=== PATIENT | male | born 1955 | race Hispanic/Latino ===

== ENCOUNTER 2018-10-25 10:47 | Inpatient (IN) | payer OTHER ==
--- NOTE | 2018-10-25 16:31 | R.PREADM ---
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 Sony Wright M.D. MR# [id number] [facility]# [id number] NAME DARLENE BLOOM ADDRESS [address] [place] [address] PHONE [facility] [id number] DATE OF 1955 AGE 63 SSN# [id number] GENDER male MARITAL STATUS Single (Never ) RACE ADMIT FROM 02 - [facility] PRE-HOSPITAL LIVING SETTING 01 - Home (private home/apt. board/care, assisted living, assisted, transitional living) HOME TYPE AND DETAILS Type of home: single family house # of steps to enter the residence: 0 # of steps within the residence: 0 # of levels in the residence: 1 PRE-HOSPITAL LIVING WITH Family/Relatives FAMILY SUPPORT Yes PRIMARY FAMILY CONTACT NAME Marshall Bloom PRIMARY FAMILY CONTACT PHONE PHONE PRIMARY FAMILY CONTACT ON ADM.? no IS PRIMARY FAMILY CONTACT AUTH. REP.? no 1ST EMERGENCY CONTACT Marshall Bloom 1ST CONTACT PHONE PHONE 1ST CONTACT ON ADM. no IS 1ST CONTACT AUTH. REP.? no PHONE 2ND CONTACT ON ADM.? no PATIENT EMPLOYMENT STATUS Retired (for age) PATIENT EMPLOYER No Employer PAYOR INFORMATION: 1ST PAYOR NAME Medicare 1ST PAYOR PHONE 1ST PAYOR INJURY/ILLNESS DUE TO ACCIDENT? No ANOTHER CONSTITUTION PARTY RESPONSIBLE? No PRIMARY REHAB/ACUTE DIAGNOSIS: CAD ONSET DATE 10/17/2018 REHAB IMPAIRMENT CATEGORY (JENNIFER): 14 Cardiac does NOT meet 60% rule PRIMARY DIAGNOSIS-RELATED SURGERIES: CABG x4 on Oct 18, 2018 COMORBID REHAB/ACUTE DIAGNOSES: - Tier 1 Dependence on renal dialysis (Z99.2) SUMMARY OF ACUTE HOSPITALIZATION: Pt. is a 63 yo Right-handed male. On 10/17/2018 he was admitted to [facility] with diagnosis CAD. His impairment category is Cardiac 09 - Cardiac Disorders (09). Pre-morbidly, Pt. was independent/mod-I in Self-Care, Sphincter Control, Transfers Control, and Locom otion; and he had good Sphincter Control. Currently, he has deficits of Transfers Control, Communication, Social Cognition, Endurance, Balance, Safety Awareness, Self-Care, and Locomotion. Pt. is now referred to [facility] for acute in-patient rehabilitation in order to maximize patient's functional independence in activities of daily living, strength, ROM, and mobi lity. Patient has realistic goal of being discharged at assistance level 6-Tim to reside at Home with Fam esther/Relatives. PAST MEDICAL HISTORY Dependence on renal dialysis (Z99.2) MEDICATION ALLERGIES: No Known Drug Allergies (NKDA) ENVIRONMENTAL ALLERGIES: - Substance Allergies None Known - Other Allergies None Known CODE STATUS: Full code WEIGHT/HEIGHT/BMI: WEIGHT 248 lbs HEIGHT 5' 6" BMI 40 DIET: - Diet Type Regular - Diet - Solid Texture Regular - Diet - Liquid Texture Regular - Tube Feed N/A SKIN DIAGRAM: Incision on Chest; extent - small; stage - NS(Not Stageable). Treatment - Per Physician's Orders. REVIEW OF SYSTEMS: - Gen Alert and awake Lying in bed No apparent distress Oriented to: person, time, and place - Vital Signs Vital signs stable, afebrile - CVS RRR VITAL SIGNS Temperature: 96.5 F SBP/DBP: 134/90 Pulse: 83 Resp: 12 Vital signs stable, afebrile CURRENT SPHINCTER CONTROL: Pre-hospital bladder status: continent # of bladder accidents in the last 7 days prior to screenin Pre-hospital bowel status: continent # of bowel accidents in the last 7 days prior to screenin Last Bowel Movement Date: 10/25/2018 DETAILED CURRENT FUNCTIONAL STATUS: - Bladder accident frequency: Ind - No accidents in the past 7 days - Bowel accident frequency: Ind - No accidents in the past 7 days - Walking score based on distance walked: 1(<=50ft) FUNCTIONAL STATUS: - Self-Care A. Eating Ind Ind B. Grooming Ind sup C. Bathing Ind maxA D. Dressing - Upper Ind maxA E. Dressing - Lower Ind maxA F. Toileting Ind maxA - Sphincter Control G: Bladder control Ind Ind H: Bowel control Ind Ind - Transfers Control I. Bed/Chair/Wheelchair Ind modA J. Toilet Ind modA K. Tub/Shower Ind modA - Locomotion L. Walk/Wheelchair (B) Ind Dep M. Stairs Ind ADNO - Communication N. Comprehension (B) sup sup O. Expression (B) sup sup - Social Cognition P. Social Interaction sup sup Q. Problem Solving sup sup R. Memory sup sup - Endurance Poor - Balance Poor - Safety Awareness Poor CURRENT FUNC. DEFICITS: Transfers Control, Communication, Social Cognition, Endurance, Balance, Safety Awareness, Self-Care, and Locomotion THERAPY NOTES FROM ACUTE CARE: Attached. SPECIAL NEEDS: - Safety Concerns Skin breakdown precautions needed due to skin breakdown risk PATIENT NEEDS ACTIVE AND ONGOING THERAPEUTIC INTERVENTION OF MULTIPLE THERAPY DISCIPLINES, INCLUDING: - Occupational Therapy Evaluate and Treat. - Physical Therapy Evaluate and Treat. PATIENT NEEDS CLOSE MEDICAL SUPERVISION BY A REHABILITATION PHYSICIAN FOR: Bowel and Bladder Management Coordination of Treatment Team Medical and Co-Morbidity Management Wound Care PATIENT REQUIRES 24X7 REHAB NURSING FOR MEDICAL AND FUNCTIONAL MGT. OF THE FOLLOWING DEFICITS: ADL's Ambulation Bowel and Bladder Management Cognition Communication Disease Management Medication Management Patient/Family Education Providing Safe Environment Skin Integrity Transfers PATIENT REQUIRES INTENSIVE, COORDINATED INTERDISCIPLINARY APPROACH TO REHAB: Arranging Home Equipment/Services Discharge Planning Family Intervention/Training Professional Programmer Analyst/Case Management PATIENT REHAB POTENTIAL: Expected level of measurable improvement will be of a practical value to patient's functional capacit y or adaptations to impairments Has a viable Discharge Plan Medically appropriate; condition is sufficiently stable to participate in intensive rehab program Patient is able and expected to receive 3 hours of individualized therapy daily on at least 5 of ever y 7 days Patient's prognosis for significant practical improvement within a reasonable period of time appears Good DISCHARGE PLAN: - Estimated Length of Stay (days) 10. - Consensus on plan Discharge plan has been discussed with primary caregiver. Patient/Family is in agreement with the eliazar n. Primary caregiver is in agreement with the plan. - Patient/Family Goals Return home with assistance. - Planned Living Setting Upon Discharge Home, to live with Family/Relatives. RECOMMENDED CARE LEVEL: IRF RECOMMENDATION DETAILS: Recommended Admission to Comprehensive Rehabilitation Program to Increase Functional [place] SCREENER'S COMPLETENESS CONFIRMATION: - Screening Confirmation The patient data collection on this preadmission screening form is finished PHYSICIANS REVIEW AND ADMISSION DETERMINATION Admit - Based on my review of the Pre-Admission Screening results, in my medical judgment and experie nce, I concur with the findings and recommend admission to [facility], as this patient requires an IRF level of care. SIGNATURE PANEL: Clinical Liaison - [electronically] signed by Maylin Odell on 10/25/2018 at 16:17 (VETERINARY SURGERY TECHNICIAN) Clinical Liaison - [electronically] signed by Alma Rosa Briseno on 10/25/2018 at 16:27 (VETERINARY SURGERY TECHNICIAN) Physician Reviewer - [electronically] signed by Dr. Sony Wright M.D. on 10/25/2018 at 16:30 (VETERINARY SURGERY TECHNICIAN )
--- OUTSIDE RECORDS SUMMARY | 2018-10-26 23:50 | XMS REPORT ---
:1955 Author Organization [employer] Care Team Providers Name Role Phone GamboaBrandyn Provider Role Unavailable Allergies, Adverse Reactions, Alerts Substance Reaction Event Type N.K.D.A. Info Not Available Non Drug Allergy Problems Problem Type Condition Code Onset Dates Condition Status Problem Hypothyroidism, unspecified type E03.9 Active Problem Dependence on renal dialysis Z99.2 Active Problem GERD without esophagitis K21.9 Active Problem Weakness R53.1 Active Assessment GERD without esophagitis K21.9 Active Problem HTN (hypertension), benign I10 Active Assessment Weakness R53.1 Active Assessment At risk for falling Z91.81 Active Problem Benign prostatic hyperplasia, N40.0 Active unspecified whether lower urinary tract symptoms present Problem End stage renal disease N18.6 Active Problem Generalized edema R60.1 Active Problem ESRD (end stage renal disease) N18.6 Active Problem Anemia of chronic disease D63.8 Active Assessment HTN (hypertension), benign I10 Active Assessment Anemia of chronic disease D63.8 Active Assessment Generalized edema R60.1 Active Assessment Dependence on renal dialysis Z99.2 Active Assessment Hypothyroidism, unspecified type E03.9 Active Assessment Controlled type 2 diabetes mellitus E11.9 Active without complication, without long-term current use of insulin Problem Controlled type 2 diabetes mellitus E11.9 Active without complication, without long-term current use of insulin Assessment Benign prostatic hyperplasia, N40.0 Active unspecified whether lower urinary tract symptoms present Assessment End stage renal disease N18.6 Active Problem At risk for falling Z91.81 Active Medications Medication Code Code Instructions Start End Status Dosage System Date Date Calcium Acetate [facility] 46525821785 667 MG Orally Active 2 capsules Three times a with meals day Vitamin B-1 [facility] 72854604660 100 MG Orally Active 1 tablet Once a day Lasix ND 28348303726 80 MG Orally Active 1 tablet Once a day Aspirin 81 ND 78104907584 81 MG Orally Active 1 tablet Once a day Levothyroxine [facility] 32212171485 88 MCG Orally Active 1 tablet on Sodium Once a day an empty stomach in the morning Docusate Sodium [facility] 27777808858 100 MG Orally Active 1 capsule Once a day as needed Levothyroxine [facility] 19288688124 88 MCG Orally Active 1 tablet on Sodium Once a day an empty stomach in the morning Tamsulosin HCl [facility] 29738277450 0.4 MG Orally Active 1 capsule Once a day Midodrine HCl [facility] 53042490558 5 MG Orally Active 1 tablet Take 30 mins before dialysis Vitamin D3 [facility] 22861000185 5000 UNIT Active 1 capsule Maximum Strength Orally Once a day Vitamin B-1 [facility] 75452765351 100 MG Active TAKE 1 TABLET BY MOUTH EVERY DAY Oysco 500 [facility] 54185901942 500 MG Orally Active 2 tablets twice a day Tamsulosin HCl [facility] 02572028650 0.4 MG Active TAKE ONE CAPSULE BY MOUTH AT BEDTIME Calcium NDC 0 500 MG Orally Active 2 tablet Carbonate Twice a day Results No Known Results Summary Purpose eClinicalWorks Submission
--- OUTSIDE RECORDS SUMMARY | 2018-10-26 23:50 | XMS REPORT ---
:1955 [facility] Address [address] [place] [address] Dr. Peterson [address] [place] [address] Care Team Providers Name Role Phone Unavailable Unavailable Unavailable Problems This patient has no known problems. Allergies, Adverse Reactions, Alerts This patient has no known allergies or adverse reactions. Medications This patient has no known medications.
--- OUTSIDE RECORDS SUMMARY | 2018-10-26 23:50 | XMS REPORT ---
:1955 Author Organization [employer] Care Team Providers Name Role Phone Cooper Brandyn Provider Role Unavailable Allergies No Known Allergies Problems Problem Type Condition Code Onset Dates Condition Status Problem Hypothyroidism, unspecified type E03.9 Active Problem Dependence on renal dialysis Z99.2 Active Problem GERD without esophagitis K21.9 Active Problem Controlled type 2 diabetes mellitus E11.9 Active without complication, without long-term current use of insulin Problem At risk for falling Z91.81 Active Problem Weakness R53.1 Active Problem HTN (hypertension), benign I10 Active Problem Benign prostatic hyperplasia, N40.0 Active unspecified whether lower urinary tract symptoms present Problem End stage renal disease N18.6 Active Problem Generalized edema R60.1 Active Problem ESRD (end stage renal disease) N18.6 Active Problem Anemia of chronic disease D63.8 Active Medications Medication Code Code Instructions Start End Status Dosage System Date Date Levothyroxine [facility] 76956604822 88 MCG Orally Active 1 tablet Sodium Once a day on an empty stomach in the morning Results No Known Results Summary Purpose eClinicalWorks Submission
[2018-10-27] MEDS ORDERED: DOCUSATE NA 100 MG CAP PO PRN (00:12)
[2018-10-27] MEDS: PANTOPRAZOLE 40MG TABLET PO SCH (05:30)
[2018-10-27] MEDS: LEVOTHYROXINE SOD 0.088 MG TAB PO SCH (05:30)
[2018-10-27] MEDS ORDERED: METOPROLOL TAR 25 MG TAB PO SCH (06:00)
[2018-10-27] MEDS ORDERED: PNEUMOCOCCAL VACCINE 0.5 ML IMVAC ONE (08:00)
[2018-10-27] MEDS: PROMOD 30 ML DOSE PO SCH ×2 (08:00→20:08)
[2018-10-27] MEDS: FERROUS SULFATE 325 MG TAB PO SCH ×2 (08:33→19:57)
[2018-10-27] MEDS: TAMSULOSIN 0.4 MG SR CAP PO SCH (08:33)
[2018-10-27] MEDS: CA ACETATE 667 MG CAP PO SCH ×3 (08:33→16:57)
[2018-10-27] MEDS: FE SULF/FA/VIT B COMP & C TAB PO SCH (08:34)
[2018-10-27] MEDS: CLOPIDOGREL 75 MG TABLET PO SCH (08:34)
[2018-10-27] MEDS: ASPIRIN 81 MG CHEWABLE TABLET PO SCH (08:34)
[2018-10-27] MEDS: MIDODRINE HCL 5 MG TABLET PO SCH (09:51)
--- NOTE | 2018-10-27 11:27 | FAST ---
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 Sony Wright M.D. ADMISSION DIAGNOSIS: - Cardiac 09 - Cardiac Disorders () CAD. EATING: Activity did not occur on this shift EATING - SCORE: 0-UNK GROOMING: Activity did not occur on this shift GROOMING - SCORE: 0-UNK BATHING: Activity did not occur on this shift BATHING - SCORE: 0-UNK DRESSING - UPPER BODY: Patient is not dressing in public clothing ARTICLES SCORE Total number of steps: 0 DRESSING - UPPER BODY - SCORE: 0-UNK DRESSING - LOWER BODY: Patient is not dressing in public clothing ARTICLES SCORE Total number of steps: 0 DRESSING - LOWER BODY - SCORE: 0-UNK TOILETING: Activity did not occur on this shift TOILETING - SCORE: 0-UNK BLADDER MANAGEMENT: Patient is on renal dialysis or peritoneal dialysis and no voiding activity BLADDER MANAGEMENT - SCORE: 7-IND BOWEL MANAGEMENT: Activity did not occur on this shift BOWEL MANAGEMENT - SCORE: 7-IND TRANSFERS: BED, CHAIR, WHEELCHAIR: TRANSFERS: BED, CHAIR, WHEELCHAIR - STEP 1: Does the patient require assistance of a person or device, or need extra time with bed, chair, or whe elchair transfers? Yes. TRANSFERS: BED, CHAIR, WHEELCHAIR - STEP 2: Does the patient require the assistance of a helper? Yes. TRANSFERS: BED, CHAIR, WHEELCHAIR - STEP 3: How much assistance does the patient require from the helper? Lifting of the legs TRANSFERS: BED, CHAIR, WHEELCHAIR - STEP 4: How many legs does the patient require the helper to lift? both legs TRANSFERS: BED, CHAIR, WHEELCHAIR - SCORE: 3-MOD TRANSFERS: TOILET: Activity did not occur on this shift TRANSFERS: TOILET - SCORE: 0-UNK TRANSFERS: SHOWER: Activity did not occur on this shift TRANSFERS: SHOWER - SCORE: 0-UNK TRANSFERS: TUB: Activity did not occur on this shift TRANSFERS: TUB - SCORE: 0-UNK LOCOMOTION: WALK: Activity did not occur on this shift LOCOMOTION: WALK - SCORE: 0-UNK LOCOMOTION: WHEELCHAIR: Activity did not occur on this shift LOCOMOTION: WHEELCHAIR - SCORE: 0-UNK COMPREHENSION: COMPREHENSION: TYPE: Both COMPREHENSION - STEP 1: Does the patient require help from a person or device, or need extra time to understand complex and a bstract ideas (such as current events, finances, discharge planning, medical issues, relationships, e tc)? No. COMPREHENSION - STEP 2: Does the patient need extra time, require an assistive device (such as glasses for visual comprehensi on or a hearing aid for auditory comprehension) or does s/he have mild difficulty understanding compl ex and abstract information? Yes. COMPREHENSION - SCORE: 6-SMILEY EXPRESSION EXPRESSION: TYPE: Both EXPRESSION - STEP 1: Does the patient require help from a person or device, or need extra time expressing complex and abst ract ideas (such as current events, finances, discharge planning, medical issues, relationships, etc) ? No. EXPRESSION - STEP 2: Does the patient need extra time, require an assistive device (such as augmentive communication syste m or a communication board), OR does s/he have mild difficulty expressing complex and abstract ideas (including mild dysarthria or mild word-find problems)? Yes. EXPRESSION - SCORE: 6-SMILEY SOCIAL INTERACTION: SOCIAL INTERACTION - STEP 1: Does the patient require a helper to interact with others in social and therapeutic situations? No. SOCIAL INTERACTION - STEP 2: Does the patient need extra time in social situations, OR does s/he interact with staff, other patien ts, and family members ONLY in structured environments, OR does s/he require medication for social in teraction? Yes, patient needs extra time SOCIAL INTERACTION - SCORE: 6-SMILEY PROBLEM SOLVING: PROBLEM SOLVING - STEP 1: Does the patient need help from a person or device, or need extra time to solve complex problems such as managing a checking account or confronting interpersonal problems? No. PROBLEM SOLVING - STEP 2: Does the patient require extra time to make decisions or solve problems, OR does s/he have slight dif ficulty reading, initiating, or self-correcting in unfamiliar situations? Yes, patient needs extra ti me. PROBLEM SOLVING - SCORE: 6-SMILEY MEMORY: MEMORY - STEP 1: Does the patient need help from a person or device, or need extra time to remember frequently encount ered people, daily routines, and executing requests? No. MEMORY - STEP 2: Does the patient have slight difficulty recognizing frequently encountered people, daily routines, or executing requests without the need for repetition or using self-initiated or environmental cues to remember? Yes. MEMORY - SCORE: 6-SMILEY
--- NOTE | 2018-10-27 11:31 | FAST ---
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 Sony Wright M.D. ADMISSION DIAGNOSIS: - Cardiac 09 - Cardiac Disorders () CAD. EATING: EATING - STEP 1: Does the patient require the assistance of a person or device, or need extra time when eating? Yes. EATING - STEP 2: Does the patient require the assistance of a helper? No, patient only requires an assistive device, O R s/he takes more than reasonable time to eat, OR there is a safety concern, OR s/he requires modifie d food consistency EATING - SCORE: 6-SMILEY GROOMING: GROOMING - STEP 1: Does the patient require the assistance of a person or device, or need extra time when grooming? Yes. GROOMING - STEP 2: Does the patient require the assistance of a helper? Yes. GROOMING - STEP 3: How much assistance does the patient require from the helper? Incidental touching assistance from the helper while grooming GROOMING - SCORE: 4-MIN BATHING: Abdomen Buttocks Chest Left arm Left lower leg and foot Left upper leg Perineal area Right arm Right lower leg and foot Right upper leg BATHING - STEP 1: Does the patient require the assistance of a person or device, or need extra time when bathing? Yes. BATHING - STEP 2: Does the patient require the assistance of a helper? Yes. BATHING - STEP 3: How much assistance does the patient require from the helper? More than just incidental help BATHING - STEP 4: What percent of the body parts did the patient bathe WITHOUT the helper? Half or more of the body par ts BATHING - SCORE: 3-MOD DRESSING - UPPER BODY: T-shirt/pullover shirt (four steps) ARTICLES SCORE Total number of steps: 4 DRESSING - UPPER BODY - STEP 1: Does the patient require help from a person or device, or need extra time when dressing above the [address]? Yes. DRESSING - UPPER BODY - STEP 2: Does the patient require the assistance of a helper? Yes. DRESSING - UPPER BODY - STEP 3: Does the helper touch the patient while dressing? Yes. DRESSING - UPPER BODY - STEP 4: How many of the total steps does the patient complete on his/her own? 2 DRESSING - UPPER BODY - SCORE: 3-MOD DRESSING - LOWER BODY: Elastic waist pants (three steps) Sock - Left foot (one step) Sock - Right foot (one step) Underwear (three steps) ARTICLES SCORE Total number of steps: 8 DRESSING - LOWER BODY - STEP 1: Does the patient require help from a person or device, or need extra time when dressing below the [address]? Yes. DRESSING - LOWER BODY - STEP 2: Does the patient require the assistance of a helper? Yes. DRESSING - LOWER BODY - STEP 3: Does the helper touch the patient while dressing? Yes. DRESSING - LOWER BODY - STEP 4: How many of the total steps does the patient complete on his/her own? 3 DRESSING - LOWER BODY - STEP 5: Does patient require total assistance for dressing below the waist such as the helper holding clothin g and performing basically all the activities? No. DRESSING - LOWER BODY - SCORE: 2-MAX TOILETING: TOILETING - STEP 1: Does the patient require the assistance of a person or device, or need extra time with toileting? Yes . TOILETING - STEP 2: Does the patient require the assistance of a helper? Yes. TOILETING - STEP 3: How much assistance does the patient require from the helper? Hands-on assistance from the helper TOILETING - STEP 4: Of the 3 tasks: 1) Adjusting clothing prior to use, 2) Cleansing of perineal area, 3) Adjusting clot nabeel after use; How many tasks does the patient perform WITHOUT assistance of the helper? One task TOILETING - SCORE: 2-MAX BLADDER MANAGEMENT: Activity did not occur on this shift BLADDER MANAGEMENT - SCORE: 7-IND BOWEL MANAGEMENT: Activity did not occur on this shift BOWEL MANAGEMENT - SCORE: 7-IND TRANSFERS: BED, CHAIR, WHEELCHAIR: TRANSFERS: BED, CHAIR, WHEELCHAIR - STEP 1: Does the patient require assistance of a person or device, or need extra time with bed, chair, or whe elchair transfers? Yes. TRANSFERS: BED, CHAIR, WHEELCHAIR - STEP 2: Does the patient require the assistance of a helper? Yes. TRANSFERS: BED, CHAIR, WHEELCHAIR - STEP 3: How much assistance does the patient require from the helper? Steadying/guiding assistance TRANSFERS: BED, CHAIR, WHEELCHAIR - SCORE: 4-MIN TRANSFERS: TOILET: TRANSFERS: TOILET - STEP 1: Does the patient require the assistance of a person or device, or need extra time with toilet transfe rs? Yes. TRANSFERS: TOILET - STEP 2: Does the patient require the assistance of a helper? Yes. TRANSFERS: TOILET - STEP 3: How much assistance does the patient require from the helper? Patient performs half or more of the tr ansferring tasks TRANSFERS: TOILET - STEP 4: Does the patient need only incidental help such as contact guard or steadying during toilet transfer? Yes. TRANSFERS: TOILET - SCORE: 4-MIN TRANSFERS: SHOWER: TRANSFERS: SHOWER - STEP 1: Does the patient require the assistance of a person or device, or need extra time with shower transfe rs? Yes. TRANSFERS: SHOWER - STEP 2: Does the patient require the assistance of a helper? Yes. TRANSFERS: SHOWER - STEP 3: How much assistance does the patient require from the helper? Only incidental help such as contact gu arding or steadying during shower transfers, or help to lift one leg into the shower TRANSFERS: SHOWER - SCORE: 4-MIN TRANSFERS: TUB: Activity did not occur on this shift TRANSFERS: TUB - SCORE: 0-UNK LOCOMOTION: WALK: Activity did not occur on this shift LOCOMOTION: WALK - SCORE: 0-UNK LOCOMOTION: WHEELCHAIR: Activity did not occur on this shift LOCOMOTION: WHEELCHAIR - SCORE: 0-UNK LOCOMOTION: STAIRS: Activity did not occur on this shift LOCOMOTION: STAIRS - SCORE: 0-UNK COMPREHENSION: COMPREHENSION: TYPE: Both COMPREHENSION - STEP 1: Does the patient require help from a person or device, or need extra time to understand complex and a bstract ideas (such as current events, finances, discharge planning, medical issues, relationships, e tc)? No. COMPREHENSION - STEP 2: Does the patient need extra time, require an assistive device (such as glasses for visual comprehensi on or a hearing aid for auditory comprehension) or does s/he have mild difficulty understanding compl ex and abstract information? Yes. COMPREHENSION - SCORE: 6-SMILEY EXPRESSION EXPRESSION: TYPE: Both EXPRESSION - STEP 1: Does the patient require help from a person or device, or need extra time expressing complex and abst ract ideas (such as current events, finances, discharge planning, medical issues, relationships, etc) ? No. EXPRESSION - STEP 2: Does the patient need extra time, require an assistive device (such as augmentive communication syste m or a communication board), OR does s/he have mild difficulty expressing complex and abstract ideas (including mild dysarthria or mild word-find problems)? No. EXPRESSION - SCORE: 7-IND SOCIAL INTERACTION: SOCIAL INTERACTION - STEP 1: Does the patient require a helper to interact with others in social and therapeutic situations? No. SOCIAL INTERACTION - STEP 2: Does the patient need extra time in social situations, OR does s/he interact with staff, other patien ts, and family members ONLY in structured environments, OR does s/he require medication for social in teraction? No. SOCIAL INTERACTION - SCORE: 7-IND PROBLEM SOLVING: PROBLEM SOLVING - STEP 1: Does the patient need help from a person or device, or need extra time to solve complex problems such as managing a checking account or confronting interpersonal problems? Yes. PROBLEM SOLVING - STEP 2: Does the patient solve basic routine problems half or more of the time? Yes. PROBLEM SOLVING - STEP 3: How often does the patient need help to solve basic routine problems? Less than 10% of the time PROBLEM SOLVING - SCORE: 5-SUP MEMORY: MEMORY - STEP 1: Does the patient need help from a person or device, or need extra time to remember frequently encount ered people, daily routines, and executing requests? Yes. MEMORY - STEP 2: How often does the patient need help to remember frequently encountered people, daily routines, and e xecuting requests? Less than 10% of the time MEMORY - SCORE: 5-SUP SIGNATURE PANEL: The following modified sections: Eating - Score, Grooming - Score, Bathing - Score, Dressing - Upper Body - Score, Dressing - Lower Body - Score, Toileting - Score, Transfers: Bed, Chair, Wheelchair - S core, Transfers: Toilet - Score, Transfers: Shower - Score, Transfers: Tub - Score, Comprehension - S core, Expression - Score, Social Interaction - Score, Problem Solving - Score, Memory - Score were [e lectronically] signed by Alyosn Orellana OT on Sat Oct 27 2018 10:49:40 T-0600 ([facility])
[2018-10-27 13:38] LABS: Absolute Lymphocytes (CBC) 0.5 K/uL (0.7-4.9); Absolute Monocytes 0.4 K/uL (0.1-1.3); Absolute Neutrophil 5.5 K/uL (1.8-8.0); Basophils % 0.9 % (0-1.3); Hematocrit 25.5 % (39.6-49.0); Lymphocytes % 7.8 % (15.3-44.8); MPV 8.3 fL (7.6-11.3); Monocytes % 6.5 % (3.3-12.3); RBC Red Blood Cell Count 2.67 M/uL (4.33-5.43)
[2018-10-27 13:54] LABS: Albumin 2.4 g/dL (3.4-5.0); Magnesium 1.6 mg/dL (1.8-2.4); Potassium 3.5 mmol/L (3.5-5.1); Prealbumin 10.2 mg/dL (20-40)
--- NOTE | 2018-10-27 15:24 | FAST ---
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 Sony Wright M.D. ADMISSION DIAGNOSIS: - Cardiac 09 - Cardiac Disorders () CAD. EATING: EATING - STEP 1: Does the patient require the assistance of a person or device, or need extra time when eating? Yes. EATING - STEP 2: Does the patient require the assistance of a helper? No, patient only requires an assistive device, O R s/he takes more than reasonable time to eat, OR there is a safety concern, OR s/he requires modifie d food consistency EATING - SCORE: 6-SMILEY GROOMING: Activity did not occur on this shift GROOMING - SCORE: 0-UNK BATHING: Activity did not occur on this shift BATHING - SCORE: 0-UNK DRESSING - UPPER BODY: Activity did not occur on this shift ARTICLES SCORE Total number of steps: 0 DRESSING - UPPER BODY - SCORE: 0-UNK DRESSING - LOWER BODY: Activity did not occur on this shift ARTICLES SCORE Total number of steps: 0 DRESSING - LOWER BODY - SCORE: 0-UNK TOILETING: TOILETING - STEP 1: Does the patient require the assistance of a person or device, or need extra time with toileting? Yes . TOILETING - STEP 2: Does the patient require the assistance of a helper? Yes. TOILETING - STEP 3: How much assistance does the patient require from the helper? Hands-on assistance from the helper TOILETING - STEP 4: Of the 3 tasks: 1) Adjusting clothing prior to use, 2) Cleansing of perineal area, 3) Adjusting clot nabeel after use; How many tasks does the patient perform WITHOUT assistance of the helper? One task TOILETING - SCORE: 2-MAX BLADDER MANAGEMENT: Patient is on renal dialysis or peritoneal dialysis and no voiding activity BLADDER MANAGEMENT - SCORE: 7-IND BLADDER MANAGEMENT - FREQUENCY OF ACCIDENTS: BLADDER MANAGEMENT(FA) - STEP 1: How many accidents has the patient had during the current shift? 0 BOWEL MANAGEMENT: Activity did not occur on this shift BOWEL MANAGEMENT - SCORE: 7-IND BOWEL MANAGEMENT - FREQUENCY OF ACCIDENTS: BOWEL MANAGEMENT(FA) - STEP 1: How many accidents has the patient had during the current shift? 0 TRANSFERS: BED, CHAIR, WHEELCHAIR: TRANSFERS: BED, CHAIR, WHEELCHAIR - STEP 1: Does the patient require assistance of a person or device, or need extra time with bed, chair, or whe elchair transfers? Yes. TRANSFERS: BED, CHAIR, WHEELCHAIR - STEP 2: Does the patient require the assistance of a helper? Yes. TRANSFERS: BED, CHAIR, WHEELCHAIR - STEP 3: How much assistance does the patient require from the helper? Lifting of the patient TRANSFERS: BED, CHAIR, WHEELCHAIR - STEP 4: Does the helper lift the patient ONLY up? ONLY down? Up AND Down? Up AND Down. TRANSFERS: BED, CHAIR, WHEELCHAIR - SCORE: 2-MAX TRANSFERS: TOILET: TRANSFERS: TOILET - STEP 1: Does the patient require the assistance of a person or device, or need extra time with toilet transfe rs? Yes. TRANSFERS: TOILET - STEP 2: Does the patient require the assistance of a helper? Yes. TRANSFERS: TOILET - STEP 3: How much assistance does the patient require from the helper? Patient performs half or more of the tr ansferring tasks TRANSFERS: TOILET - STEP 4: Does the patient need only incidental help such as contact guard or steadying during toilet transfer? Yes. TRANSFERS: TOILET - SCORE: 4-MIN TRANSFERS: SHOWER: Activity did not occur on this shift TRANSFERS: SHOWER - SCORE: 0-UNK TRANSFERS: TUB: Activity did not occur on this shift TRANSFERS: TUB - SCORE: 0-UNK LOCOMOTION: WALK: Activity did not occur on this shift LOCOMOTION: WALK - SCORE: 0-UNK LOCOMOTION: WHEELCHAIR: Activity did not occur on this shift LOCOMOTION: WHEELCHAIR - SCORE: 0-UNK COMPREHENSION: COMPREHENSION: TYPE: Both COMPREHENSION - STEP 1: Does the patient require help from a person or device, or need extra time to understand complex and a bstract ideas (such as current events, finances, discharge planning, medical issues, relationships, e tc)? No. COMPREHENSION - STEP 2: Does the patient need extra time, require an assistive device (such as glasses for visual comprehensi on or a hearing aid for auditory comprehension) or does s/he have mild difficulty understanding compl ex and abstract information? Yes. COMPREHENSION - SCORE: 6-SMILEY EXPRESSION EXPRESSION: TYPE: Both EXPRESSION - STEP 1: Does the patient require help from a person or device, or need extra time expressing complex and abst ract ideas (such as current events, finances, discharge planning, medical issues, relationships, etc) ? No. EXPRESSION - STEP 2: Does the patient need extra time, require an assistive device (such as augmentive communication syste m or a communication board), OR does s/he have mild difficulty expressing complex and abstract ideas (including mild dysarthria or mild word-find problems)? No. EXPRESSION - SCORE: 7-IND SOCIAL INTERACTION: SOCIAL INTERACTION - STEP 1: Does the patient require a helper to interact with others in social and therapeutic situations? No. SOCIAL INTERACTION - STEP 2: Does the patient need extra time in social situations, OR does s/he interact with staff, other patien ts, and family members ONLY in structured environments, OR does s/he require medication for social in teraction? No. SOCIAL INTERACTION - SCORE: 7-IND PROBLEM SOLVING: PROBLEM SOLVING - STEP 1: Does the patient need help from a person or device, or need extra time to solve complex problems such as managing a checking account or confronting interpersonal problems? Yes. PROBLEM SOLVING - STEP 2: Does the patient solve basic routine problems half or more of the time? Yes. PROBLEM SOLVING - STEP 3: How often does the patient need help to solve basic routine problems? Less than 10% of the time PROBLEM SOLVING - SCORE: 5-SUP MEMORY: MEMORY - STEP 1: Does the patient need help from a person or device, or need extra time to remember frequently encount ered people, daily routines, and executing requests? Yes. MEMORY - STEP 2: How often does the patient need help to remember frequently encountered people, daily routines, and e xecuting requests? Less than 10% of the time MEMORY - SCORE: 5-SUP SIGNATURE PANEL: The following modified sections: Eating - Score, Grooming - Score, Bathing - Score, Dressing - Upper Body - Score, Dressing - Lower Body - Score, Toileting - Score, Bladder Management - Score, Bowel Man agement - Score, Transfers: Bed, Chair, Wheelchair - Score, Transfers: Toilet - Score, Transfers: Juli wer - Score, Transfers: Tub - Score, Locomotion: Walk - Score, Locomotion: Wheelchair - Score, Compre hension - Score, Expression - Score, Social Interaction - Score, Problem Solving - Score, Memory - Sc ore were [electronically] signed by Neelam Vaughn C.N.A. on Sat Oct 27 2018 15:23:30 GMT-0600 ([facility])
[2018-10-27] MEDS: METOPROLOL TAR 25 MG TAB PO SCH (16:57)
--- NOTE | 2018-10-27 17:39 | R.HP ---
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 board/care, assisted living, snf, transitional living) PRE-HOSPITAL LIVING WITH Family/Relatives ENCOUNTER PHYSICIAN: Dr. Sony Wright M.D. REFERRING DOCTOR: Tony Miller DATE OF ADMISSION: 10/26/2018 16:10 (GREEN CHAINER) REFERRING FACILITY [facility] HOME TYPE AND DETAILS: Type of home: single family house # of steps to enter the residence: 0 # of steps within the residence: 0 # of levels in the residence: 1 ADMISSION DIAGNOSIS: CAD ONSET DATE: 10/17/2018 PRIMARY DIAGNOSIS-RELATED SURGERIES: CABG x4 on Oct 18, 2018 SECONDARY/COMORBID DIAGNOSES (TIERED): - Tier 1 Dependence on renal dialysis (Z99.2) HISTORY OF PRESENT ILLNESS (HPI): Pt. is a 63 yo Right-handed male. On 10/17/2018 he was admitted to [facility] with diagnosis CAD. His impairment category is Cardiac 09 - Cardiac Disorders (09). Pre-morbidly, Pt. was independent/mod-I in Self-Care, Sphincter Control, Transfers Control, and Locom otion; and he had good Sphincter Control. Currently, he has deficits of Transfers Control, Communication, Social Cognition, Endurance, Balance, Safety Awareness, Self-Care, and Locomotion. Pt. is now referred to [facility] for acute in-patient rehabilitation in order to maximize patient's functional independence in activities of daily living, strength, ROM, and mobi lity. Patient has realistic goal of being discharged at assistance level 6-Tim to reside at Home with Fam esther/Relatives. MEDICATION ALLERGIES: No Known Drug Allergies (NKDA) ENVIRONMENTAL ALLERGIES: - Substance Allergies None Known - Other Allergies None Known PAST MEDICAL HISTORY: Dependence on renal dialysis (Z99.2) FAMILY HISTORY: Family history is not contributory. SOCIAL HISTORY: - Home Living Family/Relatives REVIEW OF SYSTEMS: - Gen No Chills Fatigue No Fever - Eyes No Double Vision No itchiness - ENMT No Difficulty Swallowing - CVS Chest Discomfort No Chest Pain Fatigue Weight Gain - Resp No Cough No Shortness of Breath - GI Continent No Abdominal Pain No Constipation No Diarrhea - Continent No Kidney Pain No Painful Urination No Urinary Urgency - MSK No Joint Pain No Muscle Cramps Stiffness - Skin No Itching No Rash No Suspicious Lesions - Neuro Coordination Difficulty No Difficulty with Concentration No Memory Loss No Seizures Weakness - Psych No Anxiety No Depression No HIV Exposure No Persistent Infections No Seasonal Allergies - Endo No Cold/Heat Intolerance No Excessive Hunger No Excessive Thirst No Excessive Urination PHYSICAL EXAM - Gen Alert and awake Lying in bed No apparent distress Oriented to: person, time, and place - Skin Right medial leg vein harvest site has small area of drainage. Will apply wet to dry dressing changes 2-3 times daily as needed. No abnormalities - Eyes No abnormalities - ENMT No abnormalities - Neck No abnormalities - CVS RRR - Chest Mildly decreased breath sounds bilaterally. - Abd +bowel sounds - GI Obese Deferred - No abnormalities - Ext Mild postoperative edema in the right lower extremity - MSK 4+/5 weakness in left and right lower extremity - Neuro No focal deficits. - Psych No abnormalities VITAL SIGNS Temperature: 96.5 F SBP/DBP: 134/90 Pulse: 83 Resp: 12 NURSING: - Shower allowing shower ACTIVITIES OOB only with supervision FUNCTIONAL STATUS: - Self-Care A. Eating Ind Ind B. Grooming Ind sup C. Bathing Ind maxA D. Dressing - Upper Ind maxA E. Dressing - Lower Ind maxA F. Toileting Ind maxA - Sphincter Control G: Bladder control Ind Ind H: Bowel control Ind Ind - Transfers Control I. Bed/Chair/Wheelchair Ind modA J. Toilet Ind modA K. Tub/Shower Ind modA - Locomotion L. Walk/Wheelchair (B) Ind Dep M. Stairs Ind ADNO - Communication N. Comprehension (B) sup sup O. Expression (B) sup sup - Social Cognition P. Social Interaction sup sup Q. Problem Solving sup sup R. Memory sup sup - Endurance Poor - Balance Poor - Safety Awareness Poor CURRENT FUNC. DEFICITS: Transfers Control, Communication, Social Cognition, Endurance, Balance, Safety Awareness, Self-Care, and Locomotion ASSESSMENT: Pt. is a 63 yo Right-handed male.On 10/17/2018 he was admitted to [facility] with diagnos is CAD.His impairment category is Cardiac 09 - Cardiac Disorders (09).Pre-morbidly, Pt. was independ ent/mod-I in Self-Care, Sphincter Control, Transfers Control, and Locomotion; and he had good Sphinct er Control.Currently, he has deficits of Transfers Control, Communication, Social Cognition, Enduranc e, Balance, Safety Awareness, Self-Care, and Locomotion.Pt. is now referred to [facility] for acute in-patient rehabilitation in order to maximize patient's functional independenc e in activities of daily living, strength, ROM, and mobility.- Rehab Goal Patient has realistic goal of being discharged at assistance level 6-Tim to reside at Home with Fam esther/Relatives. REHAB PLAN: - Physical Therapy Gait dysfunction - to improve, our physical therapists will perform initial evaluation of pt's status upon admission and devise an individualized program for Gait Training, and Wheel Chair mobility Inability to transfer - to improve, our physical therapists will perform initial evaluation of pt's s tatus upon admission and devise an individualized program for Bed mobility Need for home safety evaluation - to improve, our physical therapists will perform initial evaluation of pt's status upon admission and devise an individualized program for Home Evaluation Need in caregiver upon discharge - to improve, our physical therapists will perform initial evaluatio n of pt's status upon admission and devise an individualized program for Caregiver Training New precaution - to improve, our physical therapists will perform initial evaluation of pt's status u vanna admission and devise an individualized program for Patient precaution education Edema - to improve, our physical therapists will perform initial evaluation of pt's status upon admi ssion and devise an individualized program for Elevation Training, and Lymphedema Therapy Poor balance - to improve, our physical therapists will perform initial evaluation of pt's status upo n admission and devise an individualized program for Balance Training Poor endurance - to improve, our physical therapists will perform initial evaluation of pt's status u vanna admission and devise an individualized program for Endurance Training Weakness - to improve, our physical therapists will perform initial evaluation of pt's status upon ad mission and devise an individualized program for Aquatic Therapy, Neuromuscular Reeducation, and Stre ngthening Achieving independence - to improve, our physical therapists will perform initial evaluation of pt's status upon admission and devise an individualized program for Community Reintegration Activities - Occupational Therapy ADL deficits - to improve, our occupation therapists will perform initial evaluation of pt's status u vanna admission and devise an individualized program for Bathing, Bed mobility, Community Reintegration , Cooking, Dressing, Eating, Fine Motor Skills, Grooming, Homemaking, Kitchen Mobility, Laundry, Aissatou ent Education, Safety Awareness, Splinting - Positioning, Transfers(Toilet, Tub, Shower), and Wheel C hair Management Cognitive deficits - to improve, our occupation therapists will perform initial evaluation of pt's st atus upon admission and devise an individualized program for Cognition - orientation Need for clinical care leader - to improve, our occupation therapists will perform initial evaluation of pt's s tatus upon admission and devise an individualized program for Caregiver Training Weakness - to improve, our occupation therapists will perform initial evaluation of pt's status upon admission and devise an individualized program for Aquatic Therapy, Balance, Endurance, UE ROM, and U E strengthening MEDICAL PLAN: - Diet Type Start Regular - Diet - Liquid Texture Start Regular - Tube Feed Start N/A - Diet - Solid Texture Regular - Shower shower DISCHARGE PLAN: - Estimated Length of Stay (days) 10. - Consensus on plan Discharge plan has been discussed with primary caregiver. Patient/Family is in agreement with the eliazar n. Primary caregiver is in agreement with the plan. - Patient/Family Goals Return home with assistance. - Planned Living Setting Upon Discharge Home, to live with Family/Relatives. SIGNATURE PANEL: (GREEN CHAINER)
--- NOTE | 2018-10-27 17:42 | PAPE ---
PATIENT: [facility] MR# [id number] REFERRING DOCTOR Tony Miller EVALUATION DATE AND TIME 10/27/2018 17:39 (TAKER OFF) NAME DARLENE BLOOM DATE OF 1955 AGE 63 PHONE SSN# [id number] GENDER male EVALUATING PHYSICIAN Dr. Sony Wright M.D. ADMISSION DIAGNOSIS: CAD ONSET DATE 10/17/2018 SECONDARY/COMORBID DIAGNOSES TIERED: - Tier 1 Dependence on renal dialysis (Z99.2) POST-ADMISSION FUNCTIONAL/MEDICAL STATUS: - Bladder Same accident frequency: Ind - No accidents in the past 7 days - Bowel Same accident frequency: Ind - No accidents in the past 7 days - Walking Same score based on distance walked: 1(<=50ft) STATUS CHANGE EVALUATION: No change in Functional or Medical Status is identified compared with Pre-Admission screening. PATIENT NEEDS CLOSE MEDICAL SUPERVISION BY A REHABILITATION PHYSICIAN FOR: Bowel and Bladder Management Coordination of Treatment Team Medical and Co-Morbidity Management Wound Care PATIENT REQUIRES 24X7 REHAB NURSING FOR MEDICAL AND FUNCTIONAL MGT. OF THE FOLLOWING DEFICITS: ADL's Ambulation Bowel and Bladder Management Cognition Communication Disease Management Medication Management Patient/Family Education Providing Safe Environment Skin Integrity Transfers PATIENT REQUIRES INTENSIVE, COORDINATED INTERDISCIPLINARY APPROACH TO REHAB: Arranging Home Equipment/Services Discharge Planning Family Intervention/Training Sales Stock Associate/Case Management LIST OF IDENTIFIED AND POTENTIAL PROBLEMS: Alteration in leisure activities Bladder, Incontinence Bowel, Incontinence Infection, Actual or Potential Mobility Impaired Pain, Alteration in Comfort Self Care Deficit Skin Integrity, Actual or Potential Urinary Tract Infection (UTI), Actual or Potential PATIENT COULD BE AT RISK FOR COMPLICATIONS FROM ADVERSE MEDICAL CONDITIONS DUE TO HIS/HER COMORBIDITI ES AND THE RIGORS OF THE INTENSIVE REHABILLITATION PROGRAM. METHODS OR INTERVENTIONS TO AVOID COMPLIC ATIONS INCLUDE: - Bleeding Assess lab values and manage abnormalities. Nursing to teach precautions for anti-coagulation therapy . Wound to be assessed every shift. - Infection Clinical staff to assess and manage the signs and symptoms of infection including fever, redness, war mth, etc. - Urinary Tract Infection - Falls Patient will be evaluated for Fall Precautions and will be placed on Fall Precautions as indicated pe r protocol. - Skin Breakdown Nursing will assess skin daily using assessment tool and will place on Skin Breakdown Precautions as indicated per protocol. - Pain Clinical staff may employ non-medication methods such as massage, distraction, decrease stimulus, etc . as needed. Clinical staff will assess patient's pain level every shift per protocol to assess and e nsure pain management effectiveness. Medications will be given and the pain level re-assessed. PRELIMINARY PLAN OF CARE: - Physical Therapy Patient needs Physical Therapy for a daily minimum of 1.5 hours at least 5 out of 7 days, to improve: Mobility, Strengthening, Transfers, Stretching, ROM, Endurance, Ability to manage stairs, Gait, and Balance. - Rehabilitation Nursing Patient requires 24x7 Rehabilitation Nursing for: Pain Issues, Identifying and preventing risk factor s, Monitoring and reporting current medical conditions, Assisting with ambulation and transfer, Jennifer ting with all ADL-s, Teaching patients about disease process and medications, Family teaching, Provid ing safe environment, Bowel and Bladder Issues, Skin Integrity, and Medication Management. Patient needs Sales Stock Associate and/or Case Management for: Discharge Planning, Arranging Home Equipmen t or Services, and Family Interventions. - Dietary and Nutrition Services Patient needs Dietary and Nutrition Services for: Adequate Nutrition, Nutritional Supplements, and Nu tritional Education. - Occupational Therapy Patient needs Occupational Therapy for a daily minimum of 1.5 hours at least 5 out of 7 days, to impr ove Activities of Daily Living, including: Eating, Grooming, Bathing, Dressing, Toileting, Toilet Tra nsfers, Community Reintegration, Higher functional activities, Adaptive Equipment, Splinting, Househo ld Tasks, and Other activities as determined. POTENTIAL FUNCTIONAL GOALS FOR PATIENT TO ACHIEVE BY DISCHARGE: - Safety Precaution Patient will remain free from falls or injury at time of discharge. - Bed Mobility Patient will perform bed mobility at 4-Carol Ann level of assistance. - Transfers Patient will complete transfers from bed to chair at 4-Carol Ann level of assistance. - Mobility Patient will ambulate 150 ft with 4-Carol Ann level of assistance with RW. PATIENT REHAB POTENTIAL Expected level of measurable improvement will be of a practical value to patient's functional capacit y or adaptations to impairments Has a viable Discharge Plan Medically appropriate; condition is sufficiently stable to participate in intensive rehab program Patient is able and expected to receive 3 hours of individualized therapy daily on at least 5 of ever y 7 days Patient's prognosis for significant practical improvement within a reasonable period of time appears Good DISCHARGE PLAN: - Estimated Length of Stay (days) 10. - Consensus on plan Discharge plan has been discussed with primary caregiver. Patient/Family is in agreement with the eliazar n. Primary caregiver is in agreement with the plan. - Patient/Family Goals Return home with assistance. - Planned Living Setting Upon Discharge Home, to live with Family/Relatives. CONCLUSION ON REHABILITATION NECESSITY: I have evaluated patient's pre-admission functional status and, comparing it to the patient's post-ad mission functional status now, I conclude that the pre-admission assessment was accurate. Patient's c ondition on admission supports the medical necessity of admission to IRF. It is safe to proceed with patient's therapy program. SIGNATURE PANEL: (TAKER OFF)
[2018-10-27] MEDS: ATORVASTATIN 80 MG TAB PO SCH (19:57)
[2018-10-28] MEDS: PANTOPRAZOLE 40MG TABLET PO SCH (05:09)
[2018-10-28] MEDS: LEVOTHYROXINE SOD 0.088 MG TAB PO SCH (05:09)
[2018-10-28] MEDS: METOPROLOL TAR 25 MG TAB PO SCH ×2 (05:12→16:50)
[2018-10-28] MEDS: CA ACETATE 667 MG CAP PO SCH ×2 (08:07→11:54)
[2018-10-28] MEDS: FERROUS SULFATE 325 MG TAB PO SCH ×2 (08:07→19:01)
[2018-10-28] MEDS: CLOPIDOGREL 75 MG TABLET PO SCH (08:07)
[2018-10-28] MEDS: MIDODRINE HCL 5 MG TABLET PO SCH (08:07)
[2018-10-28] MEDS: ASPIRIN 81 MG CHEWABLE TABLET PO SCH (08:07)
[2018-10-28] MEDS: FE SULF/FA/VIT B COMP & C TAB PO SCH (08:07)
[2018-10-28] MEDS: TAMSULOSIN 0.4 MG SR CAP PO SCH (08:07)
[2018-10-28] MEDS: PROMOD 30 ML DOSE PO SCH ×2 (08:08→19:01)
[2018-10-28 08:11] LABS: Ferritin 630.3 ng/mL (26-388); Folic Acid, (Folate) 12.7 ng/mL (3.1-17.5); Phosphorus 1.6 mg/dL (2.5-4.9)
[2018-10-28] MEDS ORDERED: EPOETIN ALFA 4000 UNIT/1 ML VIAL SQ SCH (10:00)
[2018-10-28] MEDS ORDERED: DOCUSATE NA/SENNA CONC 1 TAB PO PRN (10:06)
[2018-10-28] MEDS: DOCUSATE NA 100 MG CAP PO SCH (11:54)
--- NOTE | 2018-10-28 13:52 | FAST ---
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 Sony Wright M.D. ADMISSION DIAGNOSIS: - Cardiac 09 - Cardiac Disorders () CAD. EATING: EATING - STEP 1: Does the patient require the assistance of a person or device, or need extra time when eating? Yes. EATING - STEP 2: Does the patient require the assistance of a helper? No, patient only requires an assistive device, O R s/he takes more than reasonable time to eat, OR there is a safety concern, OR s/he requires modifie d food consistency EATING - SCORE: 6-SMILEY GROOMING: Activity did not occur on this shift GROOMING - SCORE: 0-UNK BATHING: Activity did not occur on this shift BATHING - SCORE: 0-UNK DRESSING - UPPER BODY: Activity did not occur on this shift ARTICLES SCORE Total number of steps: 0 DRESSING - UPPER BODY - SCORE: 0-UNK DRESSING - LOWER BODY: Activity did not occur on this shift ARTICLES SCORE Total number of steps: 0 DRESSING - LOWER BODY - SCORE: 0-UNK TOILETING: TOILETING - STEP 1: Does the patient require the assistance of a person or device, or need extra time with toileting? Yes . TOILETING - STEP 2: Does the patient require the assistance of a helper? Yes. TOILETING - STEP 3: How much assistance does the patient require from the helper? Hands-on assistance from the helper TOILETING - STEP 4: Of the 3 tasks: 1) Adjusting clothing prior to use, 2) Cleansing of perineal area, 3) Adjusting clot nabeel after use; How many tasks does the patient perform WITHOUT assistance of the helper? One task TOILETING - SCORE: 2-MAX BLADDER MANAGEMENT: Patient is on renal dialysis or peritoneal dialysis and no voiding activity BLADDER MANAGEMENT - SCORE: 7-IND BLADDER MANAGEMENT - FREQUENCY OF ACCIDENTS: BLADDER MANAGEMENT(FA) - STEP 1: How many accidents has the patient had during the current shift? 0 BOWEL MANAGEMENT: BOWEL MANAGEMENT - STEP 1: Does the patient control bowels completely and intentionally without equipment devices or medications AND is always continent? No. BOWEL MANAGEMENT - STEP 2: Does the patient require the assistance of a helper? No, patient requires medication for control such as stool softeners, suppositories, laxatives, enemas, or OTC medications BOWEL MANAGEMENT - SCORE: 6-SMILEY BOWEL MANAGEMENT - FREQUENCY OF ACCIDENTS: BOWEL MANAGEMENT(FA) - STEP 1: How many accidents has the patient had during the current shift? 0 TRANSFERS: BED, CHAIR, WHEELCHAIR: TRANSFERS: BED, CHAIR, WHEELCHAIR - STEP 1: Does the patient require assistance of a person or device, or need extra time with bed, chair, or whe elchair transfers? Yes. TRANSFERS: BED, CHAIR, WHEELCHAIR - STEP 2: Does the patient require the assistance of a helper? Yes. TRANSFERS: BED, CHAIR, WHEELCHAIR - STEP 3: How much assistance does the patient require from the helper? Lifting of the legs TRANSFERS: BED, CHAIR, WHEELCHAIR - STEP 4: How many legs does the patient require the helper to lift? both legs TRANSFERS: BED, CHAIR, WHEELCHAIR - SCORE: 3-MOD TRANSFERS: TOILET: TRANSFERS: TOILET - STEP 1: Does the patient require the assistance of a person or device, or need extra time with toilet transfe rs? Yes. TRANSFERS: TOILET - STEP 2: Does the patient require the assistance of a helper? Yes. TRANSFERS: TOILET - STEP 3: How much assistance does the patient require from the helper? Patient performs half or more of the tr ansferring tasks TRANSFERS: TOILET - STEP 4: Does the patient need only incidental help such as contact guard or steadying during toilet transfer? Yes. TRANSFERS: TOILET - SCORE: 4-MIN TRANSFERS: SHOWER: Activity did not occur on this shift TRANSFERS: SHOWER - SCORE: 0-UNK TRANSFERS: TUB: Activity did not occur on this shift TRANSFERS: TUB - SCORE: 0-UNK LOCOMOTION: WALK: Activity did not occur on this shift LOCOMOTION: WALK - SCORE: 0-UNK LOCOMOTION: WHEELCHAIR: LOCOMOTION: WHEELCHAIR - STEP 1: Does the patient need help to go 150 feet in a wheelchair? Yes. LOCOMOTION: WHEELCHAIR - STEP 2: How much assistance does the patient need from the helper? More than incidental help LOCOMOTION: WHEELCHAIR - SCORE: 3-MOD COMPREHENSION: COMPREHENSION: TYPE: Both COMPREHENSION - STEP 1: Does the patient require help from a person or device, or need extra time to understand complex and a bstract ideas (such as current events, finances, discharge planning, medical issues, relationships, e tc)? No. COMPREHENSION - STEP 2: Does the patient need extra time, require an assistive device (such as glasses for visual comprehensi on or a hearing aid for auditory comprehension) or does s/he have mild difficulty understanding compl ex and abstract information? Yes. COMPREHENSION - SCORE: 6-SMILEY EXPRESSION EXPRESSION: TYPE: Both EXPRESSION - STEP 1: Does the patient require help from a person or device, or need extra time expressing complex and abst ract ideas (such as current events, finances, discharge planning, medical issues, relationships, etc) ? No. EXPRESSION - STEP 2: Does the patient need extra time, require an assistive device (such as augmentive communication syste m or a communication board), OR does s/he have mild difficulty expressing complex and abstract ideas (including mild dysarthria or mild word-find problems)? No. EXPRESSION - SCORE: 7-IND SOCIAL INTERACTION: SOCIAL INTERACTION - STEP 1: Does the patient require a helper to interact with others in social and therapeutic situations? No. SOCIAL INTERACTION - STEP 2: Does the patient need extra time in social situations, OR does s/he interact with staff, other patien ts, and family members ONLY in structured environments, OR does s/he require medication for social in teraction? No. SOCIAL INTERACTION - SCORE: 7-IND PROBLEM SOLVING: PROBLEM SOLVING - STEP 1: Does the patient need help from a person or device, or need extra time to solve complex problems such as managing a checking account or confronting interpersonal problems? Yes. PROBLEM SOLVING - STEP 2: Does the patient solve basic routine problems half or more of the time? Yes. PROBLEM SOLVING - STEP 3: How often does the patient need help to solve basic routine problems? Less than 10% of the time PROBLEM SOLVING - SCORE: 5-SUP MEMORY: MEMORY - STEP 1: Does the patient need help from a person or device, or need extra time to remember frequently encount ered people, daily routines, and executing requests? Yes. MEMORY - STEP 2: How often does the patient need help to remember frequently encountered people, daily routines, and e xecuting requests? Less than 10% of the time MEMORY - SCORE: 5-SUP SIGNATURE PANEL: The following modified sections: Eating - Score, Grooming - Score, Bathing - Score, Dressing - Upper Body - Score, Dressing - Lower Body - Score, Toileting - Score, Bladder Management - Score, Bowel Man agement - Score, Transfers: Bed, Chair, Wheelchair - Score, Transfers: Toilet - Score, Transfers: Juli wer - Score, Transfers: Tub - Score, Locomotion: Walk - Score, Locomotion: Wheelchair - Score, Compre hension - Score, Expression - Score, Social Interaction - Score, Problem Solving - Score, Memory - Sc ore were [electronically] signed by Pallavi HuiNSergey on MonOct 28 2018 13:51:09 GMT-0600 ([place] Standard Time)
--- NOTE | 2018-10-28 15:06 | P.CNS ---
Date of Consult: 10/28/18 Reason for Consult: ESRD to resume HD Chief Complaint: cont Pt/OT History of Present Illness: A 63 years old male, with PMHx of DM , HTN , CAD had CABG on 09/2018 , ESRD on HD via Perm cath on TTsat Pt was recently admitted for MS , had CABG , required prolong admission pt with anasarca , excertional dysnea on o2 minimal amount of UO now transffered to cont rehab therapy no chest pain, nausea, vomiting or diarrhea i Allergies No Known Allergies Allergy (Verified 10/28/18 14:22) Home Medications: Metoprolol Tartrate [Lopressor*] 12.5 mg PO BID 6AM 6PM #60 tab 10/13/17 Tamsulosin [Flomax*] 0.4 mg PO BEDTIME #30 cap 10/13/17 Aspirin Chewable [Aspirin Chewable*] 81 mg PO DAILY 10/27/18 Atorvastatin Calcium [Lipitor] 80 mg PO BEDTIME 10/27/18 Calcium Acetate [Phoslo*] 1 mg PO TIDWM 10/27/18 Clopidogrel Bisulfate [Plavix] 75 mg PO DAILY 10/27/18 Docusate [Colace Cap*] 100 mg PO DAILY 10/27/18 Ferrous Sulfate 325 mg PO BID 10/27/18 Hydrocodone Bit/Acetaminophen [Hydrocodon-Acetaminophen 5-325] 5 - 325 mg PO Q6HP PRN 10/27/18 Levothyroxine [Synthroid*] 88 mcg PO [id number] 10/27/18 Midodrine HCl 10 mg PO DAILY 10/27/18 Pantoprazole [Protonix Tab] 40 mg PO DAILY 10/27/18 - Past Medical/Surgical History Diabetic: No -: ESRD -HD TTHS -: HTN -: OBESITY -: Cataract - Family History Brother Medical History: Kidney disease Father Medical History: Heart disease, Lung disease, Diabetes Sister Medical History: Diabetes, Liver disease - Social History Alcohol use: No CD- Drugs: No Caffeine use: Yes Place of Residence: Home Physical Examination Temp Pulse Resp BP Pulse Ox 97.4 F 80 18 106/56 L 100 10/27/18 19:58 10/28/18 05:12 10/27/18 19:58 10/28/18 05:12 10/27/18 19:58 General: Alert, In no apparent distress, Oriented x3 HEENT: Atraumatic Neck: Supple, Without JVD or thyroid abnormality Respiratory: Clear to auscultation bilaterally, Normal air movement Cardiovascular: Regular rate/rhythm, Normal S1 S2, Edema Gastrointestinal: Normal bowel sounds Laboratory Data (last 24 hrs) 10/28/18 07:09: Phosphorus 1.6 L - Problems (1) ESRD (end stage renal disease) Current Visit: Yes Status: Acute Conclusions/Impression: ESRD on HD TTsat via perm cath will do MWF might require extra treatment to achieve better volume control on midodrine Anemia on MYLA low iron stores, will start on Po iron MBD low phos will dc phoslo CAD S/p CABG
[2018-10-28] MEDS: ATORVASTATIN 80 MG TAB PO SCH (20:10)
--- NOTE | 2018-10-29 01:35 | FAST ---
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 Sony Wright M.D. ADMISSION DIAGNOSIS: - Cardiac 09 - Cardiac Disorders () CAD. EATING: Activity did not occur on this shift EATING - SCORE: 0-UNK GROOMING: Wash, rinse, and dry hands GROOMING - STEP 1: Does the patient require the assistance of a person or device, or need extra time when grooming? Yes. GROOMING - STEP 2: Does the patient require the assistance of a helper? No. The patient only requires an assistive devic e, OR takes more than reasonable time to groom, OR there is a concern for safety as the patient groom s GROOMING - SCORE: 6-SMILEY BATHING: Activity did not occur on this shift BATHING - SCORE: 0-UNK DRESSING - UPPER BODY: Patient is not dressing in public clothing ARTICLES SCORE Total number of steps: 0 DRESSING - UPPER BODY - SCORE: 0-UNK DRESSING - LOWER BODY: Patient is not dressing in public clothing ARTICLES SCORE Total number of steps: 0 DRESSING - LOWER BODY - SCORE: 0-UNK TOILETING: TOILETING - STEP 1: Does the patient require the assistance of a person or device, or need extra time with toileting? Yes . TOILETING - STEP 2: Does the patient require the assistance of a helper? Yes. TOILETING - STEP 3: How much assistance does the patient require from the helper? Hands-on assistance from the helper TOILETING - STEP 4: Of the 3 tasks: 1) Adjusting clothing prior to use, 2) Cleansing of perineal area, 3) Adjusting clot nabeel after use; How many tasks does the patient perform WITHOUT assistance of the helper? One task TOILETING - SCORE: 2-MAX BLADDER MANAGEMENT: Patient is on renal dialysis or peritoneal dialysis and no voiding activity BLADDER MANAGEMENT - SCORE: 7-IND BOWEL MANAGEMENT: BOWEL MANAGEMENT - STEP 1: Does the patient control bowels completely and intentionally without equipment devices or medications AND is always continent? No. BOWEL MANAGEMENT - STEP 2: Does the patient require the assistance of a helper? No, patient requires medication for control such as stool softeners, suppositories, laxatives, enemas, or OTC medications BOWEL MANAGEMENT - SCORE: 6-SMILEY TRANSFERS: BED, CHAIR, WHEELCHAIR: TRANSFERS: BED, CHAIR, WHEELCHAIR - STEP 1: Does the patient require assistance of a person or device, or need extra time with bed, chair, or whe elchair transfers? Yes. TRANSFERS: BED, CHAIR, WHEELCHAIR - STEP 2: Does the patient require the assistance of a helper? Yes. TRANSFERS: BED, CHAIR, WHEELCHAIR - STEP 3: How much assistance does the patient require from the helper? Lifting of the legs TRANSFERS: BED, CHAIR, WHEELCHAIR - STEP 4: How many legs does the patient require the helper to lift? both legs TRANSFERS: BED, CHAIR, WHEELCHAIR - SCORE: 3-MOD TRANSFERS: TOILET: TRANSFERS: TOILET - STEP 1: Does the patient require the assistance of a person or device, or need extra time with toilet transfe rs? Yes. TRANSFERS: TOILET - STEP 2: Does the patient require the assistance of a helper? Yes. TRANSFERS: TOILET - STEP 3: How much assistance does the patient require from the helper? Only supervision, cuing, coaxing, OR he lp to set out transfer equipment or to lock brakes and/or lift foot rests TRANSFERS: TOILET - SCORE: 5-SUP TRANSFERS: SHOWER: Activity did not occur on this shift TRANSFERS: SHOWER - SCORE: 0-UNK TRANSFERS: TUB: Activity did not occur on this shift TRANSFERS: TUB - SCORE: 0-UNK LOCOMOTION: WALK: Activity did not occur on this shift LOCOMOTION: WALK - SCORE: 0-UNK LOCOMOTION: WHEELCHAIR: Activity did not occur on this shift LOCOMOTION: WHEELCHAIR - SCORE: 0-UNK COMPREHENSION: COMPREHENSION: TYPE: Both COMPREHENSION - STEP 1: Does the patient require help from a person or device, or need extra time to understand complex and a bstract ideas (such as current events, finances, discharge planning, medical issues, relationships, e tc)? No. COMPREHENSION - STEP 2: Does the patient need extra time, require an assistive device (such as glasses for visual comprehensi on or a hearing aid for auditory comprehension) or does s/he have mild difficulty understanding compl ex and abstract information? Yes. COMPREHENSION - SCORE: 6-SMILEY EXPRESSION EXPRESSION: TYPE: Both EXPRESSION - STEP 1: Does the patient require help from a person or device, or need extra time expressing complex and abst ract ideas (such as current events, finances, discharge planning, medical issues, relationships, etc) ? No. EXPRESSION - STEP 2: Does the patient need extra time, require an assistive device (such as augmentive communication syste m or a communication board), OR does s/he have mild difficulty expressing complex and abstract ideas (including mild dysarthria or mild word-find problems)? No. EXPRESSION - SCORE: 7-IND SOCIAL INTERACTION: SOCIAL INTERACTION - STEP 1: Does the patient require a helper to interact with others in social and therapeutic situations? No. SOCIAL INTERACTION - STEP 2: Does the patient need extra time in social situations, OR does s/he interact with staff, other patien ts, and family members ONLY in structured environments, OR does s/he require medication for social in teraction? No. SOCIAL INTERACTION - SCORE: 7-IND PROBLEM SOLVING: PROBLEM SOLVING - STEP 1: Does the patient need help from a person or device, or need extra time to solve complex problems such as managing a checking account or confronting interpersonal problems? No. PROBLEM SOLVING - STEP 2: Does the patient require extra time to make decisions or solve problems, OR does s/he have slight dif ficulty reading, initiating, or self-correcting in unfamiliar situations? Yes, patient needs extra ti me. PROBLEM SOLVING - SCORE: 6-SMILEY MEMORY: MEMORY - STEP 1: Does the patient need help from a person or device, or need extra time to remember frequently encount ered people, daily routines, and executing requests? No. MEMORY - STEP 2: Does the patient have slight difficulty recognizing frequently encountered people, daily routines, or executing requests without the need for repetition or using self-initiated or environmental cues to remember? No. MEMORY - SCORE: 7-IND SIGNATURE PANEL: The following modified sections: Eating - Score, Grooming - Score, Dressing - Upper Body - Score, Pj ssing - Lower Body - Score, Toileting - Score, Bladder Management - Score, Bowel Management - Score, Transfers: Bed, Chair, Wheelchair - Score, Transfers: Toilet - Score, Transfers: Shower - Score, Bourgeois sfers: Tub - Score, Locomotion: Walk - Score, Locomotion: Wheelchair - Score, Comprehension - Score, Expression - Score, Social Interaction - Score, Problem Solving - Score, Memory - Score were [electro nically] signed by Arabella Valdes CNA on MonOct 29 2018 01:35:40 GMT-0600 (Central Standard Time)
[2018-10-29] MEDS: METOPROLOL TAR 25 MG TAB PO SCH ×2 (05:03→16:20)
[2018-10-29] MEDS: PANTOPRAZOLE 40MG TABLET PO SCH (07:10)
[2018-10-29] MEDS: LEVOTHYROXINE SOD 0.088 MG TAB PO SCH (07:10)
[2018-10-29] MEDS: PROMOD 30 ML DOSE PO SCH ×2 (08:00→23:43)
[2018-10-29] MEDS ORDERED: FERROUS SULFATE 325 MG TAB PO SCH (08:00)
[2018-10-29] MEDS: CLOPIDOGREL 75 MG TABLET PO SCH (08:27)
[2018-10-29] MEDS: FERROUS SULFATE 325 MG TAB PO SCH ×2 (08:28→23:44)
[2018-10-29] MEDS: ASPIRIN 81 MG CHEWABLE TABLET PO SCH (08:28)
[2018-10-29] MEDS: FE SULF/FA/VIT B COMP & C TAB PO SCH (08:28)
[2018-10-29] MEDS: DOCUSATE NA 100 MG CAP PO SCH (08:28)
[2018-10-29] MEDS: TAMSULOSIN 0.4 MG SR CAP PO SCH (08:28)
[2018-10-29] MEDS: MIDODRINE HCL 5 MG TABLET PO SCH (08:28)
[2018-10-29 11:03] LABS: Absolute Lymphocytes (CBC) 0.6 K/uL (0.7-4.9); Absolute Monocytes 0.5 K/uL (0.1-1.3); Absolute Neutrophil 7.2 K/uL (1.8-8.0); Eosinophils % 1.7 % (0-4.4); Hematocrit 27.3 % (39.6-49.0); Lymphocytes % 7.5 % (15.3-44.8); Monocytes % 6.2 % (3.3-12.3); RBC Red Blood Cell Count 2.83 M/uL (4.33-5.43)
--- NOTE | 2018-10-29 12:51 | FAST ---
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 Sony Wright M.D. ADMISSION DIAGNOSIS: - Cardiac 09 - Cardiac Disorders () CAD. EATING: Activity did not occur on this shift EATING - SCORE: 0-UNK GROOMING: Comb/brush hair Wash, rinse, and dry face Wash, rinse, and dry hands GROOMING - STEP 1: Does the patient require the assistance of a person or device, or need extra time when grooming? Yes. GROOMING - STEP 2: Does the patient require the assistance of a helper? No. The patient only requires an assistive devic e, OR takes more than reasonable time to groom, OR there is a concern for safety as the patient groom s GROOMING - SCORE: 6-SMILEY BATHING: Abdomen Buttocks Chest Left arm Left lower leg and foot Left upper leg Perineal area Right arm Right lower leg and foot Right upper leg BATHING - STEP 1: Does the patient require the assistance of a person or device, or need extra time when bathing? Yes. BATHING - STEP 2: Does the patient require the assistance of a helper? Yes. BATHING - STEP 3: How much assistance does the patient require from the helper? Only incidental help such as placement of a wash cloth in his/her hand a few times as s/he bathes OR help to bathe just one or two areas of the body BATHING - SCORE: 4-MIN DRESSING - UPPER BODY: Button down shirt or blouse - TUCKED IN (five steps) ARTICLES SCORE Total number of steps: 5 DRESSING - UPPER BODY - STEP 1: Does the patient require help from a person or device, or need extra time when dressing above the [address]? Yes. DRESSING - UPPER BODY - STEP 2: Does the patient require the assistance of a helper? Yes. DRESSING - UPPER BODY - STEP 3: Does the helper touch the patient while dressing? No. DRESSING - UPPER BODY - SCORE: 5-SUP DRESSING - LOWER BODY: Elastic waist pants (three steps) Sock - Left foot (one step) Sock - Right foot (one step) Underwear (three steps) ARTICLES SCORE Total number of steps: 8 DRESSING - LOWER BODY - STEP 1: Does the patient require help from a person or device, or need extra time when dressing below the [address]? Yes. DRESSING - LOWER BODY - STEP 2: Does the patient require the assistance of a helper? Yes. DRESSING - LOWER BODY - STEP 3: Does the helper touch the patient while dressing? Yes. DRESSING - LOWER BODY - STEP 4: How many of the total steps does the patient complete on his/her own? 7 DRESSING - LOWER BODY - SCORE: 4-MIN TOILETING: Activity did not occur on this shift TOILETING - SCORE: 0-UNK BLADDER MANAGEMENT: Activity did not occur on this shift BLADDER MANAGEMENT - SCORE: 7-IND BOWEL MANAGEMENT: Activity did not occur on this shift BOWEL MANAGEMENT - SCORE: 7-IND TRANSFERS: BED, CHAIR, WHEELCHAIR: Activity did not occur on this shift TRANSFERS: BED, CHAIR, WHEELCHAIR - SCORE: 0-UNK TRANSFERS: TOILET: Activity did not occur on this shift TRANSFERS: TOILET - SCORE: 0-UNK TRANSFERS: SHOWER: TRANSFERS: SHOWER - STEP 1: Does the patient require the assistance of a person or device, or need extra time with shower transfe rs? Yes. TRANSFERS: SHOWER - STEP 2: Does the patient require the assistance of a helper? Yes. TRANSFERS: SHOWER - STEP 3: How much assistance does the patient require from the helper? Only incidental help such as contact gu arding or steadying during shower transfers, or help to lift one leg into the shower TRANSFERS: SHOWER - SCORE: 4-MIN TRANSFERS: TUB: Activity did not occur on this shift TRANSFERS: TUB - SCORE: 0-UNK LOCOMOTION: WALK: Activity did not occur on this shift LOCOMOTION: WALK - SCORE: 0-UNK LOCOMOTION: WHEELCHAIR: Activity did not occur on this shift LOCOMOTION: WHEELCHAIR - SCORE: 0-UNK LOCOMOTION: STAIRS: Activity did not occur on this shift LOCOMOTION: STAIRS - SCORE: 0-UNK COMPREHENSION: COMPREHENSION: TYPE: Both COMPREHENSION - STEP 1: Does the patient require help from a person or device, or need extra time to understand complex and a bstract ideas (such as current events, finances, discharge planning, medical issues, relationships, e tc)? No. COMPREHENSION - STEP 2: Does the patient need extra time, require an assistive device (such as glasses for visual comprehensi on or a hearing aid for auditory comprehension) or does s/he have mild difficulty understanding compl ex and abstract information? Yes. COMPREHENSION - SCORE: 6-SMILEY EXPRESSION EXPRESSION: TYPE: Both EXPRESSION - STEP 1: Does the patient require help from a person or device, or need extra time expressing complex and abst ract ideas (such as current events, finances, discharge planning, medical issues, relationships, etc) ? No. EXPRESSION - STEP 2: Does the patient need extra time, require an assistive device (such as augmentive communication syste m or a communication board), OR does s/he have mild difficulty expressing complex and abstract ideas (including mild dysarthria or mild word-find problems)? No. EXPRESSION - SCORE: 7-IND SOCIAL INTERACTION: SOCIAL INTERACTION - STEP 1: Does the patient require a helper to interact with others in social and therapeutic situations? No. SOCIAL INTERACTION - STEP 2: Does the patient need extra time in social situations, OR does s/he interact with staff, other patien ts, and family members ONLY in structured environments, OR does s/he require medication for social in teraction? No. SOCIAL INTERACTION - SCORE: 7-IND PROBLEM SOLVING: PROBLEM SOLVING - STEP 1: Does the patient need help from a person or device, or need extra time to solve complex problems such as managing a checking account or confronting interpersonal problems? Yes. PROBLEM SOLVING - STEP 2: Does the patient solve basic routine problems half or more of the time? Yes. PROBLEM SOLVING - STEP 3: How often does the patient need help to solve basic routine problems? Less than 10% of the time PROBLEM SOLVING - SCORE: 5-SUP MEMORY: MEMORY - STEP 1: Does the patient need help from a person or device, or need extra time to remember frequently encount ered people, daily routines, and executing requests? Yes. MEMORY - STEP 2: How often does the patient need help to remember frequently encountered people, daily routines, and e xecuting requests? Less than 10% of the time MEMORY - SCORE: 5-SUP SIGNATURE PANEL: The following modified sections: Eating - Score, Grooming - Score, Bathing - Score, Dressing - Upper Body - Score, Dressing - Lower Body - Score, Toileting - Score, Transfers: Bed, Chair, Wheelchair - S core, Transfers: Toilet - Score, Transfers: Tub - Score, Transfers: Shower - Score, Comprehension - S core, Expression - Score, Social Interaction - Score, Problem Solving - Score, Memory - Score were [e lectronically] signed by Alyson Orlelana OT on MonOct 29 2018 12:51:13 T-0600 ([facility])
--- NOTE | 2018-10-29 15:29 | FAST ---
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 Sony Wright M.D. ADMISSION DIAGNOSIS: - Cardiac 09 - Cardiac Disorders () CAD. EATING: EATING - STEP 1: Does the patient require the assistance of a person or device, or need extra time when eating? Yes. EATING - STEP 2: Does the patient require the assistance of a helper? Yes. EATING - STEP 3: Does the patient perform half or more of the eating tasks? Yes. EATING - STEP 4: Does the patient need only supervision, cuing, coaxing OR help to apply an orthosis OR help to cut fo od, open containers, pour liquids, or butter bread? No. EATING - SCORE: 3-MOD GROOMING: Activity did not occur on this shift GROOMING - SCORE: 0-UNK BATHING: Activity did not occur on this shift BATHING - SCORE: 0-UNK DRESSING - UPPER BODY: Activity did not occur on this shift ARTICLES SCORE Total number of steps: 0 DRESSING - UPPER BODY - SCORE: 0-UNK DRESSING - LOWER BODY: Activity did not occur on this shift ARTICLES SCORE Total number of steps: 0 DRESSING - LOWER BODY - SCORE: 0-UNK TOILETING: TOILETING - STEP 1: Does the patient require the assistance of a person or device, or need extra time with toileting? Yes . TOILETING - STEP 2: Does the patient require the assistance of a helper? Yes. TOILETING - STEP 3: How much assistance does the patient require from the helper? Hands-on assistance from the helper TOILETING - STEP 4: Of the 3 tasks: 1) Adjusting clothing prior to use, 2) Cleansing of perineal area, 3) Adjusting clot nabeel after use; How many tasks does the patient perform WITHOUT assistance of the helper? Two tasks TOILETING - SCORE: 3-MOD BLADDER MANAGEMENT: Patient is on renal dialysis or peritoneal dialysis and no voiding activity BLADDER MANAGEMENT - SCORE: 7-IND BOWEL MANAGEMENT: Activity did not occur on this shift BOWEL MANAGEMENT - SCORE: 7-IND TRANSFERS: BED, CHAIR, WHEELCHAIR: TRANSFERS: BED, CHAIR, WHEELCHAIR - STEP 1: Does the patient require assistance of a person or device, or need extra time with bed, chair, or whe elchair transfers? No. TRANSFERS: BED, CHAIR, WHEELCHAIR - SCORE: 7-IND TRANSFERS: TOILET: Activity did not occur on this shift TRANSFERS: TOILET - SCORE: 0-UNK TRANSFERS: SHOWER: Activity did not occur on this shift TRANSFERS: SHOWER - SCORE: 0-UNK TRANSFERS: TUB: Activity did not occur on this shift TRANSFERS: TUB - SCORE: 0-UNK LOCOMOTION: WALK: Activity did not occur on this shift LOCOMOTION: WALK - SCORE: 0-UNK LOCOMOTION: WHEELCHAIR: Activity did not occur on this shift LOCOMOTION: WHEELCHAIR - SCORE: 0-UNK COMPREHENSION: COMPREHENSION: TYPE: Both COMPREHENSION - STEP 1: Does the patient require help from a person or device, or need extra time to understand complex and a bstract ideas (such as current events, finances, discharge planning, medical issues, relationships, e tc)? No. COMPREHENSION - STEP 2: Does the patient need extra time, require an assistive device (such as glasses for visual comprehensi on or a hearing aid for auditory comprehension) or does s/he have mild difficulty understanding compl ex and abstract information? Yes. COMPREHENSION - SCORE: 6-SMILEY EXPRESSION EXPRESSION: TYPE: Both EXPRESSION - STEP 1: Does the patient require help from a person or device, or need extra time expressing complex and abst ract ideas (such as current events, finances, discharge planning, medical issues, relationships, etc) ? No. EXPRESSION - STEP 2: Does the patient need extra time, require an assistive device (such as augmentive communication syste m or a communication board), OR does s/he have mild difficulty expressing complex and abstract ideas (including mild dysarthria or mild word-find problems)? Yes. EXPRESSION - SCORE: 6-SMIELY SOCIAL INTERACTION: SOCIAL INTERACTION - STEP 1: Does the patient require a helper to interact with others in social and therapeutic situations? No. SOCIAL INTERACTION - STEP 2: Does the patient need extra time in social situations, OR does s/he interact with staff, other patien ts, and family members ONLY in structured environments, OR does s/he require medication for social in teraction? Yes, patient needs extra time SOCIAL INTERACTION - SCORE: 6-SMILEY PROBLEM SOLVING: PROBLEM SOLVING - STEP 1: Does the patient need help from a person or device, or need extra time to solve complex problems such as managing a checking account or confronting interpersonal problems? No. PROBLEM SOLVING - STEP 2: Does the patient require extra time to make decisions or solve problems, OR does s/he have slight dif ficulty reading, initiating, or self-correcting in unfamiliar situations? Yes, patient needs extra ti me. PROBLEM SOLVING - SCORE: 6-SMILEY MEMORY: MEMORY - STEP 1: Does the patient need help from a person or device, or need extra time to remember frequently encount ered people, daily routines, and executing requests? No. MEMORY - STEP 2: Does the patient have slight difficulty recognizing frequently encountered people, daily routines, or executing requests without the need for repetition or using self-initiated or environmental cues to remember? Yes. MEMORY - SCORE: 6-SMILEY SIGNATURE PANEL: The following modified sections: Eating - Score, Grooming - Score, Bathing - Score, Dressing - Upper Body - Score, Dressing - Lower Body - Score, Toileting - Score, Bladder Management - Score, Bowel Man agement - Score, Transfers: Bed, Chair, Wheelchair - Score, Transfers: Toilet - Score, Transfers: Juli wer - Score, Transfers: Tub - Score, Locomotion: Walk - Score, Locomotion: Wheelchair - Score, Compre hension - Score, Expression - Score, Social Interaction - Score, Problem Solving - Score, Memory - Sc ore were [electronically] signed by Rhett Canut on MonOct 29 2018 15:29:04 GMT-0600 (Central Standard Time)
--- NOTE | 2018-10-29 18:02 | R.PN ---
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 Pt denied any Shortness of Breath. VITAL SIGNS Temperature: 97.4 F SBP/DBP: 95/55 Pulse: 71 Resp: 16 Ambulated 250' with minimum assistance using a rolling walker. WBC 8.6, Hgb 9.1, Procalcitonin 1.48, lactate dehydrogenase 280. Wound cultures are pending and the [facility] is following the patient. He is on Keflex 500 mg bid. MEDICATION ALLERGIES: No Known Drug Allergies (NKDA) ENVIRONMENTAL ALLERGIES: - Substance Allergies None Known - Other Allergies None Known NURSING: - Shower allowing shower ACTIVITIES OOB only with supervision THERAPIES: - Occupational Therapy Evaluate and Treat. - Physical Therapy Evaluate and Treat. PHYSICAL EXAM - Gen Alert and awake Lying in bed No apparent distress Oriented to: person, time, and place - Skin Right medial leg vein harvest site has small area of drainage. Will apply wet to dry dressing changes 2-3 times daily as needed. No abnormalities - Eyes No abnormalities - ENMT No abnormalities - Neck No abnormalities - CVS RRR - Chest Mildly decreased breath sounds bilaterally. - Abd +bowel sounds - GI Obese Deferred - No abnormalities - Ext Mild postoperative edema in the right lower extremity - MSK 4+/5 weakness in left and right lower extremity - Neuro No focal deficits. - Psych No abnormalities ASSESSMENT: Pt. is a 63 yo Right-handed male.On 10/17/2018 he was admitted to [facility] with diagnos is CAD.His impairment category is Cardiac 09 - Cardiac Disorders (09).Pre-morbidly, Pt. was independ ent/mod-I in Self-Care, Sphincter Control, Transfers Control, and Locomotion; and he had good Sphinct er Control.Currently, he has deficits of Transfers Control, Communication, Social Cognition, Enduranc e, Balance, Safety Awareness, Self-Care, and Locomotion.Pt. is now referred to [facility] for acute in-patient rehabilitation in order to maximize patient's functional independenc e in activities of daily living, strength, ROM, and mobility.- Rehab Goal Patient has realistic goal of being discharged at assistance level 6-Tim to reside at Home with Fam esther/Relatives. MDM/PLAN: - Physical Therapy Gait dysfunction - to improve, our physical therapists will perform initial evaluation of pt's statu s upon admission and devise an individualized program for Gait Training, and Wheel Chair mobility Inability to transfer - to improve, our physical therapists will perform initial evaluation of pt's status upon admission and devise an individualized program for Bed mobility Need for home safety evaluation - to improve, our physical therapists will perform initial evaluatio n of pt's status upon admission and devise an individualized program for Home Evaluation Need in caregiver upon discharge - to improve, our physical therapists will perform initial evaluati on of pt's status upon admission and devise an individualized program for Caregiver Training Edema - to improve, our physical therapists will perform initial evaluation of pt's status upon admis charles and devise an individualized program for Elevation Training, and Lymphedema Therapy New precaution - to improve, our physical therapists will perform initial evaluation of pt's status upon admission and devise an individualized program for Patient precaution education Poor balance - to improve, our physical therapists will perform initial evaluation of pt's status up on admission and devise an individualized program for Balance Training Poor endurance - to improve, our physical therapists will perform initial evaluation of pt's status upon admission and devise an individualized program for Endurance Training Weakness - to improve, our physical therapists will perform initial evaluation of pt's status upon a dmission and devise an individualized program for Aquatic Therapy, Neuromuscular Reeducation, and Str engthening Achieving independence - to improve, our physical therapists will perform initial evaluation of pt's status upon admission and devise an individualized program for Community Reintegration Activities - Occupational Therapy ADL deficits - to improve, our occupation therapists will perform initial evaluation of pt's status upon admission and devise an individualized program for Bathing, Bed mobility, Community Reintegratio n, Cooking, Dressing, Eating, Fine Motor Skills, Grooming, Homemaking, Kitchen Mobility, Laundry, Pat ient Education, Safety Awareness, Splinting - Positioning, Transfers(Toilet, Tub, Shower), and Wheel Chair Management Cognitive deficits - to improve, our occupation therapists will perform initial evaluation of pt's s tatus upon admission and devise an individualized program for Cognition - orientation Need for critical care rn - to improve, our occupation therapists will perform initial evaluation of pt's status upon admission and devise an individualized program for Caregiver Training Weakness - to improve, our occupation therapists will perform initial evaluation of pt's status upon admission and devise an individualized program for Aquatic Therapy, Balance, Endurance, UE ROM, and UE strengthening - Diet Type Continue Regular - Diet - Liquid Texture Continue Regular - Tube Feed Continue N/A - Diet - Solid Texture Continue Regular - Shower allowing shower FUNCTIONAL STATUS: UPDATED AT WEEKLY TEAM CONFERENCE - Bladder Same accident frequency: 7-Ind - No accidents in the past 7 days - Bowel Same accident frequency: 7-Ind - No accidents in the past 7 days - Walking Same score based on distance walked: 1(<=50ft) FUNCTIONAL STATUS: - Self-Care A. Eating Ind B. Grooming sup C. Bathing maxA D. Dressing - Upper maxA E. Dressing - Lower maxA F. Toileting maxA - Sphincter Control G: Bladder control Ind H: Bowel control Ind - Transfers Control I. Bed/Chair/Wheelchair modA J. Toilet modA K. Tub/Shower modA - Locomotion L. Walk/Wheelchair (B) Dep M. Stairs ADNO - Communication N. Comprehension (B) sup O. Expression (B) sup - Social Cognition P. Social Interaction sup Q. Problem Solving sup R. Memory sup - Endurance Poor - Balance Poor - Safety Awareness Poor CURRENT FUNC. DEFICITS: Transfers Control, Communication, Social Cognition, Endurance, Balance, Safety Awareness, Self-Care, and Locomotion SIGNATURE PANEL: ([facility])
[2018-10-29] MEDS: ATORVASTATIN 80 MG TAB PO SCH (23:44)
[2018-10-29] MEDS: CEPHALEXIN 500 MG CAP PO SCH (23:44)
--- NOTE | 2018-10-30 02:23 | FAST ---
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 Sony Wright M.D. ADMISSION DIAGNOSIS: - Cardiac 09 - Cardiac Disorders () CAD. EATING: Activity did not occur on this shift EATING - SCORE: 0-UNK GROOMING: Activity did not occur on this shift GROOMING - SCORE: 0-UNK BATHING: Activity did not occur on this shift BATHING - SCORE: 0-UNK DRESSING - UPPER BODY: Activity did not occur on this shift ARTICLES SCORE Total number of steps: 0 DRESSING - UPPER BODY - SCORE: 0-UNK DRESSING - LOWER BODY: Activity did not occur on this shift ARTICLES SCORE Total number of steps: 0 DRESSING - LOWER BODY - SCORE: 0-UNK TOILETING: Activity did not occur on this shift TOILETING - SCORE: 0-UNK BLADDER MANAGEMENT: Patient is on renal dialysis or peritoneal dialysis and no voiding activity BLADDER MANAGEMENT - SCORE: 7-IND BOWEL MANAGEMENT: Activity did not occur on this shift BOWEL MANAGEMENT - SCORE: 7-IND TRANSFERS: BED, CHAIR, WHEELCHAIR: Patient requires more than one helper and/or the use of a mechanical lift is utilized TRANSFERS: BED, CHAIR, WHEELCHAIR - SCORE: 1-DEP TRANSFERS: TOILET: Activity did not occur on this shift TRANSFERS: TOILET - SCORE: 0-UNK TRANSFERS: SHOWER: Activity did not occur on this shift TRANSFERS: SHOWER - SCORE: 0-UNK TRANSFERS: TUB: Activity did not occur on this shift TRANSFERS: TUB - SCORE: 0-UNK LOCOMOTION: WALK: Activity did not occur on this shift LOCOMOTION: WALK - SCORE: 0-UNK LOCOMOTION: WHEELCHAIR: Activity did not occur on this shift LOCOMOTION: WHEELCHAIR - SCORE: 0-UNK COMPREHENSION: COMPREHENSION: TYPE: Both COMPREHENSION - STEP 1: Does the patient require help from a person or device, or need extra time to understand complex and a bstract ideas (such as current events, finances, discharge planning, medical issues, relationships, e tc)? No. COMPREHENSION - STEP 2: Does the patient need extra time, require an assistive device (such as glasses for visual comprehensi on or a hearing aid for auditory comprehension) or does s/he have mild difficulty understanding compl ex and abstract information? Yes. COMPREHENSION - SCORE: 6-SMILEY EXPRESSION EXPRESSION: TYPE: Both EXPRESSION - STEP 1: Does the patient require help from a person or device, or need extra time expressing complex and abst ract ideas (such as current events, finances, discharge planning, medical issues, relationships, etc) ? No. EXPRESSION - STEP 2: Does the patient need extra time, require an assistive device (such as augmentive communication syste m or a communication board), OR does s/he have mild difficulty expressing complex and abstract ideas (including mild dysarthria or mild word-find problems)? No. EXPRESSION - SCORE: 7-IND SOCIAL INTERACTION: SOCIAL INTERACTION - STEP 1: Does the patient require a helper to interact with others in social and therapeutic situations? No. SOCIAL INTERACTION - STEP 2: Does the patient need extra time in social situations, OR does s/he interact with staff, other patien ts, and family members ONLY in structured environments, OR does s/he require medication for social in teraction? No. SOCIAL INTERACTION - SCORE: 7-IND PROBLEM SOLVING: PROBLEM SOLVING - STEP 1: Does the patient need help from a person or device, or need extra time to solve complex problems such as managing a checking account or confronting interpersonal problems? No. PROBLEM SOLVING - STEP 2: Does the patient require extra time to make decisions or solve problems, OR does s/he have slight dif ficulty reading, initiating, or self-correcting in unfamiliar situations? No. PROBLEM SOLVING - SCORE: 7-IND MEMORY: MEMORY - STEP 1: Does the patient need help from a person or device, or need extra time to remember frequently encount ered people, daily routines, and executing requests? No. MEMORY - STEP 2: Does the patient have slight difficulty recognizing frequently encountered people, daily routines, or executing requests without the need for repetition or using self-initiated or environmental cues to remember? No. MEMORY - SCORE: 7-IND SIGNATURE PANEL: The following modified sections: Eating - Score, Grooming - Score, Bathing - Score, Dressing - Upper Body - Score, Dressing - Lower Body - Score, Toileting - Score, Bladder Management - Score, Bowel Man agement - Score, Transfers: Bed, Chair, Wheelchair - Score, Transfers: Toilet - Score, Transfers: Juli wer - Score, Transfers: Tub - Score, Locomotion: Walk - Score, Locomotion: Wheelchair - Score, Compre hension - Score, Expression - Score, Social Interaction - Score, Problem Solving - Score, Memory - Sc ore were [electronically] signed by Sindy Rivas CNA on MonOct 30 2018 02:22:56 [id number] ([facility])
--- NOTE | 2018-10-30 04:25 | PN ---
Date of Progress Note: 10/29/2018 Chief Complaint: End-stage renal disease, on dialysis. History Of Present Illness: The patient is undergoing rehab after he had a workup done and was found to have severe coronary artery disease. He underwent CABG in September 2018. He has been dialyzed vi a the tunneled dialysis catheter and was found to have severe fluid overload. He underwent dialysis on Monday. He is scheduled to have dialysis today. He has anasarca. He remains on O2 nasal cannu la and has exertional dyspnea. Review of Systems: Has dyspnea on exertion. Denies PND. Denies chest pain. Has lower extremity edema. Physical Examination: Lungs: Crackles bilaterally. Heart: S1, S2. Abdomen: Soft, benign. Extremities: Edema present in upper and lower extremities. Impression And Plan: 1.End-stage renal disease. Continue daily dialysis. The patient has severe fluid overload. 2.Coronary artery disease, status post coronary artery bypass grafting. 3.Anemia and chronic kidney disease. Hemoglobin level is improving. Monitor and continue MYLA. 4.Renal osteodystrophy. Continue renal diet and binders. 5.Hypoalbuminemia. Increase protein intake. EB/MODL Voice ID: [id number] Report ID: [id number]
[2018-10-30] MEDS: METOPROLOL TAR 25 MG TAB PO SCH ×2 (05:03→18:00)
[2018-10-30] MEDS: PANTOPRAZOLE 40MG TABLET PO SCH (07:27)
[2018-10-30] MEDS: LEVOTHYROXINE SOD 0.088 MG TAB PO SCH (07:27)
[2018-10-30] MEDS: PROMOD 30 ML DOSE PO SCH ×2 (08:00→22:10)
[2018-10-30] MEDS: HYDROCODONE/APAP 5/325 MG TAB PO PRN (08:35)
[2018-10-30] MEDS: CLOPIDOGREL 75 MG TABLET PO SCH (08:35)
[2018-10-30] MEDS: DOCUSATE NA 100 MG CAP PO SCH (08:35)
[2018-10-30] MEDS: ASPIRIN 81 MG CHEWABLE TABLET PO SCH (08:36)
[2018-10-30] MEDS: FERROUS SULFATE 325 MG TAB PO SCH ×2 (08:36→22:11)
[2018-10-30] MEDS: TAMSULOSIN 0.4 MG SR CAP PO SCH (08:36)
[2018-10-30] MEDS: FE SULF/FA/VIT B COMP & C TAB PO SCH (08:36)
[2018-10-30] MEDS: CEPHALEXIN 500 MG CAP PO SCH ×2 (08:36→22:11)
--- NOTE | 2018-10-30 13:39 | RAD REPORT ---
EXAM DESCRIPTION: RAD - Wrist Right 3 View - 10/30/2018 1:24 pm CLINICAL HISTORY: bruising inflammation pain Pain COMPARISON: No comparisons FINDINGS: Soft tissue swelling is seen about the hand and wrist. Vascular calcifications are noted. Subtle periarticular osteopenia is present. No fracture. IMPRESSION: Soft tissue swelling with subtle periarticular osteopenia pattern noted. This can be see n conditions such as early rheumatoid arthritis or reflex sympathetic dystrophy.
--- NOTE | 2018-10-30 15:05 | FAST ---
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 Sony Wright M.D. ADMISSION DIAGNOSIS: - Cardiac 09 - Cardiac Disorders (09) CAD. EATING: Activity did not occur on this shift EATING - SCORE: 0-UNK GROOMING: Activity did not occur on this shift GROOMING - SCORE: 0-UNK BATHING: Activity did not occur on this shift BATHING - SCORE: 0-UNK DRESSING - UPPER BODY: Activity did not occur on this shift Patient is not dressing in public clothing ARTICLES SCORE Total number of steps: 0 DRESSING - UPPER BODY - SCORE: 0-UNK DRESSING - LOWER BODY: Activity did not occur on this shift Patient is not dressing in public clothing ARTICLES SCORE Total number of steps: 0 DRESSING - LOWER BODY - SCORE: 0-UNK TOILETING: Activity did not occur on this shift TOILETING - SCORE: 0-UNK BLADDER MANAGEMENT: Activity did not occur on this shift BLADDER MANAGEMENT - SCORE: 7-IND BOWEL MANAGEMENT: Activity did not occur on this shift BOWEL MANAGEMENT - SCORE: 7-IND TRANSFERS: BED, CHAIR, WHEELCHAIR: TRANSFERS: BED, CHAIR, WHEELCHAIR - STEP 1: Does the patient require assistance of a person or device, or need extra time with bed, chair, or whe elchair transfers? Yes. TRANSFERS: BED, CHAIR, WHEELCHAIR - STEP 2: Does the patient require the assistance of a helper? Yes. TRANSFERS: BED, CHAIR, WHEELCHAIR - STEP 3: How much assistance does the patient require from the helper? Steadying/guiding assistance TRANSFERS: BED, CHAIR, WHEELCHAIR - SCORE: 4-MIN TRANSFERS: TOILET: Activity did not occur on this shift TRANSFERS: TOILET - SCORE: 0-UNK TRANSFERS: SHOWER: Activity did not occur on this shift TRANSFERS: SHOWER - SCORE: 0-UNK TRANSFERS: TUB: Activity did not occur on this shift TRANSFERS: TUB - SCORE: 0-UNK LOCOMOTION: WALK: LOCOMOTION: WALK - STEP 1: Does the patient need help from a person or device, or need extra time to walk 150 feet? Yes. LOCOMOTION: WALK - STEP 2: How much assistance does the patient require to walk a minimum of 150 feet? Only supervision, cuing, or coaxing LOCOMOTION: WALK - SCORE: 5-SUP LOCOMOTION: WHEELCHAIR: LOCOMOTION: WHEELCHAIR - STEP 1: Does the patient need help to go 150 feet in a wheelchair? Yes. LOCOMOTION: WHEELCHAIR - STEP 2: How much assistance does the patient need from the helper? Patient goes less than 150 feet - but more than 50 feet - with the assistance of only one helper LOCOMOTION: WHEELCHAIR - SCORE: 2-MAX LOCOMOTION: STAIRS: Activity did not occur on this shift LOCOMOTION: STAIRS - SCORE: 0-UNK COMPREHENSION: COMPREHENSION - SCORE: 0-UNK EXPRESSION EXPRESSION - SCORE: 0-UNK SOCIAL INTERACTION: SOCIAL INTERACTION - SCORE: 0-UNK PROBLEM SOLVING: PROBLEM SOLVING - SCORE: 0-UNK MEMORY: MEMORY - SCORE: 0-UNK SIGNATURE PANEL: The following modified sections: Transfers: Bed, Chair, Wheelchair - Score, Transfers: Toilet - Score , Locomotion: Walk - Score, Locomotion: Wheelchair - Score, Locomotion: Stairs - Score were [nilam galan] signed by Presley Darnell PTA on MonOct 30 2018 15:04:06 GMT-0600 (Central Standard Time)
--- NOTE | 2018-10-30 15:07 | FAST ---
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 Sony Wright M.D. ADMISSION DIAGNOSIS: - Cardiac 09 - Cardiac Disorders (09) CAD. EATING: Activity did not occur on this shift EATING - SCORE: 0-UNK GROOMING: Activity did not occur on this shift GROOMING - SCORE: 0-UNK BATHING: Activity did not occur on this shift BATHING - SCORE: 0-UNK DRESSING - UPPER BODY: Activity did not occur on this shift Patient is not dressing in public clothing ARTICLES SCORE Total number of steps: 0 DRESSING - UPPER BODY - SCORE: 0-UNK DRESSING - LOWER BODY: Activity did not occur on this shift Patient is not dressing in public clothing ARTICLES SCORE Total number of steps: 0 DRESSING - LOWER BODY - SCORE: 0-UNK TOILETING: Activity did not occur on this shift TOILETING - SCORE: 0-UNK BLADDER MANAGEMENT: Activity did not occur on this shift BLADDER MANAGEMENT - SCORE: 7-IND BOWEL MANAGEMENT: Activity did not occur on this shift BOWEL MANAGEMENT - SCORE: 7-IND TRANSFERS: BED, CHAIR, WHEELCHAIR: TRANSFERS: BED, CHAIR, WHEELCHAIR - STEP 1: Does the patient require assistance of a person or device, or need extra time with bed, chair, or whe elchair transfers? Yes. TRANSFERS: BED, CHAIR, WHEELCHAIR - STEP 2: Does the patient require the assistance of a helper? Yes. TRANSFERS: BED, CHAIR, WHEELCHAIR - STEP 3: How much assistance does the patient require from the helper? Steadying/guiding assistance TRANSFERS: BED, CHAIR, WHEELCHAIR - SCORE: 4-MIN TRANSFERS: TOILET: Activity did not occur on this shift TRANSFERS: TOILET - SCORE: 0-UNK TRANSFERS: SHOWER: Activity did not occur on this shift TRANSFERS: SHOWER - SCORE: 0-UNK TRANSFERS: TUB: Activity did not occur on this shift TRANSFERS: TUB - SCORE: 0-UNK LOCOMOTION: WALK: LOCOMOTION: WALK - STEP 1: Does the patient need help from a person or device, or need extra time to walk 150 feet? Yes. LOCOMOTION: WALK - STEP 2: How much assistance does the patient require to walk a minimum of 150 feet? Only supervision, cuing, or coaxing LOCOMOTION: WALK - SCORE: 5-SUP LOCOMOTION: WHEELCHAIR: LOCOMOTION: WHEELCHAIR - STEP 1: Does the patient need help to go 150 feet in a wheelchair? Yes. LOCOMOTION: WHEELCHAIR - STEP 2: How much assistance does the patient need from the helper? Patient goes less than 150 feet - but more than 50 feet - with the assistance of only one helper LOCOMOTION: WHEELCHAIR - SCORE: 2-MAX LOCOMOTION: STAIRS: Activity did not occur on this shift LOCOMOTION: STAIRS - SCORE: 0-UNK COMPREHENSION: COMPREHENSION - SCORE: 0-UNK EXPRESSION EXPRESSION - SCORE: 0-UNK SOCIAL INTERACTION: SOCIAL INTERACTION - SCORE: 0-UNK PROBLEM SOLVING: PROBLEM SOLVING - SCORE: 0-UNK MEMORY: MEMORY - SCORE: 0-UNK SIGNATURE PANEL: The following modified sections: Transfers: Bed, Chair, Wheelchair - Score, Transfers: Toilet - Score , Locomotion: Walk - Score, Locomotion: Wheelchair - Score, Locomotion: Stairs - Score were [nilam galan] signed by Presley Darnell PTA on MonOct 30 2018 15:06:21 GMT-0600 (Central Standard Time)
[2018-10-30] MEDS: MIDODRINE HCL 5 MG TABLET PO SCH (16:14)
--- NOTE | 2018-10-30 16:14 | FAST ---
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 Sony Wright M.D. ADMISSION DIAGNOSIS: - Cardiac 09 - Cardiac Disorders () CAD. EATING: EATING - STEP 1: Does the patient require the assistance of a person or device, or need extra time when eating? Yes. EATING - STEP 2: Does the patient require the assistance of a helper? Yes. EATING - STEP 3: Does the patient perform half or more of the eating tasks? Yes. EATING - STEP 4: Does the patient need only supervision, cuing, coaxing OR help to apply an orthosis OR help to cut fo od, open containers, pour liquids, or butter bread? Yes. EATING - SCORE: 5-SUP GROOMING: Activity did not occur on this shift GROOMING - SCORE: 0-UNK BATHING: Activity did not occur on this shift BATHING - SCORE: 0-UNK DRESSING - UPPER BODY: Activity did not occur on this shift ARTICLES SCORE Total number of steps: 0 DRESSING - UPPER BODY - SCORE: 0-UNK DRESSING - LOWER BODY: Activity did not occur on this shift ARTICLES SCORE Total number of steps: 0 DRESSING - LOWER BODY - SCORE: 0-UNK TOILETING: TOILETING - STEP 1: Does the patient require the assistance of a person or device, or need extra time with toileting? Yes . TOILETING - STEP 2: Does the patient require the assistance of a helper? Yes. TOILETING - STEP 3: How much assistance does the patient require from the helper? Hands-on assistance from the helper TOILETING - STEP 4: Of the 3 tasks: 1) Adjusting clothing prior to use, 2) Cleansing of perineal area, 3) Adjusting clot nabeel after use; How many tasks does the patient perform WITHOUT assistance of the helper? Two tasks TOILETING - SCORE: 3-MOD BLADDER MANAGEMENT: Patient is on renal dialysis or peritoneal dialysis and no voiding activity BLADDER MANAGEMENT - SCORE: 7-IND BOWEL MANAGEMENT: Activity did not occur on this shift BOWEL MANAGEMENT - SCORE: 7-IND TRANSFERS: BED, CHAIR, WHEELCHAIR: TRANSFERS: BED, CHAIR, WHEELCHAIR - STEP 1: Does the patient require assistance of a person or device, or need extra time with bed, chair, or whe elchair transfers? Yes. TRANSFERS: BED, CHAIR, WHEELCHAIR - STEP 2: Does the patient require the assistance of a helper? Yes. TRANSFERS: BED, CHAIR, WHEELCHAIR - STEP 3: How much assistance does the patient require from the helper? Lifting of the legs TRANSFERS: BED, CHAIR, WHEELCHAIR - STEP 4: How many legs does the patient require the helper to lift? both legs TRANSFERS: BED, CHAIR, WHEELCHAIR - SCORE: 3-MOD TRANSFERS: TOILET: TRANSFERS: TOILET - STEP 1: Does the patient require the assistance of a person or device, or need extra time with toilet transfe rs? Yes. TRANSFERS: TOILET - STEP 2: Does the patient require the assistance of a helper? Yes. TRANSFERS: TOILET - STEP 3: How much assistance does the patient require from the helper? Patient performs half or more of the tr ansferring tasks TRANSFERS: TOILET - STEP 4: Does the patient need only incidental help such as contact guard or steadying during toilet transfer? No. Patient needs more than incidental help TRANSFERS: TOILET - SCORE: 3-MOD TRANSFERS: SHOWER: Activity did not occur on this shift TRANSFERS: SHOWER - SCORE: 0-UNK TRANSFERS: TUB: Activity did not occur on this shift TRANSFERS: TUB - SCORE: 0-UNK LOCOMOTION: WALK: Activity did not occur on this shift LOCOMOTION: WALK - SCORE: 0-UNK LOCOMOTION: WHEELCHAIR: Activity did not occur on this shift LOCOMOTION: WHEELCHAIR - SCORE: 0-UNK COMPREHENSION: COMPREHENSION: TYPE: Both COMPREHENSION - STEP 1: Does the patient require help from a person or device, or need extra time to understand complex and a bstract ideas (such as current events, finances, discharge planning, medical issues, relationships, e tc)? No. COMPREHENSION - STEP 2: Does the patient need extra time, require an assistive device (such as glasses for visual comprehensi on or a hearing aid for auditory comprehension) or does s/he have mild difficulty understanding compl ex and abstract information? Yes. COMPREHENSION - SCORE: 6-SMILEY EXPRESSION EXPRESSION: TYPE: Both EXPRESSION - STEP 1: Does the patient require help from a person or device, or need extra time expressing complex and abst ract ideas (such as current events, finances, discharge planning, medical issues, relationships, etc) ? No. EXPRESSION - STEP 2: Does the patient need extra time, require an assistive device (such as augmentive communication syste m or a communication board), OR does s/he have mild difficulty expressing complex and abstract ideas (including mild dysarthria or mild word-find problems)? Yes. EXPRESSION - SCORE: 6-SMILEY SOCIAL INTERACTION: SOCIAL INTERACTION - STEP 1: Does the patient require a helper to interact with others in social and therapeutic situations? No. SOCIAL INTERACTION - STEP 2: Does the patient need extra time in social situations, OR does s/he interact with staff, other patien ts, and family members ONLY in structured environments, OR does s/he require medication for social in teraction? Yes, patient needs extra time SOCIAL INTERACTION - SCORE: 6-SMILEY PROBLEM SOLVING: PROBLEM SOLVING - STEP 1: Does the patient need help from a person or device, or need extra time to solve complex problems such as managing a checking account or confronting interpersonal problems? No. PROBLEM SOLVING - STEP 2: Does the patient require extra time to make decisions or solve problems, OR does s/he have slight dif ficulty reading, initiating, or self-correcting in unfamiliar situations? Yes, patient needs extra ti me. PROBLEM SOLVING - SCORE: 6-SMILEY MEMORY: MEMORY - STEP 1: Does the patient need help from a person or device, or need extra time to remember frequently encount ered people, daily routines, and executing requests? No. MEMORY - STEP 2: Does the patient have slight difficulty recognizing frequently encountered people, daily routines, or executing requests without the need for repetition or using self-initiated or environmental cues to remember? Yes. MEMORY - SCORE: 6-SMILEY SIGNATURE PANEL: The following modified sections: Eating - Score, Grooming - Score, Bathing - Score, Dressing - Upper Body - Score, Dressing - Lower Body - Score, Toileting - Score, Bladder Management - Score, Bowel Man agement - Score, Transfers: Bed, Chair, Wheelchair - Score, Transfers: Toilet - Score, Transfers: Juli wer - Score, Transfers: Tub - Score, Locomotion: Walk - Score, Locomotion: Wheelchair - Score, Compre hension - Score, Expression - Score, Social Interaction - Score, Problem Solving - Score, Memory - Sc ore were [electronically] signed by Rhett Cantu on MonOct 30 2018 16:13:12 GMT-0600 (Central Standard Time)
--- NOTE | 2018-10-30 18:01 | R.PN ---
ENCOUNTER DATE AND TIME: 10/30/2018 17:55 (REFERRAL CLERK) NAME DARLENE BLOOM DATE OF : 1955 DATE OF ADMISSION: 10/26/2018 16:10 (REFERRAL CLERK) [facility] COMPLAINT: Cardiac debility SUBJECTIVE: Pt denied any depression. Pt denied any Shortness of Breath. VITAL SIGNS Temperature: 97.8 F SBP/DBP: 101/49 Pulse: 77 Resp: 16 Ambulated 250' with minimum assistance using a rolling walker. WBC 8.6, Hgb 9.1, Procalcitonin 1.48, lactate dehydrogenase 280. Wound cultures are pending and the [facility] care service is following the patient. He is on Keflex 500 mg bid. Hematomas noted on left inner thigh. MEDICATION ALLERGIES: No Known Drug Allergies (NKDA) ENVIRONMENTAL ALLERGIES: - Substance Allergies None Known - Other Allergies None Known NURSING: - Shower allowing shower ACTIVITIES OOB only with supervision THERAPIES: - Occupational Therapy Evaluate and Treat. - Physical Therapy Evaluate and Treat. PHYSICAL EXAM - Gen Alert and awake Lying in bed No apparent distress Oriented to: person, time, and place - Skin Right medial leg vein harvest site has small area of drainage. Will apply wet to dry dressing changes 2-3 times daily as needed. No abnormalities - Eyes No abnormalities - ENMT No abnormalities - Neck No abnormalities - CVS RRR - Chest Mildly decreased breath sounds bilaterally. - Abd +bowel sounds - GI Obese Deferred - No abnormalities - Ext Mild postoperative edema in the right lower extremity - MSK 4+/5 weakness in left and right lower extremity - Neuro No focal deficits. - Psych No abnormalities ASSESSMENT: Pt. is a 63 yo Right-handed male.On 10/17/2018 he was admitted to [facility] with diagnos is CAD.His impairment category is Cardiac 09 - Cardiac Disorders (09).Pre-morbidly, Pt. was independ ent/mod-I in Self-Care, Sphincter Control, Transfers Control, and Locomotion; and he had good Sphinct er Control.Currently, he has deficits of Transfers Control, Communication, Social Cognition, Enduranc e, Balance, Safety Awareness, Self-Care, and Locomotion.Pt. is now referred to [facility] for acute in-patient rehabilitation in order to maximize patient's functional independenc e in activities of daily living, strength, ROM, and mobility.- Rehab Goal Patient has realistic goal of being discharged at assistance level 6-Tim to reside at Home with Fam esther/Relatives. MDM/PLAN: - Physical Therapy Gait dysfunction - to improve, our physical therapists will perform initial evaluation of pt's statu s upon admission and devise an individualized program for Gait Training, and Wheel Chair mobility Inability to transfer - to improve, our physical therapists will perform initial evaluation of pt's status upon admission and devise an individualized program for Bed mobility Need for home safety evaluation - to improve, our physical therapists will perform initial evaluatio n of pt's status upon admission and devise an individualized program for Home Evaluation Need in caregiver upon discharge - to improve, our physical therapists will perform initial evaluati on of pt's status upon admission and devise an individualized program for Caregiver Training Edema - to improve, our physical therapists will perform initial evaluation of pt's status upon admi ssion and devise an individualized program for Elevation Training, and Lymphedema Therapy New precaution - to improve, our physical therapists will perform initial evaluation of pt's status upon admission and devise an individualized program for Patient precaution education Poor balance - to improve, our physical therapists will perform initial evaluation of pt's status up on admission and devise an individualized program for Balance Training Poor endurance - to improve, our physical therapists will perform initial evaluation of pt's status upon admission and devise an individualized program for Endurance Training Weakness - to improve, our physical therapists will perform initial evaluation of pt's status upon a dmission and devise an individualized program for Aquatic Therapy, Neuromuscular Reeducation, and Str engthening Achieving independence - to improve, our physical therapists will perform initial evaluation of pt's status upon admission and devise an individualized program for Community Reintegration Activities - Occupational Therapy ADL deficits - to improve, our occupation therapists will perform initial evaluation of pt's status upon admission and devise an individualized program for Bathing, Bed mobility, Community Reintegratio n, Cooking, Dressing, Eating, Fine Motor Skills, Grooming, Homemaking, Kitchen Mobility, Laundry, Pat ient Education, Safety Awareness, Splinting - Positioning, Transfers(Toilet, Tub, Shower), and Wheel Chair Management Cognitive deficits - to improve, our occupation therapists will perform initial evaluation of pt's s tatus upon admission and devise an individualized program for Cognition - orientation Need for rn home care - to improve, our occupation therapists will perform initial evaluation of pt's status upon admission and devise an individualized program for Caregiver Training Weakness - to improve, our occupation therapists will perform initial evaluation of pt's status upon admission and devise an individualized program for Aquatic Therapy, Balance, Endurance, UE ROM, and UE strengthening - Diet Type Continue Regular - Diet - Liquid Texture Continue Regular - Tube Feed Continue N/A - Diet - Solid Texture Continue Regular - Shower allowing shower FUNCTIONAL STATUS: UPDATED AT WEEKLY TEAM CONFERENCE - Bladder Same accident frequency: 7-Ind - No accidents in the past 7 days - Bowel Same accident frequency: 7-Ind - No accidents in the past 7 days - Walking Same score based on distance walked: 1(<=50ft) FUNCTIONAL STATUS: - Self-Care A. Eating Ind B. Grooming sup C. Bathing maxA D. Dressing - Upper maxA E. Dressing - Lower maxA F. Toileting maxA - Sphincter Control G: Bladder control Ind H: Bowel control Ind - Transfers Control I. Bed/Chair/Wheelchair modA J. Toilet modA K. Tub/Shower modA - Locomotion L. Walk/Wheelchair (B) Dep M. Stairs ADNO - Communication N. Comprehension (B) sup O. Expression (B) sup - Social Cognition P. Social Interaction sup Q. Problem Solving sup R. Memory sup - Endurance Poor - Balance Poor - Safety Awareness Poor CURRENT FUNC. DEFICITS: Transfers Control, Communication, Social Cognition, Endurance, Balance, Safety Awareness, Self-Care, and Locomotion SIGNATURE PANEL: (REFERRAL CLERK)
[2018-10-30] MEDS ORDERED: ALBUMIN HUMAN 25% 100 ML IV ONE (19:00)
[2018-10-30] MEDS: guaiFENesin 100 MG/5 ML UCUP PO PRN (22:10)
[2018-10-30] MEDS: ATORVASTATIN 80 MG TAB PO SCH (22:11)
--- NOTE | 2018-10-30 23:28 | PN ---
Date of Progress Note: 10/30/2018 Chief Complaint: End-stage renal disease, on dialysis; fluid overload; anasarca. The patient underw ent CABG. He is undergoing rehab. The patient is complaining of some difficulty with ambulation, sh ortness of breath. He did develop right wrist hematoma. He denies PND, orthopnea. Physical Examination: Lungs: Clear to auscultation bilaterally. Heart: S1, S2. Abdomen: Soft, benign. Extremities: Edema present in both arms and lower extremities. There is hematoma over the right wri st, cellulitis. Impression And Plan: 1.End-stage renal disease. Dialysis will be done today with extra treatment. Continue p.o. fluid r estriction and low-sodium diet to treat fluid overload. 2.Coronary artery disease status post bypass. The patient is asymptomatic. 3.Anemia and chronic kidney disease. Improving hemoglobin. Continue MYLA. 4.Renal osteodystrophy. Continue renal diet and binders. 5.Hypoalbuminemia. Increase protein intake. FRANCIS/ANA Voice ID: [id number] Report ID: [id number]
--- NOTE | 2018-10-31 02:39 | FAST ---
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 Sony Wright M.D. ADMISSION DIAGNOSIS: - Cardiac 09 - Cardiac Disorders () CAD. EATING: Activity did not occur on this shift EATING - SCORE: 0-UNK GROOMING: Activity did not occur on this shift GROOMING - SCORE: 0-UNK BATHING: Activity did not occur on this shift BATHING - SCORE: 0-UNK DRESSING - UPPER BODY: Activity did not occur on this shift ARTICLES SCORE Total number of steps: 0 DRESSING - UPPER BODY - SCORE: 0-UNK DRESSING - LOWER BODY: Activity did not occur on this shift ARTICLES SCORE Total number of steps: 0 DRESSING - LOWER BODY - SCORE: 0-UNK TOILETING: Activity did not occur on this shift TOILETING - SCORE: 0-UNK BLADDER MANAGEMENT: Patient is on renal dialysis or peritoneal dialysis and no voiding activity BLADDER MANAGEMENT - SCORE: 7-IND BOWEL MANAGEMENT: Activity did not occur on this shift BOWEL MANAGEMENT - SCORE: 7-IND TRANSFERS: BED, CHAIR, WHEELCHAIR: Patient requires more than one helper and/or the use of a mechanical lift is utilized TRANSFERS: BED, CHAIR, WHEELCHAIR - SCORE: 1-DEP TRANSFERS: TOILET: Activity did not occur on this shift TRANSFERS: TOILET - SCORE: 0-UNK TRANSFERS: SHOWER: Activity did not occur on this shift TRANSFERS: SHOWER - SCORE: 0-UNK TRANSFERS: TUB: Activity did not occur on this shift TRANSFERS: TUB - SCORE: 0-UNK LOCOMOTION: WALK: Activity did not occur on this shift LOCOMOTION: WALK - SCORE: 0-UNK LOCOMOTION: WHEELCHAIR: Activity did not occur on this shift LOCOMOTION: WHEELCHAIR - SCORE: 0-UNK COMPREHENSION: COMPREHENSION: TYPE: Both COMPREHENSION - STEP 1: Does the patient require help from a person or device, or need extra time to understand complex and a bstract ideas (such as current events, finances, discharge planning, medical issues, relationships, e tc)? No. COMPREHENSION - STEP 2: Does the patient need extra time, require an assistive device (such as glasses for visual comprehensi on or a hearing aid for auditory comprehension) or does s/he have mild difficulty understanding compl ex and abstract information? Yes. COMPREHENSION - SCORE: 6-SMILEY EXPRESSION EXPRESSION: TYPE: Both EXPRESSION - STEP 1: Does the patient require help from a person or device, or need extra time expressing complex and abst ract ideas (such as current events, finances, discharge planning, medical issues, relationships, etc) ? No. EXPRESSION - STEP 2: Does the patient need extra time, require an assistive device (such as augmentive communication syste m or a communication board), OR does s/he have mild difficulty expressing complex and abstract ideas (including mild dysarthria or mild word-find problems)? No. EXPRESSION - SCORE: 7-IND SOCIAL INTERACTION: SOCIAL INTERACTION - STEP 1: Does the patient require a helper to interact with others in social and therapeutic situations? No. SOCIAL INTERACTION - STEP 2: Does the patient need extra time in social situations, OR does s/he interact with staff, other patien ts, and family members ONLY in structured environments, OR does s/he require medication for social in teraction? No. SOCIAL INTERACTION - SCORE: 7-IND PROBLEM SOLVING: PROBLEM SOLVING - STEP 1: Does the patient need help from a person or device, or need extra time to solve complex problems such as managing a checking account or confronting interpersonal problems? No. PROBLEM SOLVING - STEP 2: Does the patient require extra time to make decisions or solve problems, OR does s/he have slight dif ficulty reading, initiating, or self-correcting in unfamiliar situations? No. PROBLEM SOLVING - SCORE: 7-IND MEMORY: MEMORY - STEP 1: Does the patient need help from a person or device, or need extra time to remember frequently encount ered people, daily routines, and executing requests? No. MEMORY - STEP 2: Does the patient have slight difficulty recognizing frequently encountered people, daily routines, or executing requests without the need for repetition or using self-initiated or environmental cues to remember? No. MEMORY - SCORE: 7-IND SIGNATURE PANEL: The following modified sections: Eating - Score, Grooming - Score, Bathing - Score, Dressing - Upper Body - Score, Dressing - Lower Body - Score, Toileting - Score, Bladder Management - Score, Bowel Man agement - Score, Transfers: Bed, Chair, Wheelchair - Score, Transfers: Toilet - Score, Transfers: Juli wer - Score, Transfers: Tub - Score, Locomotion: Walk - Score, Locomotion: Wheelchair - Score, Compre hension - Score, Expression - Score, Social Interaction - Score, Problem Solving - Score, Memory - Sc ore were [electronically] signed by Sindy Rivas CNA on MonOct 31 2018 02:38:07 [facility]-[id number] ([facility])
[2018-10-31] MEDS: METOPROLOL TAR 25 MG TAB PO SCH ×2 (05:07→17:14)
[2018-10-31 06:36] LABS: Protime INR 1.16
[2018-10-31 06:39] LABS: Albumin 2.7 g/dL (3.4-5.0); Bilirubin Total 0.7 mg/dL (0.2-1.0); Potassium 3.6 mmol/L (3.5-5.1); Protein, Total 5.8 g/dL (6.4-8.2)
[2018-10-31] MEDS: LEVOTHYROXINE SOD 0.088 MG TAB PO SCH (07:06)
[2018-10-31] MEDS: PANTOPRAZOLE 40MG TABLET PO SCH (07:06)
[2018-10-31] MEDS: FERROUS SULFATE 325 MG TAB PO SCH ×2 (08:06→19:38)
[2018-10-31] MEDS: FE SULF/FA/VIT B COMP & C TAB PO SCH (08:06)
[2018-10-31] MEDS: CLOPIDOGREL 75 MG TABLET PO SCH (08:06)
[2018-10-31] MEDS: CEPHALEXIN 500 MG CAP PO SCH ×2 (08:06→19:38)
[2018-10-31] MEDS: TAMSULOSIN 0.4 MG SR CAP PO SCH (08:06)
[2018-10-31] MEDS: ASPIRIN 81 MG CHEWABLE TABLET PO SCH (08:06)
[2018-10-31] MEDS: DOCUSATE NA 100 MG CAP PO SCH (08:06)
[2018-10-31] MEDS: PROMOD 30 ML DOSE PO SCH ×2 (08:07→19:37)
--- NOTE | 2018-10-31 12:16 | FAST ---
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 Sony Wright M.D. ADMISSION DIAGNOSIS: - Cardiac 09 - Cardiac Disorders () CAD. EATING: EATING - STEP 1: Does the patient require the assistance of a person or device, or need extra time when eating? No. EATING - SCORE: 7-IND GROOMING: GROOMING - STEP 1: Does the patient require the assistance of a person or device, or need extra time when grooming? Yes. GROOMING - STEP 2: Does the patient require the assistance of a helper? No. The patient only requires an assistive devic e, OR takes more than reasonable time to groom, OR there is a concern for safety as the patient groom s GROOMING - SCORE: 6-SMILEY BATHING: BATHING - STEP 1: Does the patient require the assistance of a person or device, or need extra time when bathing? Yes. BATHING - STEP 2: Does the patient require the assistance of a helper? Yes. BATHING - STEP 3: How much assistance does the patient require from the helper? Only incidental help such as placement of a wash cloth in his/her hand a few times as s/he bathes OR help to bathe just one or two areas of the body BATHING - SCORE: 4-MIN DRESSING - UPPER BODY: ARTICLES SCORE Total number of steps: 0 DRESSING - UPPER BODY - STEP 1: Does the patient require help from a person or device, or need extra time when dressing above the [address]? Yes. DRESSING - UPPER BODY - STEP 2: Does the patient require the assistance of a helper? No. Patient only requires an assistive device, s uch as a button hook, velcro, or rotary pump operator. OR s/he takes more than reasonable time as s/he dresses the upper body. OR there is a concern for safety when s/he dresses the upper body DRESSING - UPPER BODY - SCORE: 6-SMILEY DRESSING - LOWER BODY: ARTICLES SCORE Total number of steps: 0 DRESSING - LOWER BODY - STEP 1: Does the patient require help from a person or device, or need extra time when dressing below the [address]? Yes. DRESSING - LOWER BODY - STEP 2: Does the patient require the assistance of a helper? Yes. DRESSING - LOWER BODY - STEP 3: Does the helper touch the patient while dressing? No. DRESSING - LOWER BODY - SCORE: 5-SUP TOILETING: TOILETING - STEP 1: Does the patient require the assistance of a person or device, or need extra time with toileting? Yes . TOILETING - STEP 2: Does the patient require the assistance of a helper? Yes. TOILETING - STEP 3: How much assistance does the patient require from the helper? Hands-on assistance from the helper TOILETING - STEP 4: Of the 3 tasks: 1) Adjusting clothing prior to use, 2) Cleansing of perineal area, 3) Adjusting clot nabeel after use; How many tasks does the patient perform WITHOUT assistance of the helper? Two tasks TOILETING - SCORE: 3-MOD BLADDER MANAGEMENT: Activity did not occur on this shift BLADDER MANAGEMENT - SCORE: 7-IND BOWEL MANAGEMENT: Activity did not occur on this shift BOWEL MANAGEMENT - SCORE: 7-IND TRANSFERS: BED, CHAIR, WHEELCHAIR: TRANSFERS: BED, CHAIR, WHEELCHAIR - STEP 1: Does the patient require assistance of a person or device, or need extra time with bed, chair, or whe elchair transfers? Yes. TRANSFERS: BED, CHAIR, WHEELCHAIR - STEP 2: Does the patient require the assistance of a helper? No. Patient only requires an assistive device fo r bed, chair, wheelchair transfers such as a sliding board, grab bar, or brace, OR s/he takes more th an reasonable time, OR there is a safety concern when s/he performs the transfers TRANSFERS: BED, CHAIR, WHEELCHAIR - SCORE: 6-SMILEY TRANSFERS: TOILET: TRANSFERS: TOILET - STEP 1: Does the patient require the assistance of a person or device, or need extra time with toilet transfe rs? Yes. TRANSFERS: TOILET - STEP 2: Does the patient require the assistance of a helper? No. Patient only requires an assistive device noriega ch as a grab bar or special seat, OR s/he takes more than reasonable time to perform toilet transfers , OR there is a safety concern when s/he performs toilet transfers. TRANSFERS: TOILET - SCORE: 6-SMILEY TRANSFERS: SHOWER: TRANSFERS: SHOWER - STEP 1: Does the patient require the assistance of a person or device, or need extra time with shower transfe rs? Yes. TRANSFERS: SHOWER - STEP 2: Does the patient require the assistance of a helper? No. The patient only uses an assistive device, t akes more than reasonable time, OR there is a concern for safety when s/he performs transfers. TRANSFERS: SHOWER - SCORE: 6-SMILEY TRANSFERS: TUB: Activity did not occur on this shift TRANSFERS: TUB - SCORE: 0-UNK LOCOMOTION: WALK: Activity did not occur on this shift LOCOMOTION: WALK - SCORE: 0-UNK LOCOMOTION: WHEELCHAIR: Activity did not occur on this shift LOCOMOTION: WHEELCHAIR - SCORE: 0-UNK LOCOMOTION: STAIRS: Activity did not occur on this shift LOCOMOTION: STAIRS - SCORE: 0-UNK COMPREHENSION: COMPREHENSION: TYPE: Auditory COMPREHENSION - STEP 1: Does the patient require help from a person or device, or need extra time to understand complex and a bstract ideas (such as current events, finances, discharge planning, medical issues, relationships, e tc)? No. COMPREHENSION - STEP 2: Does the patient need extra time, require an assistive device (such as glasses for visual comprehensi on or a hearing aid for auditory comprehension) or does s/he have mild difficulty understanding compl ex and abstract information? No. COMPREHENSION - SCORE: 7-IND EXPRESSION EXPRESSION: TYPE: Vocal EXPRESSION - STEP 1: Does the patient require help from a person or device, or need extra time expressing complex and abst ract ideas (such as current events, finances, discharge planning, medical issues, relationships, etc) ? No. EXPRESSION - STEP 2: Does the patient need extra time, require an assistive device (such as augmentive communication syste m or a communication board), OR does s/he have mild difficulty expressing complex and abstract ideas (including mild dysarthria or mild word-find problems)? No. EXPRESSION - SCORE: 7-IND SOCIAL INTERACTION: SOCIAL INTERACTION - STEP 1: Does the patient require a helper to interact with others in social and therapeutic situations? No. SOCIAL INTERACTION - STEP 2: Does the patient need extra time in social situations, OR does s/he interact with staff, other patien ts, and family members ONLY in structured environments, OR does s/he require medication for social in teraction? No. SOCIAL INTERACTION - SCORE: 7-IND PROBLEM SOLVING: PROBLEM SOLVING - STEP 1: Does the patient need help from a person or device, or need extra time to solve complex problems such as managing a checking account or confronting interpersonal problems? No. PROBLEM SOLVING - STEP 2: Does the patient require extra time to make decisions or solve problems, OR does s/he have slight dif ficulty reading, initiating, or self-correcting in unfamiliar situations? No. PROBLEM SOLVING - SCORE: 7-IND MEMORY: MEMORY - STEP 1: Does the patient need help from a person or device, or need extra time to remember frequently encount ered people, daily routines, and executing requests? No. MEMORY - STEP 2: Does the patient have slight difficulty recognizing frequently encountered people, daily routines, or executing requests without the need for repetition or using self-initiated or environmental cues to remember? No. MEMORY - SCORE: 7-IND SIGNATURE PANEL: The following modified sections: Grooming - Score, Bathing - Score, Eating - Score, Dressing - Upper Body - Score, Dressing - Lower Body - Score, Toileting - Score, Transfers: Bed, Chair, Wheelchair - S core, Transfers: Toilet - Score, Transfers: Shower - Score, Transfers: Tub - Score, Comprehension - S core, Expression - Score, Social Interaction - Score, Problem Solving - Score, Memory - Score were [e lectronically] signed by Desiree Rowe OT on MonOct 31 2018 12:15:24 GMT-0600 (Central Standard Time)
[2018-10-31 14:17] LABS: Rheumatoid Factor NEG (NEG)
--- NOTE | 2018-10-31 14:18 | FAST ---
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 Sony Wright M.D. ADMISSION DIAGNOSIS: - Cardiac 09 - Cardiac Disorders () CAD. EATING: EATING - STEP 1: Does the patient require the assistance of a person or device, or need extra time when eating? Yes. EATING - STEP 2: Does the patient require the assistance of a helper? No, patient only requires an assistive device, O R s/he takes more than reasonable time to eat, OR there is a safety concern, OR s/he requires modifie d food consistency EATING - SCORE: 6-SMILEY GROOMING: Comb/brush hair Oral care Wash, rinse, and dry face Wash, rinse, and dry hands GROOMING - STEP 1: Does the patient require the assistance of a person or device, or need extra time when grooming? Yes. GROOMING - STEP 2: Does the patient require the assistance of a helper? Yes. GROOMING - STEP 3: How much assistance does the patient require from the helper? Only prior equipment preparation/set up from the helper GROOMING - SCORE: 5-SUP BATHING: Activity did not occur on this shift BATHING - SCORE: 0-UNK DRESSING - UPPER BODY: T-shirt/pullover shirt (four steps) ARTICLES SCORE Total number of steps: 4 DRESSING - UPPER BODY - STEP 1: Does the patient require help from a person or device, or need extra time when dressing above the [address]? Yes. DRESSING - UPPER BODY - STEP 2: Does the patient require the assistance of a helper? Yes. DRESSING - UPPER BODY - STEP 3: Does the helper touch the patient while dressing? Yes. DRESSING - UPPER BODY - STEP 4: How many of the total steps does the patient complete on his/her own? 3 DRESSING - UPPER BODY - SCORE: 4-MIN DRESSING - LOWER BODY: Elastic waist pants (three steps) Sock - Left foot (one step) Sock - Right foot (one step) Tied or buckled shoe - Left foot (two steps) Tied or buckled shoe - Right foot (two steps) Underwear (three steps) ARTICLES SCORE Total number of steps: 12 DRESSING - LOWER BODY - STEP 1: Does the patient require help from a person or device, or need extra time when dressing below the [address]? Yes. DRESSING - LOWER BODY - STEP 2: Does the patient require the assistance of a helper? Yes. DRESSING - LOWER BODY - STEP 3: Does the helper touch the patient while dressing? Yes. DRESSING - LOWER BODY - STEP 4: How many of the total steps does the patient complete on his/her own? 4 DRESSING - LOWER BODY - STEP 5: Does patient require total assistance for dressing below the waist such as the helper holding clothin g and performing basically all the activities? Yes. DRESSING - LOWER BODY - SCORE: 1-DEP TOILETING: TOILETING - STEP 1: Does the patient require the assistance of a person or device, or need extra time with toileting? Yes . TOILETING - STEP 2: Does the patient require the assistance of a helper? Yes. TOILETING - STEP 3: How much assistance does the patient require from the helper? Hands-on assistance from the helper TOILETING - STEP 4: Of the 3 tasks: 1) Adjusting clothing prior to use, 2) Cleansing of perineal area, 3) Adjusting clot nabeel after use; How many tasks does the patient perform WITHOUT assistance of the helper? No tasks; enrique cisneros performs all three tasks TOILETING - SCORE: 1-DEP BLADDER MANAGEMENT: BLADDER MANAGEMENT - STEP 1: Does the patient control the bladder completely and intentionally without equipment or devices or med ications, and is always continent? No. BLADDER MANAGEMENT - STEP 2: Does the patient require the assistance of a helper? No, patient requires and independently uses an a ssistive device, such as a urinal, bedpan, bedside commode, catheter, absorbent pad, or collecting de vice BLADDER MANAGEMENT - SCORE: 6-SMILEY BLADDER MANAGEMENT - FREQUENCY OF ACCIDENTS: BLADDER MANAGEMENT(FA) - STEP 1: How many accidents has the patient had during the current shift? 0 BOWEL MANAGEMENT: BOWEL MANAGEMENT - STEP 1: Does the patient control bowels completely and intentionally without equipment devices or medications AND is always continent? No. BOWEL MANAGEMENT - STEP 2: Does the patient require the assistance of a helper? No, patient requires medication for control such as stool softeners, suppositories, laxatives, enemas, or OTC medications BOWEL MANAGEMENT - SCORE: 6-SMILEY BOWEL MANAGEMENT - FREQUENCY OF ACCIDENTS: BOWEL MANAGEMENT(FA) - STEP 1: How many accidents has the patient had during the current shift? 0 TRANSFERS: BED, CHAIR, WHEELCHAIR: TRANSFERS: BED, CHAIR, WHEELCHAIR - STEP 1: Does the patient require assistance of a person or device, or need extra time with bed, chair, or whe elchair transfers? Yes. TRANSFERS: BED, CHAIR, WHEELCHAIR - STEP 2: Does the patient require the assistance of a helper? Yes. TRANSFERS: BED, CHAIR, WHEELCHAIR - STEP 3: How much assistance does the patient require from the helper? Steadying/guiding assistance TRANSFERS: BED, CHAIR, WHEELCHAIR - SCORE: 4-MIN TRANSFERS: TOILET: TRANSFERS: TOILET - STEP 1: Does the patient require the assistance of a person or device, or need extra time with toilet transfe rs? Yes. TRANSFERS: TOILET - STEP 2: Does the patient require the assistance of a helper? No. Patient only requires an assistive device noriega ch as a grab bar or special seat, OR s/he takes more than reasonable time to perform toilet transfers , OR there is a safety concern when s/he performs toilet transfers. TRANSFERS: TOILET - SCORE: 6-SMILEY TRANSFERS: SHOWER: Activity did not occur on this shift TRANSFERS: SHOWER - SCORE: 0-UNK TRANSFERS: TUB: Activity did not occur on this shift TRANSFERS: TUB - SCORE: 0-UNK LOCOMOTION: WALK: Activity did not occur on this shift LOCOMOTION: WALK - SCORE: 0-UNK LOCOMOTION: WHEELCHAIR: Activity did not occur on this shift LOCOMOTION: WHEELCHAIR - SCORE: 0-UNK COMPREHENSION: COMPREHENSION: TYPE: Both COMPREHENSION - STEP 1: Does the patient require help from a person or device, or need extra time to understand complex and a bstract ideas (such as current events, finances, discharge planning, medical issues, relationships, e tc)? No. COMPREHENSION - STEP 2: Does the patient need extra time, require an assistive device (such as glasses for visual comprehensi on or a hearing aid for auditory comprehension) or does s/he have mild difficulty understanding compl ex and abstract information? Yes. COMPREHENSION - SCORE: 6-SMILEY EXPRESSION EXPRESSION: TYPE: Both EXPRESSION - STEP 1: Does the patient require help from a person or device, or need extra time expressing complex and abst ract ideas (such as current events, finances, discharge planning, medical issues, relationships, etc) ? No. EXPRESSION - STEP 2: Does the patient need extra time, require an assistive device (such as augmentive communication syste m or a communication board), OR does s/he have mild difficulty expressing complex and abstract ideas (including mild dysarthria or mild word-find problems)? Yes. EXPRESSION - SCORE: 6-SMILEY SOCIAL INTERACTION: SOCIAL INTERACTION - STEP 1: Does the patient require a helper to interact with others in social and therapeutic situations? No. SOCIAL INTERACTION - STEP 2: Does the patient need extra time in social situations, OR does s/he interact with staff, other patien ts, and family members ONLY in structured environments, OR does s/he require medication for social in teraction? Yes, patient needs extra time SOCIAL INTERACTION - SCORE: 6-SMILEY PROBLEM SOLVING: PROBLEM SOLVING - STEP 1: Does the patient need help from a person or device, or need extra time to solve complex problems such as managing a checking account or confronting interpersonal problems? No. PROBLEM SOLVING - STEP 2: Does the patient require extra time to make decisions or solve problems, OR does s/he have slight dif ficulty reading, initiating, or self-correcting in unfamiliar situations? Yes, patient needs extra ti me. PROBLEM SOLVING - SCORE: 6-SMILEY MEMORY: MEMORY - STEP 1: Does the patient need help from a person or device, or need extra time to remember frequently encount ered people, daily routines, and executing requests? No. MEMORY - STEP 2: Does the patient have slight difficulty recognizing frequently encountered people, daily routines, or executing requests without the need for repetition or using self-initiated or environmental cues to remember? Yes. MEMORY - SCORE: 6-SMILEY SIGNATURE PANEL: The following modified sections: Eating - Score, Grooming - Score, Bathing - Score, Dressing - Upper Body - Score, Dressing - Lower Body - Score, Toileting - Score, Bladder Management - Score, Bowel Man agement - Score, Transfers: Bed, Chair, Wheelchair - Score, Transfers: Toilet - Score, Transfers: Juli wer - Score, Transfers: Tub - Score, Locomotion: Walk - Score, Locomotion: Wheelchair - Score, Compre hension - Score, Expression - Score, Social Interaction - Score, Problem Solving - Score, Memory - Sc ore were [electronically] signed by Neelam Vaughn C.N.A. on MonOct 31 2018 14:18:21 GMT-0600 ([facility] Standard Time)
[2018-10-31] MEDS: MIDODRINE HCL 5 MG TABLET PO SCH (14:37)
[2018-10-31] MEDS ORDERED: NA CHLORIDE 0.9% 1,000 ML IV PRN (15:33)
--- NOTE | 2018-10-31 15:42 | P.PN ---
Subjective Date of Service: 10/31/18 Chief Complaint: cont Pt/OT Subjective: Improving Rt arm bruise, mild pain will use bolus heparin with next HD pt feels much better , off o2 HD today will hold tomorrow Wt loss 6kgs since admission Physical Examination - Vital Signs Temperature: 97 F Blood Pressure: 99/55 Pulse: 76 Respirations: 18 Pulse Ox (%): 95 - Physical Exam General: In no apparent distress, Oriented x3 HEENT: Atraumatic Neck: Supple, Without JVD or thyroid abnormality Respiratory: Clear to auscultation bilaterally, Normal air movement Cardiovascular: Regular rate/rhythm, Normal S1 S2, No murmurs, Edema Gastrointestinal: Normal bowel sounds, Soft and benign Integumentary: No rashes - Studies Laboratory Data (last 24 hrs) 10/31/18 06:04: PT 13.6 H, INR 1.16 10/31/18 06:04: Sodium 139, Potassium 3.6, BUN 25 H, Creatinine 4.15 H, Glucose 92, Total Bilirubin 0.7, AST 54 H, ALT 26, Alkaline Phosphatase 150 H Assessment And Plan - Current Problems (Diagnosis) (1) ESRD (end stage renal disease) Current Visit: Yes Status: Acute - Plan ESRD on HD TTsat via perm cath HD today might require extra treatment to achieve better volume control on midodrine will cont to adjust Dry wt Anemia on MYLA low iron stores, on Po iron b12 and folate ok MBD low phos will dc phoslo CAD S/p CABG
[2018-10-31] MEDS ORDERED: ALBUMIN HUMAN 25% 50 ML IV ONE (16:00)
--- NOTE | 2018-10-31 16:53 | R.PN ---
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 Pt denied any Shortness of Breath. VITAL SIGNS Temperature: 97.8 F SBP/DBP: 99/55 Pulse: 76 Resp: 16 Ambulated 250' with minimum assistance using a rolling walker. Creatinine 4.15, alkaline phosphatase 150. RF negative, ARACELI pending. Wound cultures are pending and [facility] wound care service is following the patient. He is on Keflex 500 mg bid. Hematomas noted on left inner thigh. MEDICATION ALLERGIES: No Known Drug Allergies (NKDA) ENVIRONMENTAL ALLERGIES: - Substance Allergies None Known - Other Allergies None Known NURSING: - Shower allowing shower ACTIVITIES OOB only with supervision THERAPIES: - Occupational Therapy Evaluate and Treat. - Physical Therapy Evaluate and Treat. PHYSICAL EXAM - Gen Alert and awake Lying in bed No apparent distress Oriented to: person, time, and place - Skin Right medial leg vein harvest site has small area of drainage. Will apply wet to dry dressing changes 2-3 times daily as needed. No abnormalities - Eyes No abnormalities - ENMT No abnormalities - Neck No abnormalities - CVS RRR - Chest Mildly decreased breath sounds bilaterally. - Abd +bowel sounds - GI Obese Deferred - No abnormalities - Ext Mild postoperative edema in the right lower extremity - MSK 4+/5 weakness in left and right lower extremity - Neuro No focal deficits. - Psych No abnormalities ASSESSMENT: Pt. is a 63 yo Right-handed male.On 10/17/2018 he was admitted to [facility] with diagnos is CAD.His impairment category is Cardiac 09 - Cardiac Disorders (09).Pre-morbidly, Pt. was independ ent/mod-I in Self-Care, Sphincter Control, Transfers Control, and Locomotion; and he had good Sphinct er Control.Currently, he has deficits of Transfers Control, Communication, Social Cognition, Enduranc e, Balance, Safety Awareness, Self-Care, and Locomotion.Pt. is now referred to [facility] for acute in-patient rehabilitation in order to maximize patient's functional independenc e in activities of daily living, strength, ROM, and mobility.- Rehab Goal Patient has realistic goal of being discharged at assistance level 6-Tim to reside at Home with Fam esther/Relatives. MDM/PLAN: - Physical Therapy Gait dysfunction - to improve, our physical therapists will perform initial evaluation of pt's statu s upon admission and devise an individualized program for Gait Training, and Wheel Chair mobility Inability to transfer - to improve, our physical therapists will perform initial evaluation of pt's status upon admission and devise an individualized program for Bed mobility Need for home safety evaluation - to improve, our physical therapists will perform initial evaluatio n of pt's status upon admission and devise an individualized program for Home Evaluation Need in caregiver upon discharge - to improve, our physical therapists will perform initial evaluati on of pt's status upon admission and devise an individualized program for Caregiver Training Edema - to improve, our physical therapists will perform initial evaluation of pt's status upon admi ssion and devise an individualized program for Elevation Training, and Lymphedema Therapy New precaution - to improve, our physical therapists will perform initial evaluation of pt's status upon admission and devise an individualized program for Patient precaution education Poor balance - to improve, our physical therapists will perform initial evaluation of pt's status up on admission and devise an individualized program for Balance Training Poor endurance - to improve, our physical therapists will perform initial evaluation of pt's status upon admission and devise an individualized program for Endurance Training Weakness - to improve, our physical therapists will perform initial evaluation of pt's status upon a dmission and devise an individualized program for Aquatic Therapy, Neuromuscular Reeducation, and Str engthening Achieving independence - to improve, our physical therapists will perform initial evaluation of pt's status upon admission and devise an individualized program for Community Reintegration Activities - Occupational Therapy ADL deficits - to improve, our occupation therapists will perform initial evaluation of pt's status upon admission and devise an individualized program for Bathing, Bed mobility, Community Reintegratio n, Cooking, Dressing, Eating, Fine Motor Skills, Grooming, Homemaking, Kitchen Mobility, Laundry, Pat ient Education, Safety Awareness, Splinting - Positioning, Transfers(Toilet, Tub, Shower), and Wheel Chair Management Cognitive deficits - to improve, our occupation therapists will perform initial evaluation of pt's s tatus upon admission and devise an individualized program for Cognition - orientation Need for care administrative tech - to improve, our occupation therapists will perform initial evaluation of pt's status upon admission and devise an individualized program for Caregiver Training Weakness - to improve, our occupation therapists will perform initial evaluation of pt's status upon admission and devise an individualized program for Aquatic Therapy, Balance, Endurance, UE ROM, and UE strengthening - Diet Type Continue Regular - Diet - Liquid Texture Continue Regular - Tube Feed Continue N/A - Diet - Solid Texture Continue Regular - Shower allowing shower FUNCTIONAL STATUS: UPDATED AT WEEKLY TEAM CONFERENCE - Bladder Same accident frequency: 7-Ind - No accidents in the past 7 days - Bowel Same accident frequency: 7-Ind - No accidents in the past 7 days - Walking Same score based on distance walked: 1(<=50ft) FUNCTIONAL STATUS: - Self-Care A. Eating Ind B. Grooming sup C. Bathing maxA D. Dressing - Upper maxA E. Dressing - Lower maxA F. Toileting maxA - Sphincter Control G: Bladder control Ind H: Bowel control Ind - Transfers Control I. Bed/Chair/Wheelchair modA J. Toilet modA K. Tub/Shower modA - Locomotion L. Walk/Wheelchair (B) Dep M. Stairs ADNO - Communication N. Comprehension (B) sup O. Expression (B) sup - Social Cognition P. Social Interaction sup Q. Problem Solving sup R. Memory sup - Endurance Poor - Balance Poor - Safety Awareness Poor CURRENT FUNC. DEFICITS: Transfers Control, Communication, Social Cognition, Endurance, Balance, Safety Awareness, Self-Care, and Locomotion SIGNATURE PANEL: (PEDIATRIC ALLERGIST)
[2018-10-31] MEDS: ATORVASTATIN 80 MG TAB PO SCH (20:00)
[2018-10-31] MEDS: guaiFENesin 100 MG/5 ML UCUP PO PRN (23:48)
--- NOTE | 2018-11-01 00:43 | FAST ---
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 Sony Wright M.D. ADMISSION DIAGNOSIS: - Cardiac 09 - Cardiac Disorders () CAD. EATING: Activity did not occur on this shift EATING - SCORE: 0-UNK GROOMING: Activity did not occur on this shift GROOMING - SCORE: 0-UNK BATHING: Activity did not occur on this shift BATHING - SCORE: 0-UNK DRESSING - UPPER BODY: Patient is not dressing in public clothing ARTICLES SCORE Total number of steps: 0 DRESSING - UPPER BODY - SCORE: 0-UNK DRESSING - LOWER BODY: Patient is not dressing in public clothing ARTICLES SCORE Total number of steps: 0 DRESSING - LOWER BODY - SCORE: 0-UNK TOILETING: TOILETING - STEP 1: Does the patient require the assistance of a person or device, or need extra time with toileting? Yes . TOILETING - STEP 2: Does the patient require the assistance of a helper? Yes. TOILETING - STEP 3: How much assistance does the patient require from the helper? Only supervision TOILETING - SCORE: 5-SUP BLADDER MANAGEMENT: Patient is on renal dialysis or peritoneal dialysis and no voiding activity BLADDER MANAGEMENT - SCORE: 7-IND BOWEL MANAGEMENT: BOWEL MANAGEMENT - STEP 1: Does the patient control bowels completely and intentionally without equipment devices or medications AND is always continent? No. BOWEL MANAGEMENT - STEP 2: Does the patient require the assistance of a helper? No, patient requires medication for control such as stool softeners, suppositories, laxatives, enemas, or OTC medications BOWEL MANAGEMENT - SCORE: 6-SMILEY TRANSFERS: BED, CHAIR, WHEELCHAIR: TRANSFERS: BED, CHAIR, WHEELCHAIR - STEP 1: Does the patient require assistance of a person or device, or need extra time with bed, chair, or whe elchair transfers? Yes. TRANSFERS: BED, CHAIR, WHEELCHAIR - STEP 2: Does the patient require the assistance of a helper? Yes. TRANSFERS: BED, CHAIR, WHEELCHAIR - STEP 3: How much assistance does the patient require from the helper? Lifting of the legs TRANSFERS: BED, CHAIR, WHEELCHAIR - STEP 4: How many legs does the patient require the helper to lift? both legs TRANSFERS: BED, CHAIR, WHEELCHAIR - SCORE: 3-MOD TRANSFERS: TOILET: TRANSFERS: TOILET - STEP 1: Does the patient require the assistance of a person or device, or need extra time with toilet transfe rs? Yes. TRANSFERS: TOILET - STEP 2: Does the patient require the assistance of a helper? Yes. TRANSFERS: TOILET - STEP 3: How much assistance does the patient require from the helper? Only supervision, cuing, coaxing, OR he lp to set out transfer equipment or to lock brakes and/or lift foot rests TRANSFERS: TOILET - SCORE: 5-SUP TRANSFERS: SHOWER: Activity did not occur on this shift TRANSFERS: SHOWER - SCORE: 0-UNK TRANSFERS: TUB: Activity did not occur on this shift TRANSFERS: TUB - SCORE: 0-UNK LOCOMOTION: WALK: Activity did not occur on this shift LOCOMOTION: WALK - SCORE: 0-UNK LOCOMOTION: WHEELCHAIR: Activity did not occur on this shift LOCOMOTION: WHEELCHAIR - SCORE: 0-UNK COMPREHENSION: COMPREHENSION: TYPE: Both COMPREHENSION - STEP 1: Does the patient require help from a person or device, or need extra time to understand complex and a bstract ideas (such as current events, finances, discharge planning, medical issues, relationships, e tc)? No. COMPREHENSION - STEP 2: Does the patient need extra time, require an assistive device (such as glasses for visual comprehensi on or a hearing aid for auditory comprehension) or does s/he have mild difficulty understanding compl ex and abstract information? Yes. COMPREHENSION - SCORE: 6-SMILEY EXPRESSION EXPRESSION: TYPE: Both EXPRESSION - STEP 1: Does the patient require help from a person or device, or need extra time expressing complex and abst ract ideas (such as current events, finances, discharge planning, medical issues, relationships, etc) ? No. EXPRESSION - STEP 2: Does the patient need extra time, require an assistive device (such as augmentive communication syste m or a communication board), OR does s/he have mild difficulty expressing complex and abstract ideas (including mild dysarthria or mild word-find problems)? No. EXPRESSION - SCORE: 7-IND SOCIAL INTERACTION: SOCIAL INTERACTION - STEP 1: Does the patient require a helper to interact with others in social and therapeutic situations? No. SOCIAL INTERACTION - STEP 2: Does the patient need extra time in social situations, OR does s/he interact with staff, other patien ts, and family members ONLY in structured environments, OR does s/he require medication for social in teraction? No. SOCIAL INTERACTION - SCORE: 7-IND PROBLEM SOLVING: PROBLEM SOLVING - STEP 1: Does the patient need help from a person or device, or need extra time to solve complex problems such as managing a checking account or confronting interpersonal problems? No. PROBLEM SOLVING - STEP 2: Does the patient require extra time to make decisions or solve problems, OR does s/he have slight dif ficulty reading, initiating, or self-correcting in unfamiliar situations? Yes, patient needs extra ti me. PROBLEM SOLVING - SCORE: 6-SMILEY MEMORY: MEMORY - STEP 1: Does the patient need help from a person or device, or need extra time to remember frequently encount ered people, daily routines, and executing requests? No. MEMORY - STEP 2: Does the patient have slight difficulty recognizing frequently encountered people, daily routines, or executing requests without the need for repetition or using self-initiated or environmental cues to remember? No. MEMORY - SCORE: 7-IND SIGNATURE PANEL: The following modified sections: Eating - Score, Grooming - Score, Dressing - Upper Body - Score, Pj ssing - Lower Body - Score, Toileting - Score, Bladder Management - Score, Bowel Management - Score, Transfers: Bed, Chair, Wheelchair - Score, Transfers: Toilet - Score, Transfers: Shower - Score, Bourgeois sfers: Tub - Score, Locomotion: Walk - Score, Locomotion: Wheelchair - Score, Comprehension - Score, Expression - Score, Social Interaction - Score, Problem Solving - Score, Memory - Score were [electro nically] signed by Arabella Valdes CNA on MonNov 01 2018 00:41:47 GMT-0600 (Central Standard Time)
[2018-11-01] MEDS: METOPROLOL TAR 25 MG TAB PO SCH ×2 (05:38→17:25)
[2018-11-01 06:29] LABS: Absolute Lymphocytes (CBC) 0.7 K/uL (0.7-4.9); Absolute Monocytes 0.7 K/uL (0.1-1.3); Absolute Neutrophil 5.7 K/uL (1.8-8.0); Basophils % 1.1 % (0-1.3); Eosinophils % 1.3 % (0-4.4); Hematocrit 22.7 % (39.6-49.0); Lymphocytes % 9.9 % (15.3-44.8); MPV 8.6 fL (7.6-11.3); Monocytes % 9.4 % (3.3-12.3)
[2018-11-01 06:43] LABS: Albumin 2.5 g/dL (3.4-5.0); Magnesium 1.9 mg/dL (1.8-2.4); Potassium 3.1 mmol/L (3.5-5.1); Prealbumin 10.2 mg/dL (20-40)
[2018-11-01] MEDS: LEVOTHYROXINE SOD 0.088 MG TAB PO SCH (06:55)
[2018-11-01] MEDS: PANTOPRAZOLE 40MG TABLET PO SCH (06:55)
[2018-11-01] MEDS ORDERED: POTASSIUM CL SA 10 MEQ TAB PO ONE (08:15)
[2018-11-01] MEDS: CEPHALEXIN 500 MG CAP PO SCH (08:16)
[2018-11-01] MEDS: ASPIRIN 81 MG CHEWABLE TABLET PO SCH (08:16)
[2018-11-01] MEDS: TAMSULOSIN 0.4 MG SR CAP PO SCH (08:16)
[2018-11-01] MEDS: FERROUS SULFATE 325 MG TAB PO SCH ×2 (08:16→20:13)
[2018-11-01] MEDS: FE SULF/FA/VIT B COMP & C TAB PO SCH (08:16)
[2018-11-01] MEDS: CLOPIDOGREL 75 MG TABLET PO SCH (08:17)
[2018-11-01] MEDS: DOCUSATE NA 100 MG CAP PO SCH (08:17)
[2018-11-01] MEDS: PROMOD 30 ML DOSE PO SCH ×2 (08:19→20:12)
[2018-11-01] MEDS ORDERED: TRAMADOL HCL 50 MG TAB PO PRN (09:14)
[2018-11-01 10:02] LABS: Hematocrit 25.7 % (39.6-49.0)
--- NOTE | 2018-11-01 11:14 | P.CNS ---
Date of Consult: 11/01/18 Reason for Consult: Medical Management Requesting Physician: Sony Wright Primary Care Provider: Dr. Brandyn Gamboa Chief Complaint: Medical management History of Present Illness: 63-year-old male currently in inpatient rehab status post CABG x4 vessel on October 18 at [facility]. I was consulted for medical management. Patient with history of CAD, CABG x4 vessel, diabetes mellitus type 2, end- stage renal disease on hemodialysis, hypothyroidism, BPH, iron deficiency anemia , GERD. Patient doing well this time. Only complaint today is some exudate coming from the wound to the left medial thigh status post CABG. This appears improved. Wound culture obtained and pending at this time. Patient on oral antibiotic therapy. Otherwise patient stable. Patient doing well with physical therapy. Allergies No Known Allergies Allergy (Verified 10/28/18 14:22) Home medications list reviewed: Yes Home Medications: Metoprolol Tartrate [Lopressor*] 12.5 mg PO BID 6AM 6PM #60 tab 10/13/17 Tamsulosin [Flomax*] 0.4 mg PO BEDTIME #30 cap 10/13/17 Aspirin Chewable [Aspirin Chewable*] 81 mg PO DAILY 10/27/18 Atorvastatin Calcium [Lipitor] 80 mg PO BEDTIME 10/27/18 Calcium Acetate [Phoslo*] 1 mg PO TIDWM 10/27/18 Clopidogrel Bisulfate [Plavix] 75 mg PO DAILY 10/27/18 Docusate [Colace Cap*] 100 mg PO DAILY 10/27/18 Ferrous Sulfate 325 mg PO BID 10/27/18 Hydrocodone Bit/Acetaminophen [Hydrocodon-Acetaminophen 5-325] 5 - 325 mg PO Q6HP PRN 10/27/18 Levothyroxine [Synthroid*] 88 mcg PO CVZOL1ID 10/27/18 Midodrine HCl 10 mg PO DAILY 10/27/18 Pantoprazole [Protonix Tab] 40 mg PO DAILY 10/27/18 - Past Medical/Surgical History Diabetic: No -: ESRD-HD TTHS -: HTN -: Diabetes mellitus type 2 -: Hypothyroidism -: BPH -: GERD -: Iron deficiency anemia -: CAD/CABG x4 vessel -: Obesity, BMI 39 -: Orthostatic hypotension on midodrine -: Cataract -: Recent CABG x4 vessel Psychosocial/ Personal History: Patient is . - Family History Brother Medical History: Kidney disease Father Medical History: Heart disease, Lung disease, Diabetes Sister Medical History: Diabetes, Liver disease - Social History Smoking Status: Never smoker Alcohol use: No CD- Drugs: No Caffeine use: Yes Place of Residence: Home Review of Systems General: As per HPI Eyes: Unremarkable ENT: Unremarkable Respiratory: Unremarkable Cardiovascular: Unremarkable Gastrointestinal: Unremarkable Genitourinary: Unremarkable Musculoskeletal: Pedal edema, As per HPI Integumentary: As per HPI Neurological: Unremarkable Lymphatics: Unremarkable Physical Examination Temp Pulse Resp BP Pulse Ox 97.7 F 77 18 92/50 L 96 10/31/18 20:00 11/01/18 05:38 10/31/18 20:00 11/01/18 05:38 10/31/18 20:00 General: Alert, In no apparent distress, Oriented x3, Cooperative HEENT: Atraumatic, Normocephalic, PERRLA, Mucous membr. moist/pink Neck: Supple Respiratory: Clear to auscultation bilaterally, Normal air movement Cardiovascular: Normal pulses, Regular rate/rhythm Gastrointestinal: Normal bowel sounds, Soft and benign, Non-distended, No tenderness, No masses, No rebound, No guarding Musculoskeletal: Other (Wound to the left inner thigh status post CABG and vein graft. Exudate noted. No significant erythema noted) Neurological: Normal speech, Normal strength at 5/5 x4 extr, Normal tone, Normal affect Laboratory Data (last 24 hrs) 11/01/18 09:48: Hgb 8.6 L, Hct 25.7 L 11/01/18 06:00: Sodium 137, Potassium 3.1 L, BUN 24 H, Creatinine 3.97 H, Glucose 95, Magnesium 1.9 11/01/18 06:00: WBC 7.3 D, Hgb 7.9 L*, Hct 22.7 L D, Plt Count 147 L D Conclusions/Impression: Impression: Status post CABG-4 vessels and vein harvest on October 18 complicated with wound to the inner thigh, wound culture positive for gram negative rods End-stage renal disease on hemodialysis Diabetes mellitus type 2 Hypothyroidism Iron deficiency anemia BPH GERD History of orthostatic hypotension on midodrine Plan: Status post CABG-4 vessels and vein harvest on October 18 complicated with wound to the inner thigh, wound culture positive for gram negative rods: Wound and case reviewed. Continue with wound care recommendations. Spoke with microbiology. Cultures will finalized tomorrow. Patient currently on Keflex. Will consult infectious disease for recommendation. Patient on aspirin, Plavix and metoprolol. Will monitor closely. End-stage renal disease on hemodialysis: Patient continues with dialysis every Monday, and Saturdays. Nephrology on the case. Will follow along. Diabetes mellitus type 2: Will check A1c. Continue sliding scale. Hypothyroidism: Continue with his medication. Iron deficiency anemia: Continue with iron supplementation. Will monitor hemoglobin. BPH: Continue with medication. GERD: Continue with medication. History of orthostatic hypotension on midodrine: Patient gets midodrine on dialysis days. Blood pressure slightly low. Will start Midodrine daily. Will monitor closely. Patient on metoprolol for his CABG. Time Spent Managing Pts care (In Minutes): 55
--- NOTE | 2018-11-01 14:02 | FAST ---
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 Sony Wright M.D. ADMISSION DIAGNOSIS: - Cardiac 09 - Cardiac Disorders () CAD. EATING: EATING - STEP 1: Does the patient require the assistance of a person or device, or need extra time when eating? Yes. EATING - STEP 2: Does the patient require the assistance of a helper? No, patient only requires an assistive device, O R s/he takes more than reasonable time to eat, OR there is a safety concern, OR s/he requires modifie d food consistency EATING - SCORE: 6-SMILEY GROOMING: Comb/brush hair Oral care Wash, rinse, and dry face Wash, rinse, and dry hands GROOMING - STEP 1: Does the patient require the assistance of a person or device, or need extra time when grooming? Yes. GROOMING - STEP 2: Does the patient require the assistance of a helper? Yes. GROOMING - STEP 3: How much assistance does the patient require from the helper? Only prior equipment preparation/set up from the helper GROOMING - SCORE: 5-SUP BATHING: Activity did not occur on this shift BATHING - SCORE: 0-UNK DRESSING - UPPER BODY: Button down shirt or blouse - NOT tucked in (four steps) ARTICLES SCORE Total number of steps: 4 DRESSING - UPPER BODY - STEP 1: Does the patient require help from a person or device, or need extra time when dressing above the [address]? Yes. DRESSING - UPPER BODY - STEP 2: Does the patient require the assistance of a helper? No. Patient only requires an assistive device, s uch as a button hook, velcro, or char filter operator helper. OR s/he takes more than reasonable time as s/he dresses the upper body. OR there is a concern for safety when s/he dresses the upper body DRESSING - UPPER BODY - SCORE: 6-SMILEY DRESSING - LOWER BODY: Activity did not occur on this shift Sock - Left foot (one step) Sock - Right foot (one step) Tied or buckled shoe - Left foot (two steps) Tied or buckled shoe - Right foot (two steps) Underwear (three steps) Zippered pants (four steps) ARTICLES SCORE Total number of steps: 13 DRESSING - LOWER BODY - STEP 1: Does the patient require help from a person or device, or need extra time when dressing below the [address]? Yes. DRESSING - LOWER BODY - STEP 2: Does the patient require the assistance of a helper? Yes. DRESSING - LOWER BODY - STEP 3: Does the helper touch the patient while dressing? Yes. DRESSING - LOWER BODY - STEP 4: How many of the total steps does the patient complete on his/her own? 6 DRESSING - LOWER BODY - STEP 5: Does patient require total assistance for dressing below the waist such as the helper holding clothin g and performing basically all the activities? Yes. DRESSING - LOWER BODY - SCORE: 1-DEP TOILETING: TOILETING - STEP 1: Does the patient require the assistance of a person or device, or need extra time with toileting? Yes . TOILETING - STEP 2: Does the patient require the assistance of a helper? Yes. TOILETING - STEP 3: How much assistance does the patient require from the helper? Only supervision TOILETING - SCORE: 5-SUP BLADDER MANAGEMENT: [place] cares for worthy catheter including emptying drainage bag. Patient is on renal dialysis or peritoneal dialysis and no voiding activity BLADDER MANAGEMENT - SCORE: 1-DEP BLADDER MANAGEMENT - FREQUENCY OF ACCIDENTS: BLADDER MANAGEMENT(FA) - STEP 1: How many accidents has the patient had during the current shift? 0 BOWEL MANAGEMENT: BOWEL MANAGEMENT - STEP 1: Does the patient control bowels completely and intentionally without equipment devices or medications AND is always continent? No. BOWEL MANAGEMENT - STEP 2: Does the patient require the assistance of a helper? No, patient requires medication for control such as stool softeners, suppositories, laxatives, enemas, or OTC medications BOWEL MANAGEMENT - SCORE: 6-SMILEY BOWEL MANAGEMENT - FREQUENCY OF ACCIDENTS: BOWEL MANAGEMENT(FA) - STEP 1: How many accidents has the patient had during the current shift? 0 TRANSFERS: BED, CHAIR, WHEELCHAIR: TRANSFERS: BED, CHAIR, WHEELCHAIR - STEP 1: Does the patient require assistance of a person or device, or need extra time with bed, chair, or whe elchair transfers? Yes. TRANSFERS: BED, CHAIR, WHEELCHAIR - STEP 2: Does the patient require the assistance of a helper? Yes. TRANSFERS: BED, CHAIR, WHEELCHAIR - STEP 3: How much assistance does the patient require from the helper? Steadying/guiding assistance TRANSFERS: BED, CHAIR, WHEELCHAIR - SCORE: 4-MIN TRANSFERS: TOILET: TRANSFERS: TOILET - STEP 1: Does the patient require the assistance of a person or device, or need extra time with toilet transfe rs? Yes. TRANSFERS: TOILET - STEP 2: Does the patient require the assistance of a helper? No. Patient only requires an assistive device noriega ch as a grab bar or special seat, OR s/he takes more than reasonable time to perform toilet transfers , OR there is a safety concern when s/he performs toilet transfers. TRANSFERS: TOILET - SCORE: 6-SMILEY TRANSFERS: SHOWER: Activity did not occur on this shift TRANSFERS: SHOWER - SCORE: 0-UNK TRANSFERS: TUB: Activity did not occur on this shift TRANSFERS: TUB - SCORE: 0-UNK LOCOMOTION: WALK: Activity did not occur on this shift LOCOMOTION: WALK - SCORE: 0-UNK LOCOMOTION: WHEELCHAIR: Activity did not occur on this shift LOCOMOTION: WHEELCHAIR - SCORE: 0-UNK COMPREHENSION: COMPREHENSION: TYPE: Both COMPREHENSION - STEP 1: Does the patient require help from a person or device, or need extra time to understand complex and a bstract ideas (such as current events, finances, discharge planning, medical issues, relationships, e tc)? No. COMPREHENSION - STEP 2: Does the patient need extra time, require an assistive device (such as glasses for visual comprehensi on or a hearing aid for auditory comprehension) or does s/he have mild difficulty understanding compl ex and abstract information? Yes. COMPREHENSION - SCORE: 6-SMILEY EXPRESSION EXPRESSION: TYPE: Both EXPRESSION - STEP 1: Does the patient require help from a person or device, or need extra time expressing complex and abst ract ideas (such as current events, finances, discharge planning, medical issues, relationships, etc) ? No. EXPRESSION - STEP 2: Does the patient need extra time, require an assistive device (such as augmentive communication syste m or a communication board), OR does s/he have mild difficulty expressing complex and abstract ideas (including mild dysarthria or mild word-find problems)? Yes. EXPRESSION - SCORE: 6-SMILEY SOCIAL INTERACTION: SOCIAL INTERACTION - STEP 1: Does the patient require a helper to interact with others in social and therapeutic situations? No. SOCIAL INTERACTION - STEP 2: Does the patient need extra time in social situations, OR does s/he interact with staff, other patien ts, and family members ONLY in structured environments, OR does s/he require medication for social in teraction? Yes, patient needs extra time SOCIAL INTERACTION - SCORE: 6-SMILEY PROBLEM SOLVING: PROBLEM SOLVING - STEP 1: Does the patient need help from a person or device, or need extra time to solve complex problems such as managing a checking account or confronting interpersonal problems? No. PROBLEM SOLVING - STEP 2: Does the patient require extra time to make decisions or solve problems, OR does s/he have slight dif ficulty reading, initiating, or self-correcting in unfamiliar situations? Yes, patient needs extra ti me. PROBLEM SOLVING - SCORE: 6-MSILEY MEMORY: MEMORY - STEP 1: Does the patient need help from a person or device, or need extra time to remember frequently encount ered people, daily routines, and executing requests? No. MEMORY - STEP 2: Does the patient have slight difficulty recognizing frequently encountered people, daily routines, or executing requests without the need for repetition or using self-initiated or environmental cues to remember? Yes. MEMORY - SCORE: 6-SMILEY SIGNATURE PANEL: The following modified sections: Eating - Score, Grooming - Score, Bathing - Score, Dressing - Upper Body - Score, Dressing - Lower Body - Score, Toileting - Score, Bladder Management - Score, Bowel Man agement - Score, Transfers: Bed, Chair, Wheelchair - Score, Transfers: Toilet - Score, Transfers: Juli wer - Score, Transfers: Tub - Score, Locomotion: Walk - Score, Locomotion: Wheelchair - Score, Compre hension - Score, Expression - Score, Social Interaction - Score, Problem Solving - Score, Memory - Sc ore were [electronically] signed by Pallavi HuiNSergey on MonNov 01 2018 14:01:28 GMT-0600 ([place] Standard Time)
--- NOTE | 2018-11-01 15:43 | RAD REPORT ---
EXAM DESCRIPTION: RAD - Chest Single View - 11/01/2018 3:26 pm CLINICAL HISTORY: Persistent cough COMPARISON: September 2017 TECHNIQUE: AP portable chest image was obtained 1523 hours . FINDINGS: Right lung field is clear. There is opacification in the left base obscuring the heart bor farrukh and left hemidiaphragm. Left costophrenic angle blunting is present. Heart size is prominent but not clearly different. Vasculature is similar to comparison. No pneumothorax. No right-sided pleural effusion. Dialysis catheter and sternotomy wires noted. No acute bony abnormality seen. No acute aort ic findings suspected. IMPRESSION: Left base opacification new from comparison. This could be pneumonia, atelectasis or a c ombination. Underlying mass lesion at the left base is lesser in likelihood.
[2018-11-01] MEDS ORDERED: VANCOMYCIN/NS 1 gm 1 GM/250 ML BAG IV SCH (16:15)
[2018-11-01] MEDS ORDERED: CEFEPIME/SWI 1gm 1 ML IVP ONE (16:15)
[2018-11-01] MEDS ORDERED: CEFEPIME/SWI 1gm 1 ML IVP SCH (16:15)
[2018-11-01] MEDS ORDERED: VANCOMYCIN 2 GM in NA CHLORIDE 0.9% 500 ML IVPB ONE (17:30)
--- NOTE | 2018-11-01 18:36 | R.PN ---
ENCOUNTER DATE AND TIME: 11/01/2018 18:30 (PACKAGING TECH) NAME DARLENE BLOOM DATE OF : 1955 DATE OF ADMISSION: 10/26/2018 16:10 (PACKAGING TECH) CADCHIEF COMPLAINT: Cardiac debility SUBJECTIVE: Pt denied any depression. Pt denied any Shortness of Breath. VITAL SIGNS Temperature: 98 F SBP/DBP: 114/57 Pulse: 86 Resp: 16 Ambulated 500' with modified independence using a rolling walker. Up and down 15 steps using bilatera l hand rails with standby assistance. Self-propelled wheelchair 500' with standby assistance. Hgb 8.6, Hgb A1C 5.0, Accounting Professor 3.97. Alkaline phosphatase 150. RF negative, ARACELI pending. Wound cultures ar e pending and the wound care service is following the patient. He is on Keflex 500 mg bid. Hematomas noted on left inner thigh. MEDICATION ALLERGIES: No Known Drug Allergies (NKDA) ENVIRONMENTAL ALLERGIES: - Substance Allergies None Known - Other Allergies None Known NURSING: - Shower allowing shower ACTIVITIES OOB only with supervision THERAPIES: - Occupational Therapy Evaluate and Treat. - Physical Therapy Evaluate and Treat. PHYSICAL EXAM - Gen Alert and awake Lying in bed No apparent distress Oriented to: person, time, and place - Skin Right medial leg vein harvest site has small area of drainage. Will apply wet to dry dressing changes 2-3 times daily as needed. No abnormalities - Eyes No abnormalities - ENMT No abnormalities - Neck No abnormalities - CVS RRR - Chest Mildly decreased breath sounds bilaterally. - Abd +bowel sounds - GI Obese Deferred - No abnormalities - Ext Mild postoperative edema in the right lower extremity - MSK 4+/5 weakness in left and right lower extremity - Neuro No focal deficits. - Psych No abnormalities ASSESSMENT: Pt. is a 63 yo Right-handed male.On 10/17/2018 he was admitted to [facility] with diagnos is CAD.His impairment category is Cardiac 09 - Cardiac Disorders (09).Pre-morbidly, Pt. was independ ent/mod-I in Self-Care, Sphincter Control, Transfers Control, and Locomotion; and he had good Sphinct er Control.Currently, he has deficits of Transfers Control, Communication, Social Cognition, Enduranc e, Balance, Safety Awareness, Self-Care, and Locomotion.Pt. is now referred to [facility] for acute in-patient rehabilitation in order to maximize patient's functional independenc e in activities of daily living, strength, ROM, and mobility.- Rehab Goal Patient has realistic goal of being discharged at assistance level 6-Tim to reside at Home with Fam esther/Relatives. MDM/PLAN: - Physical Therapy Gait dysfunction - to improve, our physical therapists will perform initial evaluation of pt's statu s upon admission and devise an individualized program for Gait Training, and Wheel Chair mobility Inability to transfer - to improve, our physical therapists will perform initial evaluation of pt's status upon admission and devise an individualized program for Bed mobility Need for home safety evaluation - to improve, our physical therapists will perform initial evaluatio n of pt's status upon admission and devise an individualized program for Home Evaluation Need in caregiver upon discharge - to improve, our physical therapists will perform initial evaluati on of pt's status upon admission and devise an individualized program for Caregiver Training Edema - to improve, our physical therapists will perform initial evaluation of pt's status upon admi ssion and devise an individualized program for Elevation Training, and Lymphedema Therapy New precaution - to improve, our physical therapists will perform initial evaluation of pt's status upon admission and devise an individualized program for Patient precaution education Poor balance - to improve, our physical therapists will perform initial evaluation of pt's status up on admission and devise an individualized program for Balance Training Poor endurance - to improve, our physical therapists will perform initial evaluation of pt's status upon admission and devise an individualized program for Endurance Training Weakness - to improve, our physical therapists will perform initial evaluation of pt's status upon a dmission and devise an individualized program for Aquatic Therapy, Neuromuscular Reeducation, and Str engthening Achieving independence - to improve, our physical therapists will perform initial evaluation of pt's status upon admission and devise an individualized program for Community Reintegration Activities - Occupational Therapy ADL deficits - to improve, our occupation therapists will perform initial evaluation of pt's status upon admission and devise an individualized program for Bathing, Bed mobility, Community Reintegratio n, Cooking, Dressing, Eating, Fine Motor Skills, Grooming, Homemaking, Kitchen Mobility, Laundry, Pat ient Education, Safety Awareness, Splinting - Positioning, Transfers(Toilet, Tub, Shower), and Wheel Chair Management Cognitive deficits - to improve, our occupation therapists will perform initial evaluation of pt's s tatus upon admission and devise an individualized program for Cognition - orientation Need for acute care surgeon - to improve, our occupation therapists will perform initial evaluation of pt's status upon admission and devise an individualized program for Caregiver Training Weakness - to improve, our occupation therapists will perform initial evaluation of pt's status upon admission and devise an individualized program for Aquatic Therapy, Balance, Endurance, UE ROM, and UE strengthening - Diet Type Continue Regular - Diet - Liquid Texture Continue Regular - Tube Feed Continue N/A - Diet - Solid Texture Continue Regular - Shower allowing shower FUNCTIONAL STATUS: UPDATED AT WEEKLY TEAM CONFERENCE - Bladder Same accident frequency: 7-Ind - No accidents in the past 7 days - Bowel Same accident frequency: 7-Ind - No accidents in the past 7 days - Walking Same score based on distance walked: 1(<=50ft) FUNCTIONAL STATUS: - Self-Care A. Eating Ind B. Grooming sup C. Bathing maxA D. Dressing - Upper maxA E. Dressing - Lower maxA F. Toileting maxA - Sphincter Control G: Bladder control Ind H: Bowel control Ind - Transfers Control I. Bed/Chair/Wheelchair modA J. Toilet modA K. Tub/Shower modA - Locomotion L. Walk/Wheelchair (B) Dep M. Stairs ADNO - Communication N. Comprehension (B) sup O. Expression (B) sup - Social Cognition P. Social Interaction sup Q. Problem Solving sup R. Memory sup - Endurance Poor - Balance Poor - Safety Awareness Poor CURRENT FUNC. DEFICITS: Transfers Control, Communication, Social Cognition, Endurance, Balance, Safety Awareness, Self-Care, and Locomotion SIGNATURE PANEL: (PACKAGING TECH)
--- NOTE | 2018-11-01 18:59 | CON ---
History Of Present Illness: The patient is a 63-year-old male coming in with cardiac surgery for byp ass. The patient's bypass area is doing well, but has develop left thigh wound infected and cellulit is in the area with an opening wound with red yellowish discolored foul smelling pus coming out of th e wound site. The patient denies any headache, nausea, vomiting, chest pain, abdominal pain, constip ation, or diarrhea. Past Medical History: Coronary artery disease, status post CABG; diabetes mellitus; hypercholesterem ia; hypothyroidism; end-stage renal disease on dialysis for 1 year. Social History: Nonsmoker, nondrinker. Family History: Noncontributory. Medication: Keflex. See [facility] for other medication. Allergies: NO KNOWN DRUG ALLERGIES. Review of Systems: A 10-point review was performed. Physical Examination: General: This is a 63-year-old male, lying in bed, not in any acute cardiopulmonary distress. Vital signs: Temperature 97.7, pulse 89, respirations 18, blood pressure 112/55. Extremities: Examination of left leg shows the patient has erythematous changes with increased warmt h and tenderness and about 5 cm x 1 cm wound with purplish pink discharge coming out of the wound sit e. Otherwise, examination within normal limit. Laboratory Data: Shows WBC 7.3, hemoglobin 7.9, platelets 147. Chemistry shows sodium 137, potassiu m 3.1, chloride 101, bicarb 30, BUN 24, creatinine 3.97, glucose is 95. Hemoglobin A1c 5. Micro pravin a: Blood cultures are pending. Wound culture to the left thigh shows the patient has gram-positive cocci in cluster and gram-negative rods. Assessment And Plan: Left thigh cellulitis with open infected wound, status post surgical graft vein removal. The patient to be started on vancomycin and cefepime. Vancomycin should be started at 1 g now and then with each dialysis and cefepime 1 g right now and with each dialysis. We will follow t he patient closely. Treatment should be continued for at least 3-4 weeks. Also apply Hydrofera Blue to the wound site or silver alginate to pack the wound and apply Kerlix or foam dressing on top. Ke ep the leg elevated. We will follow the patient as needed. Thank you, Dr. Wright and Dr. Suero for consult. NF/MODL Voice ID: [id number] Report ID: [id number]
[2018-11-01] MEDS: ATORVASTATIN 80 MG TAB PO SCH (20:12)
[2018-11-02] MEDS: guaiFENesin 100 MG/5 ML UCUP PO PRN (00:14)
--- NOTE | 2018-11-02 01:34 | PN ---
Date of Progress Note: 11/01/2018 Chief Complaint: End-stage renal disease, on dialysis. History Of Present Illness: The patient has fluid overload. He underwent extra dialysis treatment y esterday. The patient developed left thigh cellulitis and open wound infection, is undergoing treatm ent with antibiotics. He is started on vancomycin and cefepime. Review of Systems: Denies fever, chills. Physical Examination: Lungs: Clear to auscultation bilaterally. Heart: S1, S2. Abdomen: Soft, benign. Extremities: Dressing in place. Lymph edema present in the left lower extremity. Assessment: 1.End-stage renal disease. Next dialysis tomorrow. 2.Anemia. Hemoglobin is 8.6. Continue MYLA. 3.Renal osteodystrophy. Continue renal diet and binders. 4.Hypoalbuminemia. Increase p.o. protein intake. FRANCIS/ANA Voice ID: [id number] Report ID: [id number]
--- NOTE | 2018-11-02 01:41 | FAST ---
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 Sony Wright M.D. ADMISSION DIAGNOSIS: - Cardiac 09 - Cardiac Disorders () CAD. EATING: Activity did not occur on this shift EATING - SCORE: 0-UNK GROOMING: Activity did not occur on this shift GROOMING - SCORE: 0-UNK BATHING: Activity did not occur on this shift BATHING - SCORE: 0-UNK DRESSING - UPPER BODY: Patient is not dressing in public clothing ARTICLES SCORE Total number of steps: 0 DRESSING - UPPER BODY - SCORE: 0-UNK DRESSING - LOWER BODY: Patient is not dressing in public clothing ARTICLES SCORE Total number of steps: 0 DRESSING - LOWER BODY - SCORE: 0-UNK TOILETING: Activity did not occur on this shift TOILETING - SCORE: 0-UNK BLADDER MANAGEMENT: Patient is on renal dialysis or peritoneal dialysis and no voiding activity BLADDER MANAGEMENT - SCORE: 7-IND BOWEL MANAGEMENT: Activity did not occur on this shift BOWEL MANAGEMENT - SCORE: 7-IND TRANSFERS: BED, CHAIR, WHEELCHAIR: Activity did not occur on this shift TRANSFERS: BED, CHAIR, WHEELCHAIR - SCORE: 0-UNK TRANSFERS: TOILET: Activity did not occur on this shift TRANSFERS: TOILET - SCORE: 0-UNK TRANSFERS: SHOWER: Activity did not occur on this shift TRANSFERS: SHOWER - SCORE: 0-UNK TRANSFERS: TUB: Activity did not occur on this shift TRANSFERS: TUB - SCORE: 0-UNK LOCOMOTION: WALK: Activity did not occur on this shift LOCOMOTION: WALK - SCORE: 0-UNK LOCOMOTION: WHEELCHAIR: Activity did not occur on this shift LOCOMOTION: WHEELCHAIR - SCORE: 0-UNK COMPREHENSION: COMPREHENSION: TYPE: Both COMPREHENSION - STEP 1: Does the patient require help from a person or device, or need extra time to understand complex and a bstract ideas (such as current events, finances, discharge planning, medical issues, relationships, e tc)? No. COMPREHENSION - STEP 2: Does the patient need extra time, require an assistive device (such as glasses for visual comprehensi on or a hearing aid for auditory comprehension) or does s/he have mild difficulty understanding compl ex and abstract information? Yes. COMPREHENSION - SCORE: 6-SMILEY EXPRESSION EXPRESSION: TYPE: Both EXPRESSION - STEP 1: Does the patient require help from a person or device, or need extra time expressing complex and abst ract ideas (such as current events, finances, discharge planning, medical issues, relationships, etc) ? No. EXPRESSION - STEP 2: Does the patient need extra time, require an assistive device (such as augmentive communication syste m or a communication board), OR does s/he have mild difficulty expressing complex and abstract ideas (including mild dysarthria or mild word-find problems)? No. EXPRESSION - SCORE: 7-IND SOCIAL INTERACTION: SOCIAL INTERACTION - STEP 1: Does the patient require a helper to interact with others in social and therapeutic situations? No. SOCIAL INTERACTION - STEP 2: Does the patient need extra time in social situations, OR does s/he interact with staff, other patien ts, and family members ONLY in structured environments, OR does s/he require medication for social in teraction? Yes, patient needs extra time SOCIAL INTERACTION - SCORE: 6-SMILEY PROBLEM SOLVING: PROBLEM SOLVING - STEP 1: Does the patient need help from a person or device, or need extra time to solve complex problems such as managing a checking account or confronting interpersonal problems? No. PROBLEM SOLVING - STEP 2: Does the patient require extra time to make decisions or solve problems, OR does s/he have slight dif ficulty reading, initiating, or self-correcting in unfamiliar situations? Yes, patient needs extra ti me. PROBLEM SOLVING - SCORE: 6-SMILEY MEMORY: MEMORY - STEP 1: Does the patient need help from a person or device, or need extra time to remember frequently encount ered people, daily routines, and executing requests? No. MEMORY - STEP 2: Does the patient have slight difficulty recognizing frequently encountered people, daily routines, or executing requests without the need for repetition or using self-initiated or environmental cues to remember? Yes. MEMORY - SCORE: 6-SMILEY SIGNATURE PANEL: The following modified sections: Eating - Score, Grooming - Score, Dressing - Upper Body - Score, Pj ssing - Lower Body - Score, Toileting - Score, Bladder Management - Score, Bowel Management - Score, Transfers: Bed, Chair, Wheelchair - Score, Transfers: Toilet - Score, Transfers: Shower - Score, Bourgeois sfers: Tub - Score, Locomotion: Walk - Score, Locomotion: Wheelchair - Score, Comprehension - Score, Expression - Score, Social Interaction - Score, Problem Solving - Score, Memory - Score were [electro nically] signed by Arabella Valdes CNA on MonNov 02 2018 01:40:05 GMT-0600 (Central Standard Time)
[2018-11-02] MEDS: METOPROLOL TAR 25 MG TAB PO SCH ×2 (05:21→18:00)
[2018-11-02 06:37] LABS: Absolute Lymphocytes (CBC) 0.7 K/uL (0.7-4.9); Absolute Monocytes 0.6 K/uL (0.1-1.3); Absolute Neutrophil 5.7 K/uL (1.8-8.0); Basophils % 1.2 % (0-1.3); Eosinophils % 2.1 % (0-4.4); Hematocrit 22.3 % (39.6-49.0); Lymphocytes % 9.8 % (15.3-44.8); MPV 8.7 fL (7.6-11.3); Monocytes % 8.8 % (3.3-12.3); RBC Red Blood Cell Count 2.34 M/uL (4.33-5.43)
[2018-11-02] MEDS: PANTOPRAZOLE 40MG TABLET PO SCH (06:57)
[2018-11-02] MEDS: LEVOTHYROXINE SOD 0.088 MG TAB PO SCH (06:58)
[2018-11-02 07:03] LABS: Phosphorus 3.3 mg/dL (2.5-4.9); Potassium 3.3 mmol/L (3.5-5.1)
[2018-11-02] MEDS: FERROUS SULFATE 325 MG TAB PO SCH ×2 (08:08→20:07)
[2018-11-02] MEDS: MIDODRINE HCL 5 MG TABLET PO SCH ×2 (08:08→15:00)
[2018-11-02] MEDS: TAMSULOSIN 0.4 MG SR CAP PO SCH (08:08)
[2018-11-02] MEDS: FE SULF/FA/VIT B COMP & C TAB PO SCH (08:08)
[2018-11-02] MEDS: FOLIC ACID 1 MG TABLET PO SCH (08:09)
[2018-11-02] MEDS: DOCUSATE NA 100 MG CAP PO SCH (08:09)
[2018-11-02] MEDS: ASPIRIN 81 MG CHEWABLE TABLET PO SCH (08:09)
[2018-11-02] MEDS: CLOPIDOGREL 75 MG TABLET PO SCH (08:09)
[2018-11-02] MEDS: PROMOD 30 ML DOSE PO SCH ×2 (08:10→20:07)
[2018-11-02] MEDS: NEPRO SHAKE 237 ML CAN PO SCH ×2 (08:28→20:07)
--- NOTE | 2018-11-02 09:48 | FAST ---
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 Sony Wright M.D. ADMISSION DIAGNOSIS: - Cardiac 09 - Cardiac Disorders () CAD. EATING: EATING - STEP 1: Does the patient require the assistance of a person or device, or need extra time when eating? No. EATING - SCORE: 7-IND GROOMING: Comb/brush hair Oral care Wash, rinse, and dry face GROOMING - STEP 1: Does the patient require the assistance of a person or device, or need extra time when grooming? Yes. GROOMING - STEP 2: Does the patient require the assistance of a helper? No. The patient only requires an assistive devic e, OR takes more than reasonable time to groom, OR there is a concern for safety as the patient groom s GROOMING - SCORE: 6-SMILEY BATHING: Activity did not occur on this shift BATHING - SCORE: 0-UNK DRESSING - UPPER BODY: T-shirt/pullover shirt (four steps) ARTICLES SCORE Total number of steps: 4 DRESSING - UPPER BODY - STEP 1: Does the patient require help from a person or device, or need extra time when dressing above the [address]? Yes. DRESSING - UPPER BODY - STEP 2: Does the patient require the assistance of a helper? Yes. DRESSING - UPPER BODY - STEP 3: Does the helper touch the patient while dressing? Yes. DRESSING - UPPER BODY - STEP 4: How many of the total steps does the patient complete on his/her own? 4 DRESSING - UPPER BODY - SCORE: 4-MIN DRESSING - LOWER BODY: Activity did not occur on this shift ARTICLES SCORE Total number of steps: 0 DRESSING - LOWER BODY - SCORE: 0-UNK TOILETING: TOILETING - STEP 1: Does the patient require the assistance of a person or device, or need extra time with toileting? Yes . TOILETING - STEP 2: Does the patient require the assistance of a helper? Yes. TOILETING - STEP 3: How much assistance does the patient require from the helper? Hands-on assistance from the helper TOILETING - STEP 4: Of the 3 tasks: 1) Adjusting clothing prior to use, 2) Cleansing of perineal area, 3) Adjusting clot nabeel after use; How many tasks does the patient perform WITHOUT assistance of the helper? Two tasks TOILETING - SCORE: 3-MOD BLADDER MANAGEMENT: Patient is on renal dialysis or peritoneal dialysis and no voiding activity BLADDER MANAGEMENT - SCORE: 7-IND BLADDER MANAGEMENT - FREQUENCY OF ACCIDENTS: BLADDER MANAGEMENT(FA) - STEP 1: How many accidents has the patient had during the current shift? 0 BOWEL MANAGEMENT: BOWEL MANAGEMENT - STEP 1: Does the patient control bowels completely and intentionally without equipment devices or medications AND is always continent? Yes. BOWEL MANAGEMENT - SCORE: 7-IND BOWEL MANAGEMENT - FREQUENCY OF ACCIDENTS: BOWEL MANAGEMENT(FA) - STEP 1: How many accidents has the patient had during the current shift? 0 TRANSFERS: BED, CHAIR, WHEELCHAIR: TRANSFERS: BED, CHAIR, WHEELCHAIR - STEP 1: Does the patient require assistance of a person or device, or need extra time with bed, chair, or whe elchair transfers? Yes. TRANSFERS: BED, CHAIR, WHEELCHAIR - STEP 2: Does the patient require the assistance of a helper? Yes. TRANSFERS: BED, CHAIR, WHEELCHAIR - STEP 3: How much assistance does the patient require from the helper? Steadying/guiding assistance TRANSFERS: BED, CHAIR, WHEELCHAIR - SCORE: 4-MIN TRANSFERS: TOILET: TRANSFERS: TOILET - STEP 1: Does the patient require the assistance of a person or device, or need extra time with toilet transfe rs? Yes. TRANSFERS: TOILET - STEP 2: Does the patient require the assistance of a helper? Yes. TRANSFERS: TOILET - STEP 3: How much assistance does the patient require from the helper? Patient performs half or more of the tr ansferring tasks TRANSFERS: TOILET - STEP 4: Does the patient need only incidental help such as contact guard or steadying during toilet transfer? Yes. TRANSFERS: TOILET - SCORE: 4-MIN TRANSFERS: SHOWER: Activity did not occur on this shift TRANSFERS: SHOWER - SCORE: 0-UNK TRANSFERS: TUB: Activity did not occur on this shift TRANSFERS: TUB - SCORE: 0-UNK LOCOMOTION: WALK: Activity did not occur on this shift LOCOMOTION: WALK - SCORE: 0-UNK LOCOMOTION: WHEELCHAIR: Activity did not occur on this shift LOCOMOTION: WHEELCHAIR - SCORE: 0-UNK COMPREHENSION: COMPREHENSION - SCORE: 0-UNK EXPRESSION EXPRESSION - SCORE: 0-UNK SOCIAL INTERACTION: SOCIAL INTERACTION - SCORE: 0-UNK PROBLEM SOLVING: PROBLEM SOLVING - SCORE: 0-UNK MEMORY: MEMORY - SCORE: 0-UNK SIGNATURE PANEL: The following modified sections: Eating - Score, Grooming - Score, Bathing - Score, Dressing - Upper Body - Score, Dressing - Lower Body - Score, Toileting - Score, Bladder Management - Score, Bowel Man agement - Score, Transfers: Bed, Chair, Wheelchair - Score, Transfers: Toilet - Score, Transfers: Juli wer - Score, Transfers: Tub - Score, Locomotion: Walk - Score, Locomotion: Wheelchair - Score, Compre hension - Score, Expression - Score, Social Interaction - Score, Problem Solving - Score, Memory - Sc ore were [electronically] signed by Alexandra Saldana CNA on MonNov 02 2018 09:47:19 GMT-0600 (Centra l Standard Time)
--- NOTE | 2018-11-02 09:51 | P.RH.PN ---
Estimated Length of Stay: 11 Expected Discharge Date: 11/06/18 Discharge Disposition Plan: Home Family Support: Yes Senior Care Goal: Mobility, Transfers, Self Care Vital Signs: Last Vital Signs Temp 96.8 F 11/02/18 07:40 Pulse 70 11/02/18 07:40 Resp 16 11/02/18 07:40 BP 90/51 L 11/02/18 07:40 Pulse Ox 96 11/02/18 07:40 Laboratory: Laboratory Last Values WBC 7.3 K/uL (4.3-10.9) 11/02/18 06:15 RBC 2.34 M/uL (4.33-5.43) L 11/02/18 06:15 Hgb 7.9 g/dL (13.6-17.9) L* 11/02/18 06:15 Hct 22.3 % (39.6-49.0) L 11/02/18 06:15 MCV 95.1 fL (80-100) 11/02/18 06:15 MCH 33.7 pg (27.0-35.0) 11/02/18 06:15 MCHC 35.4 g/dL (32.0-36.0) 11/02/18 06:15 RDW 17.4 % (12.1-15.2) H 11/02/18 06:15 Plt Count 154 K/uL (152-406) 11/02/18 06:15 MPV 8.7 fL (7.6-11.3) 11/02/18 06:15 Neutrophils % 78.1 % (41.7-73.7) H 11/02/18 06:15 Lymphocytes % 9.8 % (15.3-44.8) L 11/02/18 06:15 Monocytes % 8.8 % (3.3-12.3) 11/02/18 06:15 Eosinophils % 2.1 % (0-4.4) 11/02/18 06:15 Basophils % 1.2 % (0-1.3) 11/02/18 06:15 Absolute Neutrophils 5.7 K/uL (1.8-8.0) 11/02/18 06:15 Absolute Lymphocytes 0.7 K/uL (0.7-4.9) 11/02/18 06:15 Absolute Monocytes 0.6 K/uL (0.1-1.3) 11/02/18 06:15 Absolute Eosinophils 0.2 K/uL (0-0.5) 11/02/18 06:15 Absolute Basophils 0.1 K/uL (0-0.5) 11/02/18 06:15 PT 13.6 SECONDS (9.5-12.5) H 10/31/18 06:04 INR 1.16 10/31/18 06:04 Sodium 136 mmol/L (136-145) 11/02/18 06:15 Potassium 3.3 mmol/L (3.5-5.1) L 11/02/18 06:15 Chloride 101 mmol/L (98-107) 11/02/18 06:15 Carbon Dioxide 28 mmol/L (21-32) 11/02/18 06:15 BUN 40 mg/dL (7-18) H 11/02/18 06:15 Creatinine 5.78 mg/dL (0.55-1.3) H* D 11/02/18 06:15 Estimated GFR 10 mL/min (=/>90) L 11/02/18 06:15 Glucose 89 mg/dL (74-106) 11/02/18 06:15 Hemoglobin A1c 5.0 % (4.2-6.3) 11/01/18 09:48 Calcium 7.6 mg/dL (8.5-10.1) L 11/02/18 06:15 Phosphorus 3.3 mg/dL (2.5-4.9) 11/02/18 06:15 Magnesium 1.9 mg/dL (1.8-2.4) 11/01/18 06:00 Iron 24.0 ug/dL (65-175) L 10/28/18 07:09 TIBC 151 ug/dL (250-460) L 10/28/18 07:09 Transferrin 108 mg/dL (200-360) L 10/28/18 07:09 Transferrin % Sat 15.9 % (20.0-50.0) L 10/28/18 07:09 Ferritin 630.3 ng/mL (26-388) H 10/28/18 07:09 Total Bilirubin 0.7 mg/dL (0.2-1.0) 10/31/18 06:04 AST 54 U/L (15-37) H 10/31/18 06:04 ALT 26 U/L (12-78) 10/31/18 06:04 Alkaline Phosphatase 150 U/L (45-117) H 10/31/18 06:04 Lactate Dehydrogenase 280 U/L (87-241) H 10/29/18 10:38 Serum Total Protein 5.8 g/dL (6.4-8.2) L 10/31/18 06:04 Albumin 2.5 g/dL (3.4-5.0) L 11/01/18 06:00 Globulin 3.1 g/dL (2.3-3.5) 10/31/18 06:04 Albumin/Globulin Ratio 0.9 (1.1-1.8) L 10/31/18 06:04 Prealbumin 10.2 mg/dL (20-40) L 11/01/18 06:00 Vitamin B12 841 pg/mL (193-986) 10/28/18 07:09 Serum Folate 12.7 ng/mL (3.1-17.5) 10/28/18 07:09 Procalcitonin 1.07 ng/mL (<0.50) H 11/01/18 09:48 PTH Intact 51.2 pg/mL (18.4-80.1) 10/28/18 07:09 Rheumatoid Factor Neg (NEG) 10/31/18 06:04 ABO/Rh AB POSITIVE 11/01/18 09:48 Antibody Screen Negative 11/01/18 09:48 Crossmatch See Detail 11/02/18 Unknown Weight: 242 lb 9 oz Wound Present: Yes Closed Surgical Incision Present: Yes Negative Pressure Wound Therapy Present: No Physician Update: Labs have been reviewed and Hgb is low at 7.9. Procalcitonin in 1.07. He will have transfusion today with dialysis. He is on vancomycin and cefepime by ID. He is making fair overall progress with physical and occupational therapy. Pain Issues: Tramadol 50mg TID PRN Functional Improvement: Patient has met all short-term goals at this time, and is progressing well to meeting all long-term goals. Patient's SaO2 has been being maintained around 94% RA. Summary: Patient's care plan and prison goals have been reviewed and revised as necessary. Please see the Rehabilitation Signature page for all necessary signatures.
--- NOTE | 2018-11-02 12:18 | CON ---
History Of Present Illness: Mr. Hong is a gentleman, who developed unstable angina, had a cardia c cath, and underwent bypass surgery. All of that was done at [facility] in [place]. Following that, he had a thigh wound and he has been in our hospital trying to treat that thigh wound. He is a chronic hemodialysis patient, and recently has been getting dialysis every day to try and reduce the amount of edema on the left leg. The left thigh has an incision where he had a vein harvest and that is the infected area. His bypass surgery either late September or very early October . He has been a hemodialysis patient for several years. Medications: Presently are metoprolol, tamsulosin, midodrine, hydrocodone, iron sulfate, Plavix, srini rvastatin, aspirin, Protonix, levothyroxine, docusate, and calcium acetate. Allergies: HE HAS NO ALLERGIES. Social History: Uses no tobacco. Physical Examination: General: He is alert, oriented, 5 feet 6 inches, 242 pounds sternal wound, this seems to be cleared . Left leg has redness, increased warmth, the wound of th e thigh has been examined by the surgeon that has infection, seems to be improving on antibiotics. T here is dressing dressing changes. He has likely angina, atrial fibrillation, problems confined to this . Impression: heart, mildly hypotensive supporting his blood pressure with . SH/MODL Voice ID: [id number] Report ID: [id number]
--- NOTE | 2018-11-02 13:13 | PN ---
Subjective: The patient is sitting in wheelchair. Denies any headache, nausea, vomiting, chest pain , abdominal pain, constipation, or diarrhea. Objective: Vital Signs: Temperature 96.8, pulse 70, respirations 14, and blood pressure 90/51. Lungs: Basal crackles. Heart: S1 and S2, regular. Abdomen: Soft, nontender. Bowel sounds present. Extremities: 2+ edema to the left leg with erythematous changes and left thigh wound noted. New bli stering wound on the left calf area. Laboratory Data: WBC 7.3, hemoglobin 7.9, and platelets are 154. Chemistry shows sodium 136, potass ium 3.3, chloride 101, bicarb 28, BUN 40, creatinine 5.78, and glucose 89. Micro data negative, up t o date. Assessment And Plan: Left thigh cellulitis with infected wound at the venous graft site. Continue a ntibiotics and wound care with Aquacel Ag. We will follow the patient as needed. BOB/ANA Voice ID: [id number] Report ID: [id number]
--- NOTE | 2018-11-02 13:29 | P.PN ---
Subjective Date of Service: 11/02/18 Primary Care Provider: Dr. Brandyn Gamboa Chief Complaint: Medical management Lt leg erythema now with discharge F/u cultures results on Vanco and cefepime clinicaly improving , lt leg trace edmema now HD today 1 PRBC today Physical Examination - Vital Signs Temperature: 96.8 F Blood Pressure: 90/51 Pulse: 70 Respirations: 16 Pulse Ox (%): 96 - Physical Exam General: In no apparent distress, Oriented x3 HEENT: Atraumatic Neck: Supple, Without JVD or thyroid abnormality Respiratory: Clear to auscultation bilaterally, Normal air movement Cardiovascular: No edema, Normal pulses, Regular rate/rhythm, Normal S1 S2, Edema (Trace rt leg edema, lt with edema and erythema ) Gastrointestinal: Normal bowel sounds - Studies Laboratory Data (last 24 hrs) 11/02/18 : Phosphorus Cancelled 11/02/18 06:15: Sodium 136, Potassium 3.3 L, BUN 40 H, Creatinine 5.78 H* D, Glucose 89, Phosphorus 3.3 11/02/18 06:15: WBC 7.3, Hgb 7.9 L*, Hct 22.3 L, Plt Count 154 Microbiology Data (last 24 hrs): 10/29/18 14:50 Wound - Left Thigh Gram Stain - Final 10/29/18 14:50 Wound - Left Thigh Anaerobic Culture - Final NO ANAEROBES GROWN. Assessment And Plan - Current Problems (Diagnosis) (1) ESRD (end stage renal disease) Current Visit: Yes Status: Acute - Plan ESRD on HD TTsat via perm cath HD tMWF for now on midodrine will cont to adjust Dry wt Anemia on MYLA low iron stores, on Po iron b12 and folate ok 1 PRBC during HD today MBD low phos off binders CAD S/p CABG Lt leg celluilitis Abx as per ID monitor VAnco level
[2018-11-02] MEDS: EPOETIN ALFA 10,000 UNIT/ML VIAL SQ SCH (15:02)
[2018-11-02] MEDS ORDERED: CEFEPIME/SWI 1gm 10 ML IVP SCH (16:00)
[2018-11-02] MEDS ORDERED: CEFEPIME 1 GM/VIAL IV SCH (16:00)
[2018-11-02] MEDS ORDERED: CEFEPIME 1 GM/VIAL IV ONE (16:30)
[2018-11-02 19:07] LABS: Hematocrit 26.5 % (39.6-49.0)
[2018-11-02] MEDS: DIPHENHYDRAMINE 25 MG TAB/CAP PO SCH (20:07)
[2018-11-02] MEDS: ATORVASTATIN 80 MG TAB PO SCH (20:07)
--- NOTE | 2018-11-03 02:32 | FAST ---
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 Sony Wright M.D. ADMISSION DIAGNOSIS: - Cardiac 09 - Cardiac Disorders () CAD. EATING: Activity did not occur on this shift EATING - SCORE: 0-UNK GROOMING: Activity did not occur on this shift GROOMING - SCORE: 0-UNK BATHING: Activity did not occur on this shift BATHING - SCORE: 0-UNK DRESSING - UPPER BODY: Patient is not dressing in public clothing ARTICLES SCORE Total number of steps: 0 DRESSING - UPPER BODY - SCORE: 0-UNK DRESSING - LOWER BODY: Patient is not dressing in public clothing ARTICLES SCORE Total number of steps: 0 DRESSING - LOWER BODY - SCORE: 0-UNK TOILETING: Activity did not occur on this shift TOILETING - SCORE: 0-UNK BLADDER MANAGEMENT: Patient is on renal dialysis or peritoneal dialysis and no voiding activity BLADDER MANAGEMENT - SCORE: 7-IND BOWEL MANAGEMENT: Activity did not occur on this shift BOWEL MANAGEMENT - SCORE: 7-IND TRANSFERS: BED, CHAIR, WHEELCHAIR: Activity did not occur on this shift TRANSFERS: BED, CHAIR, WHEELCHAIR - SCORE: 0-UNK TRANSFERS: TOILET: Activity did not occur on this shift TRANSFERS: TOILET - SCORE: 0-UNK TRANSFERS: SHOWER: Activity did not occur on this shift TRANSFERS: SHOWER - SCORE: 0-UNK TRANSFERS: TUB: Activity did not occur on this shift TRANSFERS: TUB - SCORE: 0-UNK LOCOMOTION: WALK: Activity did not occur on this shift LOCOMOTION: WALK - SCORE: 0-UNK LOCOMOTION: WHEELCHAIR: Activity did not occur on this shift LOCOMOTION: WHEELCHAIR - SCORE: 0-UNK COMPREHENSION: COMPREHENSION: TYPE: Both COMPREHENSION - STEP 1: Does the patient require help from a person or device, or need extra time to understand complex and a bstract ideas (such as current events, finances, discharge planning, medical issues, relationships, e tc)? No. COMPREHENSION - STEP 2: Does the patient need extra time, require an assistive device (such as glasses for visual comprehensi on or a hearing aid for auditory comprehension) or does s/he have mild difficulty understanding compl ex and abstract information? Yes. COMPREHENSION - SCORE: 6-SMILEY EXPRESSION EXPRESSION: TYPE: Both EXPRESSION - STEP 1: Does the patient require help from a person or device, or need extra time expressing complex and abst ract ideas (such as current events, finances, discharge planning, medical issues, relationships, etc) ? No. EXPRESSION - STEP 2: Does the patient need extra time, require an assistive device (such as augmentive communication syste m or a communication board), OR does s/he have mild difficulty expressing complex and abstract ideas (including mild dysarthria or mild word-find problems)? Yes. EXPRESSION - SCORE: 6-SMILEY SOCIAL INTERACTION: SOCIAL INTERACTION - STEP 1: Does the patient require a helper to interact with others in social and therapeutic situations? No. SOCIAL INTERACTION - STEP 2: Does the patient need extra time in social situations, OR does s/he interact with staff, other patien ts, and family members ONLY in structured environments, OR does s/he require medication for social in teraction? Yes, patient needs extra time SOCIAL INTERACTION - SCORE: 6-SMILEY PROBLEM SOLVING: PROBLEM SOLVING - STEP 1: Does the patient need help from a person or device, or need extra time to solve complex problems such as managing a checking account or confronting interpersonal problems? No. PROBLEM SOLVING - STEP 2: Does the patient require extra time to make decisions or solve problems, OR does s/he have slight dif ficulty reading, initiating, or self-correcting in unfamiliar situations? Yes, patient needs extra ti me. PROBLEM SOLVING - SCORE: 6-SMILEY MEMORY: MEMORY - STEP 1: Does the patient need help from a person or device, or need extra time to remember frequently encount ered people, daily routines, and executing requests? No. MEMORY - STEP 2: Does the patient have slight difficulty recognizing frequently encountered people, daily routines, or executing requests without the need for repetition or using self-initiated or environmental cues to remember? Yes. MEMORY - SCORE: 6-SMILEY
[2018-11-03] MEDS: METOPROLOL TAR 25 MG TAB PO SCH ×2 (05:10→17:17)
[2018-11-03] MEDS: guaiFENesin 100 MG/5 ML UCUP PO PRN (05:24)
[2018-11-03 05:46] VITALS: BMI 39.8
[2018-11-03] MEDS: LEVOTHYROXINE SOD 0.088 MG TAB PO SCH (07:14)
[2018-11-03] MEDS: PANTOPRAZOLE 40MG TABLET PO SCH (07:15)
[2018-11-03] MEDS: MIDODRINE HCL 5 MG TABLET PO SCH ×4 (08:17→20:14)
[2018-11-03] MEDS: FERROUS SULFATE 325 MG TAB PO SCH ×2 (08:17→20:10)
[2018-11-03] MEDS: FOLIC ACID 1 MG TABLET PO SCH (08:17)
[2018-11-03] MEDS: FE SULF/FA/VIT B COMP & C TAB PO SCH (08:17)
[2018-11-03] MEDS: ASPIRIN 81 MG CHEWABLE TABLET PO SCH (08:17)
[2018-11-03] MEDS: DOCUSATE NA 100 MG CAP PO SCH (08:17)
[2018-11-03] MEDS: NEPRO SHAKE 237 ML CAN PO SCH ×2 (08:18→20:10)
[2018-11-03] MEDS: CLOPIDOGREL 75 MG TABLET PO SCH (08:18)
[2018-11-03] MEDS: TAMSULOSIN 0.4 MG SR CAP PO SCH (08:18)
[2018-11-03] MEDS: PROMOD 30 ML DOSE PO SCH ×2 (08:19→20:11)
--- NOTE | 2018-11-03 09:45 | FAST ---
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 Sony Wright M.D. ADMISSION DIAGNOSIS: - Cardiac 09 - Cardiac Disorders () CAD. EATING: EATING - STEP 1: Does the patient require the assistance of a person or device, or need extra time when eating? Yes. EATING - STEP 2: Does the patient require the assistance of a helper? Yes. EATING - STEP 3: Does the patient perform half or more of the eating tasks? Yes. EATING - STEP 4: Does the patient need only supervision, cuing, coaxing OR help to apply an orthosis OR help to cut fo od, open containers, pour liquids, or butter bread? Yes. EATING - SCORE: 5-SUP GROOMING: Comb/brush hair Oral care GROOMING - STEP 1: Does the patient require the assistance of a person or device, or need extra time when grooming? Yes. GROOMING - STEP 2: Does the patient require the assistance of a helper? No. The patient only requires an assistive devic e, OR takes more than reasonable time to groom, OR there is a concern for safety as the patient groom s GROOMING - SCORE: 6-SMILEY BATHING: Activity did not occur on this shift BATHING - SCORE: 0-UNK DRESSING - UPPER BODY: Activity did not occur on this shift ARTICLES SCORE Total number of steps: 0 DRESSING - UPPER BODY - SCORE: 0-UNK DRESSING - LOWER BODY: Activity did not occur on this shift ARTICLES SCORE Total number of steps: 0 DRESSING - LOWER BODY - SCORE: 0-UNK TOILETING: TOILETING - STEP 1: Does the patient require the assistance of a person or device, or need extra time with toileting? Yes . TOILETING - STEP 2: Does the patient require the assistance of a helper? Yes. TOILETING - STEP 3: How much assistance does the patient require from the helper? Hands-on assistance from the helper TOILETING - STEP 4: Of the 3 tasks: 1) Adjusting clothing prior to use, 2) Cleansing of perineal area, 3) Adjusting clot nabeel after use; How many tasks does the patient perform WITHOUT assistance of the helper? Two tasks TOILETING - SCORE: 3-MOD BLADDER MANAGEMENT: Patient is on renal dialysis or peritoneal dialysis and no voiding activity BLADDER MANAGEMENT - SCORE: 7-IND BOWEL MANAGEMENT: Activity did not occur on this shift BOWEL MANAGEMENT - SCORE: 7-IND TRANSFERS: BED, CHAIR, WHEELCHAIR: TRANSFERS: BED, CHAIR, WHEELCHAIR - STEP 1: Does the patient require assistance of a person or device, or need extra time with bed, chair, or whe elchair transfers? Yes. TRANSFERS: BED, CHAIR, WHEELCHAIR - STEP 2: Does the patient require the assistance of a helper? Yes. TRANSFERS: BED, CHAIR, WHEELCHAIR - STEP 3: How much assistance does the patient require from the helper? Lifting of the patient TRANSFERS: BED, CHAIR, WHEELCHAIR - STEP 4: Does the helper lift the patient ONLY up? ONLY down? Up AND Down? ONLY up. TRANSFERS: BED, CHAIR, WHEELCHAIR - SCORE: 3-MOD TRANSFERS: TOILET: TRANSFERS: TOILET - STEP 1: Does the patient require the assistance of a person or device, or need extra time with toilet transfe rs? Yes. TRANSFERS: TOILET - STEP 2: Does the patient require the assistance of a helper? Yes. TRANSFERS: TOILET - STEP 3: How much assistance does the patient require from the helper? Patient performs half or more of the tr ansferring tasks TRANSFERS: TOILET - STEP 4: Does the patient need only incidental help such as contact guard or steadying during toilet transfer? Yes. TRANSFERS: TOILET - SCORE: 4-MIN TRANSFERS: SHOWER: Activity did not occur on this shift TRANSFERS: SHOWER - SCORE: 0-UNK TRANSFERS: TUB: Activity did not occur on this shift TRANSFERS: TUB - SCORE: 0-UNK LOCOMOTION: WALK: Activity did not occur on this shift LOCOMOTION: WALK - SCORE: 0-UNK LOCOMOTION: WHEELCHAIR: Activity did not occur on this shift LOCOMOTION: WHEELCHAIR - SCORE: 0-UNK COMPREHENSION: COMPREHENSION: TYPE: Both COMPREHENSION - STEP 1: Does the patient require help from a person or device, or need extra time to understand complex and a bstract ideas (such as current events, finances, discharge planning, medical issues, relationships, e tc)? No. COMPREHENSION - STEP 2: Does the patient need extra time, require an assistive device (such as glasses for visual comprehensi on or a hearing aid for auditory comprehension) or does s/he have mild difficulty understanding compl ex and abstract information? Yes. COMPREHENSION - SCORE: 6-SMILEY EXPRESSION EXPRESSION: TYPE: Both EXPRESSION - STEP 1: Does the patient require help from a person or device, or need extra time expressing complex and abst ract ideas (such as current events, finances, discharge planning, medical issues, relationships, etc) ? No. EXPRESSION - STEP 2: Does the patient need extra time, require an assistive device (such as augmentive communication syste m or a communication board), OR does s/he have mild difficulty expressing complex and abstract ideas (including mild dysarthria or mild word-find problems)? Yes. EXPRESSION - SCORE: 6-SMILEY SOCIAL INTERACTION: SOCIAL INTERACTION - STEP 1: Does the patient require a helper to interact with others in social and therapeutic situations? No. SOCIAL INTERACTION - STEP 2: Does the patient need extra time in social situations, OR does s/he interact with staff, other patien ts, and family members ONLY in structured environments, OR does s/he require medication for social in teraction? Yes, patient needs extra time SOCIAL INTERACTION - SCORE: 6-SMILEY PROBLEM SOLVING: PROBLEM SOLVING - STEP 1: Does the patient need help from a person or device, or need extra time to solve complex problems such as managing a checking account or confronting interpersonal problems? No. PROBLEM SOLVING - STEP 2: Does the patient require extra time to make decisions or solve problems, OR does s/he have slight dif ficulty reading, initiating, or self-correcting in unfamiliar situations? Yes, patient needs extra ti me. PROBLEM SOLVING - SCORE: 6-SMILEY MEMORY: MEMORY - STEP 1: Does the patient need help from a person or device, or need extra time to remember frequently encount ered people, daily routines, and executing requests? No. MEMORY - STEP 2: Does the patient have slight difficulty recognizing frequently encountered people, daily routines, or executing requests without the need for repetition or using self-initiated or environmental cues to remember? Yes. MEMORY - SCORE: 6-SMILEY SIGNATURE PANEL: The following modified sections: Eating - Score, Grooming - Score, Bathing - Score, Dressing - Upper Body - Score, Dressing - Lower Body - Score, Toileting - Score, Bladder Management - Score, Bowel Man agement - Score, Transfers: Bed, Chair, Wheelchair - Score, Transfers: Toilet - Score, Transfers: Juli wer - Score, Transfers: Tub - Score, Locomotion: Walk - Score, Locomotion: Wheelchair - Score, Compre hension - Score, Expression - Score, Social Interaction - Score, Problem Solving - Score, Memory - Sc ore were [electronically] signed by Rhett Cantu on Sat Nov 03 2018 09:44:24 GMT-0600 (Central Standard Time)
--- NOTE | 2018-11-03 11:00 | P.PN ---
Subjective Date of Service: 11/03/18 Primary Care Provider: Dr. Brandyn Gamboa Chief Complaint: Medical management Subjective: Improving Physical Examination - Vital Signs Temperature: 97.4 F Blood Pressure: 89/50 Pulse: 69 Respirations: 14 Pulse Ox (%): 96 - Physical Exam General: Alert, In no apparent distress, Oriented x3, Cooperative HEENT: Atraumatic Neck: Supple Respiratory: Clear to auscultation bilaterally, Normal air movement Cardiovascular: Normal pulses, Regular rate/rhythm Gastrointestinal: Normal bowel sounds, Soft and benign, Non-distended, No tenderness, No masses, No rebound, No guarding Integumentary: Other (Wound to the left lower extremity stable.) - Studies Laboratory Data (last 24 hrs) 11/02/18 18:44: Hgb 9.0 L, Hct 26.5 L D Microbiology Data (last 24 hrs): 10/29/18 14:50 Wound - Left Thigh Gram Stain - Final 10/29/18 14:50 Wound - Left Thigh Anaerobic Culture - Final NO ANAEROBES GROWN. Medications List Reviewed: Yes Assessment & Plan Discharge Plan: Home Plan to discharge in: Greater than 2 days Physician Review Additional Text: Impression: Status post CABG-4 vessels and vein harvest on October 18 complicated with wound to the inner thigh, wound culture positive for gram negative rods End-stage renal disease on hemodialysis Diabetes mellitus type 2 Hypothyroidism Iron deficiency anemia BPH GERD History of orthostatic hypotension on midodrine Plan: Status post CABG-4 vessels and vein harvest on October 18 complicated with wound to the inner thigh, wound culture positive for gram negative rods: Patient now on IV antibiotic therapy as recommended by infectious disease. Await microbiology findings of culture. Once resulted antibiotics likely could be adjusted. Continue with physical therapy and plan of care. Will increase midodrine. May need to hold blood pressure medication if orthostatic. History of orthostatic hypotension on midodrine: Blood pressure slightly low. Will add midodrine 3 times a day. Patient gets midodrine higher dose prior to hemodialysis. May need to hold blood pressure medication. End-stage renal disease on hemodialysis: Patient continues with dialysis every Monday, and Saturdays. Nephrology on the case. Will follow along. Diabetes mellitus type 2, A1c 5.0: Blood sugar well controlled. Continue sliding scale. Hypothyroidism: Continue with his medication. Iron deficiency anemia: Continue with iron supplementation. Will monitor hemoglobin. BPH: Continue with medication. GERD: Continue with medication. Time Spent Managing Pts Care (In Minutes): 55
[2018-11-03] MEDS: ATORVASTATIN 80 MG TAB PO SCH (20:10)
[2018-11-03] MEDS: DIPHENHYDRAMINE 25 MG TAB/CAP PO SCH (20:10)
[2018-11-03] MEDS: MELATONIN 3 MG TABLET PO PRN (20:10)
--- NOTE | 2018-11-04 01:25 | PN ---
Date of Progress Note: 11/03/2018 Chief Complaint: End-stage renal disease. History Of Present Illness: The patient is undergoing rehab. Recently he had CABG done. He develop ed lower extremity cellulitis. He is on vancomycin and cefepime. Review of Systems: Denies fever, chills. Physical Examination: Lungs: Clear to auscultation bilaterally. Heart: S1, S2. Abdomen: Soft, benign. Extremities: Edema present in both legs. Impression And Plan: 1.End-stage renal disease, fluid overload. Continue p.o. fluid restriction, low-sodium diet. Dialy sis was done with ultrafiltration. Fluid overload is resolving gradually. 2.Intradialytic hypotension. Continue midodrine. 3.Anemia in chronic kidney disease. The patient received transfusion. Continue MYLA. 4.Renal osteodystrophy. Continue renal diet and binders as needed. EB/MODL Voice ID: [id number] Report ID: [id number]
--- NOTE | 2018-11-04 03:31 | FAST ---
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 Sony Wright M.D. ADMISSION DIAGNOSIS: - Cardiac 09 - Cardiac Disorders (09) CAD. EATING: Activity did not occur on this shift EATING - SCORE: 0-UNK GROOMING: Activity did not occur on this shift GROOMING - SCORE: 0-UNK BATHING: Activity did not occur on this shift BATHING - SCORE: 0-UNK DRESSING - UPPER BODY: Activity did not occur on this shift ARTICLES SCORE Total number of steps: 0 DRESSING - UPPER BODY - SCORE: 0-UNK DRESSING - LOWER BODY: Activity did not occur on this shift ARTICLES SCORE Total number of steps: 0 DRESSING - LOWER BODY - SCORE: 0-UNK TOILETING: Activity did not occur on this shift TOILETING - SCORE: 0-UNK BLADDER MANAGEMENT: Activity did not occur on this shift BLADDER MANAGEMENT - SCORE: 7-IND BOWEL MANAGEMENT: Activity did not occur on this shift BOWEL MANAGEMENT - SCORE: 7-IND TRANSFERS: BED, CHAIR, WHEELCHAIR: TRANSFERS: BED, CHAIR, WHEELCHAIR - STEP 1: Does the patient require assistance of a person or device, or need extra time with bed, chair, or whe elchair transfers? Yes. TRANSFERS: BED, CHAIR, WHEELCHAIR - STEP 2: Does the patient require the assistance of a helper? Yes. TRANSFERS: BED, CHAIR, WHEELCHAIR - STEP 3: How much assistance does the patient require from the helper? Lifting of the legs TRANSFERS: BED, CHAIR, WHEELCHAIR - STEP 4: How many legs does the patient require the helper to lift? both legs TRANSFERS: BED, CHAIR, WHEELCHAIR - SCORE: 3-MOD TRANSFERS: TOILET: Activity did not occur on this shift TRANSFERS: TOILET - SCORE: 0-UNK TRANSFERS: SHOWER: Activity did not occur on this shift TRANSFERS: SHOWER - SCORE: 0-UNK TRANSFERS: TUB: Activity did not occur on this shift TRANSFERS: TUB - SCORE: 0-UNK LOCOMOTION: WALK: Activity did not occur on this shift LOCOMOTION: WALK - SCORE: 0-UNK LOCOMOTION: WHEELCHAIR: Activity did not occur on this shift LOCOMOTION: WHEELCHAIR - SCORE: 0-UNK COMPREHENSION: COMPREHENSION: TYPE: Both COMPREHENSION - STEP 1: Does the patient require help from a person or device, or need extra time to understand complex and a bstract ideas (such as current events, finances, discharge planning, medical issues, relationships, e tc)? No. COMPREHENSION - STEP 2: Does the patient need extra time, require an assistive device (such as glasses for visual comprehensi on or a hearing aid for auditory comprehension) or does s/he have mild difficulty understanding compl ex and abstract information? Yes. COMPREHENSION - SCORE: 6-SMILEY EXPRESSION EXPRESSION: TYPE: Both EXPRESSION - STEP 1: Does the patient require help from a person or device, or need extra time expressing complex and abst ract ideas (such as current events, finances, discharge planning, medical issues, relationships, etc) ? No. EXPRESSION - STEP 2: Does the patient need extra time, require an assistive device (such as augmentive communication syste m or a communication board), OR does s/he have mild difficulty expressing complex and abstract ideas (including mild dysarthria or mild word-find problems)? No. EXPRESSION - SCORE: 7-IND SOCIAL INTERACTION: SOCIAL INTERACTION - STEP 1: Does the patient require a helper to interact with others in social and therapeutic situations? No. SOCIAL INTERACTION - STEP 2: Does the patient need extra time in social situations, OR does s/he interact with staff, other patien ts, and family members ONLY in structured environments, OR does s/he require medication for social in teraction? No. SOCIAL INTERACTION - SCORE: 7-IND PROBLEM SOLVING: PROBLEM SOLVING - STEP 1: Does the patient need help from a person or device, or need extra time to solve complex problems such as managing a checking account or confronting interpersonal problems? No. PROBLEM SOLVING - STEP 2: Does the patient require extra time to make decisions or solve problems, OR does s/he have slight dif ficulty reading, initiating, or self-correcting in unfamiliar situations? No. PROBLEM SOLVING - SCORE: 7-IND MEMORY: MEMORY - STEP 1: Does the patient need help from a person or device, or need extra time to remember frequently encount ered people, daily routines, and executing requests? No. MEMORY - STEP 2: Does the patient have slight difficulty recognizing frequently encountered people, daily routines, or executing requests without the need for repetition or using self-initiated or environmental cues to remember? No. MEMORY - SCORE: 7-IND SIGNATURE PANEL: The following modified sections: Eating - Score, Grooming - Score, Bathing - Score, Dressing - Upper Body - Score, Dressing - Lower Body - Score, Toileting - Score, Bladder Management - Score, Bowel Man agement - Score, Transfers: Bed, Chair, Wheelchair - Score, Transfers: Toilet - Score, Transfers: Juli wer - Score, Transfers: Tub - Score, Locomotion: Walk - Score, Locomotion: Wheelchair - Score, Compre hension - Score, Expression - Score, Social Interaction - Score, Problem Solving - Score, Memory - Sc ore were [electronically] signed by Sindy Rivas CNA on MonNov 04 2018 03:30:53 T-0600 ([facility])
[2018-11-04] MEDS: METOPROLOL TAR 25 MG TAB PO SCH ×2 (05:05→17:05)
[2018-11-04] MEDS: PANTOPRAZOLE 40MG TABLET PO SCH (06:41)
[2018-11-04] MEDS: LEVOTHYROXINE SOD 0.088 MG TAB PO SCH (06:41)
[2018-11-04] MEDS: NEPRO SHAKE 237 ML CAN PO SCH ×2 (08:19→20:02)
[2018-11-04] MEDS: PROMOD 30 ML DOSE PO SCH ×2 (08:19→20:02)
[2018-11-04] MEDS: MIDODRINE HCL 5 MG TABLET PO SCH ×3 (08:20→20:04)
[2018-11-04] MEDS: DOCUSATE NA 100 MG CAP PO SCH (08:21)
[2018-11-04] MEDS: FERROUS SULFATE 325 MG TAB PO SCH ×2 (08:21→20:04)
[2018-11-04] MEDS: FOLIC ACID 1 MG TABLET PO SCH (08:21)
[2018-11-04] MEDS: TAMSULOSIN 0.4 MG SR CAP PO SCH (08:21)
[2018-11-04] MEDS: ASPIRIN 81 MG CHEWABLE TABLET PO SCH (08:21)
[2018-11-04] MEDS: CLOPIDOGREL 75 MG TABLET PO SCH (08:21)
[2018-11-04] MEDS: FE SULF/FA/VIT B COMP & C TAB PO SCH (08:21)
--- NOTE | 2018-11-04 14:17 | FAST ---
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 Sony Wright M.D. ADMISSION DIAGNOSIS: - Cardiac 09 - Cardiac Disorders () CAD. EATING: EATING - STEP 1: Does the patient require the assistance of a person or device, or need extra time when eating? Yes. EATING - STEP 2: Does the patient require the assistance of a helper? Yes. EATING - STEP 3: Does the patient perform half or more of the eating tasks? Yes. EATING - STEP 4: Does the patient need only supervision, cuing, coaxing OR help to apply an orthosis OR help to cut fo od, open containers, pour liquids, or butter bread? Yes. EATING - SCORE: 5-SUP GROOMING: Comb/brush hair Oral care Wash, rinse, and dry face GROOMING - STEP 1: Does the patient require the assistance of a person or device, or need extra time when grooming? Yes. GROOMING - STEP 2: Does the patient require the assistance of a helper? No. The patient only requires an assistive devic e, OR takes more than reasonable time to groom, OR there is a concern for safety as the patient groom s GROOMING - SCORE: 6-SMILEY BATHING: Activity did not occur on this shift BATHING - SCORE: 0-UNK DRESSING - UPPER BODY: T-shirt/pullover shirt (four steps) ARTICLES SCORE Total number of steps: 4 DRESSING - UPPER BODY - STEP 1: Does the patient require help from a person or device, or need extra time when dressing above the [address]? Yes. DRESSING - UPPER BODY - STEP 2: Does the patient require the assistance of a helper? Yes. DRESSING - UPPER BODY - STEP 3: Does the helper touch the patient while dressing? Yes. DRESSING - UPPER BODY - STEP 4: How many of the total steps does the patient complete on his/her own? 3 DRESSING - UPPER BODY - SCORE: 4-MIN DRESSING - LOWER BODY: Activity did not occur on this shift ARTICLES SCORE Total number of steps: 0 DRESSING - LOWER BODY - SCORE: 0-UNK TOILETING: TOILETING - STEP 1: Does the patient require the assistance of a person or device, or need extra time with toileting? Yes . TOILETING - STEP 2: Does the patient require the assistance of a helper? Yes. TOILETING - STEP 3: How much assistance does the patient require from the helper? Only supervision TOILETING - SCORE: 5-SUP BLADDER MANAGEMENT: BLADDER MANAGEMENT - STEP 1: Does the patient control the bladder completely and intentionally without equipment or devices or med ications, and is always continent? No. BLADDER MANAGEMENT - STEP 2: Does the patient require the assistance of a helper? No, patient requires and independently uses an a ssistive device, such as a urinal, bedpan, bedside commode, catheter, absorbent pad, or collecting de vice BLADDER MANAGEMENT - SCORE: 6-SMILEY BOWEL MANAGEMENT: Activity did not occur on this shift BOWEL MANAGEMENT - SCORE: 7-IND TRANSFERS: BED, CHAIR, WHEELCHAIR: TRANSFERS: BED, CHAIR, WHEELCHAIR - STEP 1: Does the patient require assistance of a person or device, or need extra time with bed, chair, or whe elchair transfers? Yes. TRANSFERS: BED, CHAIR, WHEELCHAIR - STEP 2: Does the patient require the assistance of a helper? Yes. TRANSFERS: BED, CHAIR, WHEELCHAIR - STEP 3: How much assistance does the patient require from the helper? Steadying/guiding assistance TRANSFERS: BED, CHAIR, WHEELCHAIR - SCORE: 4-MIN TRANSFERS: TOILET: TRANSFERS: TOILET - STEP 1: Does the patient require the assistance of a person or device, or need extra time with toilet transfe rs? Yes. TRANSFERS: TOILET - STEP 2: Does the patient require the assistance of a helper? Yes. TRANSFERS: TOILET - STEP 3: How much assistance does the patient require from the helper? Patient performs half or more of the tr ansferring tasks TRANSFERS: TOILET - STEP 4: Does the patient need only incidental help such as contact guard or steadying during toilet transfer? Yes. TRANSFERS: TOILET - SCORE: 4-MIN TRANSFERS: SHOWER: Activity did not occur on this shift TRANSFERS: SHOWER - SCORE: 0-UNK TRANSFERS: TUB: Activity did not occur on this shift TRANSFERS: TUB - SCORE: 0-UNK LOCOMOTION: WALK: Activity did not occur on this shift LOCOMOTION: WALK - SCORE: 0-UNK LOCOMOTION: WHEELCHAIR: Activity did not occur on this shift LOCOMOTION: WHEELCHAIR - SCORE: 0-UNK COMPREHENSION: COMPREHENSION: TYPE: Both COMPREHENSION - STEP 1: Does the patient require help from a person or device, or need extra time to understand complex and a bstract ideas (such as current events, finances, discharge planning, medical issues, relationships, e tc)? No. COMPREHENSION - STEP 2: Does the patient need extra time, require an assistive device (such as glasses for visual comprehensi on or a hearing aid for auditory comprehension) or does s/he have mild difficulty understanding compl ex and abstract information? Yes. COMPREHENSION - SCORE: 6-SMILEY EXPRESSION EXPRESSION: TYPE: Both EXPRESSION - STEP 1: Does the patient require help from a person or device, or need extra time expressing complex and abst ract ideas (such as current events, finances, discharge planning, medical issues, relationships, etc) ? No. EXPRESSION - STEP 2: Does the patient need extra time, require an assistive device (such as augmentive communication syste m or a communication board), OR does s/he have mild difficulty expressing complex and abstract ideas (including mild dysarthria or mild word-find problems)? Yes. EXPRESSION - SCORE: 6-SMILEY SOCIAL INTERACTION: SOCIAL INTERACTION - STEP 1: Does the patient require a helper to interact with others in social and therapeutic situations? No. SOCIAL INTERACTION - STEP 2: Does the patient need extra time in social situations, OR does s/he interact with staff, other patien ts, and family members ONLY in structured environments, OR does s/he require medication for social in teraction? Yes, patient needs extra time SOCIAL INTERACTION - SCORE: 6-SMILEY PROBLEM SOLVING: PROBLEM SOLVING - STEP 1: Does the patient need help from a person or device, or need extra time to solve complex problems such as managing a checking account or confronting interpersonal problems? No. PROBLEM SOLVING - STEP 2: Does the patient require extra time to make decisions or solve problems, OR does s/he have slight dif ficulty reading, initiating, or self-correcting in unfamiliar situations? Yes, patient needs extra ti me. PROBLEM SOLVING - SCORE: 6-SMILEY MEMORY: MEMORY - STEP 1: Does the patient need help from a person or device, or need extra time to remember frequently encount ered people, daily routines, and executing requests? No. MEMORY - STEP 2: Does the patient have slight difficulty recognizing frequently encountered people, daily routines, or executing requests without the need for repetition or using self-initiated or environmental cues to remember? Yes. MEMORY - SCORE: 6-SMILEY SIGNATURE PANEL: The following modified sections: Eating - Score, Grooming - Score, Bathing - Score, Dressing - Upper Body - Score, Dressing - Lower Body - Score, Toileting - Score, Bladder Management - Score, Bowel Man agement - Score, Transfers: Bed, Chair, Wheelchair - Score, Transfers: Toilet - Score, Transfers: Juli wer - Score, Transfers: Tub - Score, Locomotion: Walk - Score, Locomotion: Wheelchair - Score, Compre hension - Score, Expression - Score, Social Interaction - Score, Problem Solving - Score, Memory - Sc ore were [electronically] signed by Rhett Cantu on Sun Nov 04 2018 14:16:37 GMT-0600 (Central Standard Time)
[2018-11-04] MEDS: guaiFENesin 100 MG/5 ML UCUP PO PRN (20:03)
[2018-11-04] MEDS: DIPHENHYDRAMINE 25 MG TAB/CAP PO SCH (20:04)
[2018-11-04] MEDS: MELATONIN 3 MG TABLET PO PRN (20:04)
[2018-11-04] MEDS: HYDROCODONE/APAP 5/325 MG TAB PO PRN (20:05)
[2018-11-04] MEDS: ATORVASTATIN 80 MG TAB PO SCH (20:05)
--- NOTE | 2018-11-05 01:23 | FAST ---
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 Sony Wright M.D. ADMISSION DIAGNOSIS: - Cardiac 09 - Cardiac Disorders (09) CAD. EATING: Activity did not occur on this shift EATING - SCORE: 0-UNK GROOMING: Activity did not occur on this shift GROOMING - SCORE: 0-UNK BATHING: Activity did not occur on this shift BATHING - SCORE: 0-UNK DRESSING - UPPER BODY: Activity did not occur on this shift ARTICLES SCORE Total number of steps: 0 DRESSING - UPPER BODY - SCORE: 0-UNK DRESSING - LOWER BODY: Activity did not occur on this shift ARTICLES SCORE Total number of steps: 0 DRESSING - LOWER BODY - SCORE: 0-UNK TOILETING: Activity did not occur on this shift TOILETING - SCORE: 0-UNK BLADDER MANAGEMENT: Patient is on renal dialysis or peritoneal dialysis and no voiding activity BLADDER MANAGEMENT - SCORE: 7-IND BOWEL MANAGEMENT: Activity did not occur on this shift BOWEL MANAGEMENT - SCORE: 7-IND TRANSFERS: BED, CHAIR, WHEELCHAIR: Patient requires more than one helper and/or the use of a mechanical lift is utilized TRANSFERS: BED, CHAIR, WHEELCHAIR - SCORE: 1-DEP TRANSFERS: TOILET: Patient requires more than one helper and/or the use of a mechanical lift is utilized TRANSFERS: TOILET - SCORE: 1-DEP TRANSFERS: SHOWER: Activity did not occur on this shift TRANSFERS: SHOWER - SCORE: 0-UNK TRANSFERS: TUB: Activity did not occur on this shift TRANSFERS: TUB - SCORE: 0-UNK LOCOMOTION: WALK: Activity did not occur on this shift LOCOMOTION: WALK - SCORE: 0-UNK LOCOMOTION: WHEELCHAIR: Activity did not occur on this shift LOCOMOTION: WHEELCHAIR - SCORE: 0-UNK COMPREHENSION: COMPREHENSION: TYPE: Both COMPREHENSION - STEP 1: Does the patient require help from a person or device, or need extra time to understand complex and a bstract ideas (such as current events, finances, discharge planning, medical issues, relationships, e tc)? No. COMPREHENSION - STEP 2: Does the patient need extra time, require an assistive device (such as glasses for visual comprehensi on or a hearing aid for auditory comprehension) or does s/he have mild difficulty understanding compl ex and abstract information? Yes. COMPREHENSION - SCORE: 6-SMILEY EXPRESSION EXPRESSION: TYPE: Both EXPRESSION - STEP 1: Does the patient require help from a person or device, or need extra time expressing complex and abst ract ideas (such as current events, finances, discharge planning, medical issues, relationships, etc) ? No. EXPRESSION - STEP 2: Does the patient need extra time, require an assistive device (such as augmentive communication syste m or a communication board), OR does s/he have mild difficulty expressing complex and abstract ideas (including mild dysarthria or mild word-find problems)? No. EXPRESSION - SCORE: 7-IND SOCIAL INTERACTION: SOCIAL INTERACTION - STEP 1: Does the patient require a helper to interact with others in social and therapeutic situations? No. SOCIAL INTERACTION - STEP 2: Does the patient need extra time in social situations, OR does s/he interact with staff, other patien ts, and family members ONLY in structured environments, OR does s/he require medication for social in teraction? Yes, patient needs extra time SOCIAL INTERACTION - SCORE: 6-SMIELY PROBLEM SOLVING: PROBLEM SOLVING - STEP 1: Does the patient need help from a person or device, or need extra time to solve complex problems such as managing a checking account or confronting interpersonal problems? No. PROBLEM SOLVING - STEP 2: Does the patient require extra time to make decisions or solve problems, OR does s/he have slight dif ficulty reading, initiating, or self-correcting in unfamiliar situations? No. PROBLEM SOLVING - SCORE: 7-IND MEMORY: MEMORY - STEP 1: Does the patient need help from a person or device, or need extra time to remember frequently encount ered people, daily routines, and executing requests? No. MEMORY - STEP 2: Does the patient have slight difficulty recognizing frequently encountered people, daily routines, or executing requests without the need for repetition or using self-initiated or environmental cues to remember? No. MEMORY - SCORE: 7-IND SIGNATURE PANEL: The following modified sections: Eating - Score, Grooming - Score, Bathing - Score, Dressing - Upper Body - Score, Dressing - Lower Body - Score, Toileting - Score, Bladder Management - Score, Bowel Man agement - Score, Transfers: Bed, Chair, Wheelchair - Score, Transfers: Toilet - Score, Transfers: Juli wer - Score, Transfers: Tub - Score, Locomotion: Walk - Score, Locomotion: Wheelchair - Score, Compre hension - Score, Expression - Score, Social Interaction - Score, Problem Solving - Score, Memory - Sc ore were [electronically] signed by Sindy Rivas CNA on MonNov 05 2018 01:22:41 T-0600 ([facility])
--- NOTE | 2018-11-05 01:44 | PN ---
Date of Progress Note: 11/04/2018 Chief Complaint: End-stage renal disease. History Of Present Illness: The patient is undergoing rehab. He recently had CABG done. He develop ed lower extremity cellulitis. He is on broad-spectrum antibiotic including vancomycin and cefepime. Review of Systems: Denies fever, chills. Legs edema somewhat improved. Physical Examination: Lungs: Clear to auscultation bilaterally. Heart: S1, S2. Abdomen: Soft, benign. Extremities: Edema present in both legs. Impression And Plan: 1.End-stage renal disease, fluid overload. Continue p.o. fluid restriction. Low-sodium diet. Dial ysis will be done with ultrafiltration. Fluid overload is gradually resolving. 2.Intradialytic hypotension. Continue midodrine. Monitor blood pressure closely. 3.Anemia of chronic kidney disease. Continue MYLA and iron replacement. 4.Renal osteodystrophy. Continue renal diet. Monitor phosphorus level. Adjust binders as needed. FRANCIS/ANA Voice ID: [id number] Report ID: [id number]
[2018-11-05 03:48] LABS: HBsAG Nonreactive (Nonreactive)
[2018-11-05] MEDS: METOPROLOL TAR 25 MG TAB PO SCH ×2 (05:03→16:49)
[2018-11-05 06:21] LABS: Hematocrit 24.2 % (39.6-49.0); MPV 8.7 fL (7.6-11.3); RBC Red Blood Cell Count 2.56 M/uL (4.33-5.43)
[2018-11-05 06:33] LABS: Potassium 3.7 mmol/L (3.5-5.1)
[2018-11-05] MEDS: PANTOPRAZOLE 40MG TABLET PO SCH (06:35)
[2018-11-05] MEDS: LEVOTHYROXINE SOD 0.088 MG TAB PO SCH (06:35)
[2018-11-05] MEDS: TAMSULOSIN 0.4 MG SR CAP PO SCH (07:59)
[2018-11-05] MEDS: DOCUSATE NA 100 MG CAP PO SCH (07:59)
[2018-11-05] MEDS: CLOPIDOGREL 75 MG TABLET PO SCH (07:59)
[2018-11-05] MEDS: FE SULF/FA/VIT B COMP & C TAB PO SCH (07:59)
[2018-11-05] MEDS: FOLIC ACID 1 MG TABLET PO SCH (07:59)
[2018-11-05] MEDS: FERROUS SULFATE 325 MG TAB PO SCH ×2 (07:59→19:15)
[2018-11-05] MEDS: ASPIRIN 81 MG CHEWABLE TABLET PO SCH (07:59)
[2018-11-05] MEDS: MIDODRINE HCL 5 MG TABLET PO SCH ×4 (07:59→23:22)
[2018-11-05] MEDS: NEPRO SHAKE 237 ML CAN PO SCH ×2 (08:00→19:15)
[2018-11-05] MEDS: PROMOD 30 ML DOSE PO SCH ×2 (08:00→19:15)
--- NOTE | 2018-11-05 15:02 | FAST ---
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 Sony Wright M.D. ADMISSION DIAGNOSIS: - Cardiac 09 - Cardiac Disorders () CAD. EATING: EATING - STEP 1: Does the patient require the assistance of a person or device, or need extra time when eating? Yes. EATING - STEP 2: Does the patient require the assistance of a helper? Yes. EATING - STEP 3: Does the patient perform half or more of the eating tasks? Yes. EATING - STEP 4: Does the patient need only supervision, cuing, coaxing OR help to apply an orthosis OR help to cut fo od, open containers, pour liquids, or butter bread? Yes. EATING - SCORE: 5-SUP GROOMING: Comb/brush hair Oral care Wash, rinse, and dry face Wash, rinse, and dry hands GROOMING - STEP 1: Does the patient require the assistance of a person or device, or need extra time when grooming? Yes. GROOMING - STEP 2: Does the patient require the assistance of a helper? No. The patient only requires an assistive devic e, OR takes more than reasonable time to groom, OR there is a concern for safety as the patient groom s GROOMING - SCORE: 6-SMILEY BATHING: Activity did not occur on this shift BATHING - SCORE: 0-UNK DRESSING - UPPER BODY: Activity did not occur on this shift ARTICLES SCORE Total number of steps: 0 DRESSING - UPPER BODY - SCORE: 0-UNK DRESSING - UPPER BODY - COMMENTS: Pt waiting for shower time with therapy to change clothes DRESSING - LOWER BODY: Activity did not occur on this shift ARTICLES SCORE Total number of steps: 0 DRESSING - LOWER BODY - SCORE: 0-UNK DRESSING - LOWER BODY - COMMENTS: Pt waiting for shower time to change clothes TOILETING: TOILETING - STEP 1: Does the patient require the assistance of a person or device, or need extra time with toileting? Yes . TOILETING - STEP 2: Does the patient require the assistance of a helper? Yes. TOILETING - STEP 3: How much assistance does the patient require from the helper? Only supervision TOILETING - SCORE: 5-SUP BLADDER MANAGEMENT: Patient is on renal dialysis or peritoneal dialysis and no voiding activity BLADDER MANAGEMENT - SCORE: 7-IND BLADDER MANAGEMENT - FREQUENCY OF ACCIDENTS: BLADDER MANAGEMENT(FA) - STEP 1: How many accidents has the patient had during the current shift? 0 BOWEL MANAGEMENT: Activity did not occur on this shift BOWEL MANAGEMENT - SCORE: 7-IND BOWEL MANAGEMENT - FREQUENCY OF ACCIDENTS: BOWEL MANAGEMENT(FA) - STEP 1: How many accidents has the patient had during the current shift? 0 TRANSFERS: BED, CHAIR, WHEELCHAIR: TRANSFERS: BED, CHAIR, WHEELCHAIR - STEP 1: Does the patient require assistance of a person or device, or need extra time with bed, chair, or whe elchair transfers? Yes. TRANSFERS: BED, CHAIR, WHEELCHAIR - STEP 2: Does the patient require the assistance of a helper? Yes. TRANSFERS: BED, CHAIR, WHEELCHAIR - STEP 3: How much assistance does the patient require from the helper? Steadying/guiding assistance TRANSFERS: BED, CHAIR, WHEELCHAIR - SCORE: 4-MIN TRANSFERS: TOILET: TRANSFERS: TOILET - STEP 1: Does the patient require the assistance of a person or device, or need extra time with toilet transfe rs? Yes. TRANSFERS: TOILET - STEP 2: Does the patient require the assistance of a helper? Yes. TRANSFERS: TOILET - STEP 3: How much assistance does the patient require from the helper? Patient performs half or more of the tr ansferring tasks TRANSFERS: TOILET - STEP 4: Does the patient need only incidental help such as contact guard or steadying during toilet transfer? Yes. TRANSFERS: TOILET - SCORE: 4-MIN TRANSFERS: SHOWER: Activity did not occur on this shift TRANSFERS: SHOWER - SCORE: 0-UNK TRANSFERS: TUB: Activity did not occur on this shift TRANSFERS: TUB - SCORE: 0-UNK LOCOMOTION: WALK: Activity did not occur on this shift LOCOMOTION: WALK - SCORE: 0-UNK LOCOMOTION: WHEELCHAIR: Activity did not occur on this shift LOCOMOTION: WHEELCHAIR - SCORE: 0-UNK COMPREHENSION: COMPREHENSION: TYPE: Both COMPREHENSION - STEP 1: Does the patient require help from a person or device, or need extra time to understand complex and a bstract ideas (such as current events, finances, discharge planning, medical issues, relationships, e tc)? No. COMPREHENSION - STEP 2: Does the patient need extra time, require an assistive device (such as glasses for visual comprehensi on or a hearing aid for auditory comprehension) or does s/he have mild difficulty understanding compl ex and abstract information? Yes. COMPREHENSION - SCORE: 6-SMILEY EXPRESSION EXPRESSION: TYPE: Both EXPRESSION - STEP 1: Does the patient require help from a person or device, or need extra time expressing complex and abst ract ideas (such as current events, finances, discharge planning, medical issues, relationships, etc) ? No. EXPRESSION - STEP 2: Does the patient need extra time, require an assistive device (such as augmentive communication syste m or a communication board), OR does s/he have mild difficulty expressing complex and abstract ideas (including mild dysarthria or mild word-find problems)? Yes. EXPRESSION - SCORE: 6-SMILEY SOCIAL INTERACTION: SOCIAL INTERACTION - STEP 1: Does the patient require a helper to interact with others in social and therapeutic situations? No. SOCIAL INTERACTION - STEP 2: Does the patient need extra time in social situations, OR does s/he interact with staff, other patien ts, and family members ONLY in structured environments, OR does s/he require medication for social in teraction? Yes, patient needs extra time SOCIAL INTERACTION - SCORE: 6-SMILEY PROBLEM SOLVING: PROBLEM SOLVING - STEP 1: Does the patient need help from a person or device, or need extra time to solve complex problems such as managing a checking account or confronting interpersonal problems? No. PROBLEM SOLVING - STEP 2: Does the patient require extra time to make decisions or solve problems, OR does s/he have slight dif ficulty reading, initiating, or self-correcting in unfamiliar situations? Yes, patient needs extra ti me. PROBLEM SOLVING - SCORE: 6-SMILEY MEMORY: MEMORY - STEP 1: Does the patient need help from a person or device, or need extra time to remember frequently encount ered people, daily routines, and executing requests? No. MEMORY - STEP 2: Does the patient have slight difficulty recognizing frequently encountered people, daily routines, or executing requests without the need for repetition or using self-initiated or environmental cues to remember? Yes. MEMORY - SCORE: 6-SMILEY SIGNATURE PANEL: The following modified sections: Eating - Score, Grooming - Score, Bathing - Score, Dressing - Upper Body - Score, Dressing - Upper Body - Comments:, Dressing - Lower Body - Score, Dressing - Lower Body - Comments:, Toileting - Score, Bladder Management - Score, Bowel Management - Score, Transfers: Bed , Chair, Wheelchair - Score, Transfers: Toilet - Score, Transfers: Shower - Score, Transfers: Tub - S core, Locomotion: Walk - Score, Locomotion: Wheelchair - Score, Comprehension - Score, Expression - S core, Social Interaction - Score, Problem Solving - Score, Memory - Score were [electronically] ace d by Neelam Vaughn, C.N.ADipika on MonNov 05 2018 15:01:41 GMT-0600 (Central Standard Time)
--- NOTE | 2018-11-05 15:26 | FAST ---
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 Sony Wright M.D. ADMISSION DIAGNOSIS: - Cardiac 09 - Cardiac Disorders (09) CAD. EATING: Activity did not occur on this shift EATING - SCORE: 0-UNK GROOMING: Activity did not occur on this shift GROOMING - SCORE: 0-UNK BATHING: Activity did not occur on this shift BATHING - SCORE: 0-UNK DRESSING - UPPER BODY: Activity did not occur on this shift Patient is not dressing in public clothing ARTICLES SCORE Total number of steps: 0 DRESSING - UPPER BODY - SCORE: 0-UNK DRESSING - LOWER BODY: Activity did not occur on this shift Patient is not dressing in public clothing ARTICLES SCORE Total number of steps: 0 DRESSING - LOWER BODY - SCORE: 0-UNK TOILETING: Activity did not occur on this shift TOILETING - SCORE: 0-UNK BLADDER MANAGEMENT: Activity did not occur on this shift BLADDER MANAGEMENT - SCORE: 7-IND BOWEL MANAGEMENT: Activity did not occur on this shift BOWEL MANAGEMENT - SCORE: 7-IND TRANSFERS: BED, CHAIR, WHEELCHAIR: TRANSFERS: BED, CHAIR, WHEELCHAIR - STEP 1: Does the patient require assistance of a person or device, or need extra time with bed, chair, or whe elchair transfers? Yes. TRANSFERS: BED, CHAIR, WHEELCHAIR - STEP 2: Does the patient require the assistance of a helper? Yes. TRANSFERS: BED, CHAIR, WHEELCHAIR - STEP 3: How much assistance does the patient require from the helper? Only supervision TRANSFERS: BED, CHAIR, WHEELCHAIR - SCORE: 5-SUP TRANSFERS: TOILET: Activity did not occur on this shift TRANSFERS: TOILET - SCORE: 0-UNK TRANSFERS: SHOWER: Activity did not occur on this shift TRANSFERS: SHOWER - SCORE: 0-UNK TRANSFERS: TUB: Activity did not occur on this shift TRANSFERS: TUB - SCORE: 0-UNK LOCOMOTION: WALK: LOCOMOTION: WALK - STEP 1: Does the patient need help from a person or device, or need extra time to walk 150 feet? No. LOCOMOTION: WALK - STEP 2: Does the patient need an assistive device (such as an orthosis, prosthesis, crutches, or walker) to g o 150 feet, OR does s/he take more than reasonable time, OR is there a concern for safety? Yes, the p atient needs an assistive device LOCOMOTION: WALK - SCORE: 6-SMILEY LOCOMOTION: WHEELCHAIR: LOCOMOTION: WHEELCHAIR - STEP 1: Does the patient need help to go 150 feet in a wheelchair? Yes. LOCOMOTION: WHEELCHAIR - STEP 2: How much assistance does the patient need from the helper? Only supervision, cuing, or coaxing LOCOMOTION: WHEELCHAIR - SCORE: 5-SUP LOCOMOTION: STAIRS: LOCOMOTION: STAIRS - STEP 1: Does the patient need help to go up and down 12 to 14 stairs? Yes. LOCOMOTION: STAIRS - STEP 2: How much assistance does the patient need from the helper to go a minimum of 12 to 14 stairs? Only noriega pervision, cuing, or coaxing LOCOMOTION: STAIRS - SCORE: 5-SUP COMPREHENSION: COMPREHENSION - SCORE: 0-UNK EXPRESSION EXPRESSION - SCORE: 0-UNK SOCIAL INTERACTION: SOCIAL INTERACTION - SCORE: 0-UNK PROBLEM SOLVING: PROBLEM SOLVING - SCORE: 0-UNK MEMORY: MEMORY - SCORE: 0-UNK SIGNATURE PANEL: The following modified sections: Transfers: Bed, Chair, Wheelchair - Score, Transfers: Toilet - Score , Locomotion: Walk - Score, Locomotion: Wheelchair - Score, Locomotion: Stairs - Score were [electron adama] signed by Presley Darnell PTA on MonNov 05 2018 15:25:13 GMT-0600 (Central Standard Time)
--- NOTE | 2018-11-05 15:29 | FAST ---
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 Sony Wright M.D. ADMISSION DIAGNOSIS: - Cardiac 09 - Cardiac Disorders (09) CAD. EATING: Activity did not occur on this shift EATING - SCORE: 0-UNK GROOMING: Activity did not occur on this shift GROOMING - SCORE: 0-UNK BATHING: Activity did not occur on this shift BATHING - SCORE: 0-UNK DRESSING - UPPER BODY: Activity did not occur on this shift Patient is not dressing in public clothing ARTICLES SCORE Total number of steps: 0 DRESSING - UPPER BODY - SCORE: 0-UNK DRESSING - LOWER BODY: Activity did not occur on this shift Patient is not dressing in public clothing ARTICLES SCORE Total number of steps: 0 DRESSING - LOWER BODY - SCORE: 0-UNK TOILETING: Activity did not occur on this shift TOILETING - SCORE: 0-UNK BLADDER MANAGEMENT: Activity did not occur on this shift BLADDER MANAGEMENT - SCORE: 7-IND BOWEL MANAGEMENT: Activity did not occur on this shift BOWEL MANAGEMENT - SCORE: 7-IND TRANSFERS: BED, CHAIR, WHEELCHAIR: TRANSFERS: BED, CHAIR, WHEELCHAIR - STEP 1: Does the patient require assistance of a person or device, or need extra time with bed, chair, or whe elchair transfers? Yes. TRANSFERS: BED, CHAIR, WHEELCHAIR - STEP 2: Does the patient require the assistance of a helper? Yes. TRANSFERS: BED, CHAIR, WHEELCHAIR - STEP 3: How much assistance does the patient require from the helper? Only supervision TRANSFERS: BED, CHAIR, WHEELCHAIR - SCORE: 5-SUP TRANSFERS: TOILET: Activity did not occur on this shift TRANSFERS: TOILET - SCORE: 0-UNK TRANSFERS: SHOWER: Activity did not occur on this shift TRANSFERS: SHOWER - SCORE: 0-UNK TRANSFERS: TUB: Activity did not occur on this shift TRANSFERS: TUB - SCORE: 0-UNK LOCOMOTION: WALK: LOCOMOTION: WALK - STEP 1: Does the patient need help from a person or device, or need extra time to walk 150 feet? No. LOCOMOTION: WALK - STEP 2: Does the patient need an assistive device (such as an orthosis, prosthesis, crutches, or walker) to g o 150 feet, OR does s/he take more than reasonable time, OR is there a concern for safety? Yes, the p atient needs an assistive device LOCOMOTION: WALK - SCORE: 6-SMILEY LOCOMOTION: WHEELCHAIR: LOCOMOTION: WHEELCHAIR - STEP 1: Does the patient need help to go 150 feet in a wheelchair? Yes. LOCOMOTION: WHEELCHAIR - STEP 2: How much assistance does the patient need from the helper? Only supervision, cuing, or coaxing LOCOMOTION: WHEELCHAIR - SCORE: 5-SUP LOCOMOTION: STAIRS: LOCOMOTION: STAIRS - STEP 1: Does the patient need help to go up and down 12 to 14 stairs? Yes. LOCOMOTION: STAIRS - STEP 2: How much assistance does the patient need from the helper to go a minimum of 12 to 14 stairs? Only noriega pervision, cuing, or coaxing LOCOMOTION: STAIRS - SCORE: 5-SUP COMPREHENSION: COMPREHENSION - SCORE: 0-UNK EXPRESSION EXPRESSION - SCORE: 0-UNK SOCIAL INTERACTION: SOCIAL INTERACTION - SCORE: 0-UNK PROBLEM SOLVING: PROBLEM SOLVING - SCORE: 0-UNK MEMORY: MEMORY - SCORE: 0-UNK SIGNATURE PANEL: The following modified sections: Transfers: Bed, Chair, Wheelchair - Score, Transfers: Toilet - Score , Locomotion: Walk - Score, Locomotion: Wheelchair - Score, Locomotion: Stairs - Score were [electron adama] signed by Presley Darnell PTA on MonNov 05 2018 15:28:20 GMT-0600 (Central Standard Time)
--- NOTE | 2018-11-05 15:32 | FAST ---
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 Sony Wright M.D. ADMISSION DIAGNOSIS: - Cardiac 09 - Cardiac Disorders (09) CAD. EATING: Activity did not occur on this shift EATING - SCORE: 0-UNK GROOMING: Activity did not occur on this shift GROOMING - SCORE: 0-UNK BATHING: Activity did not occur on this shift BATHING - SCORE: 0-UNK DRESSING - UPPER BODY: Activity did not occur on this shift Patient is not dressing in public clothing ARTICLES SCORE Total number of steps: 0 DRESSING - UPPER BODY - SCORE: 0-UNK DRESSING - LOWER BODY: Activity did not occur on this shift Patient is not dressing in public clothing ARTICLES SCORE Total number of steps: 0 DRESSING - LOWER BODY - SCORE: 0-UNK TOILETING: Activity did not occur on this shift TOILETING - SCORE: 0-UNK BLADDER MANAGEMENT: Activity did not occur on this shift BLADDER MANAGEMENT - SCORE: 7-IND BOWEL MANAGEMENT: Activity did not occur on this shift BOWEL MANAGEMENT - SCORE: 7-IND TRANSFERS: BED, CHAIR, WHEELCHAIR: TRANSFERS: BED, CHAIR, WHEELCHAIR - STEP 1: Does the patient require assistance of a person or device, or need extra time with bed, chair, or whe elchair transfers? Yes. TRANSFERS: BED, CHAIR, WHEELCHAIR - STEP 2: Does the patient require the assistance of a helper? No. Patient only requires an assistive device fo r bed, chair, wheelchair transfers such as a sliding board, grab bar, or brace, OR s/he takes more th an reasonable time, OR there is a safety concern when s/he performs the transfers TRANSFERS: BED, CHAIR, WHEELCHAIR - SCORE: 6-SMILEY TRANSFERS: TOILET: Activity did not occur on this shift TRANSFERS: TOILET - SCORE: 0-UNK TRANSFERS: SHOWER: Activity did not occur on this shift TRANSFERS: SHOWER - SCORE: 0-UNK TRANSFERS: TUB: Activity did not occur on this shift TRANSFERS: TUB - SCORE: 0-UNK LOCOMOTION: WALK: LOCOMOTION: WALK - STEP 1: Does the patient need help from a person or device, or need extra time to walk 150 feet? No. LOCOMOTION: WALK - STEP 2: Does the patient need an assistive device (such as an orthosis, prosthesis, crutches, or walker) to g o 150 feet, OR does s/he take more than reasonable time, OR is there a concern for safety? Yes, the p atient needs an assistive device LOCOMOTION: WALK - SCORE: 6-SMILEY LOCOMOTION: WHEELCHAIR: LOCOMOTION: WHEELCHAIR - STEP 1: Does the patient need help to go 150 feet in a wheelchair? Yes. LOCOMOTION: WHEELCHAIR - STEP 2: How much assistance does the patient need from the helper? Only supervision, cuing, or coaxing LOCOMOTION: WHEELCHAIR - SCORE: 5-SUP LOCOMOTION: STAIRS: LOCOMOTION: STAIRS - STEP 1: Does the patient need help to go up and down 12 to 14 stairs? No. LOCOMOTION: STAIRS - STEP 2: Does the patient require an assistive device - such as handrails or cane - to go up and down one flig ht of stairs, OR does s/he take more than reasonable time, OR is there a concern for safety? Yes, the patient requires an assistive device LOCOMOTION: STAIRS - SCORE: 6-SMILEY COMPREHENSION: COMPREHENSION - SCORE: 0-UNK EXPRESSION EXPRESSION - SCORE: 0-UNK SOCIAL INTERACTION: SOCIAL INTERACTION - SCORE: 0-UNK PROBLEM SOLVING: PROBLEM SOLVING - SCORE: 0-UNK MEMORY: MEMORY - SCORE: 0-UNK SIGNATURE PANEL: The following modified sections: Transfers: Bed, Chair, Wheelchair - Score, Transfers: Toilet - Score , Locomotion: Walk - Score, Locomotion: Wheelchair - Score, Locomotion: Stairs - Score were [electron adama] signed by Presley Darnell PTA on MonNov 05 2018 15:31:13 GMT-0600 (Central Standard Time)
--- NOTE | 2018-11-05 15:33 | FAST ---
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 Sony Wright M.D. ADMISSION DIAGNOSIS: - Cardiac 09 - Cardiac Disorders (09) CAD. EATING: Activity did not occur on this shift EATING - SCORE: 0-UNK GROOMING: Activity did not occur on this shift GROOMING - SCORE: 0-UNK BATHING: Activity did not occur on this shift BATHING - SCORE: 0-UNK DRESSING - UPPER BODY: Activity did not occur on this shift Patient is not dressing in public clothing ARTICLES SCORE Total number of steps: 0 DRESSING - UPPER BODY - SCORE: 0-UNK DRESSING - LOWER BODY: Activity did not occur on this shift Patient is not dressing in public clothing ARTICLES SCORE Total number of steps: 0 DRESSING - LOWER BODY - SCORE: 0-UNK TOILETING: Activity did not occur on this shift TOILETING - SCORE: 0-UNK BLADDER MANAGEMENT: Activity did not occur on this shift BLADDER MANAGEMENT - SCORE: 7-IND BOWEL MANAGEMENT: Activity did not occur on this shift BOWEL MANAGEMENT - SCORE: 7-IND TRANSFERS: BED, CHAIR, WHEELCHAIR: TRANSFERS: BED, CHAIR, WHEELCHAIR - STEP 1: Does the patient require assistance of a person or device, or need extra time with bed, chair, or whe elchair transfers? Yes. TRANSFERS: BED, CHAIR, WHEELCHAIR - STEP 2: Does the patient require the assistance of a helper? No. Patient only requires an assistive device fo r bed, chair, wheelchair transfers such as a sliding board, grab bar, or brace, OR s/he takes more th an reasonable time, OR there is a safety concern when s/he performs the transfers TRANSFERS: BED, CHAIR, WHEELCHAIR - SCORE: 6-SMILEY TRANSFERS: TOILET: Activity did not occur on this shift TRANSFERS: TOILET - SCORE: 0-UNK TRANSFERS: SHOWER: Activity did not occur on this shift TRANSFERS: SHOWER - SCORE: 0-UNK TRANSFERS: TUB: Activity did not occur on this shift TRANSFERS: TUB - SCORE: 0-UNK LOCOMOTION: WALK: LOCOMOTION: WALK - STEP 1: Does the patient need help from a person or device, or need extra time to walk 150 feet? No. LOCOMOTION: WALK - STEP 2: Does the patient need an assistive device (such as an orthosis, prosthesis, crutches, or walker) to g o 150 feet, OR does s/he take more than reasonable time, OR is there a concern for safety? Yes, the p atient needs an assistive device LOCOMOTION: WALK - SCORE: 6-SMILEY LOCOMOTION: WHEELCHAIR: LOCOMOTION: WHEELCHAIR - STEP 1: Does the patient need help to go 150 feet in a wheelchair? No. LOCOMOTION: WHEELCHAIR - SCORE: 6-SMILEY LOCOMOTION: STAIRS: Activity did not occur on this shift LOCOMOTION: STAIRS - SCORE: 0-UNK COMPREHENSION: COMPREHENSION - SCORE: 0-UNK EXPRESSION EXPRESSION - SCORE: 0-UNK SOCIAL INTERACTION: SOCIAL INTERACTION - SCORE: 0-UNK PROBLEM SOLVING: PROBLEM SOLVING - SCORE: 0-UNK MEMORY: MEMORY - SCORE: 0-UNK SIGNATURE PANEL: The following modified sections: Transfers: Bed, Chair, Wheelchair - Score, Transfers: Toilet - Score , Locomotion: Walk - Score, Locomotion: Wheelchair - Score, Locomotion: Stairs - Score were [electron ically] signed by Presley Darnell PTA on MonNov 05 2018 15:32:27 GMT-0600 (Central Standard Time)
--- NOTE | 2018-11-05 19:06 | R.PN ---
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 Pt denied any Shortness of Breath. Ambulated 500' with modified independence using a rollator. VITAL SIGNS Temperature: 98 F SBP/DBP: 114/57 Pulse: 86 Resp: 16 Ambulated 500' with modified independence using a rolling walker. Up and down 15 steps using bilatera l hand rails with standby assistance. Self-propelled wheelchair 500' with standby assistance. Hgb 8.6, Hgb A1C 5.0, Drug Safety Data Management Specialist 3.97. Alkaline phosphatase 150. RF negative, ARACELI pending. Wound cultures ar e pending and the wound care service is following the patient. ID is helping with the left leg infection. Vanc trough 13.7. All cultures are negative. Hgb is 8.0, Drug Safety Data Management Specialist 7.88. He is set for hemodialysis by the renal service. MEDICATION ALLERGIES: No Known Drug Allergies (NKDA) ENVIRONMENTAL ALLERGIES: - Substance Allergies None Known - Other Allergies None Known NURSING: - Shower allowing shower ACTIVITIES OOB only with supervision THERAPIES: - Occupational Therapy Evaluate and Treat. - Physical Therapy Evaluate and Treat. PHYSICAL EXAM - Gen Alert and awake Lying in bed No apparent distress Oriented to: person, time, and place - Skin Right medial leg vein harvest site has small area of drainage. Will apply wet to dry dressing changes 2-3 times daily as needed. No abnormalities - Eyes No abnormalities - ENMT No abnormalities - Neck No abnormalities - CVS RRR - Chest Mildly decreased breath sounds bilaterally. - Abd +bowel sounds - GI Obese Deferred - No abnormalities - Ext Mild postoperative edema in the right lower extremity - MSK 4+/5 weakness in left and right lower extremity - Neuro No focal deficits. - Psych No abnormalities ASSESSMENT: Pt. is a 63 yo Right-handed male.On 10/17/2018 he was admitted to [facility] with diagnos is CAD.His impairment category is Cardiac 09 - Cardiac Disorders (09).Pre-morbidly, Pt. was independ ent/mod-I in Self-Care, Sphincter Control, Transfers Control, and Locomotion; and he had good Sphinct er Control.Currently, he has deficits of Transfers Control, Communication, Social Cognition, Enduranc e, Balance, Safety Awareness, Self-Care, and Locomotion.Pt. is now referred to [facility] for acute in-patient rehabilitation in order to maximize patient's functional independenc e in activities of daily living, strength, ROM, and mobility.- Rehab Goal Patient has realistic goal of being discharged at assistance level 6-Tim to reside at Home with Fam esther/Relatives. MDM/PLAN: - Physical Therapy Gait dysfunction - to improve, our physical therapists will perform initial evaluation of pt's statu s upon admission and devise an individualized program for Gait Training, and Wheel Chair mobility Inability to transfer - to improve, our physical therapists will perform initial evaluation of pt's status upon admission and devise an individualized program for Bed mobility Need for home safety evaluation - to improve, our physical therapists will perform initial evaluatio n of pt's status upon admission and devise an individualized program for Home Evaluation Need in caregiver upon discharge - to improve, our physical therapists will perform initial evaluati on of pt's status upon admission and devise an individualized program for Caregiver Training Edema - to improve, our physical therapists will perform initial evaluation of pt's status upon admi ssion and devise an individualized program for Elevation Training, and Lymphedema Therapy New precaution - to improve, our physical therapists will perform initial evaluation of pt's status upon admission and devise an individualized program for Patient precaution education Poor balance - to improve, our physical therapists will perform initial evaluation of pt's status up on admission and devise an individualized program for Balance Training Poor endurance - to improve, our physical therapists will perform initial evaluation of pt's status upon admission and devise an individualized program for Endurance Training Weakness - to improve, our physical therapists will perform initial evaluation of pt's status upon a dmission and devise an individualized program for Aquatic Therapy, Neuromuscular Reeducation, and Str engthening Achieving independence - to improve, our physical therapists will perform initial evaluation of pt's status upon admission and devise an individualized program for Community Reintegration Activities - Occupational Therapy ADL deficits - to improve, our occupation therapists will perform initial evaluation of pt's status upon admission and devise an individualized program for Bathing, Bed mobility, Community Reintegratio n, Cooking, Dressing, Eating, Fine Motor Skills, Grooming, Homemaking, Kitchen Mobility, Laundry, Pat ient Education, Safety Awareness, Splinting - Positioning, Transfers(Toilet, Tub, Shower), and Wheel Chair Management Cognitive deficits - to improve, our occupation therapists will perform initial evaluation of pt's s tatus upon admission and devise an individualized program for Cognition - orientation Need for personal carer - to improve, our occupation therapists will perform initial evaluation of pt's status upon admission and devise an individualized program for Caregiver Training Weakness - to improve, our occupation therapists will perform initial evaluation of pt's status upon admission and devise an individualized program for Aquatic Therapy, Balance, Endurance, UE ROM, and UE strengthening - Diet Type Continue Regular - Diet - Liquid Texture Continue Regular - Tube Feed Continue N/A - Diet - Solid Texture Continue Regular - Shower allowing shower FUNCTIONAL STATUS: UPDATED AT WEEKLY TEAM CONFERENCE - Bladder Same accident frequency: 7-Ind - No accidents in the past 7 days - Bowel Same accident frequency: 7-Ind - No accidents in the past 7 days - Walking Same score based on distance walked: 1(<=50ft) FUNCTIONAL STATUS: - Self-Care A. Eating Ind B. Grooming sup C. Bathing maxA D. Dressing - Upper maxA E. Dressing - Lower maxA F. Toileting maxA - Sphincter Control G: Bladder control Ind H: Bowel control Ind - Transfers Control I. Bed/Chair/Wheelchair modA J. Toilet modA K. Tub/Shower modA - Locomotion L. Walk/Wheelchair (B) Dep M. Stairs ADNO - Communication N. Comprehension (B) sup O. Expression (B) sup - Social Cognition P. Social Interaction sup Q. Problem Solving sup R. Memory sup - Endurance Poor - Balance Poor - Safety Awareness Poor CURRENT FUNC. DEFICITS: Transfers Control, Communication, Social Cognition, Endurance, Balance, Safety Awareness, Self-Care, and Locomotion SIGNATURE PANEL: ([facility])
--- NOTE | 2018-11-05 20:29 | PN ---
Subjective: The patient is lying in bed. Denies any headache, nausea, vomiting, chest pain, abdomin al pain, constipation, or diarrhea. As per staff, the patient blood pressure is running on the low s michelle and been treated by Nephrology team. Objective: Vital Signs: Temperature 96.8, pulse 67, respirations 16, blood pressure 90/51. Lungs: Clear to auscultation. Heart: S1, S2. Regular. Abdomen: Soft. Bowel sounds present. Extremities: Left leg wound noted. Assessment And Plan: Continue IV antibiotic and wound care with Aquacel Ag. We will follow the mariusz ent closely. NF/MODL Voice ID: [id number] Report ID: [id number]
[2018-11-05] MEDS ORDERED: VANCOMYCIN 1 GM/VIAL ONE (20:35)
[2018-11-05] MEDS ORDERED: CEFEPIME 1 GM/100 ML BAG IV ONE (20:36)
[2018-11-05] MEDS ORDERED: NA CHLORIDE 0.9% 250 ML ONE (20:39)
[2018-11-05] MEDS: EPOETIN ALFA 10,000 UNIT/ML VIAL SQ SCH (20:43)
[2018-11-05] MEDS: ATORVASTATIN 80 MG TAB PO SCH (23:20)
[2018-11-05] MEDS: DIPHENHYDRAMINE 25 MG TAB/CAP PO SCH (23:20)
--- NOTE | 2018-11-06 02:12 | FAST ---
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 Sony Wright M.D. ADMISSION DIAGNOSIS: - Cardiac 09 - Cardiac Disorders () CAD. EATING: Activity did not occur on this shift EATING - SCORE: 0-UNK GROOMING: Activity did not occur on this shift GROOMING - SCORE: 0-UNK BATHING: Activity did not occur on this shift BATHING - SCORE: 0-UNK DRESSING - UPPER BODY: Patient is not dressing in public clothing ARTICLES SCORE Total number of steps: 0 DRESSING - UPPER BODY - SCORE: 0-UNK DRESSING - LOWER BODY: Patient is not dressing in public clothing ARTICLES SCORE Total number of steps: 0 DRESSING - LOWER BODY - SCORE: 0-UNK TOILETING: Activity did not occur on this shift TOILETING - SCORE: 0-UNK BLADDER MANAGEMENT: Patient is on renal dialysis or peritoneal dialysis and no voiding activity BLADDER MANAGEMENT - SCORE: 7-IND BOWEL MANAGEMENT: Activity did not occur on this shift BOWEL MANAGEMENT - SCORE: 7-IND TRANSFERS: BED, CHAIR, WHEELCHAIR: TRANSFERS: BED, CHAIR, WHEELCHAIR - STEP 1: Does the patient require assistance of a person or device, or need extra time with bed, chair, or whe elchair transfers? Yes. TRANSFERS: BED, CHAIR, WHEELCHAIR - STEP 2: Does the patient require the assistance of a helper? Yes. TRANSFERS: BED, CHAIR, WHEELCHAIR - STEP 3: How much assistance does the patient require from the helper? Lifting of the legs TRANSFERS: BED, CHAIR, WHEELCHAIR - STEP 4: How many legs does the patient require the helper to lift? both legs TRANSFERS: BED, CHAIR, WHEELCHAIR - SCORE: 3-MOD TRANSFERS: TOILET: Activity did not occur on this shift TRANSFERS: TOILET - SCORE: 0-UNK TRANSFERS: SHOWER: Activity did not occur on this shift TRANSFERS: SHOWER - SCORE: 0-UNK TRANSFERS: TUB: Activity did not occur on this shift TRANSFERS: TUB - SCORE: 0-UNK LOCOMOTION: WALK: Activity did not occur on this shift LOCOMOTION: WALK - SCORE: 0-UNK LOCOMOTION: WHEELCHAIR: Activity did not occur on this shift LOCOMOTION: WHEELCHAIR - SCORE: 0-UNK COMPREHENSION: COMPREHENSION: TYPE: Both COMPREHENSION - STEP 1: Does the patient require help from a person or device, or need extra time to understand complex and a bstract ideas (such as current events, finances, discharge planning, medical issues, relationships, e tc)? No. COMPREHENSION - STEP 2: Does the patient need extra time, require an assistive device (such as glasses for visual comprehensi on or a hearing aid for auditory comprehension) or does s/he have mild difficulty understanding compl ex and abstract information? Yes. COMPREHENSION - SCORE: 6-SMILEY EXPRESSION EXPRESSION: TYPE: Both EXPRESSION - STEP 1: Does the patient require help from a person or device, or need extra time expressing complex and abst ract ideas (such as current events, finances, discharge planning, medical issues, relationships, etc) ? No. EXPRESSION - STEP 2: Does the patient need extra time, require an assistive device (such as augmentive communication syste m or a communication board), OR does s/he have mild difficulty expressing complex and abstract ideas (including mild dysarthria or mild word-find problems)? No. EXPRESSION - SCORE: 7-IND SOCIAL INTERACTION: SOCIAL INTERACTION - STEP 1: Does the patient require a helper to interact with others in social and therapeutic situations? No. SOCIAL INTERACTION - STEP 2: Does the patient need extra time in social situations, OR does s/he interact with staff, other patien ts, and family members ONLY in structured environments, OR does s/he require medication for social in teraction? Yes, patient needs extra time SOCIAL INTERACTION - SCORE: 6-SMILEY PROBLEM SOLVING: PROBLEM SOLVING - STEP 1: Does the patient need help from a person or device, or need extra time to solve complex problems such as managing a checking account or confronting interpersonal problems? No. PROBLEM SOLVING - STEP 2: Does the patient require extra time to make decisions or solve problems, OR does s/he have slight dif ficulty reading, initiating, or self-correcting in unfamiliar situations? Yes, patient needs extra ti me. PROBLEM SOLVING - SCORE: 6-SMILEY MEMORY: MEMORY - STEP 1: Does the patient need help from a person or device, or need extra time to remember frequently encount ered people, daily routines, and executing requests? No. MEMORY - STEP 2: Does the patient have slight difficulty recognizing frequently encountered people, daily routines, or executing requests without the need for repetition or using self-initiated or environmental cues to remember? Yes. MEMORY - SCORE: 6-SMILEY SIGNATURE PANEL: The following modified sections: Eating - Score, Grooming - Score, Dressing - Upper Body - Score, Pj ssing - Lower Body - Score, Toileting - Score, Bladder Management - Score, Bowel Management - Score, Transfers: Bed, Chair, Wheelchair - Score, Transfers: Toilet - Score, Transfers: Shower - Score, Bourgeois sfers: Tub - Score, Locomotion: Walk - Score, Locomotion: Wheelchair - Score, Comprehension - Score, Expression - Score, Social Interaction - Score, Problem Solving - Score, Memory - Score were [electro nically] signed by Arabella Valdes CNA on MonNov 06 2018 02:11:13 GMT-0600 (Central Standard Time)
--- NOTE | 2018-11-06 02:57 | PN ---
Date of Progress Note: 11/05/2018 Chief Complaint: End-stage renal disease, status post coronary artery bypass grafting. History Of Present Illness: The patient is undergoing rehab. The patient was found to have severe f luid overload, anasarca, and dialysis with ultrafiltration scheduled with additional treatment. Legs edema has improved. The patient was found to have cellulitis of the left lower extremity, is underg oing antibiotic therapy. The patient was found to have severe anemia, received blood transfusion, ES A was started, and the patient is on iron replacement. Review of Systems: Denies PND, orthopnea. Physical Examination: Lungs: Clear to auscultation bilaterally. Heart: S1, S2. Abdomen: Soft, benign. Extremities: Edema present in both legs, greater in the left lower extremity. Impression And Plan: 1.End-stage renal disease. The patient will have dialysis today with ultrafiltration. Continue p.o . fluid restriction and low-sodium diet. 2.Intradialytic hypotension. Continue midodrine, dose was increased. 3.Anemia in chronic kidney disease. Continue erythropoietin stimulating agent and iron replacement. 4.Cellulitis of the legs. Wound culture obtained. Continue broad- spectrum antibiotics. 5.Diabetes mellitus. Continue insulin. FRANCIS/MODL Voice ID: [id number] Report ID: [id number]
[2018-11-06] MEDS: LEVOTHYROXINE SOD 0.088 MG TAB PO SCH (05:30)
[2018-11-06] MEDS: METOPROLOL TAR 25 MG TAB PO SCH ×2 (05:30→16:52)
[2018-11-06] MEDS: FERROUS SULFATE 325 MG TAB PO SCH ×2 (08:16→19:40)
[2018-11-06] MEDS: TAMSULOSIN 0.4 MG SR CAP PO SCH (08:16)
[2018-11-06] MEDS: FOLIC ACID 1 MG TABLET PO SCH (08:16)
[2018-11-06] MEDS: FE SULF/FA/VIT B COMP & C TAB PO SCH (08:16)
[2018-11-06] MEDS: ASPIRIN 81 MG CHEWABLE TABLET PO SCH (08:16)
[2018-11-06] MEDS: NEPRO SHAKE 237 ML CAN PO SCH ×2 (08:17→19:41)
[2018-11-06] MEDS: PANTOPRAZOLE 40MG TABLET PO SCH (08:17)
[2018-11-06] MEDS: CLOPIDOGREL 75 MG TABLET PO SCH (08:17)
[2018-11-06] MEDS: DOCUSATE NA 100 MG CAP PO SCH (08:17)
[2018-11-06] MEDS: MIDODRINE HCL 5 MG TABLET PO SCH ×3 (08:18→20:52)
[2018-11-06] MEDS: PROMOD 30 ML DOSE PO SCH ×2 (08:18→19:41)
--- NOTE | 2018-11-06 15:45 | FAST ---
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 Sony Wright M.D. ADMISSION DIAGNOSIS: - Cardiac 09 - Cardiac Disorders () CAD. EATING: EATING - STEP 1: Does the patient require the assistance of a person or device, or need extra time when eating? Yes. EATING - STEP 2: Does the patient require the assistance of a helper? Yes. EATING - STEP 3: Does the patient perform half or more of the eating tasks? Yes. EATING - STEP 4: Does the patient need only supervision, cuing, coaxing OR help to apply an orthosis OR help to cut fo od, open containers, pour liquids, or butter bread? Yes. EATING - SCORE: 5-SUP GROOMING: Comb/brush hair Oral care Wash, rinse, and dry face Wash, rinse, and dry hands GROOMING - STEP 1: Does the patient require the assistance of a person or device, or need extra time when grooming? Yes. GROOMING - STEP 2: Does the patient require the assistance of a helper? No. The patient only requires an assistive devic e, OR takes more than reasonable time to groom, OR there is a concern for safety as the patient groom s GROOMING - SCORE: 6-SMILEY BATHING: Activity did not occur on this shift BATHING - SCORE: 0-UNK DRESSING - UPPER BODY: Activity did not occur on this shift ARTICLES SCORE Total number of steps: 0 DRESSING - UPPER BODY - SCORE: 0-UNK DRESSING - LOWER BODY: Activity did not occur on this shift ARTICLES SCORE Total number of steps: 0 DRESSING - LOWER BODY - SCORE: 0-UNK TOILETING: TOILETING - STEP 1: Does the patient require the assistance of a person or device, or need extra time with toileting? Yes . TOILETING - STEP 2: Does the patient require the assistance of a helper? Yes. TOILETING - STEP 3: How much assistance does the patient require from the helper? Only supervision TOILETING - SCORE: 5-SUP BLADDER MANAGEMENT: Patient is on renal dialysis or peritoneal dialysis and no voiding activity BLADDER MANAGEMENT - SCORE: 7-IND BLADDER MANAGEMENT - FREQUENCY OF ACCIDENTS: BLADDER MANAGEMENT(FA) - STEP 1: How many accidents has the patient had during the current shift? 0 BOWEL MANAGEMENT: Activity did not occur on this shift BOWEL MANAGEMENT - SCORE: 7-IND BOWEL MANAGEMENT - FREQUENCY OF ACCIDENTS: BOWEL MANAGEMENT(FA) - STEP 1: How many accidents has the patient had during the current shift? 0 TRANSFERS: BED, CHAIR, WHEELCHAIR: TRANSFERS: BED, CHAIR, WHEELCHAIR - STEP 1: Does the patient require assistance of a person or device, or need extra time with bed, chair, or whe elchair transfers? Yes. TRANSFERS: BED, CHAIR, WHEELCHAIR - STEP 2: Does the patient require the assistance of a helper? Yes. TRANSFERS: BED, CHAIR, WHEELCHAIR - STEP 3: How much assistance does the patient require from the helper? Only supervision TRANSFERS: BED, CHAIR, WHEELCHAIR - SCORE: 5-SUP TRANSFERS: TOILET: TRANSFERS: TOILET - STEP 1: Does the patient require the assistance of a person or device, or need extra time with toilet transfe rs? Yes. TRANSFERS: TOILET - STEP 2: Does the patient require the assistance of a helper? Yes. TRANSFERS: TOILET - STEP 3: How much assistance does the patient require from the helper? Patient performs half or more of the tr ansferring tasks TRANSFERS: TOILET - STEP 4: Does the patient need only incidental help such as contact guard or steadying during toilet transfer? Yes. TRANSFERS: TOILET - SCORE: 4-MIN TRANSFERS: SHOWER: Activity did not occur on this shift TRANSFERS: SHOWER - SCORE: 0-UNK TRANSFERS: TUB: Activity did not occur on this shift TRANSFERS: TUB - SCORE: 0-UNK LOCOMOTION: WALK: Activity did not occur on this shift LOCOMOTION: WALK - SCORE: 0-UNK LOCOMOTION: WHEELCHAIR: LOCOMOTION: WHEELCHAIR - STEP 1: Does the patient need help to go 150 feet in a wheelchair? Yes. LOCOMOTION: WHEELCHAIR - STEP 2: How much assistance does the patient need from the helper? Only incidental help such as around corner s or over thresholds LOCOMOTION: WHEELCHAIR - SCORE: 4-MIN COMPREHENSION: COMPREHENSION: TYPE: Both COMPREHENSION - STEP 1: Does the patient require help from a person or device, or need extra time to understand complex and a bstract ideas (such as current events, finances, discharge planning, medical issues, relationships, e tc)? No. COMPREHENSION - STEP 2: Does the patient need extra time, require an assistive device (such as glasses for visual comprehensi on or a hearing aid for auditory comprehension) or does s/he have mild difficulty understanding compl ex and abstract information? Yes. COMPREHENSION - SCORE: 6-SMILEY EXPRESSION EXPRESSION: TYPE: Both EXPRESSION - STEP 1: Does the patient require help from a person or device, or need extra time expressing complex and abst ract ideas (such as current events, finances, discharge planning, medical issues, relationships, etc) ? Yes. EXPRESSION - STEP 2: Does the patient require help to express basic necessities or ideas (such as hunger, thirst, sleep, s afety, daily schedule, room location, or discomfort) half or more of the time? No. EXPRESSION - STEP 3: How often does the patient need help to express directions and conversation about basic needs? Less t harman 10% of the time EXPRESSION - SCORE: 5-SUP SOCIAL INTERACTION: SOCIAL INTERACTION - STEP 1: Does the patient require a helper to interact with others in social and therapeutic situations? No. SOCIAL INTERACTION - STEP 2: Does the patient need extra time in social situations, OR does s/he interact with staff, other patien ts, and family members ONLY in structured environments, OR does s/he require medication for social in teraction? Yes, patient needs extra time SOCIAL INTERACTION - SCORE: 6-SMILEY PROBLEM SOLVING: PROBLEM SOLVING - STEP 1: Does the patient need help from a person or device, or need extra time to solve complex problems such as managing a checking account or confronting interpersonal problems? No. PROBLEM SOLVING - STEP 2: Does the patient require extra time to make decisions or solve problems, OR does s/he have slight dif ficulty reading, initiating, or self-correcting in unfamiliar situations? Yes, patient needs extra ti me. PROBLEM SOLVING - SCORE: 6-SMILEY MEMORY: MEMORY - STEP 1: Does the patient need help from a person or device, or need extra time to remember frequently encount ered people, daily routines, and executing requests? No. MEMORY - STEP 2: Does the patient have slight difficulty recognizing frequently encountered people, daily routines, or executing requests without the need for repetition or using self-initiated or environmental cues to remember? Yes. MEMORY - SCORE: 6-SMILEY SIGNATURE PANEL: The following modified sections: Eating - Score, Grooming - Score, Bathing - Score, Dressing - Upper Body - Score, Dressing - Lower Body - Score, Toileting - Score, Bladder Management - Score, Bowel Man agement - Score, Transfers: Bed, Chair, Wheelchair - Score, Transfers: Toilet - Score, Transfers: Juli wer - Score, Transfers: Tub - Score, Locomotion: Walk - Score, Locomotion: Wheelchair - Score, Compre hension - Score, Expression - Score, Social Interaction - Score, Problem Solving - Score, Memory - Sc ore were [electronically] signed by Pallavi HuiNSergey on MonNov 06 2018 15:44:23 GMT-0600 (Cent[place] Standard Time)
--- NOTE | 2018-11-06 18:32 | R.PN ---
ENCOUNTER DATE AND TIME: 11/06/2018 18:28 (MANAGER QUALITY) NAME DARLENE BLOOM DATE OF : 1955 DATE OF ADMISSION: 10/26/2018 16:10 (MANAGER QUALITY) CADCHIEF COMPLAINT: Cardiac debility SUBJECTIVE: Pt denied any depression. Pt denied any Shortness of Breath. Ambulated 500' with modified independence using a rollator. VITAL SIGNS Temperature: 97.7 F SBP/DBP: 129/60 Pulse: 75 Resp: 16 Ambulated 750' with modified independence using a rolling walker. Up and down 15 steps using bilatera l hand rails with standby assistance. Self-propelled wheelchair 500' with standby assistance. ID is helping with the left leg infection. Vanc trough 13.7. All cultures are negative. Hgb 8.0, Hgb A1C 5.0, Drum Builder 7.88. Alkaline phosphatase 150. RF negative, ARACELI pending. Wound cultures ar e pending and the wound care service is following the patient. Hgb is 8.0, Drum Builder 7.88. He is set for hemodialysis by the renal service. MEDICATION ALLERGIES: No Known Drug Allergies (NKDA) ENVIRONMENTAL ALLERGIES: - Substance Allergies None Known - Other Allergies None Known NURSING: - Shower allowing shower ACTIVITIES OOB only with supervision THERAPIES: - Occupational Therapy Evaluate and Treat. - Physical Therapy Evaluate and Treat. PHYSICAL EXAM - Gen Alert and awake Lying in bed No apparent distress Oriented to: person, time, and place - Skin Right medial leg vein harvest site has small area of drainage. Will apply wet to dry dressing changes 2-3 times daily as needed. No abnormalities - Eyes No abnormalities - ENMT No abnormalities - Neck No abnormalities - CVS RRR - Chest Mildly decreased breath sounds bilaterally. - Abd +bowel sounds - GI Obese Deferred - No abnormalities - Ext Mild postoperative edema in the right lower extremity - MSK 4+/5 weakness in left and right lower extremity - Neuro No focal deficits. - Psych No abnormalities ASSESSMENT: Pt. is a 63 yo Right-handed male.On 10/17/2018 he was admitted to [facility] with diagnos is CAD.His impairment category is Cardiac 09 - Cardiac Disorders (09).Pre-morbidly, Pt. was independ ent/mod-I in Self-Care, Sphincter Control, Transfers Control, and Locomotion; and he had good Sphinct er Control.Currently, he has deficits of Transfers Control, Communication, Social Cognition, Enduranc e, Balance, Safety Awareness, Self-Care, and Locomotion.Pt. is now referred to [facility] for acute in-patient rehabilitation in order to maximize patient's functional independenc e in activities of daily living, strength, ROM, and mobility.- Rehab Goal Patient has realistic goal of being discharged at assistance level 6-Tim to reside at Home with Fam esther/Relatives. MDM/PLAN: - Physical Therapy Gait dysfunction - to improve, our physical therapists will perform initial evaluation of pt's statu s upon admission and devise an individualized program for Gait Training, and Wheel Chair mobility Inability to transfer - to improve, our physical therapists will perform initial evaluation of pt's status upon admission and devise an individualized program for Bed mobility Need for home safety evaluation - to improve, our physical therapists will perform initial evaluatio n of pt's status upon admission and devise an individualized program for Home Evaluation Need in caregiver upon discharge - to improve, our physical therapists will perform initial evaluati on of pt's status upon admission and devise an individualized program for Caregiver Training Edema - to improve, our physical therapists will perform initial evaluation of pt's status upon admi ssion and devise an individualized program for Elevation Training, and Lymphedema Therapy New precaution - to improve, our physical therapists will perform initial evaluation of pt's status upon admission and devise an individualized program for Patient precaution education Poor balance - to improve, our physical therapists will perform initial evaluation of pt's status up on admission and devise an individualized program for Balance Training Poor endurance - to improve, our physical therapists will perform initial evaluation of pt's status upon admission and devise an individualized program for Endurance Training Weakness - to improve, our physical therapists will perform initial evaluation of pt's status upon a dmission and devise an individualized program for Aquatic Therapy, Neuromuscular Reeducation, and Str engthening Achieving independence - to improve, our physical therapists will perform initial evaluation of pt's status upon admission and devise an individualized program for Community Reintegration Activities - Occupational Therapy ADL deficits - to improve, our occupation therapists will perform initial evaluation of pt's status upon admission and devise an individualized program for Bathing, Bed mobility, Community Reintegratio n, Cooking, Dressing, Eating, Fine Motor Skills, Grooming, Homemaking, Kitchen Mobility, Laundry, Pat ient Education, Safety Awareness, Splinting - Positioning, Transfers(Toilet, Tub, Shower), and Wheel Chair Management Cognitive deficits - to improve, our occupation therapists will perform initial evaluation of pt's s tatus upon admission and devise an individualized program for Cognition - orientation Need for child care lead teacher - to improve, our occupation therapists will perform initial evaluation of pt's status upon admission and devise an individualized program for Caregiver Training Weakness - to improve, our occupation therapists will perform initial evaluation of pt's status upon admission and devise an individualized program for Aquatic Therapy, Balance, Endurance, UE ROM, and UE strengthening - Diet Type Continue Regular - Diet - Liquid Texture Continue Regular - Tube Feed Continue N/A - Diet - Solid Texture Continue Regular - Shower allowing shower FUNCTIONAL STATUS: UPDATED AT WEEKLY TEAM CONFERENCE - Bladder Same accident frequency: 7-Ind - No accidents in the past 7 days - Bowel Same accident frequency: 7-Ind - No accidents in the past 7 days - Walking Same score based on distance walked: 1(<=50ft) FUNCTIONAL STATUS: - Self-Care A. Eating Ind B. Grooming sup C. Bathing maxA D. Dressing - Upper maxA E. Dressing - Lower maxA F. Toileting maxA - Sphincter Control G: Bladder control Ind H: Bowel control Ind - Transfers Control I. Bed/Chair/Wheelchair modA J. Toilet modA K. Tub/Shower modA - Locomotion L. Walk/Wheelchair (B) Dep M. Stairs ADNO - Communication N. Comprehension (B) sup O. Expression (B) sup - Social Cognition P. Social Interaction sup Q. Problem Solving sup R. Memory sup - Endurance Poor - Balance Poor - Safety Awareness Poor CURRENT FUNC. DEFICITS: Transfers Control, Communication, Social Cognition, Endurance, Balance, Safety Awareness, Self-Care, and Locomotion SIGNATURE PANEL: (MANAGER QUALITY)
[2018-11-06] MEDS: ATORVASTATIN 80 MG TAB PO SCH (20:52)
[2018-11-06] MEDS: DIPHENHYDRAMINE 25 MG TAB/CAP PO SCH (20:52)
--- NOTE | 2018-11-07 01:15 | FAST ---
SHIFT START DATE/TIME: 11/06/2018 19:00 (ELECTRICAL SOLDERER) SHIFT END DATE/TIME: 11/07/2018 07:00 (ELECTRICAL SOLDERER) NAME DARLENE BLOOM DATE OF : 1955 DATE OF ADMISSION: 10/26/2018 16:10 (ELECTRICAL SOLDERER) PHONE: AGE: 63 SSN# [id number] GENDER: Male ENCOUNTER PHYSICIAN: Dr. Sony Wright M.D. ADMISSION DIAGNOSIS: - Cardiac 09 - Cardiac Disorders () CAD. EATING: Activity did not occur on this shift EATING - SCORE: 0-UNK GROOMING: Activity did not occur on this shift GROOMING - SCORE: 0-UNK BATHING: Activity did not occur on this shift BATHING - SCORE: 0-UNK DRESSING - UPPER BODY: Patient is not dressing in public clothing ARTICLES SCORE Total number of steps: 0 DRESSING - UPPER BODY - SCORE: 0-UNK DRESSING - LOWER BODY: Patient is not dressing in public clothing ARTICLES SCORE Total number of steps: 0 DRESSING - LOWER BODY - SCORE: 0-UNK TOILETING: Activity did not occur on this shift TOILETING - SCORE: 0-UNK BLADDER MANAGEMENT: Patient is on renal dialysis or peritoneal dialysis and no voiding activity BLADDER MANAGEMENT - SCORE: 7-IND BOWEL MANAGEMENT: Activity did not occur on this shift BOWEL MANAGEMENT - SCORE: 7-IND TRANSFERS: BED, CHAIR, WHEELCHAIR: Activity did not occur on this shift TRANSFERS: BED, CHAIR, WHEELCHAIR - SCORE: 0-UNK TRANSFERS: TOILET: Activity did not occur on this shift TRANSFERS: TOILET - SCORE: 0-UNK TRANSFERS: SHOWER: Activity did not occur on this shift TRANSFERS: SHOWER - SCORE: 0-UNK TRANSFERS: TUB: Activity did not occur on this shift TRANSFERS: TUB - SCORE: 0-UNK LOCOMOTION: WALK: Activity did not occur on this shift LOCOMOTION: WALK - SCORE: 0-UNK LOCOMOTION: WHEELCHAIR: Activity did not occur on this shift LOCOMOTION: WHEELCHAIR - SCORE: 0-UNK COMPREHENSION: COMPREHENSION: TYPE: Both COMPREHENSION - STEP 1: Does the patient require help from a person or device, or need extra time to understand complex and a bstract ideas (such as current events, finances, discharge planning, medical issues, relationships, e tc)? No. COMPREHENSION - STEP 2: Does the patient need extra time, require an assistive device (such as glasses for visual comprehensi on or a hearing aid for auditory comprehension) or does s/he have mild difficulty understanding compl ex and abstract information? Yes. COMPREHENSION - SCORE: 6-SMILEY EXPRESSION EXPRESSION: TYPE: Both EXPRESSION - STEP 1: Does the patient require help from a person or device, or need extra time expressing complex and abst ract ideas (such as current events, finances, discharge planning, medical issues, relationships, etc) ? No. EXPRESSION - STEP 2: Does the patient need extra time, require an assistive device (such as augmentive communication syste m or a communication board), OR does s/he have mild difficulty expressing complex and abstract ideas (including mild dysarthria or mild word-find problems)? No. EXPRESSION - SCORE: 7-IND SOCIAL INTERACTION: SOCIAL INTERACTION - STEP 1: Does the patient require a helper to interact with others in social and therapeutic situations? No. SOCIAL INTERACTION - STEP 2: Does the patient need extra time in social situations, OR does s/he interact with staff, other patien ts, and family members ONLY in structured environments, OR does s/he require medication for social in teraction? Yes, patient needs extra time SOCIAL INTERACTION - SCORE: 6-SMILEY PROBLEM SOLVING: PROBLEM SOLVING - STEP 1: Does the patient need help from a person or device, or need extra time to solve complex problems such as managing a checking account or confronting interpersonal problems? No. PROBLEM SOLVING - STEP 2: Does the patient require extra time to make decisions or solve problems, OR does s/he have slight dif ficulty reading, initiating, or self-correcting in unfamiliar situations? Yes, patient needs extra ti me. PROBLEM SOLVING - SCORE: 6-SMILEY MEMORY: MEMORY - STEP 1: Does the patient need help from a person or device, or need extra time to remember frequently encount ered people, daily routines, and executing requests? No. MEMORY - STEP 2: Does the patient have slight difficulty recognizing frequently encountered people, daily routines, or executing requests without the need for repetition or using self-initiated or environmental cues to remember? Yes. MEMORY - SCORE: 6-SMILEY SIGNATURE PANEL: The following modified sections: Eating - Score, Grooming - Score, Dressing - Upper Body - Score, Pj ssing - Lower Body - Score, Toileting - Score, Bladder Management - Score, Bowel Management - Score, Transfers: Bed, Chair, Wheelchair - Score, Transfers: Toilet - Score, Transfers: Shower - Score, Bourgeois sfers: Tub - Score, Locomotion: Walk - Score, Locomotion: Wheelchair - Score, Comprehension - Score, Expression - Score, Social Interaction - Score, Problem Solving - Score, Memory - Score were [electro nically] signed by Arabella Valdes CNA on MonNov 07 2018 01:13:34 GMT-0600 (Central Standard Time)
--- NOTE | 2018-11-07 01:49 | PN ---
Date of Progress Note: 11/06/2018 Chief Complaint: End-stage renal disease, fluid overload, and anasarca. Subjective: The patient completed daily dialysis and he is on dialysis 3 times per week on Monday, , and Monday. He received dialysis yesterday. Fluid over load is gradually resolving. The patient is on p.o. fluid restriction, received dialysis with ultrafiltration and procedure was well t olerated. The patient has intradialytic hypotension and he is on midodrine and midodrine dose was re cently increased to prevent hypotension. Review of Systems: Denies fever, chills. Physical Examination: Lungs: Few crackles at bases. Heart: S1, S2. Abdomen: Soft, benign. Extremities: Edema in the left leg and right leg. Impression And Plan: 1.End-stage renal disease. Next dialysis tomorrow. Continue midodrine to prevent intradialytic hyp otension. 2.Renal osteodystrophy. Phosphorus level is adequately controlled. Monitor phosphorus level and st art binders accordingly. 3.Cellulitis of the legs. Wound culture obtained and the patient is on broad-spectrum antibiotics a djusted by renal dose. 4.Diabetes mellitus. Continue insulin. 5.Status post CABG. The patient is asymptomatic. EB/MODL Voice ID: [id number] Report ID: [id number]
[2018-11-07] MEDS: METOPROLOL TAR 25 MG TAB PO SCH ×2 (05:22→17:14)
[2018-11-07] MEDS: LEVOTHYROXINE SOD 0.088 MG TAB PO SCH (05:23)
[2018-11-07] MEDS: PANTOPRAZOLE 40MG TABLET PO SCH (06:58)
[2018-11-07 07:04] LABS: Absolute Lymphocytes (CBC) 0.9 K/uL (0.7-4.9); Absolute Monocytes 0.7 K/uL (0.1-1.3); Absolute Neutrophil 4.7 K/uL (1.8-8.0); Basophils % 1.5 % (0-1.3); Eosinophils % 4.3 % (0-4.4); Hematocrit 25.3 % (39.6-49.0); Lymphocytes % 13.9 % (15.3-44.8); MPV 8.7 fL (7.6-11.3); Monocytes % 10.3 % (3.3-12.3); RBC Red Blood Cell Count 2.69 M/uL (4.33-5.43)
[2018-11-07] MEDS: MIDODRINE HCL 5 MG TABLET PO SCH ×3 (08:40→20:51)
[2018-11-07] MEDS: FE SULF/FA/VIT B COMP & C TAB PO SCH (08:40)
[2018-11-07] MEDS: FOLIC ACID 1 MG TABLET PO SCH (08:40)
[2018-11-07] MEDS: ASPIRIN 81 MG CHEWABLE TABLET PO SCH (08:40)
[2018-11-07] MEDS: DOCUSATE NA 100 MG CAP PO SCH (08:40)
[2018-11-07] MEDS: FERROUS SULFATE 325 MG TAB PO SCH ×2 (08:40→20:51)
[2018-11-07] MEDS: TAMSULOSIN 0.4 MG SR CAP PO SCH (08:40)
[2018-11-07] MEDS: CLOPIDOGREL 75 MG TABLET PO SCH (08:41)
[2018-11-07] MEDS: NEPRO SHAKE 237 ML CAN PO SCH ×2 (08:41→20:50)
[2018-11-07] MEDS: PROMOD 30 ML DOSE PO SCH ×2 (08:41→20:51)
--- NOTE | 2018-11-07 11:15 | FAST ---
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 Sony Wright M.D. ADMISSION DIAGNOSIS: - Cardiac 09 - Cardiac Disorders () CAD. EATING: EATING - STEP 1: Does the patient require the assistance of a person or device, or need extra time when eating? Yes. EATING - STEP 2: Does the patient require the assistance of a helper? Yes. EATING - STEP 3: Does the patient perform half or more of the eating tasks? Yes. EATING - STEP 4: Does the patient need only supervision, cuing, coaxing OR help to apply an orthosis OR help to cut fo od, open containers, pour liquids, or butter bread? Yes. EATING - SCORE: 5-SUP GROOMING: Comb/brush hair Oral care Wash, rinse, and dry face Wash, rinse, and dry hands GROOMING - STEP 1: Does the patient require the assistance of a person or device, or need extra time when grooming? Yes. GROOMING - STEP 2: Does the patient require the assistance of a helper? Yes. GROOMING - STEP 3: How much assistance does the patient require from the helper? Only prior equipment preparation/set up from the helper GROOMING - SCORE: 5-SUP BATHING: Activity did not occur on this shift BATHING - SCORE: 0-UNK DRESSING - UPPER BODY: Activity did not occur on this shift ARTICLES SCORE Total number of steps: 0 DRESSING - UPPER BODY - SCORE: 0-UNK DRESSING - LOWER BODY: Activity did not occur on this shift ARTICLES SCORE Total number of steps: 0 DRESSING - LOWER BODY - SCORE: 0-UNK TOILETING: TOILETING - STEP 1: Does the patient require the assistance of a person or device, or need extra time with toileting? Yes . TOILETING - STEP 2: Does the patient require the assistance of a helper? Yes. TOILETING - STEP 3: How much assistance does the patient require from the helper? Hands-on assistance from the helper TOILETING - STEP 4: Of the 3 tasks: 1) Adjusting clothing prior to use, 2) Cleansing of perineal area, 3) Adjusting clot nabeel after use; How many tasks does the patient perform WITHOUT assistance of the helper? Two tasks TOILETING - SCORE: 3-MOD BLADDER MANAGEMENT: Patient is on renal dialysis or peritoneal dialysis and no voiding activity BLADDER MANAGEMENT - SCORE: 7-IND BOWEL MANAGEMENT: BOWEL MANAGEMENT - STEP 1: Does the patient control bowels completely and intentionally without equipment devices or medications AND is always continent? No. BOWEL MANAGEMENT - STEP 2: Does the patient require the assistance of a helper? No, patient requires and manages independently a n assistive device such as a bedpan, bedside commode, absorbent pad, incontinent device, or collectin g device BOWEL MANAGEMENT - SCORE: 6-SMILEY TRANSFERS: BED, CHAIR, WHEELCHAIR: TRANSFERS: BED, CHAIR, WHEELCHAIR - STEP 1: Does the patient require assistance of a person or device, or need extra time with bed, chair, or whe elchair transfers? Yes. TRANSFERS: BED, CHAIR, WHEELCHAIR - STEP 2: Does the patient require the assistance of a helper? Yes. TRANSFERS: BED, CHAIR, WHEELCHAIR - STEP 3: How much assistance does the patient require from the helper? Steadying/guiding assistance TRANSFERS: BED, CHAIR, WHEELCHAIR - SCORE: 4-MIN TRANSFERS: TOILET: TRANSFERS: TOILET - STEP 1: Does the patient require the assistance of a person or device, or need extra time with toilet transfe rs? Yes. TRANSFERS: TOILET - STEP 2: Does the patient require the assistance of a helper? Yes. TRANSFERS: TOILET - STEP 3: How much assistance does the patient require from the helper? Patient performs half or more of the tr ansferring tasks TRANSFERS: TOILET - STEP 4: Does the patient need only incidental help such as contact guard or steadying during toilet transfer? Yes. TRANSFERS: TOILET - SCORE: 4-MIN TRANSFERS: SHOWER: Activity did not occur on this shift TRANSFERS: SHOWER - SCORE: 0-UNK TRANSFERS: TUB: Activity did not occur on this shift TRANSFERS: TUB - SCORE: 0-UNK LOCOMOTION: WALK: Activity did not occur on this shift LOCOMOTION: WALK - SCORE: 0-UNK LOCOMOTION: WHEELCHAIR: Activity did not occur on this shift LOCOMOTION: WHEELCHAIR - SCORE: 0-UNK COMPREHENSION: COMPREHENSION: TYPE: Both COMPREHENSION - STEP 1: Does the patient require help from a person or device, or need extra time to understand complex and a bstract ideas (such as current events, finances, discharge planning, medical issues, relationships, e tc)? No. COMPREHENSION - STEP 2: Does the patient need extra time, require an assistive device (such as glasses for visual comprehensi on or a hearing aid for auditory comprehension) or does s/he have mild difficulty understanding compl ex and abstract information? Yes. COMPREHENSION - SCORE: 6-SMILEY EXPRESSION EXPRESSION: TYPE: Both EXPRESSION - STEP 1: Does the patient require help from a person or device, or need extra time expressing complex and abst ract ideas (such as current events, finances, discharge planning, medical issues, relationships, etc) ? No. EXPRESSION - STEP 2: Does the patient need extra time, require an assistive device (such as augmentive communication syste m or a communication board), OR does s/he have mild difficulty expressing complex and abstract ideas (including mild dysarthria or mild word-find problems)? Yes. EXPRESSION - SCORE: 6-SMILEY SOCIAL INTERACTION: SOCIAL INTERACTION - STEP 1: Does the patient require a helper to interact with others in social and therapeutic situations? No. SOCIAL INTERACTION - STEP 2: Does the patient need extra time in social situations, OR does s/he interact with staff, other patien ts, and family members ONLY in structured environments, OR does s/he require medication for social in teraction? Yes, patient needs extra time SOCIAL INTERACTION - SCORE: 6-SMILEY PROBLEM SOLVING: PROBLEM SOLVING - STEP 1: Does the patient need help from a person or device, or need extra time to solve complex problems such as managing a checking account or confronting interpersonal problems? No. PROBLEM SOLVING - STEP 2: Does the patient require extra time to make decisions or solve problems, OR does s/he have slight dif ficulty reading, initiating, or self-correcting in unfamiliar situations? Yes, patient needs extra ti me. PROBLEM SOLVING - SCORE: 6-SMILEY MEMORY: MEMORY - STEP 1: Does the patient need help from a person or device, or need extra time to remember frequently encount ered people, daily routines, and executing requests? No. MEMORY - STEP 2: Does the patient have slight difficulty recognizing frequently encountered people, daily routines, or executing requests without the need for repetition or using self-initiated or environmental cues to remember? Yes. MEMORY - SCORE: 6-SMILEY SIGNATURE PANEL: The following modified sections: Eating - Score, Grooming - Score, Bathing - Score, Dressing - Upper Body - Score, Dressing - Lower Body - Score, Toileting - Score, Bladder Management - Score, Bowel Man agement - Score, Transfers: Bed, Chair, Wheelchair - Score, Transfers: Toilet - Score, Transfers: Juli wer - Score, Transfers: Tub - Score, Locomotion: Walk - Score, Locomotion: Wheelchair - Score, Compre hension - Score, Expression - Score, Social Interaction - Score, Problem Solving - Score, Memory - Sc ore were [electronically] signed by Rhett Cantu on MonNov 07 2018 11:14:38 GMT-0600 (Central Standard Time)
--- NOTE | 2018-11-07 14:59 | FAST ---
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 Sony Wright M.D. ADMISSION DIAGNOSIS: - Cardiac 09 - Cardiac Disorders (09) CAD. EATING: Activity did not occur on this shift EATING - SCORE: 0-UNK GROOMING: Activity did not occur on this shift GROOMING - SCORE: 0-UNK BATHING: Activity did not occur on this shift BATHING - SCORE: 0-UNK DRESSING - UPPER BODY: Activity did not occur on this shift Patient is not dressing in public clothing ARTICLES SCORE Total number of steps: 0 DRESSING - UPPER BODY - SCORE: 0-UNK DRESSING - LOWER BODY: Activity did not occur on this shift Patient is not dressing in public clothing ARTICLES SCORE Total number of steps: 0 DRESSING - LOWER BODY - SCORE: 0-UNK TOILETING: Activity did not occur on this shift TOILETING - SCORE: 0-UNK BLADDER MANAGEMENT: Activity did not occur on this shift BLADDER MANAGEMENT - SCORE: 7-IND BOWEL MANAGEMENT: Activity did not occur on this shift BOWEL MANAGEMENT - SCORE: 7-IND TRANSFERS: BED, CHAIR, WHEELCHAIR: TRANSFERS: BED, CHAIR, WHEELCHAIR - STEP 1: Does the patient require assistance of a person or device, or need extra time with bed, chair, or whe elchair transfers? Yes. TRANSFERS: BED, CHAIR, WHEELCHAIR - STEP 2: Does the patient require the assistance of a helper? No. Patient only requires an assistive device fo r bed, chair, wheelchair transfers such as a sliding board, grab bar, or brace, OR s/he takes more th an reasonable time, OR there is a safety concern when s/he performs the transfers TRANSFERS: BED, CHAIR, WHEELCHAIR - SCORE: 6-SMILEY TRANSFERS: TOILET: Activity did not occur on this shift TRANSFERS: TOILET - SCORE: 0-UNK TRANSFERS: SHOWER: Activity did not occur on this shift TRANSFERS: SHOWER - SCORE: 0-UNK TRANSFERS: TUB: Activity did not occur on this shift TRANSFERS: TUB - SCORE: 0-UNK LOCOMOTION: WALK: LOCOMOTION: WALK - STEP 1: Does the patient need help from a person or device, or need extra time to walk 150 feet? No. LOCOMOTION: WALK - STEP 2: Does the patient need an assistive device (such as an orthosis, prosthesis, crutches, or walker) to g o 150 feet, OR does s/he take more than reasonable time, OR is there a concern for safety? Yes, the p atient needs an assistive device LOCOMOTION: WALK - SCORE: 6-SMILEY LOCOMOTION: WHEELCHAIR: Activity did not occur on this shift LOCOMOTION: WHEELCHAIR - SCORE: 0-UNK LOCOMOTION: STAIRS: LOCOMOTION: STAIRS - STEP 1: Does the patient need help to go up and down 12 to 14 stairs? No. LOCOMOTION: STAIRS - STEP 2: Does the patient require an assistive device - such as handrails or cane - to go up and down one flig ht of stairs, OR does s/he take more than reasonable time, OR is there a concern for safety? Yes, the patient requires an assistive device LOCOMOTION: STAIRS - SCORE: 6-SMILEY COMPREHENSION: COMPREHENSION - SCORE: 0-UNK EXPRESSION EXPRESSION - SCORE: 0-UNK SOCIAL INTERACTION: SOCIAL INTERACTION - SCORE: 0-UNK PROBLEM SOLVING: PROBLEM SOLVING - SCORE: 0-UNK MEMORY: MEMORY - SCORE: 0-UNK SIGNATURE PANEL: The following modified sections: Transfers: Bed, Chair, Wheelchair - Score, Transfers: Toilet - Score , Locomotion: Walk - Score, Locomotion: Wheelchair - Score, Locomotion: Stairs - Score were [electron ically] signed by Presley Darnell PTA on MonNov 07 2018 14:58:44 GMT-0600 (Central Standard Time)
--- NOTE | 2018-11-07 15:03 | FAST ---
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 Sony Wright M.D. ADMISSION DIAGNOSIS: - Cardiac 09 - Cardiac Disorders (09) CAD. EATING: Activity did not occur on this shift EATING - SCORE: 0-UNK GROOMING: Activity did not occur on this shift GROOMING - SCORE: 0-UNK BATHING: Activity did not occur on this shift BATHING - SCORE: 0-UNK DRESSING - UPPER BODY: Activity did not occur on this shift Patient is not dressing in public clothing ARTICLES SCORE Total number of steps: 0 DRESSING - UPPER BODY - SCORE: 0-UNK DRESSING - LOWER BODY: Activity did not occur on this shift Patient is not dressing in public clothing ARTICLES SCORE Total number of steps: 0 DRESSING - LOWER BODY - SCORE: 0-UNK TOILETING: Activity did not occur on this shift TOILETING - SCORE: 0-UNK BLADDER MANAGEMENT: Activity did not occur on this shift BLADDER MANAGEMENT - SCORE: 7-IND BOWEL MANAGEMENT: Activity did not occur on this shift BOWEL MANAGEMENT - SCORE: 7-IND TRANSFERS: BED, CHAIR, WHEELCHAIR: TRANSFERS: BED, CHAIR, WHEELCHAIR - STEP 1: Does the patient require assistance of a person or device, or need extra time with bed, chair, or whe elchair transfers? Yes. TRANSFERS: BED, CHAIR, WHEELCHAIR - STEP 2: Does the patient require the assistance of a helper? No. Patient only requires an assistive device fo r bed, chair, wheelchair transfers such as a sliding board, grab bar, or brace, OR s/he takes more th an reasonable time, OR there is a safety concern when s/he performs the transfers TRANSFERS: BED, CHAIR, WHEELCHAIR - SCORE: 6-SMILEY TRANSFERS: TOILET: Activity did not occur on this shift TRANSFERS: TOILET - SCORE: 0-UNK TRANSFERS: SHOWER: Activity did not occur on this shift TRANSFERS: SHOWER - SCORE: 0-UNK TRANSFERS: TUB: Activity did not occur on this shift TRANSFERS: TUB - SCORE: 0-UNK LOCOMOTION: WALK: LOCOMOTION: WALK - STEP 1: Does the patient need help from a person or device, or need extra time to walk 150 feet? No. LOCOMOTION: WALK - STEP 2: Does the patient need an assistive device (such as an orthosis, prosthesis, crutches, or walker) to g o 150 feet, OR does s/he take more than reasonable time, OR is there a concern for safety? Yes, the p atient needs an assistive device LOCOMOTION: WALK - SCORE: 6-SMILEY LOCOMOTION: WHEELCHAIR: LOCOMOTION: WHEELCHAIR - STEP 1: Does the patient need help to go 150 feet in a wheelchair? No. LOCOMOTION: WHEELCHAIR - SCORE: 6-SMILEY LOCOMOTION: STAIRS: LOCOMOTION: STAIRS - STEP 1: Does the patient need help to go up and down 12 to 14 stairs? No. LOCOMOTION: STAIRS - STEP 2: Does the patient require an assistive device - such as handrails or cane - to go up and down one flig ht of stairs, OR does s/he take more than reasonable time, OR is there a concern for safety? Yes, the patient requires an assistive device LOCOMOTION: STAIRS - SCORE: 6-SMILEY COMPREHENSION: COMPREHENSION - SCORE: 0-UNK EXPRESSION EXPRESSION - SCORE: 0-UNK SOCIAL INTERACTION: SOCIAL INTERACTION - SCORE: 0-UNK PROBLEM SOLVING: PROBLEM SOLVING - SCORE: 0-UNK MEMORY: MEMORY - SCORE: 0-UNK SIGNATURE PANEL: The following modified sections: Transfers: Bed, Chair, Wheelchair - Score, Transfers: Toilet - Score , Locomotion: Walk - Score, Locomotion: Wheelchair - Score, Locomotion: Stairs - Score were [electron adama] signed by Presley Darnell PTA on MonNov 07 2018 15:02:24 GMT-0600 (Central Standard Time)
[2018-11-07] MEDS: ALBUMIN HUMAN 25% 50 ML IV SCH ×2 (16:47→16:55)
[2018-11-07] MEDS: EPOETIN ALFA 10,000 UNIT/ML VIAL SQ SCH (16:55)
[2018-11-07] MEDS ORDERED: CEFEPIME 1 GM/100 ML BAG IV SCH (17:00)
--- NOTE | 2018-11-07 17:06 | PN ---
Subjective: The patient sitting in a wheelchair, not in any acute distress. Objective: Vital Signs: Temperature 97.4, pulse 70, respirations 16, blood pressure 95/54. Lungs: Clear to auscultation. Heart: S1 and S2, regular. Abdomen: Soft, nontender. Bowel sounds present. Extremities: Left leg 3+ edema with thigh wound also noted. Laboratory Data: WBC 6.7, hemoglobin 8.5, platelets 178. Sodium 136, potassium 4, chloride 99, bica rb 28, BUN 78, creatinine 7.4, glucose is 88. Blood cultures are negative. Medications: Currently on cefepime and vancomycin. Assessment And Plan: Left thigh wound, stasis dermatitis to the lower extremity. Continue antibioti c and wound care. We will follow the patient as needed. NF/MODL Voice ID: [id number] Report ID: [id number]
--- NOTE | 2018-11-07 18:24 | R.PN ---
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 Pt denied any Shortness of Breath. Ambulated 880' with modified independence using a rollator. Up and down 15 steps with modified indepe ndence. VITAL SIGNS Temperature: 97.4 F SBP/DBP: 103/59 Pulse: 70 Resp: 16 Ambulated 750' with modified independence using a rolling walker. Up and down 15 steps using bilatera l hand rails with standby assistance. Self-propelled wheelchair 500' with standby assistance. ID is helping with the left leg infection. Vanc trough 13.7. All cultures are negative. Hgb 8.0, Hgb A1C 5.0, Bobbin Winder 7.88. Alkaline phosphatase 150. RF negative, ARACELI pending. Wound cultures ar e pending and the wound care service is following the patient. Hgb is 8.0, Bobbin Winder 7.88. He is set for hemodialysis by the renal service. MEDICATION ALLERGIES: No Known Drug Allergies (NKDA) ENVIRONMENTAL ALLERGIES: - Substance Allergies None Known - Other Allergies None Known NURSING: - Shower allowing shower ACTIVITIES OOB only with supervision THERAPIES: - Occupational Therapy Evaluate and Treat. - Physical Therapy Evaluate and Treat. PHYSICAL EXAM - Gen Alert and awake Lying in bed No apparent distress Oriented to: person, time, and place - Skin Right medial leg vein harvest site has small area of drainage. Will apply wet to dry dressing changes 2-3 times daily as needed. No abnormalities - Eyes No abnormalities - ENMT No abnormalities - Neck No abnormalities - CVS RRR - Chest Mildly decreased breath sounds bilaterally. - Abd +bowel sounds - GI Obese Deferred - No abnormalities - Ext Mild postoperative edema in the right lower extremity - MSK 4+/5 weakness in left and right lower extremity - Neuro No focal deficits. - Psych No abnormalities ASSESSMENT: Pt. is a 63 yo Right-handed male.On 10/17/2018 he was admitted to [facility] with diagnos is CAD.His impairment category is Cardiac 09 - Cardiac Disorders (09).Pre-morbidly, Pt. was independ ent/mod-I in Self-Care, Sphincter Control, Transfers Control, and Locomotion; and he had good Sphinct er Control.Currently, he has deficits of Transfers Control, Communication, Social Cognition, Enduranc e, Balance, Safety Awareness, Self-Care, and Locomotion.Pt. is now referred to [facility] for acute in-patient rehabilitation in order to maximize patient's functional independenc e in activities of daily living, strength, ROM, and mobility.- Rehab Goal Patient has realistic goal of being discharged at assistance level 6-Tim to reside at Home with Fam esther/Relatives. MDM/PLAN: - Physical Therapy Gait dysfunction - to improve, our physical therapists will perform initial evaluation of pt's statu s upon admission and devise an individualized program for Gait Training, and Wheel Chair mobility Inability to transfer - to improve, our physical therapists will perform initial evaluation of pt's status upon admission and devise an individualized program for Bed mobility Need for home safety evaluation - to improve, our physical therapists will perform initial evaluatio n of pt's status upon admission and devise an individualized program for Home Evaluation Need in caregiver upon discharge - to improve, our physical therapists will perform initial evaluati on of pt's status upon admission and devise an individualized program for Caregiver Training Edema - to improve, our physical therapists will perform initial evaluation of pt's status upon admi ssion and devise an individualized program for Elevation Training, and Lymphedema Therapy New precaution - to improve, our physical therapists will perform initial evaluation of pt's status upon admission and devise an individualized program for Patient precaution education Poor balance - to improve, our physical therapists will perform initial evaluation of pt's status up on admission and devise an individualized program for Balance Training Poor endurance - to improve, our physical therapists will perform initial evaluation of pt's status upon admission and devise an individualized program for Endurance Training Weakness - to improve, our physical therapists will perform initial evaluation of pt's status upon a dmission and devise an individualized program for Aquatic Therapy, Neuromuscular Reeducation, and Str engthening Achieving independence - to improve, our physical therapists will perform initial evaluation of pt's status upon admission and devise an individualized program for Community Reintegration Activities - Occupational Therapy ADL deficits - to improve, our occupation therapists will perform initial evaluation of pt's status upon admission and devise an individualized program for Bathing, Bed mobility, Community Reintegratio n, Cooking, Dressing, Eating, Fine Motor Skills, Grooming, Homemaking, Kitchen Mobility, Laundry, Pat ient Education, Safety Awareness, Splinting - Positioning, Transfers(Toilet, Tub, Shower), and Wheel Chair Management Cognitive deficits - to improve, our occupation therapists will perform initial evaluation of pt's s tatus upon admission and devise an individualized program for Cognition - orientation Need for child care team lead - to improve, our occupation therapists will perform initial evaluation of pt's status upon admission and devise an individualized program for Caregiver Training Weakness - to improve, our occupation therapists will perform initial evaluation of pt's status upon admission and devise an individualized program for Aquatic Therapy, Balance, Endurance, UE ROM, and UE strengthening - Diet Type Continue Regular - Diet - Liquid Texture Continue Regular - Tube Feed Continue N/A - Diet - Solid Texture Continue Regular - Shower allowing shower FUNCTIONAL STATUS: UPDATED AT WEEKLY TEAM CONFERENCE - Bladder Same accident frequency: 7-Ind - No accidents in the past 7 days - Bowel Same accident frequency: 7-Ind - No accidents in the past 7 days - Walking Same score based on distance walked: 1(<=50ft) FUNCTIONAL STATUS: - Self-Care A. Eating Ind B. Grooming sup C. Bathing maxA D. Dressing - Upper maxA E. Dressing - Lower maxA F. Toileting maxA - Sphincter Control G: Bladder control Ind H: Bowel control Ind - Transfers Control I. Bed/Chair/Wheelchair modA J. Toilet modA K. Tub/Shower modA - Locomotion L. Walk/Wheelchair (B) Dep M. Stairs ADNO - Communication N. Comprehension (B) sup O. Expression (B) sup - Social Cognition P. Social Interaction sup Q. Problem Solving sup R. Memory sup - Endurance Poor - Balance Poor - Safety Awareness Poor CURRENT FUNC. DEFICITS: Transfers Control, Communication, Social Cognition, Endurance, Balance, Safety Awareness, Self-Care, and Locomotion SIGNATURE PANEL: ([facility])
--- NOTE | 2018-11-07 20:37 | PN ---
Date of Progress Note: 11/07/2018 Subjective: The patient admitted for deconditioning, CVA on the recovery. The patient scheduled for dialysis today. Physical Examination: General: When I saw the patient, the patient was sitting in the chair. Vital Signs: Blood pressure 103/59, pulse of 70. Chest: Clear to auscultation. Heart: S1 and S2. Systolic murmur. Abdomen: Soft and nontender. Extremities: Plus edema. Laboratory Data: WBC 6.7, H and H 8.5/25.3, platelets 178. Sodium 136, potassium 4, bicarb 28, BUN 58, and creatinine 7.4, calcium 8.1. Current Medications: Include diphenhydramine, cefepime, vancomycin, midodrine, Flomax, iron, Plavix, Epogen, metoprolol 12.5, atorvastatin, folic acid, levothyroxine. Assessment And Plan: 1.End-stage renal disease. We will continue the patient on dialysis Monday, Monday, Monday. Rupa eduled for dialysis today. We will utilize midodrine to establish better blood pressure. 2.Hypertension. As above. Using midodrine. 3.Secondary hyperparathyroidism. Continue current treatment with binder. 4.Coronary artery disease, status post coronary artery bypass graft. 5.Deconditioning. Continue PT/OT. TIGIST/ANA Voice ID: [id number] Report ID: [id number]
[2018-11-07] MEDS: DIPHENHYDRAMINE 25 MG TAB/CAP PO SCH (20:51)
[2018-11-07] MEDS: ATORVASTATIN 80 MG TAB PO SCH (20:51)
--- NOTE | 2018-11-08 03:55 | FAST ---
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 Sony Wright M.D. ADMISSION DIAGNOSIS: - Cardiac 09 - Cardiac Disorders () CAD. EATING: Activity did not occur on this shift EATING - SCORE: 0-UNK GROOMING: Activity did not occur on this shift GROOMING - SCORE: 0-UNK BATHING: Activity did not occur on this shift BATHING - SCORE: 0-UNK DRESSING - UPPER BODY: Activity did not occur on this shift ARTICLES SCORE Total number of steps: 0 DRESSING - UPPER BODY - SCORE: 0-UNK DRESSING - LOWER BODY: Activity did not occur on this shift ARTICLES SCORE Total number of steps: 0 DRESSING - LOWER BODY - SCORE: 0-UNK TOILETING: Activity did not occur on this shift TOILETING - SCORE: 0-UNK BLADDER MANAGEMENT: Patient is on renal dialysis or peritoneal dialysis and no voiding activity BLADDER MANAGEMENT - SCORE: 7-IND BOWEL MANAGEMENT: Activity did not occur on this shift BOWEL MANAGEMENT - SCORE: 7-IND TRANSFERS: BED, CHAIR, WHEELCHAIR: TRANSFERS: BED, CHAIR, WHEELCHAIR - STEP 1: Does the patient require assistance of a person or device, or need extra time with bed, chair, or whe elchair transfers? Yes. TRANSFERS: BED, CHAIR, WHEELCHAIR - STEP 2: Does the patient require the assistance of a helper? Yes. TRANSFERS: BED, CHAIR, WHEELCHAIR - STEP 3: How much assistance does the patient require from the helper? Lifting of the legs TRANSFERS: BED, CHAIR, WHEELCHAIR - STEP 4: How many legs does the patient require the helper to lift? both legs TRANSFERS: BED, CHAIR, WHEELCHAIR - SCORE: 3-MOD TRANSFERS: TOILET: Activity did not occur on this shift TRANSFERS: TOILET - SCORE: 0-UNK TRANSFERS: SHOWER: Activity did not occur on this shift TRANSFERS: SHOWER - SCORE: 0-UNK TRANSFERS: TUB: Activity did not occur on this shift TRANSFERS: TUB - SCORE: 0-UNK LOCOMOTION: WALK: Activity did not occur on this shift LOCOMOTION: WALK - SCORE: 0-UNK LOCOMOTION: WHEELCHAIR: Activity did not occur on this shift LOCOMOTION: WHEELCHAIR - SCORE: 0-UNK COMPREHENSION: COMPREHENSION: TYPE: Both COMPREHENSION - STEP 1: Does the patient require help from a person or device, or need extra time to understand complex and a bstract ideas (such as current events, finances, discharge planning, medical issues, relationships, e tc)? No. COMPREHENSION - STEP 2: Does the patient need extra time, require an assistive device (such as glasses for visual comprehensi on or a hearing aid for auditory comprehension) or does s/he have mild difficulty understanding compl ex and abstract information? Yes. COMPREHENSION - SCORE: 6-SMILEY EXPRESSION EXPRESSION: TYPE: Both EXPRESSION - STEP 1: Does the patient require help from a person or device, or need extra time expressing complex and abst ract ideas (such as current events, finances, discharge planning, medical issues, relationships, etc) ? No. EXPRESSION - STEP 2: Does the patient need extra time, require an assistive device (such as augmentive communication syste m or a communication board), OR does s/he have mild difficulty expressing complex and abstract ideas (including mild dysarthria or mild word-find problems)? No. EXPRESSION - SCORE: 7-IND SOCIAL INTERACTION: SOCIAL INTERACTION - STEP 1: Does the patient require a helper to interact with others in social and therapeutic situations? No. SOCIAL INTERACTION - STEP 2: Does the patient need extra time in social situations, OR does s/he interact with staff, other patien ts, and family members ONLY in structured environments, OR does s/he require medication for social in teraction? No. SOCIAL INTERACTION - SCORE: 7-IND PROBLEM SOLVING: PROBLEM SOLVING - STEP 1: Does the patient need help from a person or device, or need extra time to solve complex problems such as managing a checking account or confronting interpersonal problems? No. PROBLEM SOLVING - STEP 2: Does the patient require extra time to make decisions or solve problems, OR does s/he have slight dif ficulty reading, initiating, or self-correcting in unfamiliar situations? No. PROBLEM SOLVING - SCORE: 7-IND MEMORY: MEMORY - STEP 1: Does the patient need help from a person or device, or need extra time to remember frequently encount ered people, daily routines, and executing requests? No. MEMORY - STEP 2: Does the patient have slight difficulty recognizing frequently encountered people, daily routines, or executing requests without the need for repetition or using self-initiated or environmental cues to remember? No. MEMORY - SCORE: 7-IND SIGNATURE PANEL: The following modified sections: Eating - Score, Grooming - Score, Bathing - Score, Dressing - Upper Body - Score, Dressing - Lower Body - Score, Toileting - Score, Bladder Management - Score, Bowel Man agement - Score, Transfers: Bed, Chair, Wheelchair - Score, Transfers: Toilet - Score, Transfers: Juli wer - Score, Transfers: Tub - Score, Locomotion: Walk - Score, Locomotion: Wheelchair - Score, Compre hension - Score, Expression - Score, Social Interaction - Score, Problem Solving - Score, Memory - Sc ore were [electronically] signed by Sindy Rivas CNA on MonNov 08 2018 03:54:52 T-0600 ([facility])
[2018-11-08] MEDS: METOPROLOL TAR 25 MG TAB PO SCH ×2 (05:07→17:53)
[2018-11-08] MEDS: LEVOTHYROXINE SOD 0.088 MG TAB PO SCH (05:08)
[2018-11-08 06:28] LABS: Absolute Lymphocytes (CBC) 0.7 K/uL (0.7-4.9); Absolute Monocytes 0.7 K/uL (0.1-1.3); Absolute Neutrophil 4.3 K/uL (1.8-8.0); Basophils % 1.5 % (0-1.3); Hematocrit 26.1 % (39.6-49.0); Lymphocytes % 12.1 % (15.3-44.8); MPV 8.3 fL (7.6-11.3); Monocytes % 11.1 % (3.3-12.3)
[2018-11-08] MEDS: PANTOPRAZOLE 40MG TABLET PO SCH (07:06)
[2018-11-08 07:16] LABS: Albumin 2.6 g/dL (3.4-5.0); Potassium 4.2 mmol/L (3.5-5.1); Prealbumin 14.3 mg/dL (20-40)
[2018-11-08] MEDS: DOCUSATE NA 100 MG CAP PO SCH (08:34)
[2018-11-08] MEDS: FERROUS SULFATE 325 MG TAB PO SCH ×2 (08:34→20:08)
[2018-11-08] MEDS: FOLIC ACID 1 MG TABLET PO SCH (08:34)
[2018-11-08] MEDS: FE SULF/FA/VIT B COMP & C TAB PO SCH (08:34)
[2018-11-08] MEDS: CLOPIDOGREL 75 MG TABLET PO SCH (08:34)
[2018-11-08] MEDS: ASPIRIN 81 MG CHEWABLE TABLET PO SCH (08:35)
[2018-11-08] MEDS: NEPRO SHAKE 237 ML CAN PO SCH ×2 (08:35→20:07)
[2018-11-08] MEDS: PROMOD 30 ML DOSE PO SCH ×2 (08:35→20:07)
[2018-11-08] MEDS: TAMSULOSIN 0.4 MG SR CAP PO SCH (08:35)
[2018-11-08] MEDS: MIDODRINE HCL 5 MG TABLET PO SCH ×3 (08:37→20:08)
--- NOTE | 2018-11-08 13:57 | FAST ---
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 Sony Wright M.D. ADMISSION DIAGNOSIS: - Cardiac 09 - Cardiac Disorders () CAD. EATING: EATING - STEP 1: Does the patient require the assistance of a person or device, or need extra time when eating? Yes. EATING - STEP 2: Does the patient require the assistance of a helper? Yes. EATING - STEP 3: Does the patient perform half or more of the eating tasks? Yes. EATING - STEP 4: Does the patient need only supervision, cuing, coaxing OR help to apply an orthosis OR help to cut fo od, open containers, pour liquids, or butter bread? Yes. EATING - SCORE: 5-SUP GROOMING: Comb/brush hair Oral care GROOMING - STEP 1: Does the patient require the assistance of a person or device, or need extra time when grooming? Yes. GROOMING - STEP 2: Does the patient require the assistance of a helper? No. The patient only requires an assistive devic e, OR takes more than reasonable time to groom, OR there is a concern for safety as the patient groom s GROOMING - SCORE: 6-SMILEY BATHING: Activity did not occur on this shift BATHING - SCORE: 0-UNK DRESSING - UPPER BODY: Activity did not occur on this shift ARTICLES SCORE Total number of steps: 0 DRESSING - UPPER BODY - SCORE: 0-UNK DRESSING - LOWER BODY: Activity did not occur on this shift ARTICLES SCORE Total number of steps: 0 DRESSING - LOWER BODY - SCORE: 0-UNK TOILETING: TOILETING - STEP 1: Does the patient require the assistance of a person or device, or need extra time with toileting? Yes . TOILETING - STEP 2: Does the patient require the assistance of a helper? Yes. TOILETING - STEP 3: How much assistance does the patient require from the helper? Only supervision TOILETING - SCORE: 5-SUP BLADDER MANAGEMENT: Patient is on renal dialysis or peritoneal dialysis and no voiding activity BLADDER MANAGEMENT - SCORE: 7-IND BOWEL MANAGEMENT: BOWEL MANAGEMENT - STEP 1: Does the patient control bowels completely and intentionally without equipment devices or medications AND is always continent? No. BOWEL MANAGEMENT - STEP 2: Does the patient require the assistance of a helper? No, patient requires and manages independently a n assistive device such as a bedpan, bedside commode, absorbent pad, incontinent device, or collectin g device BOWEL MANAGEMENT - SCORE: 6-SMILEY TRANSFERS: BED, CHAIR, WHEELCHAIR: TRANSFERS: BED, CHAIR, WHEELCHAIR - STEP 1: Does the patient require assistance of a person or device, or need extra time with bed, chair, or whe elchair transfers? Yes. TRANSFERS: BED, CHAIR, WHEELCHAIR - STEP 2: Does the patient require the assistance of a helper? Yes. TRANSFERS: BED, CHAIR, WHEELCHAIR - STEP 3: How much assistance does the patient require from the helper? Steadying/guiding assistance TRANSFERS: BED, CHAIR, WHEELCHAIR - SCORE: 4-MIN TRANSFERS: TOILET: TRANSFERS: TOILET - STEP 1: Does the patient require the assistance of a person or device, or need extra time with toilet transfe rs? Yes. TRANSFERS: TOILET - STEP 2: Does the patient require the assistance of a helper? Yes. TRANSFERS: TOILET - STEP 3: How much assistance does the patient require from the helper? Only supervision, cuing, coaxing, OR he lp to set out transfer equipment or to lock brakes and/or lift foot rests TRANSFERS: TOILET - SCORE: 5-SUP TRANSFERS: SHOWER: Activity did not occur on this shift TRANSFERS: SHOWER - SCORE: 0-UNK TRANSFERS: TUB: Activity did not occur on this shift TRANSFERS: TUB - SCORE: 0-UNK LOCOMOTION: WALK: Activity did not occur on this shift LOCOMOTION: WALK - SCORE: 0-UNK LOCOMOTION: WHEELCHAIR: Activity did not occur on this shift LOCOMOTION: WHEELCHAIR - SCORE: 0-UNK COMPREHENSION: COMPREHENSION: TYPE: Both COMPREHENSION - STEP 1: Does the patient require help from a person or device, or need extra time to understand complex and a bstract ideas (such as current events, finances, discharge planning, medical issues, relationships, e tc)? No. COMPREHENSION - STEP 2: Does the patient need extra time, require an assistive device (such as glasses for visual comprehensi on or a hearing aid for auditory comprehension) or does s/he have mild difficulty understanding compl ex and abstract information? No. COMPREHENSION - SCORE: 7-IND EXPRESSION EXPRESSION: TYPE: Both EXPRESSION - STEP 1: Does the patient require help from a person or device, or need extra time expressing complex and abst ract ideas (such as current events, finances, discharge planning, medical issues, relationships, etc) ? No. EXPRESSION - STEP 2: Does the patient need extra time, require an assistive device (such as augmentive communication syste m or a communication board), OR does s/he have mild difficulty expressing complex and abstract ideas (including mild dysarthria or mild word-find problems)? No. EXPRESSION - SCORE: 7-IND SOCIAL INTERACTION: SOCIAL INTERACTION - STEP 1: Does the patient require a helper to interact with others in social and therapeutic situations? No. SOCIAL INTERACTION - STEP 2: Does the patient need extra time in social situations, OR does s/he interact with staff, other patien ts, and family members ONLY in structured environments, OR does s/he require medication for social in teraction? No. SOCIAL INTERACTION - SCORE: 7-IND PROBLEM SOLVING: PROBLEM SOLVING - STEP 1: Does the patient need help from a person or device, or need extra time to solve complex problems such as managing a checking account or confronting interpersonal problems? No. PROBLEM SOLVING - STEP 2: Does the patient require extra time to make decisions or solve problems, OR does s/he have slight dif ficulty reading, initiating, or self-correcting in unfamiliar situations? No. PROBLEM SOLVING - SCORE: 7-IND MEMORY: MEMORY - STEP 1: Does the patient need help from a person or device, or need extra time to remember frequently encount ered people, daily routines, and executing requests? No. MEMORY - STEP 2: Does the patient have slight difficulty recognizing frequently encountered people, daily routines, or executing requests without the need for repetition or using self-initiated or environmental cues to remember? No. MEMORY - SCORE: 7-IND SIGNATURE PANEL: The following modified sections: Eating - Score, Grooming - Score, Bathing - Score, Dressing - Upper Body - Score, Dressing - Lower Body - Score, Toileting - Score, Bladder Management - Score, Bowel Man agement - Score, Transfers: Bed, Chair, Wheelchair - Score, Transfers: Toilet - Score, Transfers: Juli wer - Score, Transfers: Tub - Score, Locomotion: Walk - Score, Locomotion: Wheelchair - Score, Compre hension - Score, Expression - Score, Social Interaction - Score, Problem Solving - Score, Memory - Sc ore were [electronically] signed by Rhett Cantu on MonNov 08 2018 13:56:02 GMT-0600 (Central Standard Time)
--- NOTE | 2018-11-08 14:53 | FAST ---
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 Sony Wright M.D. ADMISSION DIAGNOSIS: - Cardiac 09 - Cardiac Disorders () CAD. EATING: EATING - STEP 1: Does the patient require the assistance of a person or device, or need extra time when eating? No. EATING - SCORE: 7-IND GROOMING: Comb/brush hair Oral care Wash, rinse, and dry face Wash, rinse, and dry hands GROOMING - STEP 1: Does the patient require the assistance of a person or device, or need extra time when grooming? No. GROOMING - SCORE: 7-IND BATHING: Abdomen Buttocks Chest Left arm Left lower leg and foot Left upper leg Perineal area Right arm Right lower leg and foot Right upper leg BATHING - STEP 1: Does the patient require the assistance of a person or device, or need extra time when bathing? Yes. BATHING - STEP 2: Does the patient require the assistance of a helper? Yes. BATHING - STEP 3: How much assistance does the patient require from the helper? Only supervision, cuing, coaxing, instr uctions, encouragement BATHING - SCORE: 5-SUP DRESSING - UPPER BODY: T-shirt/pullover shirt (four steps) ARTICLES SCORE Total number of steps: 4 DRESSING - UPPER BODY - STEP 1: Does the patient require help from a person or device, or need extra time when dressing above the [address]? No. DRESSING - UPPER BODY - SCORE: 7-IND DRESSING - LOWER BODY: ARTICLES SCORE Total number of steps: 0 DRESSING - LOWER BODY - STEP 1: Does the patient require help from a person or device, or need extra time when dressing below the [address]? Yes. DRESSING - LOWER BODY - STEP 2: Does the patient require the assistance of a helper? Yes. DRESSING - LOWER BODY - STEP 3: Does the helper touch the patient while dressing? No. DRESSING - LOWER BODY - SCORE: 5-SUP TOILETING: TOILETING - STEP 1: Does the patient require the assistance of a person or device, or need extra time with toileting? Yes . TOILETING - STEP 2: Does the patient require the assistance of a helper? Yes. TOILETING - STEP 3: How much assistance does the patient require from the helper? Only supervision TOILETING - SCORE: 5-SUP BLADDER MANAGEMENT: Activity did not occur on this shift BLADDER MANAGEMENT - SCORE: 7-IND BOWEL MANAGEMENT: Activity did not occur on this shift BOWEL MANAGEMENT - SCORE: 7-IND TRANSFERS: BED, CHAIR, WHEELCHAIR: Activity did not occur on this shift TRANSFERS: BED, CHAIR, WHEELCHAIR - SCORE: 0-UNK TRANSFERS: TOILET: TRANSFERS: TOILET - STEP 1: Does the patient require the assistance of a person or device, or need extra time with toilet transfe rs? Yes. TRANSFERS: TOILET - STEP 2: Does the patient require the assistance of a helper? No. Patient only requires an assistive device noriega ch as a grab bar or special seat, OR s/he takes more than reasonable time to perform toilet transfers , OR there is a safety concern when s/he performs toilet transfers. TRANSFERS: TOILET - SCORE: 6-SMILEY TRANSFERS: SHOWER: TRANSFERS: SHOWER - STEP 1: Does the patient require the assistance of a person or device, or need extra time with shower transfe rs? Yes. TRANSFERS: SHOWER - STEP 2: Does the patient require the assistance of a helper? No. The patient only uses an assistive device, t akes more than reasonable time, OR there is a concern for safety when s/he performs transfers. TRANSFERS: SHOWER - SCORE: 6-SMILEY TRANSFERS: TUB: Activity did not occur on this shift TRANSFERS: TUB - SCORE: 0-UNK LOCOMOTION: WALK: Activity did not occur on this shift LOCOMOTION: WALK - SCORE: 0-UNK LOCOMOTION: WHEELCHAIR: Activity did not occur on this shift LOCOMOTION: WHEELCHAIR - SCORE: 0-UNK LOCOMOTION: STAIRS: Activity did not occur on this shift LOCOMOTION: STAIRS - SCORE: 0-UNK COMPREHENSION: COMPREHENSION: TYPE: Both COMPREHENSION - STEP 1: Does the patient require help from a person or device, or need extra time to understand complex and a bstract ideas (such as current events, finances, discharge planning, medical issues, relationships, e tc)? No. COMPREHENSION - STEP 2: Does the patient need extra time, require an assistive device (such as glasses for visual comprehensi on or a hearing aid for auditory comprehension) or does s/he have mild difficulty understanding compl ex and abstract information? No. COMPREHENSION - SCORE: 7-IND EXPRESSION EXPRESSION: TYPE: Both EXPRESSION - STEP 1: Does the patient require help from a person or device, or need extra time expressing complex and abst ract ideas (such as current events, finances, discharge planning, medical issues, relationships, etc) ? No. EXPRESSION - STEP 2: Does the patient need extra time, require an assistive device (such as augmentive communication syste m or a communication board), OR does s/he have mild difficulty expressing complex and abstract ideas (including mild dysarthria or mild word-find problems)? No. EXPRESSION - SCORE: 7-IND SOCIAL INTERACTION: SOCIAL INTERACTION - STEP 1: Does the patient require a helper to interact with others in social and therapeutic situations? No. SOCIAL INTERACTION - STEP 2: Does the patient need extra time in social situations, OR does s/he interact with staff, other patien ts, and family members ONLY in structured environments, OR does s/he require medication for social in teraction? Yes, patient needs extra time SOCIAL INTERACTION - SCORE: 6-SMILEY PROBLEM SOLVING: PROBLEM SOLVING - STEP 1: Does the patient need help from a person or device, or need extra time to solve complex problems such as managing a checking account or confronting interpersonal problems? No. PROBLEM SOLVING - STEP 2: Does the patient require extra time to make decisions or solve problems, OR does s/he have slight dif ficulty reading, initiating, or self-correcting in unfamiliar situations? No. PROBLEM SOLVING - SCORE: 7-IND MEMORY: MEMORY - STEP 1: Does the patient need help from a person or device, or need extra time to remember frequently encount ered people, daily routines, and executing requests? No. MEMORY - STEP 2: Does the patient have slight difficulty recognizing frequently encountered people, daily routines, or executing requests without the need for repetition or using self-initiated or environmental cues to remember? No. MEMORY - SCORE: 7-IND SIGNATURE PANEL: The following modified sections: Memory - Score, Problem Solving - Score, Social Interaction - Score, Expression - Score, Comprehension - Score, Transfers: Bed, Chair, Wheelchair - Score, Transfers: Bimal let - Score, Transfers: Shower - Score, Transfers: Tub - Score, Eating - Score, Grooming - Score, Bat nabeel - Score, Dressing - Upper Body - Score, Dressing - Lower Body - Score, Toileting - Score were [e lectronically] signed by Jovita Saucedo OT on MonNov 08 2018 14:52:29 GMT-0600 (Central Standard T david)
[2018-11-08] MEDS: DIPHENHYDRAMINE 25 MG TAB/CAP PO SCH (20:08)
[2018-11-08] MEDS: ATORVASTATIN 80 MG TAB PO SCH (20:08)
[2018-11-08 23:01] VITALS: O2SAT 96
--- NOTE | 2018-11-09 01:35 | FAST ---
SHIFT START DATE/TIME: 11/08/2018 19:00 (THREAD LASTER) SHIFT END DATE/TIME: 11/09/2018 07:00 (THREAD LASTER) NAME DARLENE BLOOM DATE OF : 1955 DATE OF ADMISSION: 10/26/2018 16:10 (THREAD LASTER) PHONE: AGE: 63 SSN# [id number] GENDER: Male ENCOUNTER PHYSICIAN: Dr. Sony Wright M.D. ADMISSION DIAGNOSIS: - Cardiac 09 - Cardiac Disorders () CAD. EATING: Activity did not occur on this shift EATING - SCORE: 0-UNK GROOMING: Activity did not occur on this shift GROOMING - SCORE: 0-UNK BATHING: Activity did not occur on this shift BATHING - SCORE: 0-UNK DRESSING - UPPER BODY: Activity did not occur on this shift ARTICLES SCORE Total number of steps: 0 DRESSING - UPPER BODY - SCORE: 0-UNK DRESSING - LOWER BODY: Activity did not occur on this shift ARTICLES SCORE Total number of steps: 0 DRESSING - LOWER BODY - SCORE: 0-UNK TOILETING: Activity did not occur on this shift TOILETING - SCORE: 0-UNK BLADDER MANAGEMENT: Patient is on renal dialysis or peritoneal dialysis and no voiding activity BLADDER MANAGEMENT - SCORE: 7-IND BOWEL MANAGEMENT: Activity did not occur on this shift BOWEL MANAGEMENT - SCORE: 7-IND TRANSFERS: BED, CHAIR, WHEELCHAIR: TRANSFERS: BED, CHAIR, WHEELCHAIR - STEP 1: Does the patient require assistance of a person or device, or need extra time with bed, chair, or whe elchair transfers? Yes. TRANSFERS: BED, CHAIR, WHEELCHAIR - STEP 2: Does the patient require the assistance of a helper? Yes. TRANSFERS: BED, CHAIR, WHEELCHAIR - STEP 3: How much assistance does the patient require from the helper? Steadying/guiding assistance TRANSFERS: BED, CHAIR, WHEELCHAIR - SCORE: 4-MIN TRANSFERS: TOILET: Activity did not occur on this shift TRANSFERS: TOILET - SCORE: 0-UNK TRANSFERS: SHOWER: Activity did not occur on this shift TRANSFERS: SHOWER - SCORE: 0-UNK TRANSFERS: TUB: Activity did not occur on this shift TRANSFERS: TUB - SCORE: 0-UNK LOCOMOTION: WALK: Activity did not occur on this shift LOCOMOTION: WALK - SCORE: 0-UNK LOCOMOTION: WHEELCHAIR: Activity did not occur on this shift LOCOMOTION: WHEELCHAIR - SCORE: 0-UNK COMPREHENSION: COMPREHENSION: TYPE: Both COMPREHENSION - STEP 1: Does the patient require help from a person or device, or need extra time to understand complex and a bstract ideas (such as current events, finances, discharge planning, medical issues, relationships, e tc)? No. COMPREHENSION - STEP 2: Does the patient need extra time, require an assistive device (such as glasses for visual comprehensi on or a hearing aid for auditory comprehension) or does s/he have mild difficulty understanding compl ex and abstract information? Yes. COMPREHENSION - SCORE: 6-SMILEY EXPRESSION EXPRESSION: TYPE: Both EXPRESSION - STEP 1: Does the patient require help from a person or device, or need extra time expressing complex and abst ract ideas (such as current events, finances, discharge planning, medical issues, relationships, etc) ? No. EXPRESSION - STEP 2: Does the patient need extra time, require an assistive device (such as augmentive communication syste m or a communication board), OR does s/he have mild difficulty expressing complex and abstract ideas (including mild dysarthria or mild word-find problems)? No. EXPRESSION - SCORE: 7-IND SOCIAL INTERACTION: SOCIAL INTERACTION - STEP 1: Does the patient require a helper to interact with others in social and therapeutic situations? No. SOCIAL INTERACTION - STEP 2: Does the patient need extra time in social situations, OR does s/he interact with staff, other patien ts, and family members ONLY in structured environments, OR does s/he require medication for social in teraction? No. SOCIAL INTERACTION - SCORE: 7-IND PROBLEM SOLVING: PROBLEM SOLVING - STEP 1: Does the patient need help from a person or device, or need extra time to solve complex problems such as managing a checking account or confronting interpersonal problems? No. PROBLEM SOLVING - STEP 2: Does the patient require extra time to make decisions or solve problems, OR does s/he have slight dif ficulty reading, initiating, or self-correcting in unfamiliar situations? No. PROBLEM SOLVING - SCORE: 7-IND MEMORY: MEMORY - STEP 1: Does the patient need help from a person or device, or need extra time to remember frequently encount ered people, daily routines, and executing requests? No. MEMORY - STEP 2: Does the patient have slight difficulty recognizing frequently encountered people, daily routines, or executing requests without the need for repetition or using self-initiated or environmental cues to remember? No. MEMORY - SCORE: 7-IND SIGNATURE PANEL: The following modified sections: Eating - Score, Grooming - Score, Bathing - Score, Dressing - Upper Body - Score, Dressing - Lower Body - Score, Toileting - Score, Bladder Management - Score, Bowel Man agement - Score, Transfers: Bed, Chair, Wheelchair - Score, Transfers: Toilet - Score, Transfers: Juli wer - Score, Transfers: Tub - Score, Locomotion: Walk - Score, Locomotion: Wheelchair - Score, Compre hension - Score, Expression - Score, Social Interaction - Score, Problem Solving - Score, Memory - Sc ore were [electronically] signed by Sindy Rivas CNA on MonNov 09 2018 01:35:30 T-0600 ([facility])
[2018-11-09] MEDS: METOPROLOL TAR 25 MG TAB PO SCH (05:10)
[2018-11-09] MEDS: LEVOTHYROXINE SOD 0.088 MG TAB PO SCH (05:12)
[2018-11-09] MEDS: PANTOPRAZOLE 40MG TABLET PO SCH (06:57)
[2018-11-09] MEDS: ASPIRIN 81 MG CHEWABLE TABLET PO SCH (08:01)
[2018-11-09] MEDS: DOCUSATE NA 100 MG CAP PO SCH (08:01)
[2018-11-09] MEDS: FE SULF/FA/VIT B COMP & C TAB PO SCH (08:01)
[2018-11-09] MEDS: CLOPIDOGREL 75 MG TABLET PO SCH (08:01)
[2018-11-09] MEDS: FERROUS SULFATE 325 MG TAB PO SCH (08:01)
[2018-11-09] MEDS: TAMSULOSIN 0.4 MG SR CAP PO SCH (08:01)
[2018-11-09] MEDS: MIDODRINE HCL 5 MG TABLET PO SCH ×3 (08:02→13:38)
[2018-11-09] MEDS: FOLIC ACID 1 MG TABLET PO SCH (08:02)
[2018-11-09] MEDS: PROMOD 30 ML DOSE PO SCH (08:03)
[2018-11-09] MEDS: NEPRO SHAKE 237 ML CAN PO SCH (08:03)
[2018-11-09 09:19] VITALS: BP 96/56; TEMP 97.4
--- NOTE | 2018-11-09 10:00 | P.RH.PN ---
Estimated Length of Stay: 15 Expected Discharge Date: 11/09/18 Discharge Disposition Plan: Home Family Support: Yes [facility] Goal: Mobility, Transfers, Self Care Vital Signs: Last Vital Signs Temp 97.4 F 11/09/18 09:17 Pulse 78 11/09/18 09:17 Resp 18 11/09/18 09:17 BP 96/56 L 11/09/18 09:17 Pulse Ox 95 11/09/18 09:17 Laboratory: Laboratory Last Values WBC 6.1 K/uL (4.3-10.9) 11/08/18 05:42 RBC 2.80 M/uL (4.33-5.43) L 11/08/18 05:42 Hgb 9.0 g/dL (13.6-17.9) L 11/08/18 05:42 Hct 26.1 % (39.6-49.0) L 11/08/18 05:42 MCV 93.3 fL (80-100) 11/08/18 05:42 MCH 32.1 pg (27.0-35.0) 11/08/18 05:42 MCHC 34.4 g/dL (32.0-36.0) 11/08/18 05:42 RDW 18.2 % (12.1-15.2) H 11/08/18 05:42 Plt Count 162 K/uL (152-406) 11/08/18 05:42 MPV 8.3 fL (7.6-11.3) 11/08/18 05:42 Neutrophils % 71.3 % (41.7-73.7) 11/08/18 05:42 Lymphocytes % 12.1 % (15.3-44.8) L 11/08/18 05:42 Monocytes % 11.1 % (3.3-12.3) 11/08/18 05:42 Eosinophils % 4.0 % (0-4.4) 11/08/18 05:42 Basophils % 1.5 % (0-1.3) H 11/08/18 05:42 Absolute Neutrophils 4.3 K/uL (1.8-8.0) 11/08/18 05:42 Absolute Lymphocytes 0.7 K/uL (0.7-4.9) 11/08/18 05:42 Absolute Monocytes 0.7 K/uL (0.1-1.3) 11/08/18 05:42 Absolute Eosinophils 0.2 K/uL (0-0.5) 11/08/18 05:42 Absolute Basophils 0.1 K/uL (0-0.5) 11/08/18 05:42 PT 13.6 SECONDS (9.5-12.5) H 10/31/18 06:04 INR 1.16 10/31/18 06:04 Sodium 138 mmol/L (136-145) 11/08/18 05:42 Potassium 4.2 mmol/L (3.5-5.1) 11/08/18 05:42 Chloride 104 mmol/L (98-107) 11/08/18 05:42 Carbon Dioxide 26 mmol/L (21-32) 11/08/18 05:42 BUN 34 mg/dL (7-18) H D 11/08/18 05:42 Creatinine 5.19 mg/dL (0.55-1.3) H* D 11/08/18 05:42 Estimated GFR 11 mL/min (=/>90) L 11/08/18 05:42 Glucose 99 mg/dL (74-106) 11/08/18 05:42 Hemoglobin A1c 5.0 % (4.2-6.3) 11/01/18 09:48 Calcium 8.2 mg/dL (8.5-10.1) L 11/08/18 05:42 Phosphorus 3.3 mg/dL (2.5-4.9) 11/02/18 06:15 Magnesium 1.9 mg/dL (1.8-2.4) 11/01/18 06:00 Iron 24.0 ug/dL (65-175) L 10/28/18 07:09 TIBC 151 ug/dL (250-460) L 10/28/18 07:09 Transferrin 108 mg/dL (200-360) L 10/28/18 07:09 Transferrin % Sat 15.9 % (20.0-50.0) L 10/28/18 07:09 Ferritin 630.3 ng/mL (26-388) H 10/28/18 07:09 Total Bilirubin 0.7 mg/dL (0.2-1.0) 10/31/18 06:04 AST 54 U/L (15-37) H 10/31/18 06:04 ALT 26 U/L (12-78) 10/31/18 06:04 Alkaline Phosphatase 150 U/L (45-117) H 10/31/18 06:04 Lactate Dehydrogenase 280 U/L (87-241) H 10/29/18 10:38 Serum Total Protein 5.8 g/dL (6.4-8.2) L 10/31/18 06:04 Albumin 2.6 g/dL (3.4-5.0) L 11/08/18 05:42 Globulin 3.1 g/dL (2.3-3.5) 10/31/18 06:04 Albumin/Globulin Ratio 0.9 (1.1-1.8) L 10/31/18 06:04 Prealbumin 14.3 mg/dL (20-40) L 11/08/18 05:42 Vitamin B12 841 pg/mL (193-986) 10/28/18 07:09 Serum Folate 12.7 ng/mL (3.1-17.5) 10/28/18 07:09 Procalcitonin 1.07 ng/mL (<0.50) H 11/01/18 09:48 PTH Intact 51.2 pg/mL (18.4-80.1) 10/28/18 07:09 Vancomycin Trough 11.9 ug/mL (5.0-20.0) 11/07/18 17:00 Rheumatoid Factor Neg (NEG) 10/31/18 06:04 ARACELI Screen Negative (Negative) 10/31/18 06:04 ARACELI Pattern 2 Not indicated 10/31/18 06:04 Hep Bs Antigen Nonreactive (Nonreactive) 10/31/18 15:00 Hep Bs Antibody Borderline (Nonreactive) H 10/31/18 15:00 Hep Bs Antibody, Quant 9 mIU/mL (>=10) L 10/31/18 15:00 ABO/Rh AB POSITIVE 11/01/18 09:48 Antibody Screen Negative 11/01/18 09:48 Crossmatch See Detail 11/02/18 Unknown Weight: 243 lb 5 oz Wound Present: Yes Closed Surgical Incision Present: Yes Negative Pressure Wound Therapy Present: No Physician Update: Labs have been reviewed and a Hgb is stable at 9.0. He will have dialysis today before discharge. He is modified independent with ambulation and stairs. Medical Issues: Vancomycin 1gm every HD. Cefepime 1 gm every HD Pain Issues: Letts 5mg Q6H PRN. Tramadol 50mg TID PRN Functional Improvement: Patient has met all short-term and long-term goals at this time, w/ the exception of D/C from inpatient rehab. 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 Please see the Rehabilitation Signature page for all necessary signatures.
--- NOTE | 2018-11-09 11:33 | P.PN ---
Subjective Date of Service: 11/09/18 Primary Care Provider: Dr. Brandyn Gamboa Chief Complaint: Medical management Subjective: Improving HD today cleared for discharged from nephrology point of view Cont Abx Physical Examination - Vital Signs Temperature: 97.4 F Blood Pressure: 96/56 Pulse: 78 Respirations: 18 Pulse Ox (%): 95 - Physical Exam General: Oriented x3 HEENT: Atraumatic Neck: Supple, Without JVD or thyroid abnormality Respiratory: Clear to auscultation bilaterally, Normal air movement Cardiovascular: Regular rate/rhythm, Normal S1 S2, No rubs, No murmurs, Edema Gastrointestinal: Normal bowel sounds, Soft and benign - Studies Medications List Reviewed: Yes Assessment And Plan - Current Problems (Diagnosis) (1) ESRD (end stage renal disease) Current Visit: Yes Status: Acute - Plan ESRD on HD TTsat via perm cath HD tMWF for now on midodrine Anemia on MYLA low iron stores, on Po iron b12 and folate ok Hb stable now MBD low phos off binders CAD S/p CABG Lt leg celluilitis cont abx
--- NOTE | 2018-11-09 11:40 | FAST ---
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 Soyn Wright M.D. ADMISSION DIAGNOSIS: - Cardiac 09 - Cardiac Disorders () CAD. EATING: EATING - STEP 1: Does the patient require the assistance of a person or device, or need extra time when eating? No. EATING - SCORE: 7-IND GROOMING: Comb/brush hair Oral care Wash, rinse, and dry face Wash, rinse, and dry hands GROOMING - STEP 1: Does the patient require the assistance of a person or device, or need extra time when grooming? Yes. GROOMING - STEP 2: Does the patient require the assistance of a helper? Yes. GROOMING - STEP 3: How much assistance does the patient require from the helper? Only prior equipment preparation/set up from the helper GROOMING - SCORE: 5-SUP BATHING: Activity did not occur on this shift BATHING - SCORE: 0-UNK DRESSING - UPPER BODY: Activity did not occur on this shift ARTICLES SCORE Total number of steps: 0 DRESSING - UPPER BODY - SCORE: 0-UNK DRESSING - LOWER BODY: Elastic waist pants (three steps) Tied or buckled shoe - Left foot (two steps) Tied or buckled shoe - Right foot (two steps) ARTICLES SCORE Total number of steps: 7 DRESSING - LOWER BODY - STEP 1: Does the patient require help from a person or device, or need extra time when dressing below the [address]? Yes. DRESSING - LOWER BODY - STEP 2: Does the patient require the assistance of a helper? Yes. DRESSING - LOWER BODY - STEP 3: Does the helper touch the patient while dressing? Yes. DRESSING - LOWER BODY - STEP 4: How many of the total steps does the patient complete on his/her own? 6 DRESSING - LOWER BODY - SCORE: 4-MIN TOILETING: TOILETING - STEP 1: Does the patient require the assistance of a person or device, or need extra time with toileting? Yes . TOILETING - STEP 2: Does the patient require the assistance of a helper? Yes. TOILETING - STEP 3: How much assistance does the patient require from the helper? Hands-on assistance from the helper TOILETING - STEP 4: Of the 3 tasks: 1) Adjusting clothing prior to use, 2) Cleansing of perineal area, 3) Adjusting clot nabeel after use; How many tasks does the patient perform WITHOUT assistance of the helper? Two tasks TOILETING - SCORE: 3-MOD BLADDER MANAGEMENT: Patient is on renal dialysis or peritoneal dialysis and no voiding activity BLADDER MANAGEMENT - SCORE: 7-IND BLADDER MANAGEMENT - FREQUENCY OF ACCIDENTS: BLADDER MANAGEMENT(FA) - STEP 1: How many accidents has the patient had during the current shift? 0 BOWEL MANAGEMENT: BOWEL MANAGEMENT - STEP 1: Does the patient control bowels completely and intentionally without equipment devices or medications AND is always continent? Yes. BOWEL MANAGEMENT - SCORE: 7-IND BOWEL MANAGEMENT - FREQUENCY OF ACCIDENTS: BOWEL MANAGEMENT(FA) - STEP 1: How many accidents has the patient had during the current shift? 0 TRANSFERS: BED, CHAIR, WHEELCHAIR: TRANSFERS: BED, CHAIR, WHEELCHAIR - STEP 1: Does the patient require assistance of a person or device, or need extra time with bed, chair, or whe elchair transfers? Yes. TRANSFERS: BED, CHAIR, WHEELCHAIR - STEP 2: Does the patient require the assistance of a helper? Yes. TRANSFERS: BED, CHAIR, WHEELCHAIR - STEP 3: How much assistance does the patient require from the helper? Steadying/guiding assistance TRANSFERS: BED, CHAIR, WHEELCHAIR - SCORE: 4-MIN TRANSFERS: TOILET: TRANSFERS: TOILET - STEP 1: Does the patient require the assistance of a person or device, or need extra time with toilet transfe rs? Yes. TRANSFERS: TOILET - STEP 2: Does the patient require the assistance of a helper? Yes. TRANSFERS: TOILET - STEP 3: How much assistance does the patient require from the helper? Patient performs half or more of the tr ansferring tasks TRANSFERS: TOILET - STEP 4: Does the patient need only incidental help such as contact guard or steadying during toilet transfer? Yes. TRANSFERS: TOILET - SCORE: 4-MIN TRANSFERS: SHOWER: Activity did not occur on this shift TRANSFERS: SHOWER - SCORE: 0-UNK TRANSFERS: TUB: Activity did not occur on this shift TRANSFERS: TUB - SCORE: 0-UNK LOCOMOTION: WALK: Activity did not occur on this shift LOCOMOTION: WALK - SCORE: 0-UNK LOCOMOTION: WHEELCHAIR: Activity did not occur on this shift LOCOMOTION: WHEELCHAIR - SCORE: 0-UNK COMPREHENSION: COMPREHENSION - SCORE: 0-UNK EXPRESSION EXPRESSION - SCORE: 0-UNK SOCIAL INTERACTION: SOCIAL INTERACTION - SCORE: 0-UNK PROBLEM SOLVING: PROBLEM SOLVING - SCORE: 0-UNK MEMORY: MEMORY - SCORE: 0-UNK SIGNATURE PANEL: The following modified sections: Eating - Score, Grooming - Score, Bathing - Score, Dressing - Upper Body - Score, Dressing - Lower Body - Score, Toileting - Score, Bladder Management - Score, Bowel Man agement - Score, Transfers: Bed, Chair, Wheelchair - Score, Transfers: Toilet - Score, Transfers: Juli wer - Score, Transfers: Tub - Score, Locomotion: Walk - Score, Locomotion: Wheelchair - Score, Compre hension - Score, Expression - Score, Social Interaction - Score, Problem Solving - Score, Memory - Sc ore were [electronically] signed by Alexandra Saldana CNA on MonNov 09 2018 11:40:04 GMT-0600 ([facility])
[2018-11-09] MEDS ORDERED: CEFEPIME/SWI 1gm 10 ML IV SCH (13:15)
[2018-11-09] MEDS: EPOETIN ALFA 10,000 UNIT/ML VIAL SQ SCH (13:40)
[2018-11-09] MEDS: ALBUMIN HUMAN 25% 50 ML IV SCH (13:40)
--- NOTE | 2018-11-09 14:51 | FAST ---
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 Sony Wright M.D. ADMISSION DIAGNOSIS: - Cardiac 09 - Cardiac Disorders (09) CAD. EATING: Activity did not occur on this shift EATING - SCORE: 0-UNK GROOMING: Activity did not occur on this shift GROOMING - SCORE: 0-UNK BATHING: Activity did not occur on this shift BATHING - SCORE: 0-UNK DRESSING - UPPER BODY: Activity did not occur on this shift Patient is not dressing in public clothing ARTICLES SCORE Total number of steps: 0 DRESSING - UPPER BODY - SCORE: 0-UNK DRESSING - LOWER BODY: Activity did not occur on this shift Patient is not dressing in public clothing ARTICLES SCORE Total number of steps: 0 DRESSING - LOWER BODY - SCORE: 0-UNK TOILETING: Activity did not occur on this shift TOILETING - SCORE: 0-UNK BLADDER MANAGEMENT: Activity did not occur on this shift BLADDER MANAGEMENT - SCORE: 7-IND BOWEL MANAGEMENT: Activity did not occur on this shift BOWEL MANAGEMENT - SCORE: 7-IND TRANSFERS: BED, CHAIR, WHEELCHAIR: TRANSFERS: BED, CHAIR, WHEELCHAIR - STEP 1: Does the patient require assistance of a person or device, or need extra time with bed, chair, or whe elchair transfers? Yes. TRANSFERS: BED, CHAIR, WHEELCHAIR - STEP 2: Does the patient require the assistance of a helper? No. Patient only requires an assistive device fo r bed, chair, wheelchair transfers such as a sliding board, grab bar, or brace, OR s/he takes more th an reasonable time, OR there is a safety concern when s/he performs the transfers TRANSFERS: BED, CHAIR, WHEELCHAIR - SCORE: 6-SMILEY TRANSFERS: TOILET: Activity did not occur on this shift TRANSFERS: TOILET - SCORE: 0-UNK TRANSFERS: SHOWER: Activity did not occur on this shift TRANSFERS: SHOWER - SCORE: 0-UNK TRANSFERS: TUB: Activity did not occur on this shift TRANSFERS: TUB - SCORE: 0-UNK LOCOMOTION: WALK: LOCOMOTION: WALK - STEP 1: Does the patient need help from a person or device, or need extra time to walk 150 feet? No. LOCOMOTION: WALK - STEP 2: Does the patient need an assistive device (such as an orthosis, prosthesis, crutches, or walker) to g o 150 feet, OR does s/he take more than reasonable time, OR is there a concern for safety? Yes, the p atient needs an assistive device LOCOMOTION: WALK - SCORE: 6-SMILEY LOCOMOTION: WHEELCHAIR: LOCOMOTION: WHEELCHAIR - STEP 1: Does the patient need help to go 150 feet in a wheelchair? No. LOCOMOTION: WHEELCHAIR - SCORE: 6-SMILEY LOCOMOTION: STAIRS: LOCOMOTION: STAIRS - STEP 1: Does the patient need help to go up and down 12 to 14 stairs? No. LOCOMOTION: STAIRS - STEP 2: Does the patient require an assistive device - such as handrails or cane - to go up and down one flig ht of stairs, OR does s/he take more than reasonable time, OR is there a concern for safety? Yes, the patient requires an assistive device LOCOMOTION: STAIRS - SCORE: 6-SMILEY COMPREHENSION: COMPREHENSION - SCORE: 0-UNK EXPRESSION EXPRESSION - SCORE: 0-UNK SOCIAL INTERACTION: SOCIAL INTERACTION - SCORE: 0-UNK PROBLEM SOLVING: PROBLEM SOLVING - SCORE: 0-UNK MEMORY: MEMORY - SCORE: 0-UNK SIGNATURE PANEL: The following modified sections: Transfers: Bed, Chair, Wheelchair - Score, Transfers: Toilet - Score , Locomotion: Walk - Score, Locomotion: Wheelchair - Score, Locomotion: Stairs - Score were [electron adama] signed by Presley Darnell PTA on MonNov 09 2018 14:49:43 GMT-0600 (Central Standard Time)
== END 2018-11-09 17:20 | disposition home health service (06) | DRG 302 ==
LOC: 5TH 10-26 23:47
PROVIDERS: ADMIT Psychiatry & Neurology Neurology with Special Qualifications in Child Neurology; ATTEND Psychiatry & Neurology Neurology with Special Qualifications in Child Neurology
PROC: 5A1D70Z Performance of Urinary Filtration, Intermittent, Less than 6 Hours Per Day (ICD-10-PCS; 2018-10-29)
PROC: 5A1D70Z Performance of Urinary Filtration, Intermittent, Less than 6 Hours Per Day (ICD-10-PCS; 2018-10-30)
PROC: 5A1D70Z Performance of Urinary Filtration, Intermittent, Less than 6 Hours Per Day (ICD-10-PCS; 2018-10-31)
PROC: 5A1D70Z Performance of Urinary Filtration, Intermittent, Less than 6 Hours Per Day (ICD-10-PCS; 2018-11-02)
PROC: 5A1D70Z Performance of Urinary Filtration, Intermittent, Less than 6 Hours Per Day (ICD-10-PCS; 2018-11-05)
PROC: 5A1D70Z Performance of Urinary Filtration, Intermittent, Less than 6 Hours Per Day (ICD-10-PCS; principal; 2018-11-07)
PROC: 5A1D70Z Performance of Urinary Filtration, Intermittent, Less than 6 Hours Per Day (ICD-10-PCS; 2018-11-09)
DX: I25.10 Atherosclerotic heart disease of native coronary artery without angina pectoris (principal); N18.6 End stage renal disease; I12.0 Hypertensive chronic kidney disease with stage 5 chronic kidney disease or end stage renal disease; T81.41XA Infection following a procedure, superficial incisional surgical site, initial encounter; L03.116 Cellulitis of left lower limb; N25.81 Secondary hyperparathyroidism of renal origin; E11.22 Type 2 diabetes mellitus with diabetic chronic kidney disease; E66.9 Obesity, unspecified; N25.0 Renal osteodystrophy; R53.81 Other malaise; E88.09 Other disorders of plasma-protein metabolism, not elsewhere classified; E03.9 Hypothyroidism, unspecified; N40.0 Benign prostatic hyperplasia without lower urinary tract symptoms; I95.3 Hypotension of hemodialysis; I87.2 Venous insufficiency (chronic) (peripheral); Z95.1 Presence of aortocoronary bypass graft; Z99.2 Dependence on renal dialysis; Z28.21 Immunization not carried out because of patient refusal; Z68.39 Body mass index [BMI] 39.0-39.9, adult
CPT/HCPCS: 36415; 36430; 71045; 80048; 80053; 80202; 82040; 82607; 82728; 82746; 83036; 83540; 83615; 83735; 83970; 84100; 84134; 84145; 84466; 85014; 85018; 85025; 85027; 85610; 86038; 86317; 86430; 86706; 86850; 86900; 86901; 87040; 87075; 87205; 87340; 90935; 97110; 97112; 97116; 97150; 97163; 97167; 97530; 97542; J0692; J1644; J3370; P9016; P9047; Q4081

== ENCOUNTER 2019-01-14 08:56 | Emergency (ER) | payer OTHER ==
--- OUTSIDE RECORDS SUMMARY | 2019-01-14 09:09 | XMS REPORT ---
[...] End Status Dosage System Date Date Levothyroxine [facility] 41503030847 88 MCG Orally Active 1 tablet Sodium Once a day on an empty stomach in the morning Results No Known Results Summary Purpose eClinicalWorks Submission
--- OUTSIDE RECORDS SUMMARY | 2019-01-14 09:09 | XMS REPORT ---
:1955 Author Organization eClinicalWorks Care Team Providers Name Role Phone Brandyn Gamboa Provider Role Unavailable Allergies No Known Allergies [...] Anemia of chronic disease D63.8 Active Medications No Known Medications Results No Known Results Summary Purpose eClinicalWorks Submission
--- OUTSIDE RECORDS SUMMARY | 2019-01-14 09:09 | XMS REPORT ---
[...] Status Dosage System Date Date Calcium Acetate [facility] 19515815934 667 MG Orally Active 2 capsules Three times a with meals day Vitamin B-[address] [facility] 60817340337 100 MG Orally Active 1 tablet Once a day Lasix ND 81379173460 80 MG Orally Active 1 tablet Once a day Aspirin 81 ND 14730249338 81 MG Orally Active 1 tablet Once a day Levothyroxine [facility] 30490713480 88 MCG Orally Active 1 tablet on Sodium Once a day an empty stomach in the morning Docusate Sodium [facility] 55498496930 100 MG Orally Active 1 capsule Once a day as needed Levothyroxine [facility] 80645007320 88 MCG Orally Active 1 tablet on Sodium Once a day an empty stomach in the morning Tamsulosin HCl [facility] 31514378762 0.4 MG Orally Active 1 capsule Once a day Midodrine HCl [facility] 06205828169 5 MG Orally Active 1 tablet Take 30 mins before dialysis Vitamin D3 [facility] 29781988644 5000 UNIT Active 1 capsule Maximum Strength Orally Once a day Vitamin B-[address] [facility] 42336126435 100 MG Active TAKE 1 TABLET BY MOUTH EVERY DAY Oysco [address] [facility] 87398411368 500 MG Orally Active 2 tablets twice a day Tamsulosin HCl [facility] 46789873899 0.4 MG Active TAKE ONE CAPSULE BY MOUTH AT BEDTIME Calcium NDC 0 500 MG Orally Active 2 tablet Carbonate Twice a day Results No Known Results Summary Purpose eClinicalWorks Submission
--- OUTSIDE RECORDS SUMMARY | 2019-01-14 09:09 | XMS REPORT ---
:1955 [facility] Address [address] [place] [address] [address] [place] [address] Care Team Providers Name Role Phone Unavailable Unavailable Unavailable Problems This patient has no known problems. Allergies, Adverse Reactions, Alerts This patient has no known allergies or adverse reactions. Medications This patient has no known medications.
--- OUTSIDE RECORDS SUMMARY | 2019-01-14 09:10 | XMS REPORT ---
:1955 Author Organization eClinicalWorks Care Team Providers Name Role Phone GamboaBrandyn Provider Role Unavailable Allergies, Adverse Reactions, Alerts Substance Reaction Event Type N.K.D.A. Info Not Available Non Drug Allergy Problems Problem Type Condition Code Onset Dates Condition Status Assessment Benign prostatic hyperplasia, N40.0 Active unspecified whether lower urinary tract symptoms present Assessment At risk for falling Z91.81 Active Assessment Weakness R53.1 Active Problem Controlled type 2 diabetes E11.9 Active mellitus without complication, without long-term current use of insulin Assessment GERD without esophagitis K21.9 Active Problem At risk for falling Z91.81 Active Assessment Generalized edema R60.1 Active Problem Hypothyroidism, unspecified type E03.9 Active Problem Dependence on renal dialysis Z99.2 Active Problem GERD without esophagitis K21.9 Active Problem Weakness R53.1 Active Problem HTN (hypertension), benign I10 Active Assessment Anemia of chronic disease D63.8 Active Assessment HTN (hypertension), benign I10 Active Problem Benign prostatic hyperplasia, N40.0 Active unspecified whether lower urinary tract symptoms present Assessment Dependence on renal dialysis Z99.2 Active Problem End stage renal disease N18.6 Active Problem Generalized edema R60.1 Active Problem ESRD (end stage renal disease) N18.6 Active Problem Anemia of chronic disease D63.8 Active Assessment Hypothyroidism, unspecified type E03.9 Active Assessment Need for home health care Z74.2 Active Assessment Controlled type 2 diabetes E11.9 Active mellitus without complication, without long-term current use of insulin Assessment Health detention, active care Z78.9 Active coordination Assessment Wound infection following T81.49XA Active procedure Assessment End stage renal disease N18.6 Active Assessment 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 Active Medications Medication Code Code Instructions Start End Status Dosage System Date Date Tamsulosin HCl [facility] 25087233277 0.4 MG Orally Active 1 capsule Once a day Oysco 500 ND 02623166056 500 MG Orally Active 2 tablets twice a day Vitamin B-[address] [facility] 78792175403 100 MG Active TAKE 1 TABLET BY MOUTH EVERY DAY Vitamin D3 [facility] 03369387541 5000 UNIT Active 1 capsule Maximum Strength Orally Once a day Vitamin B-[address] [facility] 31336809218 100 MG Orally Active 1 tablet Once a day Tramadol HCl [facility] 46100166074 50 MG Orally Active as directed Plavix [facility] 74975992960 75 MG Orally Active 1 tablet Once a day Levothyroxine [facility] 25586344716 88 MCG Orally Active 1 tablet Sodium Once a day on an empty stomach in the morning Epoetin Juvencio [facility] [address]-44 27288 UNIT/ML Active as Injection directed Tamsulosin HCl [facility] 73483285628 0.4 MG Active TAKE ONE CAPSULE BY MOUTH AT BEDTIME Ferrous Sulfate [facility] 51626688885 325 (65 Fe) MG Active 1 tablet Orally bid Protonix [facility] 70519999600 40 MG Orally Active 1 tablet Once a day Midodrine HCl [facility] 00481858496 10 MG Orally Active 1 tablet once daily Atorvastatin [facility] 95478035873 80 MG Orally Active 1 tablet Calcium Once a day Calcium NDC 0 500 MG Orally Active 2 tablet Carbonate Twice a day Levothyroxine [facility] 92871396046 88 MCG Orally Active 1 tablet Sodium Once a day on an empty stomach in the morning Lasix [facility] 71998444323 80 MG Orally Active 1 tablet Once a day Metoprolol [facility] 27453334965 25 MG Orally Active Take 1/2 Tartrate Twice a day tab BID Calcium Acetate [facility] 09343212265 667 MG Orally Active 2 capsules Three times a with meals day Docusate Sodium [facility] 89858884668 100 MG Orally Active 1 capsule Once a day as needed Aspirin [address] [facility] 06677602965 81 MG Orally Active 1 tablet Once a day Results No Known Results Summary Purpose eClinicalWorks Submission
[2019-01-14 09:51] LABS: Protime INR 1.05
[2019-01-14 10:03] LABS: Absolute Lymphocytes (CBC) 0.8 K/uL (0.7-4.9); Absolute Monocytes 0.6 K/uL (0.1-1.3); Absolute Neutrophil 1.9 K/uL (1.8-8.0); Basophils % 2.6 % (0-1.3); Eosinophils % 6.1 % (0-4.4); Hematocrit 43.4 % (39.6-49.0); Lymphocytes % 21.9 % (15.3-44.8); MPV 9.3 fL (7.6-11.3); Monocytes % 17.1 % (3.3-12.3); RBC Red Blood Cell Count 4.36 M/uL (4.33-5.43)
--- NOTE | 2019-01-14 10:11 | EDPHYS ---
Physician Documentation [facility] Name: Sunil Hong Age: 63 yrs Sex: Male : 1955 Arrival Date: 01/14/2019 Time: 09:00 Bed 14 Private MD: JUAN Physician Amadeo Reyes HPI: 01/14 09:26 This 63 yrs old Male presents to ER via Wheelchair with complaints of Cough, kb Shortness Of Breath. 09:26 The patient has shortness of breath at rest. Onset: The symptoms/episode began/occurred kb 3 week(s) ago, and became worse. Duration: The symptoms are continuous, and are steadily getting worse. The patient's shortness of breath is aggravated by exertion. Associated signs and symptoms: Pertinent positives: productive cough. Severity of symptoms: At their worst the symptoms were moderate in the emergency department the symptoms are unchanged. The patient has not experienced similar symptoms in the past. The patient has been recently seen by a physician:. Pt reports he has had shortness of breath for a while. Had chest x-ray done 3 weeks ago and told he had fluid around his lungs and heart. Dr Carrero scheduled to drain effusion on Monday. States he was on blood thinners so he had to stop them for a certain amount of time prior to the procedure. States the hospital couldn't get him in until Monday (11/16/18) so Dr Carrero told him to just come to the ER on Monday (today). Family states "he is getting worse though.". Historical: - Allergies: 09:13 No Known Allergies; hb - Home Meds: 09:19 midodrine 2.5 mg oral tab before and after dialysis [Active]; levothyroxine 88 mcg tab iw 1 tab once daily [Active]; ferrous sulfate 325 mg (65 mg iron) Oral TbEC twice a day [Active]; metoprolol tartrate 25 mg Oral tab 1 tab 2 times per day [Active]; pantoprazole 40 mg oral TbEC 1 tab once daily [Active]; Oysco-500 500 mg calcium (1,250 mg) oral tab three times a day [Active]; tamsulosin 0.4 mg oral cp24 1 cap once daily [Active]; atorvastatin 80 mg oral tab 1 tab once daily [Active]; - PMHx: 09:13 Diabetes - NIDDM; hb 09:20 Myocardial infarction; iw - PSHx: 09:13 cataract surgery; hb 09:20 Heart Surgery; iw - Immunization history:: Adult Immunizations up to date. - Social history:: Smoking status: Patient/guardian denies using tobacco. - Ebola Screening: : No symptoms or risks identified at this time. ROS: 09:25 Constitutional: Negative for fever, chills, and weight loss, ENT: Negative for injury, kb pain, and discharge, Neck: Negative for injury, pain, and swelling, Cardiovascular: Negative for chest pain, palpitations, and edema, Abdomen/GI: Negative for abdominal pain, nausea, vomiting, diarrhea, and constipation, MS/Extremity: Negative for injury and deformity, Skin: Negative for injury, rash, and discoloration, Neuro: Negative for headache, weakness, numbness, tingling, and seizure. 09:25 Respiratory: Positive for cough, "sounds productive", dyspnea on exertion, shortness of breath, at rest. Negative for hemoptysis, orthopnea, pleurisy. Exam: 09:23 Constitutional: This is a well developed, well nourished patient who is awake, alert, kb and in no acute distress. Head/Face: Normocephalic, atraumatic. ENT: Nares patent. No nasal discharge, no septal abnormalities noted. Tympanic membranes are normal and external auditory canals are clear. Oropharynx with no redness, swelling, or masses, exudates, or evidence of obstruction, uvula midline. Mucous membranes moist. Neck: Trachea midline, no thyromegaly or masses palpated, and no cervical lymphadenopathy. Supple, full range of motion without nuchal rigidity, or vertebral point tenderness. No Meningismus. Chest/axilla: Normal chest wall appearance and motion. Nontender with no deformity. No lesions are appreciated. Cardiovascular: Regular rate and rhythm with a normal S1 and S2. No gallops, murmurs, or rubs. Normal PMI, no JVD. No pulse deficits. Abdomen/GI: Soft, non-tender, with normal bowel sounds. No distension or tympany. No guarding or rebound. No evidence of tenderness throughout. Back: No spinal tenderness. No costovertebral tenderness. Full range of motion. Skin: Warm, dry with normal turgor. Normal color with no rashes, no lesions, and no evidence of cellulitis. MS/ Extremity: Pulses equal, no cyanosis. Neurovascular intact. Full, normal range of motion. Neuro: Awake and alert, GCS 15, oriented to person, place, time, and situation. Cranial nerves II-XII grossly intact. Motor strength 5/5 in all extremities. Sensory grossly intact. Cerebellar exam normal. Normal gait. 09:23 ECG was reviewed by the Attending Physician. 09:23 Respiratory: the patient does not display signs of respiratory distress, Respirations: normal, Breath sounds: decreased breath sounds, that are severe, are heard in the left upper lobe, left lower lobe, left posterior upper lobe and left posterior lower lobe. Vital Signs: 09:19 BP 157 / 92; Pulse 85; Resp 22 S; Temp 98.1(O); Pulse Ox 98% on R/A; Weight 100.24 kg; iw Height 5 ft. 8 in. (172.72 cm); Pain 0/10; 10:00 BP 142 / 78; Pulse 66; Resp 24; Pulse Ox 99% on R/A; hb 11:00 BP 133 / 77; Pulse 61; Resp 22; Pulse Ox 100% on R/A; hb 12:00 BP 128 / 72; Pulse 64; Resp 19; Pulse Ox 99% on R/A; Pain 0/10; hb 09:19 Body Mass Index 33.60 (100.24 kg, 172.72 cm) iw MDM: 09:13 Patient medically screened. kb 09:25 Data reviewed: vital signs, nurses notes. Data interpreted: Pulse oximetry: on room air kb is 98 %. Interpretation: normal. 10:08 Counseling: I had a detailed discussion with the patient and/or guardian regarding: the kb historical points, exam findings, and any diagnostic results supporting the discharge/admit diagnosis, lab results, radiology results, the need for further work-up and treatment in the hospital. Physician consultation: Ge Carrero MD was called at 10:09, voice message left. Physician consultation: Cong Suero DO was contacted at 10:09, regarding admission, to the telemetry unit. patient's condition, and will see patient in ED, shortly. 10:47 ED course: Dr Suero saw pt in ED. Pt does not appear to be in any distress, o2 sat kb 96-98% on room air. Dr Suero is going to call Dr Carrero and see if pt can have outpatient thoracentesis today instead of later in the week as scheduled. Awaiting Dr Carrero's call back. 11:09 ED course: Thoracentesis moved from Monday to Monday. Pt has to be off of plavix for kb a full week prior to procedure so Monday is the earliest day. . 11:11 ED course: Dr Suero discussed new procedure time with pt and family. Family upset kb because they were told to come in today and Magan would do the procedure but understands why it cannot be done today. Verbal understanding received. Pt will come in Monday for procedure. 01/14 09:18 Order name: Basic Metabolic Panel; Complete Time: 10:37 kb 01/14 09:18 Order name: CBC with Diff; Complete Time: 10:37 kb 01/14 09:18 Order name: Magnesium; Complete Time: 10:38 kb 01/14 09:18 Order name: NT PRO-BNP; Complete Time: 10:37 kb 01/14 09:18 Order name: PT-INR; Complete Time: 09:57 kb 01/14 09:18 Order name: Troponin (emerg Dept Use Only); Complete Time: 10:37 kb 01/14 09:18 Order name: XRAY Chest (1 view); Complete Time: 10:18 kb 01/14 09:18 Order name: EKG; Complete Time: 09:19 kb 01/14 09:18 Order name: Cardiac monitoring; Complete Time: 11:03 kb 01/14 09:18 Order name: EKG - Nurse/Tech; Complete Time: 11:03 kb 01/14 09:18 Order name: IV Saline Lock; Complete Time: 11:03 kb 01/14 09:18 Order name: Labs collected and sent; Complete Time: 11:03 kb 01/14 09:18 Order name: O2 Per Protocol; Complete Time: 11:04 kb 01/14 10:34 Order name: Manual Differential; Complete Time: 10:37 EDMS 01/14 09:18 Order name: O2 Sat Monitoring; Complete Time: 11:03 kb EC:23 Rate is 65 beats/min. Rhythm is regular, Normal Sinus Rhythm. QRS Union is Normal. MD kb interval is normal at 206 msec. QRS interval is normal at 154 msec. QT interval is normal at 450 msec. Administered Medications: No medications were administered Disposition: 01/15 06:58 Co-signature as Attending Physician, Amadeo Reyes MD I agree with the assessment and pauline plan of care. Disposition: 01/14/19 11:13 Discharged to Home. Impression: Dyspnea, Pleural effusion, not elsewhere classified. - Condition is Stable. - Discharge Instructions: Pleural Effusion, Thoracentesis, Shortness of Breath, [id number]. - Medication Reconciliation Form, Thank You Letter, Antibiotic Education, Prescription Opioid Use form. - Follow up: Emergency Department; When: As needed; Reason: Worsening of condition. Follow up: Private Physician; When: 2 - 3 days; Reason: Recheck today's complaints, Continuance of care, Re-evaluation by your physician. - Notes: Thoracentesis scheduled for Monday Signatures: Dispatcher [employer] EDMS Radha Perez, JEOVANNY CORDOVA-Amadeo Barrientos MD MD cha Williams, Irene, RN RN Hortencia Bradley RN RN hb Corrections: (The following items were deleted from the chart) 01/14 09:32 09:26 Pt reports he has had shortness of breath for a while. Had chest x-ray done 3 kb weeks ago and told he had fluid around his lungs and heart. Dr Carrero scheduled to drain effusion on Monday. States he was on blood thinners so he had to stop them for a certain amount of time prior to the procedure. States the hospital couldn't get him in until Monday (11/16/18) so Dr Carrero told him to just come to the ER on Monday (today). . kb 11:11 10:10 Hospitalization Ordered by Cong Suero DO for Observation. Preliminary kb diagnosis is Dyspnea; Pleural effusion, not elsewhere classified. Bed requested for Telemetry/MedSurg (observation). Status is Observation. Condition is Stable. Problem is an ongoing problem. Symptoms have worsened. UTI on Admission? No. kb 12:04 11:13 01/14/2019 11:13 Discharged to Home. Impression: Dyspnea; Pleural effusion, not hb elsewhere classified. Condition is Stable. Forms are Medication Reconciliation Form, Thank You Letter, Antibiotic Education, Prescription Opioid Use. Follow up: Emergency Department; When: As needed; Reason: Worsening of condition. Follow up: Private Physician; When: 2 - 3 days; Reason: Recheck today's complaints, Continuance of care, Re-evaluation by your physician. kb
--- NOTE | 2019-01-14 10:11 | ER ---
Nurse's Notes [facility] Name: Sunil Hong Age: 63 yrs Sex: Male : 1955 Arrival Date: 01/14/2019 Time: 09:00 Bed 14 Private MD: Diagnosis: Dyspnea;Pleural effusion, not elsewhere classified Presentation: 01/14 09:13 Presenting complaint: Patient states: had CXR done 2 weeks ago, was told he had fluid iw around his heart and lungs, was due to have left lung drained on Monday by Dr. Carrero, was told to come to ER if symptoms worsened, pt states he's had increasing SOB and cough, now coughing up thick sputum, denies fever. Transition of care: patient was not received from another setting of care. Onset of symptoms was January 14, 2019. Risk Assessment: Do you want to hurt yourself or someone else? Patient reports no desire to harm self or others. Initial Sepsis Screen: Does the patient meet any 2 criteria? RR > 20 per min. Does the patient have a suspected source of infection?. Care prior to arrival: None. 09:13 Method Of Arrival: Wheelchair iw 09:13 Acuity: JAQUELIN 2 iw Historical: - Allergies: 09:13 No Known Allergies; hb - Home Meds: 09:19 midodrine 2.5 mg oral tab before and after dialysis [Active]; levothyroxine 88 mcg tab iw 1 tab once daily [Active]; ferrous sulfate 325 mg (65 mg iron) Oral TbEC twice a day [Active]; metoprolol tartrate 25 mg Oral tab 1 tab 2 times per day [Active]; pantoprazole 40 mg oral TbEC 1 tab once daily [Active]; Oysco-500 500 mg calcium (1,250 mg) oral tab three times a day [Active]; tamsulosin 0.4 mg oral cp24 1 cap once daily [Active]; atorvastatin 80 mg oral tab 1 tab once daily [Active]; - PMHx: 09:13 Diabetes - NIDDM; hb 09:20 Myocardial infarction; iw - PSHx: 09:13 cataract surgery; hb 09:20 Heart Surgery; iw - Immunization history:: Adult Immunizations up to date. - Social history:: Smoking status: Patient/guardian denies using tobacco. - Ebola Screening: : No symptoms or risks identified at this time. Screenin:13 Abuse screen: Denies threats or abuse. Denies injuries from another. Nutritional hb screening: No deficits noted. Tuberculosis screening: No symptoms or risk factors identified. Fall Risk None identified. Assessment: 09:22 General: Appears in no apparent distress. ill, Behavior is calm, cooperative. Pain: hb Denies pain. Neuro: Level of Consciousness is awake, alert, obeys commands, Oriented to person, place, time, situation. Cardiovascular: Heart tones S1 S2 present Capillary refill < 3 seconds Patient's skin is warm and dry. Rhythm is regular. Respiratory: Reports shortness of breath at rest Airway is patent Respiratory effort is even, mildly labored Respiratory pattern is symmetrical, tachypnea Breath sounds are coarse bilaterally. GI: No signs and/or symptoms were reported involving the gastrointestinal system. : No signs and/or symptoms were reported regarding the genitourinary system. EENT: No signs and/or symptoms were reported regarding the EENT system. Derm: Skin is intact, is healthy with good turgor. Musculoskeletal: No signs and/or symptoms reported regarding the musculoskeletal system. 10:00 Reassessment: Patient appears in no apparent distress at this time. No changes from hb previously documented assessment. Patient and/or family updated on plan of care and expected duration. Pain level reassessed. 11:00 Reassessment: Patient appears in no apparent distress at this time. No changes from hb previously documented assessment. Patient and/or family updated on plan of care and expected duration. Pain level reassessed. 12:00 Reassessment: Patient appears in no apparent distress at this time. No changes from hb previously documented assessment. Patient and/or family updated on plan of care and expected duration. Pain level reassessed. Vital Signs: 09:19 BP 157 / 92; Pulse 85; Resp 22 S; Temp 98.1(O); Pulse Ox 98% on R/A; Weight 100.24 kg; iw Height 5 ft. 8 in. (172.72 cm); Pain 0/10; 10:00 BP 142 / 78; Pulse 66; Resp 24; Pulse Ox 99% on R/A; hb 11:00 BP 133 / 77; Pulse 61; Resp 22; Pulse Ox 100% on R/A; hb 12:00 BP 128 / 72; Pulse 64; Resp 19; Pulse Ox 99% on R/A; Pain 0/10; hb 09:19 Body Mass Index 33.60 (100.24 kg, 172.72 cm) ED Course: 09:00 Patient arrived in ED. mr 09:11 Hortencia Bradley, RN is Primary Nurse. hb 09:13 Radha Perez FNP-C [facility]. kb 09:13 Amadeo Reyes MD is Attending Physician. kb 09:13 Arm band placed on. hb 09:13 Patient has correct armband on for positive identification. Placed in gown. Bed in low hb position. Call light in reach. Side rails up X 1. monitoring specialist on. Pulse ox on. NIBP on. 09:16 Triage completed. iw 09:20 EKG done, by pathology technician. reviewed by Radha UP. at1 09:53 XRAY Chest (1 view) In Process Unspecified. EDMS 10:10 Cong Suero DO is Hospitalizing Provider. kb 12:02 No provider procedures requiring assistance completed. IV discontinued, intact, hb bleeding controlled, No redness/swelling at site. Pressure dressing applied. Administered Medications: No medications were administered Outcome: 10:10 Decision to Hospitalize by Provider. kb 11:13 Discharge ordered by MD. kb 12:02 Discharged to home via wheelchair, with family. hb 12:02 Condition: stable 12:02 Discharge instructions given to patient, family, Instructed on discharge instructions, follow up and referral plans. Demonstrated understanding of instructions, follow-up care. 12:04 Patient left the ED. hb Signatures: Dispatcher [employer] EDMO Radha Perez FNP-C FNP-Ckb Rivera, Mary Leidy Dhaliwla, RN RN iw Mayra Hong, sand cutting machine operator EKG Tat1 Hortencia Bradley, RN RN hb
--- NOTE | 2019-01-14 10:15 | RAD REPORT ---
EXAM DESCRIPTION: RAD - Chest Single View - 01/14/2019 9:53 am CLINICAL HISTORY: DYSPNEA Chest pain. COMPARISON: Chest Pa And Lat (2 Views) dated 01/08/2019; Chest Single View dated 11/01/2018; Chest Sin gle View dated 10/09/2017; Chest Single View dated 10/05/2017 FINDINGS: Portable technique limits examination quality. Complete opacification left hemithorax is again noted, unchanged. The right lung is grossly clear. Ca rdiac size is not well defined. Right-sided venous catheter has tip in the SVC.Sternotomy wires. IMPRESSION: Stable chest since 01/08/2019
[2019-01-14 10:34] LABS: Blood Morphology Comment NOT SEEN (NOT SEEN); Platelet Estimate ADEQ
[2019-01-14 10:35] LABS: Magnesium 2.4 mg/dL (1.8-2.4); Potassium 3.7 mmol/L (3.5-5.1); Troponin (Emerg Dept Use Only) 0.07 ng/mL (0.0-0.045)
[2019-01-14 12:41] VITALS: TEMP 98.1
[2019-01-14 12:45] VITALS: BP 128/72; O2SAT 99
--- NOTE | 2019-01-14 15:11 | P.CNS ---
Date of Consult: 01/14/19 Reason for Consult: ER consult Primary Care Provider: Dr. Brandyn Gamboa; Pulmonary-Dr. Carrero Chief Complaint: Cough History of Present Illness: 63-year-old male presented to the emergency room with cough. Patient with chronic left pleural effusion. Patient seen by pulmonology. Patient is being scheduled as an outpatient to had a thoracentesis done later this week. Patient will need to be off Plavix for at least 1 week. Patient came to the ER for cough. In the ER patient without any significant distress. Room-air saturations within normal range. Patient with history of end-stage renal disease on hemodialysis, hypothyroidism, iron deficiency anemia, hypertension, GERD, BPH, and chronic pleural effusion. Chest x-ray showed pleural effusion unchanged from prior chest x-ray. CBC BMP stable this time. I was consulted for further evaluation. Allergies No Known Allergies Allergy (Verified 10/28/18 14:22) Home medications list reviewed: Yes Home Medications: Tamsulosin [Flomax*] 0.4 mg PO BEDTIME #30 cap 10/13/17 Aspirin Chewable [Aspirin Chewable*] 81 mg PO DAILY 10/27/18 Calcium Acetate [Phoslo*] 1 mg PO TIDWM 10/27/18 Docusate [Colace Cap*] 100 mg PO DAILY 10/27/18 Atorvastatin Calcium [Lipitor] 80 mg PO BEDTIME #30 tab 11/09/18 CEFAZOLIN/NS 1gm [Ancef 1 gm/50 ml Ns Ivpb] 1 gm IV T,TH,S 14 Days bag Clopidogrel Bisulfate [Plavix*] 75 mg PO DAILY #30 tablet 11/09/18 Epoetin [Procrit*] 10,000 unit SQ EVERY HD vial 11/09/18 Ferrous Sulfate 325 mg PO BID #60 tablet 11/09/18 Levothyroxine [Synthroid*] 88 mcg PO [id number] #30 tablet 11/09/18 Metoprolol Tartrate [Lopressor*] 12.5 mg PO BID 6AM 6PM #30 tab 11/09/18 Midodrine HCl 10 mg PO DAILY #30 tablet 11/09/18 Pantoprazole [Protonix Tab*] 40 mg PO DAILY #30 tab 11/09/18 Vancomycin [Vancomycin 1 Gram/250 ml Ns Ivpb] 1 gm IV T,TH,S 14 Days bag traMADol HCL [Ultram*] 50 mg PO Q6H PRN #60 tab 11/09/18 - Past Medical/Surgical History Diabetic: No -: ESRD-HD TTHS -: HTN -: Diabetes mellitus type 2 -: Hypothyroidism -: BPH -: GERD -: Iron deficiency anemia -: CAD/CABG x4 vessel -: Obesity, BMI 39 -: Orthostatic hypotension on midodrine -: Chronic left pleural effusion -: Cataract -: Recent CABG x4 vessel Psychosocial/ Personal History: Patient is . - Family History Brother Medical History: Kidney disease Father Medical History: Heart disease, Lung disease, Diabetes Sister Medical History: Diabetes, Liver disease - Social History Smoking Status: Never smoker Alcohol use: No CD- Drugs: No Caffeine use: Yes Place of Residence: Home Review of Systems General: Unremarkable Eyes: Unremarkable ENT: Unremarkable Respiratory: Cough, As per HPI Cardiovascular: Unremarkable Gastrointestinal: Unremarkable Genitourinary: Unremarkable Musculoskeletal: Unremarkable Integumentary: Unremarkable Neurological: Unremarkable Lymphatics: Unremarkable Physical Examination Temp Pulse Resp BP Pulse Ox 98.1 F 64 19 128/72 01/14/19 09:19 01/14/19 12:00 01/14/19 12:00 01/14/19 12:00 General: Alert, In no apparent distress, Oriented x3, Cooperative HEENT: Atraumatic Neck: Supple Respiratory: Diminished (To the left side) Cardiovascular: Normal pulses, Regular rate/rhythm Gastrointestinal: Normal bowel sounds, Soft and benign, Non-distended, No masses , No rebound, No guarding Musculoskeletal: No tenderness, No warmth Integumentary: Tenderness/swelling (Some pitting edema to the lower extremities bilateral) Neurological: Normal speech, Normal strength at 5/5 x4 extr, Normal tone Other Physical/Emotional Findings: Room-air saturations within normal range. Patient without significant distress. Patient appears at baseline. Laboratory Data (last 24 hrs) 01/14/19 09:30: PT 12.4, INR 1.05 01/14/19 09:30: WBC 3.6 L, Hgb 14.2, Hct 43.4, Plt Count 103 L 01/14/19 09:30: Sodium 138, Potassium 3.7, BUN 42 H, Creatinine 8.38 H*, Glucose 107 H, Magnesium 2.4 Conclusions/Impression: Impression: Cough with noted left chronic pleural effusion End-stage renal disease on hemodialysis Hypothyroidism Hypertension Iron deficiency anemia GERD BPH CAD Plan: Patient does not appear in any respiratory distress. Room-air saturations within normal range. No need for hospitalization at this time. Case discussed at length with pulmonology who is trying to arrange for outpatient thoracentesis. This is scheduled for Monday. Patient and family desired it to be done sooner rather than later. Patient needs to be off Plavix for at least 1 week. This will occur tomorrow. After review with pulmonology, Dr. Carrero agrees no need for admission at this time. Case discussed with radiology to see if thoracentesis can be done sooner. Arrangements have been made to have thoracentesis done sooner with the help of radiology. Arrangements for thoracentesis to occur on Monday at 9: 00 a.m. has been arranged. Pulmonology has been informed. Further instructions and set up by pulmonology will be arranged. Patient may continue with current medications except Plavix which is to be held until thoracentesis can be done. Patient will be off Plavix for at least 1 week by tomorrow. Plan of care discussed with patient and daughter who was present at bedside. All are in agreement. ER to discharge patient with plan of care. Time Spent Managing Pts care (In Minutes): 55
--- NOTE | 2019-01-14 15:23 | EKG ---
Test Date: 2019-01-14 Test Time: 09:20:48 [employer]: TAY MEASUREMENT RESULTS: Intervals: Rate: 75 KS: 206 QRSD: 154 QT: 450 QTc: 502 [place]: P: 40 KS: 206 QRS: 79 T: 87 INTERPRETIVE STATEMENTS: Normal sinus rhythm Right bundle branch block Abnormal ECG Compared to ECG 10/05/2017 17:07:19 Left-axis deviation no longer present Electronically Signed On 01-14-19 15:23:07 CDT by Bari Burden
== END 2019-01-14 12:04 | disposition home or self-care (01) ==
LOC: ER 08:56
DX: R06.00 Dyspnea, unspecified (principal); J90 Pleural effusion, not elsewhere classified; I12.0 Hypertensive chronic kidney disease with stage 5 chronic kidney disease or end stage renal disease; N18.6 End stage renal disease; E11.22 Type 2 diabetes mellitus with diabetic chronic kidney disease; Z99.2 Dependence on renal dialysis; E03.9 Hypothyroidism, unspecified; D50.9 Iron deficiency anemia, unspecified; N40.0 Benign prostatic hyperplasia without lower urinary tract symptoms; Z79.82 Long term (current) use of aspirin; E66.9 Obesity, unspecified; Z68.39 Body mass index [BMI] 39.0-39.9, adult; K21.9 Gastro-esophageal reflux disease without esophagitis; I25.2 Old myocardial infarction
CPT/HCPCS: 36415; 71045; 80048; 83735; 83880; 84484; 85025; 85610; 93005; 99284

== ENCOUNTER 2019-01-16 08:02 | Day surgery (SDC) | payer OTHER ==
--- OUTSIDE RECORDS SUMMARY | 2019-01-16 08:06 | XMS REPORT ---
[...] End Status Dosage System Date Date Levothyroxine [facility] 17332843293 88 MCG Orally Active 1 tablet Sodium Once a day on an empty stomach in the morning Results No Known Results Summary Purpose eClinicalWorks Submission
--- OUTSIDE RECORDS SUMMARY | 2019-01-16 08:06 | XMS REPORT ---
[...] Status Dosage System Date Date Calcium Acetate [facility] 95817539413 667 MG Orally Active 2 capsules Three times a with meals day Vitamin B-1 [facility] 62009308957 100 MG Orally Active 1 tablet Once a day Lasix ND 87093022898 80 MG Orally Active 1 tablet Once a day Aspirin 81 ND 01051754130 81 MG Orally Active 1 tablet Once a day Levothyroxine [facility] 81657907601 88 MCG Orally Active 1 tablet on Sodium Once a day an empty stomach in the morning Docusate Sodium [facility] 21767240491 100 MG Orally Active 1 capsule Once a day as needed Levothyroxine [facility] 86442131481 88 MCG Orally Active 1 tablet on Sodium Once a day an empty stomach in the morning Tamsulosin HCl [facility] 03362679452 0.4 MG Orally Active 1 capsule Once a day Midodrine HCl [facility] 26237444306 5 MG Orally Active 1 tablet Take 30 mins before dialysis Vitamin D3 [facility] 69743242438 5000 UNIT Active 1 capsule Maximum Strength Orally Once a day Vitamin B-1 [facility] 87775522398 100 MG Active TAKE 1 TABLET BY MOUTH EVERY DAY Oysco 500 [facility] 25450284310 500 MG Orally Active 2 tablets twice a day Tamsulosin HCl [facility] 92940683662 0.4 MG Active TAKE ONE CAPSULE BY MOUTH AT BEDTIME Calcium NDC 0 500 MG Orally Active 2 tablet Carbonate Twice a day Results No Known Results Summary Purpose eClinicalWorks Submission
--- OUTSIDE RECORDS SUMMARY | 2019-01-16 08:06 | XMS REPORT ---
:1955 [facility] Organization [facility] Address [address] [place] [address] Dr. [address] [place] [address] Care Team Providers Name Role Phone Unavailable Unavailable Unavailable Problems This patient has no known problems. Allergies, Adverse Reactions, Alerts This patient has no known allergies or adverse reactions. Medications This patient has no known medications.
--- OUTSIDE RECORDS SUMMARY | 2019-01-16 08:06 | XMS REPORT ---
[...] long-term current use of insulin Assessment Health assisted, active care Z78.9 Active coordination Assessment Wound infection following T81.49XA Active procedure Assessment End stage renal disease N18.6 Active Assessment 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 Active Medications Medication Code Code Instructions Start End Status Dosage System Date Date Tamsulosin HCl [facility] 72945095480 0.4 MG Orally Active 1 capsule Once a day Oysco 500 ND 77030004184 500 MG Orally Active 2 tablets twice a day Vitamin B-1 [facility] 19376325265 100 MG Active TAKE 1 TABLET BY MOUTH EVERY DAY Vitamin D3 [facility] 87674582977 5000 UNIT Active 1 capsule Maximum Strength Orally Once a day Vitamin B-1 [facility] 65524307660 100 MG Orally Active 1 tablet Once a day Tramadol HCl [facility] 96041914718 50 MG Orally Active as directed Plavix [facility] 94171430353 75 MG Orally Active 1 tablet Once a day Levothyroxine [facility] 24862895387 88 MCG Orally Active 1 tablet Sodium Once a day on an empty stomach in the morning Epoetin Juvencio [facility] [address]-46 33348 UNIT/ML Active as Injection directed Tamsulosin HCl [facility] 60488945975 0.4 MG Active TAKE ONE CAPSULE BY MOUTH AT BEDTIME Ferrous Sulfate [facility] 40533509055 325 (65 Fe) MG Active 1 tablet Orally bid Protonix [facility] 57652384675 40 MG Orally Active 1 tablet Once a day Midodrine HCl [facility] 36845423779 10 MG Orally Active 1 tablet once daily Atorvastatin [facility] 07912234904 80 MG Orally Active 1 tablet Calcium Once a day Calcium NDC 0 500 MG Orally Active 2 tablet Carbonate Twice a day Levothyroxine [facility] 44350390699 88 MCG Orally Active 1 tablet Sodium Once a day on an empty stomach in the morning Lasix [facility] 57819477810 80 MG Orally Active 1 tablet Once a day Metoprolol [facility] 80090622880 25 MG Orally Active Take 1/2 Tartrate Twice a day tab BID Calcium Acetate [facility] 84408546962 667 MG Orally Active 2 capsules Three times a with meals day Docusate Sodium [facility] 50017014783 100 MG Orally Active 1 capsule Once a day as needed Aspirin 81 [facility] 60557861637 81 MG Orally Active 1 tablet Once a day Results No Known Results Summary Purpose eClinicalWorks Submission
[2019-01-16 09:00] VITALS: BP 141/75; TEMP 98.8; O2SAT 98
[2019-01-16 09:02] VITALS: BMI 27.6
--- NOTE | 2019-01-16 10:18 | RAD REPORT ---
EXAM DESCRIPTION: [facility] Single View01/16/2019 9:58 am CLINICAL HISTORY: Left pleural effusion FINDINGS: A pneumothorax is not seen status post left thoracentesis
--- NOTE | 2019-01-16 12:01 | RAD REPORT ---
EXAM DESCRIPTION: US - Thoracentesis w/ US Guide - 01/16/2019 9:53 am CLINICAL HISTORY: Left pleural effusion COMPARISON: January 14, 2019 chest x-ray FINDINGS: Risks, benefits and alternatives to the procedure were explained to the patient and inform ed consent obtained. Left pleural effusion was localized under sonographic guidance. Skin, subcutaneous tissues and pleura were anesthetize with Lidocaine. Under sonographic guidance an 8 Welsh catheter was advanced into the posterior left pleural space. 1 .2 liters of reddish fluid was removed and sent to the lab. The patient experienced no immediate complication. The patient then had a chest x-ray taken then subsequently was sent back to same-day surgery for joe toring. Blood pressure was within normal limits for several hours. Patient was asymptomatic over several hour s and was then discharged from same-day surgery IMPRESSION: Left thoracentesis.
== END 2019-01-16 11:53 | disposition home or self-care (01) ==
LOC: DS 08:02
PROVIDERS: ATTEND Internal Medicine Sleep Medicine
DX: J90 Pleural effusion, not elsewhere classified (principal)
CPT/HCPCS: 32555; 36415; 71045; 85014; 85018; 87015; 87070; 87116; 87206; 88108; 88305

== ENCOUNTER 2019-08-10 08:38 | Emergency (ER) | payer OTHER ==
--- OUTSIDE RECORDS SUMMARY | 2019-08-10 08:41 | XMS REPORT ---
:1955 [facility] Address [address] [place] [address] Dr. Peterson [address] [place] [id number] Care Team Providers Name Role Phone Unavailable Unavailable Unavailable Problems This patient has no known problems. Allergies, Adverse Reactions, Alerts This patient has no known allergies or adverse reactions. Medications This patient has no known medications.
--- OUTSIDE RECORDS SUMMARY | 2019-08-10 08:41 | XMS REPORT ---
:1955 Author Organization eClinicalWorks Care Team Providers Name Role Phone Cooper Brandyn Provider Role Unavailable Allergies, Adverse Reactions, Alerts Substance Reaction Event Type N.K.D.A. Info Not Available Non Drug Allergy Problems Problem Type Condition Code Onset Dates Condition Status Problem Hypothyroidism, unspecified type E03.9 Active Problem Dependence on renal dialysis Z99.2 Active Problem GERD without esophagitis K21.9 Active Problem Weakness R53.1 Active Assessment Dependence on renal dialysis Z99.2 Active Problem HTN (hypertension), benign I10 Active Assessment Generalized edema R60.1 Active Assessment GERD without esophagitis K21.9 Active Problem Benign prostatic hyperplasia, N40.0 Active unspecified whether lower urinary tract symptoms present Problem End stage renal disease N18.6 Active Problem Generalized edema R60.1 Active Problem ESRD (end stage renal disease) N18.6 Active Problem Anemia of chronic disease D63.8 Active Assessment Hypothyroidism, unspecified type E03.9 Active Assessment End stage renal disease N18.6 Active Assessment Anemia of chronic disease D63.8 Active Assessment Controlled type 2 diabetes mellitus E11.9 Active without complication, without long-term current use of insulin Assessment Coronary artery disease involving I25.810 Active coronary bypass graft of [place] heart, angina presence unspecified Assessment Benign prostatic hyperplasia, N40.0 Active unspecified whether lower urinary tract symptoms present Assessment At risk for falling Z91.81 Active Assessment 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 Active Problem Controlled type 2 diabetes mellitus E11.9 Active without complication, without long-term current use of insulin Assessment Weakness R53.1 Active Assessment HTN (hypertension), benign I10 Active Problem At risk for falling Z91.81 Active Medications Medication Code Code Instructions Start End Status Dosage System Date Date Levothyroxine [facility] 44098006739 100 MCG Orally Active 1 tablet Sodium Once a day on an empty stomach in the morning Plavix [facility] 47337792162 75 MG Orally Active 1 tablet Once a day Tamsulosin HCl [facility] 99253206857 0.4 MG Orally Active 1 capsule Once a day Docusate Sodium [facility] 51342148911 100 MG Orally Active 1 capsule Once a day as needed Midodrine HCl [facility] 92778392345 10 MG Orally Active 1 tablet once daily Vitamin D3 [facility] 49901943824 5000 UNIT Active 1 capsule Maximum Strength Orally Once a day Protonix [facility] 93223993097 40 MG Orally Active 1 tablet Once a day Epoetin Juvencio [facility] [address]-13 38981 UNIT/ML Active as Injection directed Calcium [facility] 88986289499 500 MG Orally Active 2 tablet Carbonate Twice a day Aspirin 81 [facility] 55625685310 81 MG Orally Active 1 tablet Once a day Ferrous Sulfate [facility] 97888688262 325 (65 Fe) MG Active 1 tablet Orally bid Oysco 500 [facility] 65206006159 500 MG Orally Active 2 tablets twice a day Levothyroxine [facility] 35213668933 88 MCG Orally Active 1 tablet Sodium Once a day on an empty stomach in the morning Metoprolol [facility] 49780761099 25 MG Orally Active 1 tablet Tartrate Twice a day with food Atorvastatin [facility] 18664283749 80 MG Orally Active 1 tablet Calcium Once a day Calcium Acetate [facility] 98817303974 667 MG Orally Active 2 capsules Three times a with meals day Tamsulosin HCl [facility] 14622297240 0.4 MG Active TAKE ONE CAPSULE BY MOUTH AT BEDTIME Jayleen-Elizabeth [facility] 47807535127 - Orally Once a Active 1 tablet day Tramadol HCl [facility] 49855652965 50 MG Orally Active as directed Vitamin B-1 [facility] 52376231019 100 MG Orally Active 1 tablet Once a day Results No Known Results Summary Purpose eClinicalWorks Submission
[2019-08-10] MEDS ORDERED: MORPHINE 4 MG/ML SYR ONE (08:45)
[2019-08-10] MEDS ORDERED: ONDANSETRON 4 MG/2 ML VIAL ONE (08:46)
--- NOTE | 2019-08-10 09:07 | RAD REPORT ---
EXAM DESCRIPTION: CT - Abdomen Pelvis Wo Contrast - 08/10/2019 8:53 am CLINICAL HISTORY: Abdominal pain COMPARISON: 2018 TECHNIQUE: Computed axial tomography of the abdomen and pelvis was obtained. IV and oral contrast we re not requested. All CT scans are performed using dose optimization technique as appropriate and may include automated exposure control or mA/KV adjustment according to patient size. FINDINGS: The evaluation of solid organs, vessels and bowel is limited secondary to the lack of con trast administration. Small left pleural effusion The liver, spleen, pancreas, left adrenal and left kidney appear grossly normal. Right adrenal low-de nsity mass measures 14 millimeters. It is unchanged probably an adenoma. Small right renal cyst The appendix is normal. There is no evidence of diverticulitis. A small umbilical hernia. IMPRESSION: Small left pleural effusion No acute abnormality involving the abdomen seen
[2019-08-10 09:24] LABS: Absolute Lymphocytes (CBC) 0.5 K/uL (0.7-4.9); Basophils % 0.4 % (0-1.3); Hematocrit 32.3 % (39.6-49.0); Lymphocytes % 6.6 % (15.3-44.8); MPV 8.3 fL (7.6-11.3); RBC Red Blood Cell Count 3.19 M/uL (4.33-5.43)
[2019-08-10 09:56] LABS: ALT/SGPT 21 U/L (12-78); AST/SGOT 20 U/L (15-37); Albumin 3.7 g/dL (3.4-5.0); Alkaline Phosphatase 77 U/L (45-117); BUN Blood Urea Nitrogen 80 mg/dL (7-18); Bicarbonate 22 mmol/L (21-32); Bilirubin Direct 0.2 mg/dL (0-0.2); Bilirubin Total 0.5 mg/dL (0.2-1.0); Glucose Level 158 mg/dL (74-106); Lipase 202 U/L (73-393); Potassium 5.1 mmol/L (3.5-5.1); Protein, Total 7.6 g/dL (6.4-8.2); Sodium Level 138 mmol/L (136-145)
[2019-08-10 10:32] LABS: Blood Morphology Comment NOT SEEN (NOT SEEN); Platelet Estimate ADEQ
[2019-08-10] MEDS ORDERED: MORPHINE 2 MG/ML SYR ONE (11:03)
[2019-08-10 11:21] LABS: Troponin (Emerg Dept Use Only) < 0.02 ng/mL (0.0-0.045)
--- NOTE | 2019-08-10 13:17 | EDPHYS ---
Physician Documentation [facility] Name: Sunil Hong Age: 63 yrs Sex: Male : 1955 Arrival Date: 08/10/2019 Time: 08:39 Bed 6 Private MD: ED Physician Charbel Tate HPI: 08/10 08:54 This 63 yrs old Male presents to ER via EMS with complaints of Abd Pain > 50 rn y/o, Nausea. 08:54 The patient presents to the emergency department with nausea, abdominal pain, of the rn abdomen diffusely. Onset: The symptoms/episode began/occurred yesterday. Possible causes: unknown. The symptoms are aggravated by pressure, The symptoms are alleviated by nothing. Severity of symptoms: At their worst the symptoms were moderate in the emergency department the symptoms are unchanged. The patient has not experienced similar symptoms in the past. The patient has not recently seen a physician. Reports mid abdominal pain, began last night, got better and was able to sleep, got worse again this AM, no fever, + nausea, denies chest pain/sob. Has not missed dialysis. Does not make urine.. Historical: - Allergies: 08:43 No Known Allergies; bp - Home Meds: 08:43 atorvastatin 80 mg Oral tab 1 tab once daily [Active]; ferrous sulfate 325 mg (65 mg bp iron) Oral TbEC twice a day [Active]; levothyroxine 88 mcg tab 1 tab once daily [Active]; metoprolol tartrate 25 mg Oral tab 1 tab 2 times per day [Active]; midodrine 2.5 mg Oral tab before and after dialysis [Active]; Oysco-500 500 mg calcium (1,250 mg) Oral tab three times a day [Active]; pantoprazole 40 mg Oral TbEC 1 tab once daily [Active]; tamsulosin 0.4 mg Oral cp24 1 cap once daily [Active]; - PMHx: 08:43 Diabetes - NIDDM; Myocardial infarction; ESRD; bp - PSHx: 08:43 CABG; bp - Immunization history:: Adult Immunizations up to date. - Social history:: Smoking status: Patient/guardian denies using tobacco. - Ebola Screening: : No symptoms or risks identified at this time. - Family history:: not pertinent. - Hospitalizations: : No recent hospitalization is reported. ROS: 08:54 Constitutional: Negative for fever, chills, and weight loss, Eyes: Negative for injury, rn pain, redness, and discharge, Neck: Negative for injury, pain, and swelling, Cardiovascular: Negative for chest pain, palpitations, and edema, Respiratory: Negative for shortness of breath, cough, wheezing, and pleuritic chest pain, Abdomen/GI: Negative for vomiting, diarrhea, and constipation, Back: Negative for injury and pain, MS/Extremity: Negative for injury and deformity, Skin: Negative for injury, rash, and discoloration, Neuro: Negative for headache, weakness, numbness, tingling, and seizure. Exam: 08:54 Constitutional: Overweight male, groaning and holding abdomen Head/Face: rn Normocephalic, atraumatic. ENT: MMM Cardiovascular: Regular rate and rhythm. No pulse deficits. Respiratory: Mild tachypnea with dminished breath sounds at bases Abdomen/GI: soft, + lower/mid abd tenderness, no masses, no rebound MS/ Extremity: Pulses equal, no cyanosis. Neurovascular intact. Full, normal range of motion. Equal circumference. Neuro: Awake and alert, GCS 15, oriented to person, place, time, and situation. Cranial nerves II-XII grossly intact. Motor strength 5/5 in all extremities. Sensory grossly intact. Vital Signs: 08:43 BP 142 / 85; Pulse 98; Resp 24; Temp 97.8; Pulse Ox 96% ; Weight 108.86 kg; bp 09:08 BP 149 / 74; Pulse 97; Resp 16; Pulse Ox 94% ; bp 10:03 BP 146 / 82; Pulse 91; Resp 14; Pulse Ox 94% ; bp 11:00 BP 162 / 85; Pulse 94; Resp 17; Pulse Ox 98% ; bp 12:30 BP 163 / 44; Pulse 88; Resp 16; Pulse Ox 95% ; bp 13:47 BP 167 / 94; Pulse 89; Resp 17; Temp 98; Pulse Ox 95% ; bp MDM: 08:40 Patient medically screened. rn 11:38 ED course: Pt's family reports last time told had a heart attack with similar symptoms. rn Initial troponin normal, will observe in ER, and repeat troponin. CT without acute findings. . 13:15 Differential diagnosis: Nonspecific abd pain, pancreatitis, appendicitis, rn diverticulitis, viral gastroenteritis, gastroenteritis. Data reviewed: vital signs, nurses notes, lab test result(s), EKG, radiologic studies, CT scan, and as a result, I will discharge patient. Counseling: I had a detailed discussion with the patient and/or guardian regarding: the historical points, exam findings, and any diagnostic results supporting the discharge/admit diagnosis, lab results, radiology results, the need for outpatient follow up, to return to the emergency department if symptoms worsen or persist or if there are any questions or concerns that arise at home. Response to treatment: the patient's symptoms have markedly improved after treatment, and as a result, I will discharge patient. Special discussion: Based on the patient's Hx, exam, and Dx evaluation, there is no indication for emergent surgery or inpatient Tx. It is understood by the patient/guardian that if the Sx's persist or worsen they need to return immediately for re-evaluation. I discussed with the patient/guardian in detail that at this point there is no indication for admission to the hospital. It is understood, however, that if the symptoms persist or worsen the patient needs to return immediately for re-evaluation. ED course: Patient sleeping, no acute findings on CT abdomen, trop neg x 2, no sign of acute KS on ECG, no indications for emergent dialysis/admission. Return precautions given, explained may just be early in illness. . 13:40 ED course: Went through all results with family.. rn 08/10 08:41 Order name: Basic Metabolic Panel; Complete Time: 11:38 rn 08/10 08:41 Order name: CBC with Diff; Complete Time: 10:49 rn 08/10 08:41 Order name: Hepatic Function; Complete Time: 11: rn 08/10 08:41 Order name: Lipase; Complete Time: 11: rn 08/10 09:27 Order name: Manual Differential; Complete Time: 10:49 EDMS 08/10 10:58 Order name: LAB Add On eb 08/10 08:41 Order name: CT Abd/Pelvis - Without Contrast; Complete Time: 09:08 rn 08/10 08:41 Order name: EKG; Complete Time: 08:41 rn 08/10 10:58 Order name: Troponin (Emerg Dept Use Only); Complete Time: 11:38 EDWY 08/10 12:08 Order name: EKG; Complete Time: 12:09 rn 08/10 12:08 Order name: Troponin (emerg Dept Use Only); Complete Time: 13:15 rn 08/10 08:41 Order name: IV Saline Lock; Complete Time: 08:46 rn 08/10 08:41 Order name: Labs collected and sent; Complete Time: 08:47 rn 08/10 08:41 Order name: EKG - Nurse/Tech; Complete Time: 08:46 rn 08/10 12:08 Order name: EKG - Nurse/Tech; Complete Time: 12:26 rn Administered Medications: 08:48 Drug: Zofran 4 mg Route: IVP; Site: right hand; sg 09:14 Follow up: Response: Nausea is decreased bp 08:49 Drug: morphine 4 mg Route: IVP; Site: right hand; sg 09:14 Follow up: Response: Pain is decreased bp 11:00 Drug: morphine 2 mg Route: IVP; Site: right hand; sg 12:26 Follow up: Response: Pain is decreased bp Disposition: 08/10/19 13:17 Discharged to Home. Impression: Lower abdominal pain, unspecified. - Condition is Stable. - Discharge Instructions: Abdominal Pain, Adult, Pain Without a Known Cause. - Medication Reconciliation Form, Thank You Letter, Antibiotic Education, Prescription Opioid Use form. - Follow up: Private Physician; When: As needed; Reason: Recheck today's complaints, Re-evaluation by your physician. - Problem is new. - Symptoms have improved. Signatures: Dispatcher [employer] EDMS Pj Peña RN RN sg Nieto, Roman, MD MD rn Peltier, Brian, RN RN bp Corrections: (The following items were deleted from the chart) 13:47 13:17 08/10/2019 13:17 Discharged to Home. Impression: Lower abdominal pain, bp unspecified. Condition is Stable. Forms are Medication Reconciliation Form, Thank You Letter, Antibiotic Education, Prescription Opioid Use. Follow up: Private Physician; When: As needed; Reason: Recheck today's complaints, Re-evaluation by your physician. Problem is new. Symptoms have improved. rn
--- NOTE | 2019-08-10 13:17 | ER ---
Nurse's Notes [facility] Name: Sunil Hong Age: 63 yrs Sex: Male : 1955 Arrival Date: 08/10/2019 Time: 08:39 Bed 6 Private MD: Diagnosis: Lower abdominal pain, unspecified Presentation: 08/10 08:40 Presenting complaint: EMS states: BLQ ABDOMINAL PAIN SINCE 2100 WITH NAUSEA, NO bp VOMITING. Transition of care: patient was not received from another setting of care. Onset of symptoms was August 09, 2019 at 21:00. Risk Assessment: Do you want to hurt yourself or someone else? Patient reports no desire to harm self or others. Initial Sepsis Screen: Does the patient meet any 2 criteria? HR > 90 bpm. No. Patient's initial sepsis screen is negative. Does the patient have a suspected source of infection? No. Patient's initial sepsis screen is negative. Care prior to arrival: Medication(s) given: zofran 4 mg, IV initiated. 22 GA, in the right hand. 08:40 Method Of Arrival: EMS: [facility] bp 08:40 Acuity: JAQUELIN 3 bp Triage Assessment: 08:43 General: Appears distressed, comfortable, obese, Behavior is cooperative, appropriate bp for age, anxious. Pain: Complains of pain in right lower quadrant and left lower quadrant. EENT: No deficits noted. Neuro: No deficits noted. Cardiovascular: Rhythm is sinus rhythm. Respiratory: No deficits noted. GI: Abdomen is obese, Abdomen is tender to palpation in right lower quadrant and left lower quadrant. : No signs and/or symptoms were reported regarding the genitourinary system. Derm: No deficits noted. Musculoskeletal: No deficits noted. Historical: - Allergies: 08:43 No Known Allergies; bp - Home Meds: 08:43 atorvastatin 80 mg Oral tab 1 tab once daily [Active]; ferrous sulfate 325 mg (65 mg bp iron) Oral TbEC twice a day [Active]; levothyroxine 88 mcg tab 1 tab once daily [Active]; metoprolol tartrate 25 mg Oral tab 1 tab 2 times per day [Active]; midodrine 2.5 mg Oral tab before and after dialysis [Active]; Oysco-500 500 mg calcium (1,250 mg) Oral tab three times a day [Active]; pantoprazole 40 mg Oral TbEC 1 tab once daily [Active]; tamsulosin 0.4 mg Oral cp24 1 cap once daily [Active]; - PMHx: 08:43 Diabetes - NIDDM; Myocardial infarction; ESRD; bp - PSHx: 08:43 CABG; bp - Immunization history:: Adult Immunizations up to date. - Social history:: Smoking status: Patient/guardian denies using tobacco. - Ebola Screening: : No symptoms or risks identified at this time. - Family history:: not pertinent. - Hospitalizations: : No recent hospitalization is reported. Screenin:45 Abuse screen: Denies threats or abuse. Denies injuries from another. Nutritional bp screening: No deficits noted. Tuberculosis screening: No symptoms or risk factors identified. Fall Risk None identified. Assessment: 08:45 General: SEE TRIAGE NOTE. GI: Bowel sounds present X 4 quads. bp 09:07 Reassessment: PT RETURNED FROM CT. ALL CURRENT ORDERS COMPLETED. bp 09:48 Reassessment: S/S RESOLVED. PT SLEEPING. bp 12:00 Reassessment: REPEAT CARDIAC INDICES IN PROCESS. bp 13:45 Reassessment: PT D/C HOME AMBULATORY WITH FAMILY, DX WITH NONSPECIFIC ABDOMINAL PAIN. bp Vital Signs: 08:43 BP 142 / 85; Pulse 98; Resp 24; Temp 97.8; Pulse Ox 96% ; Weight 108.86 kg; bp 09:08 BP 149 / 74; Pulse 97; Resp 16; Pulse Ox 94% ; bp 10:03 BP 146 / 82; Pulse 91; Resp 14; Pulse Ox 94% ; bp 11:00 BP 162 / 85; Pulse 94; Resp 17; Pulse Ox 98% ; bp 12:30 BP 163 / 44; Pulse 88; Resp 16; Pulse Ox 95% ; bp 13:47 BP 167 / 94; Pulse 89; Resp 17; Temp 98; Pulse Ox 95% ; bp ED Course: 08:39 Patient arrived in ED. bp 08:40 Charbel Tate MD is Attending Physician. rn 08:41 Triage completed. bp 08:43 Arm band placed on. bp 08:45 Patient has correct armband on for positive identification. Bed in low position. Call bp light in reach. Side rails up X2. 08:45 Maintain EMS IV. Dressing intact. Good blood return noted. Site clean \T\ dry. Gauge \T\ bp site: 22 GAUGE R HAND. 08:48 Aubrey Walters, RN is Primary Nurse. bp 08:51 CT completed. Patient tolerated procedure well. Patient moved back from CT. mw3 08:54 CT Abd/Pelvis - Without Contrast In Process Unspecified. EDMS 09:00 Initial lab(s) drawn, by me, sent to lab. sg 09:59 EKG done, by ED staff, reviewed by Charbel Tate MD. ms 12:09 Repeat lab(s) drawn. by ED staff, sent to lab. sg 13:45 No provider procedures requiring assistance completed. IV discontinued, intact, bp bleeding controlled, No redness/swelling at site. Pressure dressing applied. Administered Medications: 08:48 Drug: Zofran 4 mg Route: IVP; Site: right hand; sg 09:14 Follow up: Response: Nausea is decreased bp 08:49 Drug: morphine 4 mg Route: IVP; Site: right hand; sg 09:14 Follow up: Response: Pain is decreased bp 11:00 Drug: morphine 2 mg Route: IVP; Site: right hand; sg 12:26 Follow up: Response: Pain is decreased bp Outcome: 13:17 Discharge ordered by . rn 13:47 Discharged to home ambulatory, with family. bp 13:47 Condition: stable 13:47 Discharge instructions given to patient, Instructed on discharge instructions, follow up and referral plans. Demonstrated understanding of instructions, follow-up care. 13:47 Patient left the ED. bp Signatures: Dispatcher [employer] EDMS Pj Peña RN RN sg Katarzyna Watts ms Charbel Tate MD MD rn Peltier, Brian, RN RN bp Willis, Michelle mw3
[2019-08-10 16:07] VITALS: O2SAT 95
[2019-08-10 16:08] VITALS: BP 167/94; TEMP 98
--- NOTE | 2019-08-10 16:12 | EKG ---
Test Date: 2019-08-10 Test Time: 12:14:20 Title Processor: SWG MEASUREMENT RESULTS: Intervals: Rate: 88 [place]: 238 QRSD: 146 QT: 406 QTc: 491 [place]: P: 51 [place]: 238 QRS: 87 T: 40 INTERPRETIVE STATEMENTS: Sinus rhythm with 1st degree AV block Right bundle branch block Septal infarct, age undetermined Abnormal ECG Compared to ECG 01/14/2019 09:20:48 First degree AV block now present Myocardial infarct finding now present Electronically Signed On 08-10-19 16:11:08 MONEY COUNTER by Bari Burden
--- NOTE | 2019-08-11 09:12 | EKG ---
Test Date: 2019-08-10 Test Time: 08:45:11 Refrigerating Engineer: HAYLEY MEASUREMENT RESULTS: Intervals: Rate: 99 NM: 224 QRSD: 140 QT: 378 QTc: 485 [place]: P: 60 NM: 224 QRS: 103 T: 55 INTERPRETIVE STATEMENTS: Sinus rhythm with 1st degree AV block Right bundle branch block Abnormal ECG Compared to ECG 01/14/2019 09:20:48 First degree AV block now present Electronically Signed On 08-11-19 09:12:09 MARINE ANIMAL TRAINER by Bari Burden
== END 2019-08-10 13:47 | disposition home or self-care (01) ==
LOC: ER 08:38
DX: R10.30 Lower abdominal pain, unspecified (principal); E11.22 Type 2 diabetes mellitus with diabetic chronic kidney disease; N18.6 End stage renal disease; I25.2 Old myocardial infarction; Z99.2 Dependence on renal dialysis; Z95.1 Presence of aortocoronary bypass graft
CPT/HCPCS: 93005 ×2; 85025; 80048; 36415; 80076; 84484 ×2; 83690; 74176; 96375; 96374; 99285; J2270; J2405

== ENCOUNTER 2020-04-15 06:10 | Day surgery (SDC) | payer OTHER ==
--- NOTE | 2020-04-14 16:35 | RAD REPORT ---
EXAM DESCRIPTION: Danica Sun And Felix (2 Views)04/14/2020 4:18 pm CLINICAL HISTORY: Preop for angiogram COMPARISON: 2014 FINDINGS: The lungs appear clear of acute infiltrate. The heart is mildly enlarged. Postsurgical changes involve the chest. Small left pleural effusion or thickening is present
[2020-04-14 17:26] LABS: Potassium 4.7 mmol/L (3.5-5.1)
[2020-04-14 17:40] LABS: Protime INR 0.91
[2020-04-14 17:49] LABS: Absolute Lymphocytes (CBC) 0.7 K/uL (0.7-4.9); Basophils % 1.1 % (0-1.3); Lymphocytes % 16.6 % (15.3-44.8); MPV 9.1 fL (7.6-11.3); RBC Red Blood Cell Count 3.33 M/uL (4.33-5.43)
--- OUTSIDE RECORDS SUMMARY | 2020-04-15 06:12 | XMS REPORT | Clinical Summary ---
:1955 Author Organization [facility] Address [address] [place] [address] Care Team Providers Name Role Phone Brandyn Gamboa Primary Care Provider Allergies No Known Allergies Medications Medication Sig Dispensed Refills Start Date End Date Status levothyroxine TAKE 1 TABLET BY 1 04/12/2019 Active (SYNTHROID, LEVOXYL) MOUTH EVERY DAY 88 mcg tablet IN THE MORNING ON EMPTY STOMACH metoprolol tartrate TAKE 1 TABLET BY 2 04/02/2019 Active (LOPRESSOR) 25 mg MOUTH TWICE A tablet DAY AT 6 AM AND 6 PM OYSCO-500 500 mg Take 2 tablets 0 03/26/2019 Active calcium (1,250 mg) by mouth 2 (two) tablet times a day. clopidogrel (PLAVIX) Take 75 mg by 3 02/01/2019 Active 75 mg tablet mouth daily. tamsulosin (FLOMAX) Take 0.4 mg by 0 04/02/2019 Active 0.4 mg capsule mouth nightly. midodrine Take 10 mg by 0 Active (PROAMATINE) 10 MG mouth 3 (three) tablet times a week. ferrous sulfate 325 Take 325 mg by 0 Active (65 FE) MG tablet mouth 2 (two) times a day. pantoprazole Take 40 mg by 0 Act adrian (PROTONIX) 40 MG EC mouth daily. tablet aspirin (ECOTRIN) 81 Take 81 mg by 0 Active MG enteric coated mouth daily. tablet atorvastatin Take 80 mg by 0 Act adrian (LIPITOR) 80 MG mouth daily. tablet HYDROcodone-acetamino Take 1 tablet by 30 tablet 0 04/29/2019 05/06/2019 phen (NORCO) 5-325 mg mouth every 6 per tablet (six) hours as needed for moderate pain for up to 30 doses. Max Daily Amount: 4 tablets Active Problems Not on file Encounters Date Type Specialty Care Team Description 04/29/2019 Surgery General Surgery Triny Kebede RIGHT UP PER MD Josselyn EXTREMITY VENOG SHAISTA, 04/29/2019 Anesthesia Event General Surgery Spencer Gomez MD Cheema, Ivelisse, FNP 04/29/2019 Hospital Encounter General Surgery Triny Kebede MD 04/19/2019 Hospital Encounter Radiology Adi, Preop t carine Palmer MD 04/19/2019 Pre-Admit Testing Pre-Admission Triny Kebede Preop testing Appointment Testing MD Josselyn (Primary Dx) after 04/15/2019 Family History Medical History Relation Name Comments COPD Father No Known Problems Mother Relation Name Status Comments Father Mother Social History Tobacco Use Types Packs/Day Years Used Date Never Smoker Smokeless Tobacco: Never Used Alcohol Use Drinks/Week oz/Week Comments Not Currently Alcohol Habits Answer Date Recorded How often do you have a drink containing alcohol? Never 04/19/2019 How many drinks containing alcohol do you have on a typical Not asked day when you are drinking? How often do you have six or more drinks on one occasion? No t asked Sex Assigned at Date Recorded Not on file Job Start Date Occupation Industry Not on file Not on file Not on file Travel History Travel Start Travel End No recent travel history available. Last Filed Vital Signs Vital Sign Reading Time Taken Comments Blood Pressure 144/73 04/29/2019 12:00 PM CDT Pulse 72 04/29/2019 12:00 PM CDT Temperature 36.7 C (98 F) 04/29/2019 11:52 AM CDT Respiratory Rate 18 04/29/2019 12:00 PM CDT Oxygen Saturation 98% 04/29/2019 12:00 PM CDT Inhaled Oxygen Concentration - - Weight 106 kg (233 lb) 04/29/2019 7:23 AM CDT Height 172.7 cm (5' 8") 04/29/2019 7:23 AM CDT Body Mass Index 35.43 04/29/2019 7:23 AM CDT Plan of Treatment Health Maintenance Due Date Last Done Comments COLONOSCOPY SCREENING 2003 SHINGLES VACCINES (#1) 2003 65+ PNEUMOCOCCAL VACCINE (1 of 2 - PCV13) 2018 INFLUENZA VACCINE 04/11/2020 Implants Implanted Type Area Technician'S Helper Device Shelf Model / Identifier Expiration Serial / Date Lot Catheter Hmodial Dura-Flow Prcrv Bsc Valved Pelbl [facility] 28cm - Sx - [id number] Central Left: ANGIODYNAMICS 01/08/2021 [id number] / Implanted: Qty: 1 on 04/29/2019 by Triny Kebede MD at [facility] Venous Chest INC X / Catheters [id number] Description:left IJ Procedures Procedure Name Priority Date/Time Associated Comments Diagnosis OR [place] < 1 HOUR Routine 04/29/2019 10:25 Results f or this AM CDT procedure are i n the results section. [place] AN ELECTIVE Routine 04/29/2019 9:11 Results f or this ENDOTRACHEAL AIRWAY AM CDT procedur e are in the results section. POC PANEL 4 Routine 04/29/2019 7:26 Results for this AM CDT procedure are i n the results section. ESTIMATED GFR STAT 04/29/2019 7:21 Results fo r this AM CDT procedure are i n the results section. BASIC METABOLIC PANEL STAT 04/29/2019 7:21 Re sults for this AM CDT procedure are i n the results section. XR CHEST 2 VW Routine 04/19/2019 1:55 Preop testing Results f or this PM CDT procedure are i n the results section. TYPE AND SCREEN Routine 04/19/2019 12:44 Preop testing Results for this PM CDT procedure are i n the results section. PROTHROMBIN TIME WITH Routine 04/19/2019 12:44 Preop testing R esults for this INR PM CDT procedure are i n the results section. PARTIAL THROMBOPLASTIN Routine 04/19/2019 12:44 Preop testing Results for this TIME (PTT) PM CDT procedure are i n the results section. HC COMPLETE BLD COUNT Routine 04/19/2019 12:44 Preop testing R esults for this W/AUTO DIFF PM CDT procedure are i n the results section. ECG PRE/POST OP Routine 04/19/2019 12:37 Preop testing Results for this PM CDT procedure are i n the results section. after 04/15/2019 Results OR FL < 1 Hour (04/29/2019 10:25 AM CDT) Specimen Narrative Performed At EXAMINATION: [place] 1 HOUR HM [facility] CLINICAL HISTORY: Intraoperative fluoros copy IMPRESSION: Fluoroscopy was provided. No radiologist present. Pl ease see procedure report for discussion of procedure, find ings and fluoroscopic time. [facility]-[id number] Procedure Note Hm Interface, Radiology Results Incoming - 04/29/2019 11:04 AM CDT EXAMINATION: [place] 1 HOUR CLINICAL HISTORY: Intraoperative fluoros copy IMPRESSION: Fluoroscopy was provided. No radiologist present. Please see procedure report for discussion of procedure, findings and fluoroscopic time. [facility]-[id number] Performing Organization Address City/State/Zipcode Phone Number [facility] [address] [place] [address] Airway (04/29/2019 9:11 AM CDT) Narrative Performed At Amanda Vickers CRNA 9:11 AM Airway Performed by: Amanda Vickers CRNA Authorized by: Spencer Gomez MD Location: OR Urgency: Elective Difficult Airway: No Anesthesiologist: Spencer Gomez MD Resident/PATHOLOGY COLLECTOR/AA: Amanda Vickers CRNA Performed by: resident/GUERITA Preoxygenated with 100% O2: Yes C-spine Precautions Maintained Throughou t: Yes Mask Ventilation: Easy mask Final Airway Type: Endotracheal airway Final Endotracheal Airway: ETT Cuffed: Yes Technique Used: Direct laryngoscopy Insertion Site: Oral Blade Type: Fuentes Laryngoscope Blade/Videolaryngoscope Kelby de Size: 2 ETT Size (mm): 8.0 Cuff at minimum occlusion pressure: Yes Measured from: Lips ETT to Lips (cm): 20 Placement Verified by: CO2 detection, di rect visualization and equal breath sounds Laryngoscopic view: Grade I - full vie w of glottis Rapid Sequence Induction (RSI): No Modified RSI: No Number of Attempts at Approach: 1 POC panel 4 (04/29/2019 7:26 AM CDT) POC sodium 138 135 - 148 [facility] mmol/L [facility] POC potassium 4.3 3.5 - 5.0 [facility] mmol/L [facility] POC hematocrit 40 (L) 41 - 51 % [facility] POC glucose 85 65 - 99 mg/dL [facility] POC hemoglobin 13.6 (L) 14.0 - 18.0 [facility] Comment: g/dL [place] Meter ID: [id number] HOSPITAL Electronics System Mechanic: Juve Burgos Specimen Blood Performing Organization Address City/[facility]/Zipcode Phone Number [facility] DEPARTMENT OF PATHOLOGY [address] [place] [address] [phone] Estimated GFR (04/29/2019 7:21 AM CDT) Estimated GFR 6 (A) mL/min/1.73 [facility] Comment: m2 [place] Catergory Units Interpretation HOS PITAL G1 >=90 Normal or high G2 60-89 Mildly decreased G3a 45-59 Mildly to moderately decreas ed G3b 30-44 Moderately to severely decre ased G4 15-29 Severely decreased G5 <15 Kidney failure The eGFR was calculated using the Chronic Kidney Disea se Epidemiology Collaboration (CKD-EPI) equation. Interpretation is based on recommendations of the National Kidney Foundation-Kidney Disease Outcomes Xavier lity Initiative (NKF-KDOQI) published in 2014. Specimen Plasma specimen Performing Organization Address [facility] Phone Number [facility] DEPARTMENT OF PATHOLOGY [address] [place] [address] [phone] Basic metabolic panel (04/29/2019 7:21 AM CDT) Pathologist Sig nature Sodium 139 135 - 148 mEq/L [facility] Potassium 4.6 3.5 - 5.0 mEq/L [facility] Chloride 99 98 - 112 mEq/L [facility] CO2 23 (L) 24 - 31 mEq/L [facility] Anion gap 17@ANIO (H) 7 - 15 mEq/L [facility] BUN 49 (H) 8 - 23 mg/dL [facility] Creatinine 8.96 (H) 0.70 - 1.20 mg/dL [facility] Glucose 87 65 - 99 mg/dL [facility] Calcium 9.7 8.8 - 10.2 mg/dL [facility] Specimen Plasma specimen Performing Organization Address City/[facility]/Zipcode Phone Number [facility] DEPARTMENT OF PATHOLOGY [address] [place] [address] [place] [phone] [facility] XR Chest 2 Vw (04/19/2019 1:55 PM CDT) Specimen Narrative Performed At EXAMINATION: XR CHEST 2 VW [facility] CLINICAL HISTORY: Z01.818 Encounter for other prepro cedural examination, Pre OP Testing COMPARISON: None. FINDINGS: Lines and tubes: Right-sided central venous catheter i s present with the tip overlying superior vena cava. Heart and mediastinum: Post surgical changes related t o coronary artery bypass graft are present. Cardiomediastinal silhouette is obscured. The aorta is mildly tortuous. Aortic calcifi cations are present. Lungs: There is a moderate left-sided pleural effusion with adjacent atelectasis. The right lung is clear. No pneumothorax. Pulmonary vasculature within normal range. Bones: Sternotomy wires are present. No acute osseous abnormality. IMPRESSION: Moderate left-sided pleural effusion wit h left lung basilar atelectasis. [facility]-[id number] Dictated and approved by college president/fellow: Rolando Anderson M.D. I, Guillaume Mendez MD, personally reviewed the images and resident's/fellow's findings and agree with the final report. Procedure Note Interface, Radiology Results Incoming - 04/19/2019 4:31 PM CDT EXAMINATION: XR CHEST 2 VW CLINICAL HISTORY: Z01.818 Encounter for other preprocedural examination, Pre OP Testing COMPARISON: None. FINDINGS: Lines and tubes: Right-sided central jimy ous catheter is present with the tip overlying superior vena cava. Heart and mediastinum: Post surgical pauline nges related to coronary artery bypass graft are present. Cardiomediastinal silhouette is obscured. The aorta is mildly tortuous. Aortic calcifications are present. Lungs: There is a moderate left-sided pl eural effusion with adjacent atelectasis. The right lung is clear. No pneumothorax. Pulmonary vasculature within normal range. Bones: Sternotomy wires are present. No acute osseous abnormality. IMPRESSION: Moderate left-sided pleural effusion wit h left lung basilar atelectasis. [facility]-[id number] Dictated and approved by radiology resid ent/fellow: Nathaniel Anderson M.D. I, Guillaume Mendez MD, personally reviewed the images and resident's/fellow's findings and agree with the final report. Performing Organization Address City/State/Zipcode Phone Number [facility] [address] [place] [address] Partial thromboplastin time, activated (04/19/2019 12:44 PM CDT) PTT 32.1 23.0 - 36.0 [facility] Comment: [facility] PTT therapeutic range for unfractionated heparin is HOSPITAL 61.0-112.0 seconds which corresponds to Anti-Xa 0.3-0.7 U/ml. Specimen Blood Performing Organization Address City/[facility]/Zipcode Phone Number [facility] DEPARTMENT OF PATHOLOGY [id number] [place] [address] [phone] Prothrombin time with INR (04/19/2019 12:44 PM CDT) Prothrombin time 14.2 11.5 - 14.5 [place] sec [facility] INR 1.1 [place] Comment: SPIRITISM [facility] International Normalized Ratio (INR) is a therapeu [facility] monitoring tool for patients who are stable on oral anticoagulant therapy. An INR of 2.0-3.0 is suggested for deep vein thrombosis/pulmonary embolism. Specimen Blood Performing Organization Address [facility] Phone Number [facility] DEPARTMENT OF PATHOLOGY [address] [place] [address] [phone] CBC with platelet and differential (04/19/2019 12:44 PM CDT) WBC 6.4 4.5 - 11.0 k/uL [facility] RBC 3.62 (L) 4.40 - 6.00 [facility] m/uL [facility] HGB 12.0 (L) 14.0 - 18.0 [facility] g/dL [facility] HCT 37.8 (L) 41.0 - 51.0 % [facility] MCV 104.4 (H) 82.0 - 100.0 fL [facility] MCH 33.1 27.0 - 34.0 pg [facility] MCHC 31.7 31.0 - 37.0 [facility] g/dL [facility] RDW - SD 56.2 (H) 37.0 - 55.0 fL [facility] MPV 9.7 6.9 - 11.0 fL [facility] Platelet count 134 (L) 150 - 400 K/uL [facility] Nucleated RBC 0.00 /100 WBC [facility] Neutrophils 63.4 39.0 - 69.0 % [facility] Lymphocytes 21.9 (L) 25.0 - 45.0 % [facility] Monocytes 11.0 (H) 0.0 - 10.0 % [facility] Eosinophils 2.3 0.0 - 5.0 % [facility] Basophils 0.9 0.0 - 1.0 % [facility] Immature granulocytes 0.5 0.0 - 1.0 % [facility] Specimen Blood Performing Organization Address City/[facility]/Zipcode Phone Number [facility] DEPARTMENT OF PATHOLOGY [address] [place] [address] X [phone] [place] [phone] HOSPITAL Type and screen (04/19/2019 12:44 PM CDT) Pathologist Sig nature ABO grouping AB [facility] Rh type POS [facility] Antibody screen (gel) NEG [facility] Specimen Blood Performing Organization Address City/[facility]/Zipcode Phone Number [facility] DEPARTMENT OF PATHOLOGY [address] [place] [address] X [phone] [place] [phone] HOSPITAL ECG Pre/Post Op (04/19/2019 12:37 PM CDT) Pathologist Sig nature Ventricular rate 88 [facility] Atrial rate 88 [facility] IL interval 206 [facility] QRSD interval 132 [facility] QT interval 392 [facility] QTC interval 474 [facility] P axis 1 38 [facility] QRS axis 1 66 [facility] T wave axis 46 [facility] EKG impression Normal sinus [facility] rhythm-Possible Left atrial enlargement-Right bundle branch block-Anterior infarct , age undetermined-Abnormal ECG-No previous ECGs available-Electronicall y Signed By Sherrell Christensen MD ([id number]) on 04/21/2019 3:18:46 PM Specimen Narrative Performed At This result has an attachment that is no t available. Performing Organization Address City/State/Zipcode Phone Number [facility] MUSE [address] [place] [address] after 04/15/2019 Insurance Payer Benefit Plan / Subscriber ID Effective Dates Phone Addre ss Type Group MEDICARE MEDICARE xxxxxxxxxxx 2018-Janna clinton [employer] xxxxxxxxxx 2018-Present PPO NETWORK (Home) [place] [address] Advance Directives For more information, please contact: [phone] Type Date Recorded Patient Clip On Sunglasses Inspector Explanati on Advance Directives, Living 04/19/2019 11:51 AM Will and Medical Power of Cigarette Vendor Advance Directives, Living 04/30/2019 3:19 PM AD V-04/29/2019 Will and Medical Power of Cigarette Vendor
--- OUTSIDE RECORDS SUMMARY | 2020-04-15 06:14 | XMS REPORT | Continuity of Care Document ---
:1955 Author Organization [facility] t Address [address] [place] [address] Care Team Providers Name Role Phone [place] Brandyn Jensen Primary Care Physician Delio GLORIA, T. Attending Clinician Víctor Gomez MD Attending Clinician Rikki CORDOVA Attending Clinician Adi GLORIA, Spencer Attending Clinician Payers Payer Name Policy Policy Number Effective Expiration Source Type Date Date MEDICARE xxxxxxxxxxx 2018 [place] [employer]AD[employer]ICARE 00:00:00 Crist[place] t [id number] /1/2018-PresentMedica re [employer] xxxxxxxxxx 2018 [place] NETWORKxxxxxxxxxx 00:00:00 Met alvin 2018-PresentPPO Problems Condition Condition Condition Status Onset Resolution Last Treating Co mments Source Name Details Category Date Date Treatment Clinician Date Hypothyroi Hypothyroi Problem Active [facility] dism, dism, [facility] - unspecifie unspecifie Me moria d type d type l Outpati ent Clinics Dependence Dependence Problem Active [facility] on renal on renal [facility] - dialysis dialysis Memori a l Outpati ent Clinics GERD GERD Problem Active [facility] without without [facility] - esophagiti esophagiti Me moria s s l Outpati ent Clinics Weakness Weakness Problem [facility] HTN HTN Problem Active [facility] (hypertens (hypertens Jackelin kes - ion), ion), Memoria benign benign l Outpati ent Clinics At risk At risk Problem Active [facility] for for [facility] - falling falling Memoria l Outpati ent Clinics Benign Benign Problem Active [facility] prostatic prostatic Luke s - hyperplasi hyperplasi Me moria a, a, l unspecifie unspecifie Ou tpati d whether d whether ent lower lower Clinics urinary urinary tract tract symptoms symptoms present present ESRD (end ESRD (end Problem Active [facility] stage stage [facility] - renal renal Memoria disease) disease) l Outpati ent Clinics Generalize Generalize Problem Active [facility] d edema d edema [facility] Anemia of Anemia of Problem Active [facility] chronic chronic [facility] - disease disease Memoria l Outpati ent Clinics Controlled Controlled Problem Active [facility] type 2 type 2 [facility] - diabetes diabetes Memori a mellitus mellitus l without without Outpati complicati complicati en t on, on, Clinics without without long-term long-term current current use of use of insulin insulin Neuropathy Neuropathy Problem Active [facility] Clinics Type 2 Type [address] diabetes diabetes [facility] - mellitus mellitus Memori a with with l hyperglyce hyperglyce Ou tpati yinka, yinka, ent without without Clinics long-term long-term current current use of use of insulin insulin Allergies, Adverse Reactions, Alerts This patient has no known allergies or adverse reactions. Family History Family Member Diagnosis Comments Start Date Stop Date Source Natural father COPD [facility] Natural mother No Known Problems Kika carrington Robison Social History Social Habit Start Date Stop Date Quantity Comments Source History [facility] Meth odist Alcohol Std Drinks History [facility] Meth odist Alcohol Binge Sex Assigned At [facility] ethodist Alcohol intake 2019-05-01 2019-05-01 Ex-drinker [facility] thodist 00:00:00 00:00:00 (finding) History [facility] 2019-04-19 2019-04-19 1 [place] Meth odist Alcohol Frequency 00:00:00 00:00:00 Smoking Status Start Date Stop Date Source Never smoker [place] [facility] Medications Ordered Filled Start Stop Current Ordering Indication Dosage Frequency Signature Comments Components Source Medication Medication Date Date Medication? Clinician (SIG) Name Name Levothyroxi Levothyroxi Yes Brandyn [address] [facility] ne Sodium ne Sodium 7-30 [place] in the Jackelin kes - 00:00: morning on Memoria 00 an empty l stomach Outpati ent Clinics midodrine 2018- Yes 10mg [id number] Take 10 mg Lea (PROAMATINE 8-19 [id number] by mouth 3 Methodi ) 10 MG 12:37: 3W (three) st tablet 31 times a week. ferrous 2019- Yes 325mg Q.5D Take 325 [place] sulfate 325 8-19 mg by Methodi (65 FE) MG 12:37: mouth 2 st tablet 31 (two) times a day. pantoprazol Yes 40mg QD Take 40 mg Lea e 8-19 by mouth Methodi (PROTONIX) 12:37: daily. st 40 MG EC 31 tablet aspirin Yes 81mg QD Take 81 mg [place] (ECOTRIN) 8-19 by mouth Method i 81 MG 12:37: daily. st enteric 31 coated tablet atorvastati Yes 80mg QD Take 80 mg Lea n (LIPITOR) 8-19 by mouth Meth erica 80 MG 12:37: daily. st tablet 31 HYDROcodone 2019- No 1{tbl} Q6H Take 1 [place] -acetaminop 8-19 08-26 tablet by Me jonah swift (NORCO) 00:00: 23:[address] 5-325 mg 00 :00 every 6 per tablet (six) hours as needed for moderate pain for up to 30 doses. Max Daily Amount: 4 tablets levothyroxi Yes TAKE 1 [place] ne 8-02 TABLET BY Methodi (SYNTHROID, 00:00: MOUTH st LEVOXYL) 88 00 EVERY DAY mcg tablet IN THE MORNING ON EMPTY STOMACH metoprolol Yes TAKE 1 [place] tartrate 7-23 TABLET BY Method i (LOPRESSOR) 00:00: MOUTH st 25 mg 00 TWICE A tablet DAY AT 6 AM AND 6 PM tamsulosin 2018-0 Yes .4mg QD Take 0.4 Kika ston (FLOMAX) 7-23 mg by Methodi 0.4 mg 00:00: mouth st capsule 00 nightly. OYSCO-500 2018-0 Yes 2{tbl} Q.5D Take 2 [place] 500 mg 7-16 tablets by Methodi calcium 00:00: mouth 2 st (1,250 mg) 00 (two) tablet times a day. clopidogrel 2019-0 Yes 75mg QD Take 75 mg Lea (PLAVIX) 75 5-24 by mouth Meth erica mg tablet 00:00: daily. st 00 Vitamin B-1 Vitamin B-1 Yes Brandyn [address] [facility] [place] [facility] Vitamin D3 Vitamin D3 Yes Brandyn [address] Maximum Maximum [place] [facility] - Strength Strength Memoria l [facility] ent [facility] Plavix Plavix Yes Brandyn 1 [address] [facility] [place] [facility] Epoetin Epoetin Yes Brandyn as [facility] Juvencio Juvencio [place] directed [facility] - Memoria l [facility] Ferrous Ferrous Yes Brandyn [address] Sulfate Sulfate [place] [facility] - [facility] l [facility] Protonix Protonix Yes Brandyn [address] [place] [facility] - [facility] Midodrine Midodrine Yes Brandyn [address] HCl HCl [place] [facility] ent Clinics Atorvastati Atorvastati Yes Brandyn [address] n Calcium n Calcium [place] Luke s - Memoria l [facility] Metoprolol Metoprolol Yes Brandyn [address] Tartrate Tartrate [place] with food L ukes - Memoria l [facility] ent Clinics Calcium Calcium Yes Brandyn [address] Acetate Acetate [place] with meals Jackelin kes - Memoria l [facility] ent Clinics Docusate Docusate Yes Brandyn [address] Sodium Sodium [place] as needed [facility] - Memoria l [facility] ent Clinics Aspirin 81 Aspirin 81 Yes Brandyn [address] [place] [facility] ent Clinics Calcium Calcium Yes Brandyn [address] Carbonate Carbonate [place] Luke s - Memoria l [facility] ent Clinics Jayleen-Elizabeth Jayleen-Elizabeth Yes Brandyn [address] [place] [facility] ent Clinics Oysco 500 Oysco 500 Yes Brandyn TAKE [address] [place] TABLETS BY [facility] - MOUTH Memoria TWICE A l DAY [facility] ent Clinics Oysco D Oysco D Yes Brandyn [address] [place] with a Lukes - meal Memoria l [facility] ent Clinics Aspir-Low Aspir-Low Yes Brandyn [address] [place] [facility] - [facility] ent Clinics Dialyvite Dialyvite Yes Brandyn as [facility] 800/Ultra D 800/Ultra D [place] directed [facility] - [facility] Hydrocodone Hydrocodone Yes Brandyn [address] -Acetaminop -Acetaminop [place] as needed [facility] Gabapentin Gabapentin Yes Brandyn take [address] [facility] [place] capsule by [facility] - mouth once Memoria daily [facility] Clopidogrel Clopidogrel Yes Brandyn TAKE [address] [facility] Bisulfate Bisulfate [place] TABLET BY [facility] - MOUTH Memoria EVERY DAY [facility] Levothyroxi Levothyroxi Yes Brandyn [address] ne Sodium ne Sodium [place] in the Jackelin kes - morning on Memoria an empty l stomach [facility] Tamsulosin Tamsulosin Yes Brandyn TAKE [address] [facility] HCl HCl [place] CAPSULE BY [facility] - MOUTH Memoria EVERY DAY [facility] Levothyroxi Levothyroxi Yes Brandyn [address] ne Sodium ne Sodium [place] in the Jack[place] kes - morning on Memoria an empty l stomach [facility] Vital Signs Vital Name Observation Time Observation Value Comments Source Systolic blood 2019-04-29 12:00:00 144 mm[Hg] Leandrato n Mandaen pressure Diastolic blood 2019-04-29 12:00:00 73 mm[Hg] Padmini on Mandaen pressure Heart rate 2019-04-29 12:00:00 72 /min Venu Robison Respiratory rate 2019-04-29 12:00:00 18 /min Leandra Robison Oxygen saturation in 2019-04-29 12:00:00 98 /min Venu Robison Arterial blood by Pulse oximetry Body temperature 2019-04-29 11:52:00 36.67 [place] Leandra Robison Body height 2019-04-29 07:23:00 172.7 cm Venu Robison Body weight 2019-04-29 07:23:00 105.688 kg Venu Robison BMI 2019-04-29 07:23:00 35.43 kg/m2 Venu Robison Procedures Procedure Date / Time Performing Clinician Source Performed [place] < 1 HOUR 2019-04-29 10:25:27 Triny Kebede MT AN ELECTIVE 2019-04-29 09:11:17 Amanda Vickers ENDOTRACHEAL AIRWAY POC PANEL 4 2019-04-29 07:26:00 Triny Kebede BASIC METABOLIC PANEL 2019-04-29 07:21:00 Triny Kebede ESTIMATED GFR 2019-04-29 07:21:00 Triny Kebede XR CHEST 2 VW 2019-04-19 13:55:45 Veun Joshi HC COMPLETE BLD COUNT 2019-04-19 12:44:00 Triny Kebede W/AUTO DIFF PARTIAL THROMBOPLASTIN 2019-04-19 12:44:00 Triny Kebede TIME (PTT) PROTHROMBIN TIME WITH INR 2019-04-19 12:44:00 Triny Kebede TYPE AND SCREEN 2019-04-19 12:44:00 Triny Kebede ECG PRE/POST OP 2019-04-19 12:37:32 Venu Joshi Plan of Care Planned Activity Planned Date Details Comments Source Future Scheduled 2020-04-11 INFLUENZA VACCINE [place] Mandaen Test 00:00:00 [code = INFLUENZA VACCINE] Future Scheduled 2018 65+ PNEUMOCOCCAL Venu Stuartist Test 00:00:00 VACCINE (1 of 2 - PCV13) [code = 65+ PNEUMOCOCCAL VACCINE (1 of 2 - PCV13)] Future Scheduled 2003 COLONOSCOPY SCREENING Gian Robison Test 00:00:00 [code = COLONOSCOPY SCREENING] Future Scheduled 2003 SHINGLES VACCINES (#1) Dorothea Robison Test 00:00:00 [code = SHINGLES VACCINES (#1)] Encounters Start End Encounter Admission Attending Care Care Encounter Source Date/Time Date/Time Type Type Clinicians Facility Department ID 2020-04-09 2020-04-09 Outpatient Trisha Paz [id number] [facility] 13:13:00 13:13:00 [employer] Senath s [facility] Medicine [facility] Clinics 2020-04-08 2020-04-08 Outpatient Trisha Paz [id number] 10:00:00 10:00:[address] Luke [facility] - Drive [facility] Medicine l Medicine Outpati ent Clinics 2020-04-08 2020-04-08 [facility] [id number] 10:00:00 10:00:[address] Luke s - Drive [facility] Medicine l Medicine Outpati ent Clinics 2020-01-27 2020-01-27 [facility] [id number] 12:56:00 12:56:[address] Luke s - Drive [facility] Medicine l Medicine Outpati ent Clinics 2019-12-23 2019-12-23 [facility] [id number] 12:00:00 12:00:00 [place] [employer] s - Drive [facility] Medicine l Medicine Outpati ent Clinics 2019-09-18 2019-09-18 [facility] [id number] 11:30:00 11:30:00 [place] [employer] s - Drive [facility] Medicine Medicine Outpati ent Clinics 2019-08-29 2019-08-29 [facility] [id number] 16:29:00 16:29:00 [place] [employer] s - Drive [facility] Medicine l Medicine Outpati ent Clinics 2019-05-31 2019-05-31 [facility] [id number] 09:45:00 09:45:00 [place] [employer] s - Drive [facility] Medicine l Medicine Outpati ent Clinics 2019-05-24 2019-05-24 [facility] [id number] 09:05:00 09:05:00 [place] [employer] Luke s - Drive [facility] Medicine l Medicine Outpati ent Clinics 2019-02-27 2019-02-27 [facility] [id number] 10:30:00 10:30:[address] [employer] s - Drive [facility] Medicine l Medicine Outpati ent Clinics 2018-12-13 2018-12-13 [facility] [id number] 11:02:00 11:02:00 t [facility] Road Timbre s - Road [facility] Medicine l Medicine Outpati ent Clinics 2018-11-12 2018-11-12 [facility] [id number] 16:00:00 16:00:00 [facility] BOOK A TIGER Senath s [facility] ent [facility] 2018-11-09 2018-11-09 [facility] [id number] 14:41:00 14:41:00 [facility] BOOK A TIGER sMedio [facility] ent [facility] 2018-09-12 2018-09-12 [facility] [id number] 15:00:00 15:00:00 [facility] BOOK A TIGER [facility] 2018-08-22 2018-08-22 [facility] [id number] 12:06:00 12:06:00 [facility] BOOK A TIGER [employer] [facility] ent [facility] Results Test Test Test Results Result Source Description Time Comments Comments [place] < 1 Hour 2019-04- Interface, Radiology [place] [address] Results Incoming - Method ist 11:01:37 04/29/2019 11:04 AM CDTEXAMINATION: [place] 1 HOURCLINICAL HISTORY: Intraoperative fluoroscopyIMPRESSION:Flu oroscopy was provided. No radiologist present. Please see procedure report for discussion of procedure, findings and fluoroscopic time.[facility]-[id number] Airway 2019-04- Amanda Vickers CRNA [place] [address] 04/29/2019 9:11 Meth[facility] dist 09:11:17 AMAirwayPerformed by: Amanda Vickers CRNAAuthorized by: Spencer Gomez MD Location: ORUrgency: ElectiveDifficult Airway: No Anesthesiologist: Spencer Gomez MDResident/COMPUTER BOOKKEEPER/AA: Amanda Vickers CRNAPerformed by: resident/CRNAPreoxygenate d with 100% O2: Yes C-spine Precautions Maintained Throughout: Yes Mask Ventilation: Easy maskFinal Airway Type: Endotracheal airwayFinal Endotracheal Airway: ETTCuffed: Yes Technique Used: Direct laryngoscopyInsertion Site: OralBlade Type: MillerLaryngoscope Blade/Videolaryngoscope Blade Size: 2ETT Size (mm): 8.0Cuff at minimum occlusion pressure: Yes Measured from: LipsETT to Lips (cm): 20Placement Verified by: CO2 detection, direct visualization and equal breath sounds Laryngoscopic view: Grade I - full view of glottisRapid Sequence Induction (RSI): No Modified RSI: No Number of Attempts at Approach: 1 Basic metabolic panel 2019-04-29 08:20:12 Test Item Value Reference Range Interpretation Comme nts Sodium (test code = 2951-2) 139 135- 148 mEq/L Potassium (test code = 2823-3) 4.6 3.5- 5.0 mEq/L Chloride (test code = 2075-0) 99 98- 112 mEq/L CO2 (test code = 2027-9) 23 24- 31 mEq/L L Anion gap (test code = 22471-7) 17@ANIO 7- 15 mEq/L H BUN (test code = 3094-0) 49 mg/dL 8-23 H Creatinine (test code = 2160-0) 8.96 mg/dL 0.7-1.2 H Glucose (test code = 2345-7) 87 mg/dL 65-99 Calcium (test code = 14855-8) 9.7 mg/dL 8.8-10.2 Lab Interpretation (test code = 64067-8) Abnormal Lea MethodistEstimated [id number] 08:20:12 Test Item Value Reference Range Interpretation Comments Estimated GFR (test 6 mL/min/1.73 m2 Kylie Carmela genaro Units code = 5488) InterpretationG 1 >=90 Susan l or highG2 60-89 Mildly decrease dG3a 45-59 Mil dly to moderately decr [id number] 30-44 Moderately to s everely decreasedG4 15-29 Severe ly decreasedG5 <15 Kidney leigh lureThe eGFR was calcul ated using the Chron ic Kidney Disease Epidemiology Collaboration ( CKD-EPI) equation. Interpretation is based on recommendati ons of the National Ki dney Foundation-Kidn ey Disease Outcome s Quality Initiat adrian (NKF-KDOQI) pub lished in 2014. Lab Interpretation Abnormal (test code = 87294-2) Lea MethodistPOC panel [id number] 07:28:15 Test Item Value Reference Range Interpretation Comments POC sodium (test code = 138 mmol/L 866-205 2002-0) POC potassium (test code 4.3 mmol/L 3.5-5 = 6298-4) POC hematocrit (test code 40 % 41-51 L = 4544-3) POC glucose (test code = 85 mg/dL 65-99 2339-0) POC hemoglobin (test code 13.6 g/dL 14-[address] ID: = 718-7) [id number]: Juve [place] Lab Interpretation (test Abnormal code = 97233-9) Lea MethodistECG Pre/Post [id number] 15:19:27 Test Item Value Reference Range Interpretation Comments Ventricular rate (test 88 code = 253) Atrial rate (test code = 88 255) MT interval (test code = 206 266) QRSD interval (test code 132 = 260) QT interval (test code = 392 264) QTC interval (test code 474 = 265) P axis 1 (test code = 38 267) QRS axis 1 (test code = 66 268) T wave axis (test code = 46 270) EKG impression (test Normal sinus code = 273) rhythm-Possible Left atrial enlargement-Right bundle branch block-Anterior infarct , age undetermined-Abnormal ECG-No previous ECGs available-Electronica lly Signed By Sherrell Christensen MD ([id number]) on 04/21/2019 3:18:46 PM [place] MethodistXR Chest 2 [id number] 16:28:13Hm Interface, Radiology Results Incoming - 04/19/2019 4:31 PM CDTEXAMINATION: XR CHEST 2 VWCLINICAL HISTORY: Z01.818 Encounter for other preprocedural examination, Pre OP TestingCOMPARISON: None.FINDINGS:Lines and tubes: Right-sided central venous catheter is present with the tip overlying superior vena cava.Heart and mediastinum: Post surgical changes related to coronary artery bypass graft are present. Cardiomediastinal silhouette is obscured. The aorta is mildly tortuous. Aortic calcifications are present.Lungs: There is a moderate left-sided pleural effusion with adjacent atelectasis. The right lung is clear. No pneumothorax. Pulmonary vasculature within normal range.Bones: Sternotomy wires are present. No acute osseous abnormality.IMPRESSION:Moderate left-sided pleural effusion with leftlung basilar atelectasis.[facility]-[id number] Dictated and approved by radiology assistant/fellow: Karlee Juarez, Guillaume Mendez MD, personally reviewed the images and resident's/fellow's findings and agree with the final report. Venu MethodistType and [id number] 14:06:00 Test Item Value Reference Range Interpretation Comments ABO grouping (test code = 883-9) AB Rh type (test code = 34933-2) POS Antibody screen (gel) (test code = NEG 890-4) Venu MethodistPartial thromboplastin time, [id number] 13:13:01 Test Item Value Reference Range Interpretation Comments PTT (test code = 32.1 23.0- 36.0 sec PTT thera peutic range for 3173-2) unfractionated heparin is61.0-112.0 se conds which corresponds to Anti-Xa0.3-0.7 U/ml. Lea MethodistProthrombin time with [id number] 13:12:52 Test Item Value Reference Range Interpretation Comments Prothrombin time (test 14.2 11.5- 14.5 sec code = 5902-2) INR (test code = 1.1 The Interna tional 80812-5) Normalized Rati o (INR) is a therapeutic m onitoring tool for patien ts who are stable on oral anticoagulant t herapy. An INR of 2.0-3.0 is suggested for d eep vein thrombosis/pulm onary embolism. Lea MethodistCBC with platelet and [id number] 13:02:10 Test Item Value Reference Range Interpretation Comments WBC (test code = 12850-5) 6.4 4.5- 11.0 k/uL RBC (test code = 71082-1) 3.62 m/uL 4.4-6 L HGB (test code = 718-7) 12.0 g/dL 14-18 L HCT (test code = 4544-3) 37.8 % 41-51 L MCV (test code = 787-2) 104.4 fL 82-100 H MCH (test code = 785-6) 33.1 pg 27-34 MCHC (test code = 786-4) 31.7 g/dL 31-37 RDW - SD (test code = 78704-9) 56.2 fL 37-55 H MPV (test code = 48451-2) 9.7 fL 6.9-11 Platelet count (test code = 134 K/uL 150-400 L 19313-6) Nucleated RBC (test code = 45314-2) 0.00 /100 WBC Neutrophils (test code = 87328-9) 63.4 % 39-69 Lymphocytes (test code = 93372-1) 21.9 % 25-45 L Monocytes (test code = 55537-9) 11.0 % 0-10 H Eosinophils (test code = 32342-3) 2.3 % 0-5 Basophils (test code = 77937-5) 0.9 % 0-1 Immature granulocytes (test code = 0.5 % 0-1 78851-9) Lab Interpretation (test code = Abnormal 64047-0) Venu Robison
--- OUTSIDE RECORDS SUMMARY | 2020-04-15 06:14 | XMS REPORT ---
:1955 Author Organization [employer] Care Team Providers Name Role Phone Brandyn Gamboa Provider Role Unavailable Allergies, Adverse Reactions, Alerts Substance Reaction Event Type N.K.D.A. Info Not Available Non Drug Allergy Problems Problem Type Condition Code Onset Dates Condition Statu s Problem End stage renal disease N18.6 Acti ve Problem ESRD (end stage renal disease) N18.6 Active Problem Anemia of chronic disease D63.8 Ac tive Problem Type 2 diabetes mellitus with E11.65 Active hyperglycemia, without long-term current use of insulin Problem Benign prostatic hyperplasia, N40.0 Active unspecified whether lower urinary tract symptoms present Problem Neuropathy G62.9 Active Problem Weakness R53.1 Active Problem HTN (hypertension), benign I10 A ctive Problem At risk for falling Z91.81 Active Problem Controlled type 2 diabetes mellitus E11.9 Active without complication, without long-term current use of insulin Problem Hypothyroidism, unspecified type E03.9 Active Problem GERD without esophagitis K21.9 Act adrian Assessment Medicare annual wellness visit, Z00.00 Active subsequent Problem Dependence on renal dialysis Z99.2 Active Problem Generalized edema R60.1 Active Medications Medication Code Code Instructions Start End Status Dosage System Date Date Vitamin B-[address] [facility] 67998566900 100 MG Orally Active 1 tablet Once a day Docusate Sodium ND 11948781120 100 MG Orally Active 1 capsule Once a day as needed Midodrine HCl [facility] 48255963058 10 MG Orally Active 1 tablet once daily Epoetin Juvencio [facility] [address]-71 33634 UNIT/ML Active as Injection directed Metoprolol Tartrate ND 99216021019 25 MG Orally Act adrian 1 tablet Twice a day with food Plavix [facility] 72033676814 75 MG Orally Active 1 table t Once a day Oysco [address] [facility] 06523803912 500 MG Active TAKE 2 TABLETS BY MOUTH TWICE A DAY Hydrocodone-Acetami [facility] 01088615833 5-325 MG Active 1 tablet nophen Orally every 6 as needed hrs Calcium Carbonate NDC 91122363783 500 MG Orally Acti ve 2 tablet Twice a day Ferrous Sulfate ND 23103568618 325 (65 Fe) MG Activ e 1 tablet Orally bid Gabapentin [facility] 00048567504 300 MG Oral Active take 1 Once a day capsule by mouth once daily Atorvastatin ND 52032228826 80 MG Orally Active 1 tablet Calcium Once a day Tamsulosin HCl ND 37992861102 0.4 MG Active TAKE 1 CAPSULE BY MOUTH EVERY DAY Clopidogrel ND 75484908657 75 MG Active TAKE 1 Bisulfate TABLET BY MOUTH EVERY DAY Dialyvite 800/Ultra [facility] 36860836157 - Orally Active as D directed Oysco D NDC 0 250-125 Active 1 tablet MG-UNIT Orally with a Once a day meal Vitamin D3 Maximum [facility] 01921377936 5000 UNIT Active 1 capsule Strength Orally Once a day Aspirin 81 ND 44930074974 81 MG Orally Active 1 ta blet Once a day Sulfamethoxazole ND 0 500 MG Orally Active 1 null Four times a day Levothyroxine ND 82162218284 125 MCG Orally Active 1 tablet Sodium Once a day in the morning on an empty stomach Jayleen-Elizabeth [facility] [address]-60 - Orally Once Active 1 tablet a day Calcium Acetate ND 62332534817 667 MG Orally Active 2 capsules Three times a with meals day Protonix [facility] 76778227937 40 MG Orally Active 1 tabl et Once a day Aspir-Low [facility] 06999004421 81 MG Orally Active 1 tab let Once a day Results No Known Results Summary Purpose [employer]Works Submission
--- OUTSIDE RECORDS SUMMARY | 2020-04-15 06:14 | XMS REPORT ---
:1955 Author Organization [employer] Care Team Providers Name Role Phone GamboaBrandyn Provider Role Unavailable Allergies, Adverse Reactions, Alerts Substance Reaction Event Type N.K.D.A. Info Not Available Non Drug Allergy Problems Problem Type Condition Code Onset Dates Condition Statu s Assessment At risk for falling Z91.81 Active Assessment Generalized edema R60.1 Active Assessment Weakness R53.1 Active Assessment GERD without esophagitis K21.9 Act adrian Problem Dependence on renal dialysis Z99.2 Active Assessment Neuropathy G62.9 Active Problem Generalized edema R60.1 Active Assessment Benign prostatic hyperplasia, N40.0 Active unspecified whether lower urinary tract symptoms present Problem End stage renal disease N18.6 Acti ve Problem ESRD (end stage renal disease) N18.6 Active Problem Anemia of chronic disease D63.8 Ac tive Problem Type 2 diabetes mellitus with E11.65 Active hyperglycemia, without long-term current use of insulin Problem Benign prostatic hyperplasia, N40.0 Active unspecified whether lower urinary tract symptoms present Assessment 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 Active Assessment Anemia of chronic disease D63.8 Ac tive Problem Neuropathy G62.9 Active Assessment Dependence on renal dialysis Z99.2 Active Problem Weakness R53.1 Active Problem HTN (hypertension), benign I10 A ctive Problem At risk for falling Z91.81 Active Problem Controlled type 2 diabetes mellitus E11.9 Active without complication, without long-term current use of insulin Assessment End stage renal disease N18.6 Acti ve Assessment HTN (hypertension), benign I10 A ctive Assessment Type 2 diabetes mellitus with E11.65 Active hyperglycemia, without long-term current use of insulin Assessment Hypothyroidism, unspecified type E03.9 Active Problem Hypothyroidism, unspecified type E03.9 Active Problem GERD without esophagitis K21.9 Act adrian Assessment Coronary artery disease involving I25.810 Active coronary bypass graft of [place] heart, angina presence unspecified Medications Medication Code Code Instructions Start End Status Dosage System Date Date Vitamin B-1 NDC 50011964322 100 MG Orally Active 1 tablet Once a day Oysco D NDC 0 250-125 MG-UNIT Active 1 tablet Orally Once a with a day meal Epoetin Juvencio [facility] [address]-13 29500 UNIT/ML Active as Injection directed Midodrine HCl [facility] 36137918746 10 MG Orally Active 1 tablet once daily Metoprolol [facility] 96207007941 25 MG Orally Active 1 ta blet Tartrate Twice a day with food Atorvastatin [facility] 73187717544 80 MG Orally Active 1 tablet Calcium Once a day Clopidogrel [facility] 54848266738 75 MG Active TAKE 1 Bisulfate TABLET BY MOUTH EVERY DAY Gabapentin [facility] 50836760005 300 MG Oral Active take 1 Once a day capsule by mouth once daily Calcium [facility] 31422344499 500 MG Orally Active 2 tabl et Carbonate Twice a day Calcium Acetate [facility] 71184676463 667 MG Orally Active 2 capsules Three times a with meals day Levothyroxine [facility] 91428453416 125 MCG Orally Active 1 tablet Sodium Once a day in the morning on an empty stomach Aspir-Low [facility] 31439491920 81 MG Orally Active 1 tab let Once a day Oysco 500 [facility] 38735812120 500 MG Active TAKE 2 TABLETS BY MOUTH TWICE A DAY Dialyvite [facility] 47921851321 - Orally Active as 800/Ultra D directed Protonix [facility] 91046611436 40 MG Orally Active 1 tabl et Once a day Levothyroxine [facility] 84684092316 125 MCG Orally Active 1 tablet Sodium Once a day in the morning on an empty stomach Aspirin 81 [facility] 05382060362 81 MG Orally Active 1 ta blet Once a day Vitamin D3 [facility] 36329172363 5000 UNIT Active 1 capsu le Maximum Strength Orally Once a day Jayleen-Elizabeth [facility] [address]-65 - Orally Once a Active 1 tablet day Tamsulosin HCl [facility] 66152721789 0.4 MG Active TAKE 1 CAPSULE BY MOUTH EVERY DAY Ferrous Sulfate [facility] 41426569666 325 (65 Fe) MG Activ e 1 tablet Orally bid Docusate Sodium [facility] 20012400328 100 MG Orally Active 1 capsule Once a day as needed Plavix [facility] 57454809955 75 MG Orally Active 1 table t Once a day Hydrocodone-Acet [facility] 02026561434 5-325 MG Orally Act adrian 1 tablet aminophen every 6 hrs as needed Results No Known Results Summary Purpose eClinicalWorks Submission
--- OUTSIDE RECORDS SUMMARY | 2020-04-15 06:14 | XMS REPORT ---
:1955 Author Organization [employer]Works Care Team Providers Name Role Phone GambaoBrandyn Provider Role Unavailable Allergies No Known Allergies Problems Problem Type Condition Code Onset Dates Condition Statu s Problem End stage renal disease N18.6 Acti ve Problem ESRD (end stage renal disease) N18.6 Active Problem Anemia of chronic disease D63.8 Ac tive Problem Hypothyroidism, unspecified type E03.9 Active Problem GERD without esophagitis K21.9 Act adrian Problem Dependence on renal dialysis Z99.2 Active Problem Generalized edema R60.1 Active Problem Type 2 diabetes mellitus with E11.65 [...] complication, without long-term current use of insulin Medications No Known Medications Results No Known Results Summary Purpose [employer]ClinicalWorks Submission
--- OUTSIDE RECORDS SUMMARY | 2020-04-15 06:15 | XMS REPORT ---
[...] without long-term current use of insulin Medications Medication Code Code Instructions Start End Status Dosage System Date Date Ferrous Sulfate [facility] 15026646129 325 (65 Fe) MG Activ e 1 tablet Orally bid Metoprolol ND 62484709751 25 MG Orally Active 1 ta blet Tartrate Twice a day with food Docusate Sodium ND 47357997399 100 MG Orally Active 1 capsule Once a day as needed Calcium Acetate [facility] 82093753031 667 MG Orally Active 2 capsules Three times a with meals day Dialyvite [facility] 20841170050 - Orally Active as 800/Ultra D directed Oysco 500 ND 85269695571 500 MG Active TAKE 2 TABLETS BY MOUTH TWICE A DAY Tamsulosin HCl ND 46494362858 0.4 MG Active TAKE 1 CAPSULE BY MOUTH EVERY DAY Epoetin Juvencio [facility] [address]-32 34279 UNIT/ML Active as Injection directed Vitamin B-1 [facility] 01230565647 100 MG Orally Active 1 tablet Once a day Gabapentin [facility] 77078402690 300 MG Oral Active take 1 Once a day capsule by mouth once daily Levothyroxine [facility] 74895231298 125 MCG Orally Active 1 tablet Sodium Once a day in the morning on an empty stomach Jayleen-Elizabeth [facility] [address]-36 - Orally Once a Active 1 tablet day Oysco D [facility] 0 250-125 MG-UNIT Active 1 tablet Orally Once a with a day meal Levothyroxine [facility] 83967583065 137 MCG Orally April 09, Active 1 tablet Sodium Once a day 2019 in the morning on an empty stomach Midodrine HCl [facility] 63028364405 10 MG Orally Active 1 tablet once daily Aspirin 81 [facility] 07741873166 81 MG Orally Active 1 ta blet Once a day Aspir-Low [facility] 77982020230 81 MG Orally Active 1 tab let Once a day Calcium [facility] 92651229649 500 MG Orally Active 2 tabl et Carbonate Twice a day Vitamin D3 [facility] 52444243547 5000 UNIT Active 1 capsu le Maximum Strength Orally Once a day Atorvastatin [facility] 10372390241 80 MG Orally Active 1 tablet Calcium Once a day Protonix [facility] 21413778293 40 MG Orally Active 1 tabl et Once a day Hydrocodone-Acet [facility] 33106574131 5-325 MG Orally Act adrian 1 tablet aminophen every 6 hrs as needed Plavix [facility] 49227925689 75 MG Orally Active 1 table t Once a day Levothyroxine [facility] 23016818045 125 MCG Orally Active 1 tablet Sodium Once a day in the morning on an empty stomach Clopidogrel [facility] 59150133445 75 MG Active TAKE 1 Bisulfate TABLET BY MOUTH EVERY DAY Results No Known Results Summary Purpose eClinicalWorks Submission
[2020-04-15] MEDS ORDERED: HEPA 1000U/500MLS 1,000 UNIT/500 ML BAG IV ONE (06:54)
[2020-04-15] MEDS ORDERED: LIDOCAINE 1% 20 ML MDV ONE (06:54)
[2020-04-15] MEDS ORDERED: NA CHLORIDE 0.9% 500 ML ONE (07:17)
[2020-04-15] MEDS ORDERED: FENTANYL CITR 100 MCG/2 ML ONE (07:36)
[2020-04-15] MEDS ORDERED: ATROPINE SULF 1 MG/10 ML SYR IV ONE (07:36)
[2020-04-15] MEDS ORDERED: MIDAZOLAM HCL 2 MG/2 ML INJ ONE (07:36)
[2020-04-15 09:08] VITALS: TEMP 97.4
[2020-04-15 11:29] VITALS: BP 140/59; O2SAT 96
--- NOTE | 2020-04-16 02:28 | OP ---
Date of Procedure: 04/15/2020 Surgeon: Cuauhtemoc Tello MD Procedure: Selective bilateral carotid angiogram. Indication: Cerebrovascular disease and a positive carotid Doppler. Description Of Procedure: Mr. Hong is 64, had recently had a coronary artery bypass surgery. [place] s diabetes, hypertension, dyslipidemia, was found to have a significant stenosis by carotid Doppler. He was [facility] to [facility] as an outpatient. He was prepped and draped in the routine kaylee rile fashion. He was given Versed for sedation. A 6-Bengali sheath was introduced in the right commo n femoral artery using a Seldinger technique. 10 cc of Xylocaine was used. A JR4 catheter was used to select the right common carotid artery and the left common carotid artery selectively. His right common carotid artery was pretty normal. His right ECA was normal. His right ICA was normal. On th e left side, the left common carotid artery was normal. The left external carotid artery was normal. His left internal carotid artery had about a 60% to 70% stenosis. The patient tolerated the proced ure well. There were no complications. Blood Loss: 5 cc. Anesthesia: Total conscious sedation was 30 minutes. Final Diagnosis: Cerebrovascular disease, moderate to severe. Plan: The plan is to have the film reviewed by Dr. John Mercedes to see if he thinks the patient i s an adequate candidate for surgery. Angio-Seal was used to close the case. The patient will remain at bedrest for 4 hours and he will go home and we will follow up with him and make final decisions r egarding his care. The case was discussed with the patient, with the family, and with Dr. Mercedes. A CD will be given to the patient and a CD will be sent to Dr. Mercedes as well. CLAUDIO/ANA Voice ID: [id number] Report ID: [id number]
== END 2020-04-15 11:46 | disposition home or self-care (01) ==
LOC: CCL 06:10
DX: I65.22 Occlusion and stenosis of left carotid artery (principal); I25.10 Atherosclerotic heart disease of native coronary artery without angina pectoris; I12.0 Hypertensive chronic kidney disease with stage 5 chronic kidney disease or end stage renal disease; N18.6 End stage renal disease; I27.20 Pulmonary hypertension, unspecified; E78.5 Hyperlipidemia, unspecified; K21.9 Gastro-esophageal reflux disease without esophagitis; Z11.59 Encounter for screening for other viral diseases; Z95.1 Presence of aortocoronary bypass graft; Z99.2 Dependence on renal dialysis; Z79.02 Long term (current) use of antithrombotics/antiplatelets; Z79.82 Long term (current) use of aspirin
CPT/HCPCS: 93005; 85025; 80048; 36415; 85610; 85730; 71046; 36222; C1893; C1760; J2250; J3010; J7040; J1644

== ENCOUNTER 2021-12-20 23:44 | Observation (INO) | payer OTHER ==
--- OUTSIDE RECORDS SUMMARY | 2021-12-20 23:48 | XMS REPORT | Continuity of Care Document ---
:1955 Author Organization [facility] t Address [facility] [address] [place] [address] Care Team Providers Name Role Phone Brandyn Gamboa Attending Clinician Unavailable YVETTE MERCEDES Attending Clinician Unavailable YVETTE MERCEDES Admitting Clinician Unavailable Payers Payer Name Policy Type Policy Number Effective Date Expiration Date S feroz MEDICARE A B [id number] 2018 00:00:00 GENERIC MEDICARE [id number] 2019 SUPPLEMENT 00:00:00 Problems This patient has no known problems. Allergies, Adverse Reactions, Alerts Allergy Allergy Status Severity Reaction(s) Onset Inactive Treating Comm ents Source Name Type Date Date Clinician NO KNOWN Allergy Active [facility] Medications Ordered Filled Start Stop Current Ordering Indication Dosage Frequency Signature Comments Components Source Medication Medication Date Date Medication? Clinician (SIG) Name Name Levothyroxi Levothyroxi Yes Brandyn [address] [facility] ne Sodium ne Sodium 7-30 [place] in the Jackelin kes - 00:00: morning on Memoria 00 an empty l stomach Outpati ent Clinics Vitamin B-1 Vitamin B-1 Yes Brandyn [address] [facility] Vitamin D3 Vitamin D3 Yes Brandyn [address] [facility] Maximum Maximum [place] [facility] Strength Strength [facility] Plavix Plavix Yes Brandyn 1 tablet [facility] [place] [facility] Epoetin Epoetin Yes Brandyn as [facility] Juvencio Juvencio [facility] directed [facility] Ferrous Ferrous Yes Brandyn [address] [facility] Sulfate Sulfate [place] [facility] ent [facility] Protonix Protonix Yes Brandyn [address] [place] [facility] ent [facility] Midodrine Midodrine Yes Brandyn [address] HCl HCl [place] [facility] Atorvastati Atorvastati Yes Brandyn [address] [facility] [facility] n Calcium n Calcium [place] [facility] ent [facility] Metoprolol Metoprolol Yes Brandyn [address] Tartrate Tartrate [place] with food L [facility] ent [facility] Calcium Calcium Yes Brandyn [address] Acetate Acetate [place] with meals [place] [facility] ent [facility] Docusate Docusate Yes Brandyn [address] Sodium Sodium [place] as needed [facility] ent [facility] Aspirin 81 Aspirin 81 Yes Brandyn [address] [facility] [place] [facility] ent [facility] Calcium Calcium Yes Brandyn [address] Carbonate Carbonate [place] [facility] ent [facility] Jayleen-Elizabeth Jayleen-Elizabeth Yes Brandyn [address] [facility] [place] [facility] ent Clinics Oysco 500 Oysco 500 Yes Brandyn TAKE [address] [place] TABLETS BY [facility] - M[facility]TH Memoria TWICE A l DAY [facility] Oysco D Oysco D Yes Brandyn [address] [facility] [place] with a [facility] - meal [facility] Aspir-Low Aspir-Low Yes Brandyn [address] [facility] [place] [facility] ent Clinics Dialyvite Dialyvite Yes Brandyn as [facility] 800/Ultra D 800/Ultra D [place] directed [facility] ent Clinics Hydrocodone Hydrocodone Yes Brandyn [address] -Acetaminop -Acetaminop [place] as needed [facility] - hen hen [facility] Clinics Gabapentin Gabapentin Yes Brandyn take [address] [facility] [facility] [place] capsule by [facility] - mouth once Memoria daily l [facility] ent [facility] Clopidogrel Clopidogrel Yes Brandyn TAKE [address] [facility] Bisulfate Bisulfate [place] TABLET BY [facility]TH [facility] EVERY DAY l [facility] ent Clinics Levothyroxi Levothyroxi Yes Brandyn [address] [facility] ne Sodium ne Sodium [place] in the [place] kes - morning on Memoria an empty l stomach [facility] Tamsulosin Tamsulosin Yes Brandyn TAKE [address] [facility] HCl HCl [place] CAPSULE BY [facility]TH [facility] EVERY DAY l [facility] Levothyroxi Levothyroxi Yes Brandyn [address] [facility] ne Sodium ne Sodium [place] in the [place] kes - morning on Memoria an empty l stomach [facility] Vital Signs Vital Name Observation Time Observation Value Comments Source HEIGHT 2020-05-20 00:00:00 172.7 cm WEIGHT 2020-05-20 00:00:00 115.1 kg HEIGHT 2020-06-05 00:00:00 172.7 cm WEIGHT 2020-06-05 00:00:00 124.739 kg HEIGHT 2020-05-20 00:00:00 172.7 cm WEIGHT 2020-05-20 00:00:00 115.1 kg HEIGHT 2020-05-20 00:00:00 172.7 cm WEIGHT 2020-05-20 00:00:00 126.554 kg Procedures This patient has no known procedures. Encounters Start End Encounter Admission Attending Care Care Encounter Source Date/Time Date/Time Type Type Clinicians Facility Department ID 2021-10-06 Outpatient [place], [facility] 2021-10-06 Outpatient [place], [facility] [id number] 14:12:48 Brandyn [id number] [facility] 2021-10-06 Outpatient [place], [facility] [id number] 13:57:21 Brandyn [id number] [facility] 2021-10-06 Outpatient [place], [facility] [id number] 13:34:56 Brandyn [id number] [facility] 2021-10-06 Outpatient [place], [facility] [id number] 13:00:40 Brandyn [id number] [facility] 2021-10-06 Outpatient [place], [facility] [id number] [facility] [address] 13:00:23 Brandyn [id number] [facility] 2021-10-06 Outpatient [place], [facility] 12:24:47 Brandyn [id number] [facility] 2021-10-06 Outpatient [place], [facility]LMLC [facility] 12:23:09 Brandyn [id number] [facility] 2021-10-06 Outpatient [place], [facility]LMLC [facility] 11:59:33 Brandyn [id number] [facility] 2021-10-06 Outpatient [place], [facility]LMLC [facility] 11:33:15 Brandyn [id number] [facility] 2021-10-06 Outpatient [place], STLC STLC [facility] 11:17:40 Brandyn [id number] [facility] 2021-06-16 Inpatient [facility] Surgery [id number] [facility] 06[facility]26:24 [facility] 2021-11-08 2021-11-08 ambulatory STLMLC STLC [id number] [facility] 2021-11-04 2021-11-04 ambulatory STLMLC STLMLC [id number] [facility] 2021-11-04 2021-11-04 ambulatory STLMLC STLMLC [id number] [facility] 2021-09-20 2021-09-20 ambulatory STLMLC STLMLC [id number] [facility] 2021-09-17 2021-09-17 ambulatory STLMLC STLMLC [id number] [facility] 2021-09-16 2021-09-16 ambulatory STLMLC STLMLC [id number] [facility] 2021-08-09 2021-08-09 ambulatory STLMLC [facility]LMLC [id number] [facility] 2021-04-16 2021-04-16 Outpatient STLMLC [facility]LMLC [id number] [facility] 2021-04-16 2021-04-16 Outpatient STLMLC STLC [id number] [facility] 2021-01-15 2021-01-15 Outpatient STLMLC [facility]LMLC [id number] [facility] 2020-10-07 2020-10-07 Outpatient STLMLC [facility]LMLC [id number] [facility] 2020-10-02 2020-10-02 Outpatient STLMLC STLC [id number] [facility] 2020-07-10 2020-07-10 Outpatient STLMLC STLMLC [id number] [facility] 2020-07-08 2020-07-08 Outpatient STLMLC [facility]LMLC [id number] [facility] 2020-06-08 2020-06-08 Outpatient [facility] [id number] SLE 00:00:00 00:00:00 JOHN 2020-06-05 2020-06-05 Outpatient LM [facility] [id number] SLE 00:00:00 00:00:00 JOHN 2020-05-26 2020-05-26 Outpatient [facility] [id number] [facility] 00:00:00 00:00:00 2020-05-20 2020-05-20 Outpatient LM [facility] [id number] SLE 00:00:00 00:00:00 JOHN 2020-05-19 2020-05-19 Outpatient [facility] [id number] SLE 00:00:00 00:00:00 JOHN 2020-04-09 2020-04-09 [facility] [id number] 13:13:00 13:13:00 t [facility] Medicine l Medicine Outpati ent Clinics 2020-04-08 2020-04-08 [facility] [id number] 10:00:00 10:00:00 t [facility] Medicine l Medicine Outpati ent Clinics 2020-04-08 2020-04-08 [facility] [id number] 10:00:00 10:00:00 t Raise [facility] l Medicine Outpati ent Clinics 2020-01-27 2020-01-27 [facility] [id number] 12:56:00 12:56:00 t Raise [facility] Medicine l Medicine Outpati ent Clinics 2019-12-23 2019-12-23 [facility] [id number] 12:00:00 12:00:00 t Raise [facility] Medicine l Medicine Outpati ent Clinics 2019-09-18 2019-09-18 [facility] [id number] 11:30:00 11:30:00 t Raise [facility] Medicine l Medicine Outpati ent Clinics 2019-08-29 2019-08-29 [facility] [id number] 16:29:00 16:29:00 t Raise [facility] Medicine l Medicine Outpati ent Clinics 2019-05-31 2019-05-31 [facility] [id number] 09:45:00 09:45:00 t Raise [facility] l Medicine Outpati ent Clinics 2019-05-24 2019-05-24 [facility] [id number] 09:05:00 09:05:00 t [facility] Medicine Outpati ent Clinics 2019-02-27 2019-02-27 [facility] [id number] 10:30:00 10:30:00 t [employer] [facility] [employer] [facility] Medicine l Medicine Outpati ent Clinics 2018-12-13 2018-12-13 [facility] [id number] 11:02:00 11:02:00 [facility] - [facility] Medicine Medicine Outpati ent Clinics 2018-11-12 2018-11-12 [facility] [id number] 16:00:00 16:00:00 t [employer] [facility] [employer] [facility] Medicine l Medicine Outpati ent Clinics 2018-11-09 2018-11-09 [facility] [id number] 14:41:00 14:41:00 t [employer] [facility] [employer] [facility] Medicine Medicine Outpati ent Clinics 2018-09-12 2018-09-12 [facility] [id number] 15:00:00 15:00:00 t [employer] [facility] [employer] [facility] Medicine Medicine Outpati ent Clinics 2018-08-22 2018-08-22 [facility] [id number] 12:06:00 12:06:00 [employer] [facility] [place] [facility] Medicine Outpati ent Clinics Results Test Description Test Time Test Comments Results Result Sourc e Comments TISSUE EXAM 2020-06-05 Surgical Pathology 17:42:00 Report Case: [id number] Authorizing Provider: John Mercedes, Collected: 05/27/2020 09:22 AM Ordering Location: [facility] Received: 05/27/2020 09:46 AM PERIOPERATIVE SERVICES Pathologist: Kristopher Cruz MD Specimen: Plaque, LEFT CAROTID ARTERY PLAQUE ARTERY, LEFT CAROTID, ENDARTERECTOMY:CALCIFI C ATHEROSCLEROTIC PLAQUE WITH RECENT INTRAPLAQUE HEMORRHAGE Signing Pathologist Direct Phone Line: [phone] ally signed by Kristopher Cruz MD on 06/05/2020 at 5:42 [id number]; [id number] diagnosis: Carotid stenosis, leftPlaque Received in formalin labeled with the patient's name, accession number and "left carotid artery plaque" is a 3.5 cm in length x 0.4 cm in diameter kay-yellow tubular piece of focally calcified plaque. [employer] Consultant sections are submitted in A1 following decalcification. PA/pl Performed POCT-GLUCOSE METER 2020-05-29 07:20:00 Test Item Value Reference Range Interpretation Comme nts POC-GLUCOSE METER (BEpfwaterworks) 84 mg/dL 70-110 : TESTED AT [place] [id number] [facility] (test code = 1538) [facility], [id number]: Internet Marketer/Techni cheryl ID = [id number] for TYRELL HOPKINS POCT-GLUCOSE [id number] 21:17:00 Test Item Value Reference Range Interpretation Comments POC-GLUCOSE METER 106 mg/dL 70-110 : [facility] (test code = [facility], 153) [address]: Internet Marketer/Techni cheryl ID = [id number] for RENATO JOE POCT-GLUCOSE [id number] 16:40:00 Test Item Value Reference Range Interpretation Comments POC-GLUCOSE METER 116 mg/dL 70-110 H : [facility] (test code = [facility], 153) [address]: Internet Marketer/Techni cheryl ID = [id number] for TRENA CAMILO POCT-GLUCOSE [id number] 13:58:00 Test Item Value Reference Range Interpretation Comments POC-GLUCOSE METER 90 mg/dL 70-110 : [facility] (test code = [facility], 153) [address]: Internet Marketer/Techni cheryl ID = [id number] for DACIA DASILVANEDIAMOND HEPATITIS B SURFACE [id number] 09:32:00 Test Item Value Reference Range Interpretation Comments HEPATITIS B SURFACE ANTIGEN (2) Nonreactive Nonreactive ([facility]) (test code = 2585) Specimen is considered negative for HBsAg.POCT-GLUCOSE [id number] 07:48:00 Test Item Value Reference Range Interpretation Comments POC-GLUCOSE METER 87 mg/dL 70-110 : [facility] (test code = [facility], 153) [address]: Internet Marketer/Techni cheryl ID = [id number] for TRENA DSAILVA CBC W/PLT COUNT & AUTO [id number] 07:20:00 Test Item Value Reference Range Interpretation Comments WHITE BLOOD CELL COUNT (BEAKER) 9.0 K/ L 3.5-10.5 (test code = 775) RED BLOOD CELL COUNT (BEAKER) 2.64 M/ L 4.63-6.08 L (test code = 761) HEMOGLOBIN (BEAKER) (test code = 9.0 GM/DL 13.7-17.5 L 410) HEMATOCRIT (BEAKER) (test code = 29.6 % 40.1-51.0 L 411) MEAN CORPUSCULAR VOLUME (BEAKER) 112.1 fL 79.0-92.2 H (test code = 753) MEAN CORPUSCULAR HEMOGLOBIN 34.1 pg 25.7-32.2 H (BEAKER) (test code = 751) MEAN CORPUSCULAR HEMOGLOBIN CONC 30.4 GM/DL 32.3-36.5 L (BEAKER) (test code = 752) RED CELL DISTRIBUTION WIDTH 13.2 % 11.6-14.4 (BEAKER) (test code = 412) PLATELET COUNT (BEAKER) (test 120 K/CU MM 150-450 L code = 756) MEAN PLATELET VOLUME (BEAKER) 10.4 fL 9.4-12.4 (test code = 754) NUCLEATED RED BLOOD CELLS 0 /100 WBC 0-0 (BEAKER) (test code = 413) NEUTROPHILS RELATIVE PERCENT 84 % (BEAKER) (test code = 429) LYMPHOCYTES RELATIVE PERCENT 6 % (BEAKER) (test code = 430) MONOCYTES RELATIVE PERCENT 8 % (BEAKER) (test code = 431) EOSINOPHILS RELATIVE PERCENT 0 % (BEAKER) (test code = 432) BASOPHILS RELATIVE PERCENT 1 % (BEAKER) (test code = 437) NEUTROPHILS ABSOLUTE COUNT 7.59 K/ L 1.78-5.38 H (BEAKER) (test code = 670) LYMPHOCYTES ABSOLUTE COUNT 0.56 K/ L 1.32-3.57 L (BEAKER) (test code = 414) MONOCYTES ABSOLUTE COUNT (BEAKER) 0.69 K/ L 0.30-0.82 (test code = 415) EOSINOPHILS ABSOLUTE COUNT 0.02 K/ L 0.04-0.54 L (BEAKER) (test code = 416) BASOPHILS ABSOLUTE COUNT (BEAKER) 0.05 K/ L 0.01-0.08 (test code = 417) IMMATURE GRANULOCYTES-RELATIVE 1 % 0-1 PERCENT (BEAKER) (test code = 2801) BASIC METABOLIC [id number] 07:08:00 Test Item Value Reference Range Interpretation Comments SODIUM (BEAKER) 138 meq/L 136-145 (test code = 381) POTASSIUM (BEAKER) 6.1 meq/L 3.5-5.1 HH (test code = 379) CHLORIDE (BEAKER) 102 meq/L 98-107 (test code = 382) CO2 (BEAKER) (test 26 meq/L 22-29 code = 355) BLOOD UREA NITROGEN 42 mg/dL 7-21 H (BEAKER) (test code = 354) CREATININE (BEAKER) 8.42 mg/dL 0.57-1.25 H (test code = 358) GLUCOSE RANDOM 100 mg/dL 70-105 (BEAKER) (test code = 652) CALCIUM (BEAKER) 7.8 mg/dL 8.4-10.2 L (test code = 697) EGFR (BEAKER) (test 6 mL/min/1.73 ESTIMAT ED GFR IS code = 1092) sq m NOT ACCURATE CREATININE CLEARANCE IN PREDICTING GLOMERULAR FILTRATION RATE . ESTIMATED GFR I S NOT APPLICABLE FOR DIALYSIS PATIEN TS. Internet Marketer ID - EVERETT [id number] 07:04:00 Test Item Value Reference Range Interpretation Comments CREATININE (BEAKER) 8.42 mg/dL 0.57-1.25 H (test code = 358) EGFR (BEAKER) (test 6 mL/min/1.73 ESTIMAT ED GFR IS code = 1092) sq m NOT ACCURATE CREATININE CLEARANCE IN PREDICTING GLOMERULAR FILTRATION RATE . ESTIMATED GFR I S NOT APPLICABLE FOR DIALYSIS PATIEN TS. Internet Marketer ID - EVERETT [id number] 07:03:00 Test Item Value Reference Range Interpretation Comments BLOOD UREA NITROGEN (BEAKER) (test 42 mg/dL 7-21 H code = 354) Internet Marketer ID - EVERETT [id number] 07:03:00 Test Item Value Reference Range Interpretation Comments GLUCOSE RANDOM (BEAKER) (test code 100 mg/dL 70-105 = 652) Internet Marketer ID - EVERETT MPOCT-GLUCOSE [id number] 21:32:00 Test Item Value Reference Range Interpretation Comments POC-GLUCOSE METER 136 mg/dL 70-110 H : TESTED A T [facility] 6720 (BEAKER) (test code = [facility], 1538) [id number]: Internet Marketer/Techni cheryl ID = [id number] for SAAD DUQUE SE BASIC METABOLIC [id number] 11:57:00 Test Item Value Reference Range Interpretation Comments SODIUM (BEAKER) 138 meq/L 136-145 (test code = 381) POTASSIUM (BEAKER) 4.9 meq/L 3.5-5.1 (test code = 379) CHLORIDE (BEAKER) 103 meq/L 98-107 (test code = 382) CO2 (BEAKER) (test 26 meq/L 22-29 code = 355) BLOOD UREA NITROGEN 30 mg/dL 7-21 H (BEAKER) (test code = 354) CREATININE (BEAKER) 6.83 mg/dL 0.57-1.25 H (test code = 358) GLUCOSE RANDOM 111 mg/dL 70-105 H (BEAKER) (test code = 652) CALCIUM (BEAKER) 8.2 mg/dL 8.4-10.2 L (test code = 697) EGFR (BEAKER) (test 8 mL/min/1.73 ESTIMAT ED GFR IS code = 1092) sq m NOT ACCURATE CREATININE CLEARANCE IN PREDICTING GLOMERULAR FILTRATION RATE . ESTIMATED GFR I S NOT APPLICABLE FOR DIALYSIS PATIEN TS. Internet Marketer ID - [place] MPOCT-GLUCOSE [id number] 10:56:00 Test Item Value Reference Range Interpretation Comments POC-GLUCOSE METER 102 mg/dL 70-110 : TESTED A T [facility] 6720 (BEAKER) (test code = [facility], 1538) [address]: Internet Marketer/Techni cheryl ID = [id number] for Georgie Bolton PLATELET AGGREGATION: FUNCTION [id number] 08:51:00 Test Item Value Reference Range Interpretation Comments [id number] Gael Bryant MD (BEAKER) (test code = (electronic 2622) signature) PLATELET COUNT AGG 133 K/CU MM 150-450 L (BEAKER) (test code = 7786) ADP (BEAKER) (test code 57 % 62-100 L = 4654) PLATELET RICH 172 k/cu mm 200-300 L PLASMA(BEAKER) (test code = 2134) PLATELET FUNCTION SCREEN Decreased aggregation INTERPRETATION (BEAKER) with ADP which (test code = 4655) indicates platelet dysfunction that may be due to medication effect, uremia, or other platelet function disorders. Clinical correlation is required. PLATELET FUNCTION SCREEN When platelet rich INTERPRETATION (BEAKER) plasma count is (test code = 473268) <200,000/mm3, an abnormal result may be due to a low platelet count rather than a true platelet dysfunction. Platelet Function Screen results may be falsely low with platelet counts<75,000/cu mm.Internet Marketer ID- [id number] ID - [id number] ID - [id number] BASIC METABOLIC [id number] 07:24:00 Test Item Value Reference Range Interpretation Comments SODIUM (BEAKER) 138 meq/L 136-145 (test code = 381) POTASSIUM (BEAKER) 5.0 meq/L 3.5-5.1 (test code = 379) CHLORIDE (BEAKER) 100 meq/L 98-107 (test code = 382) CO2 (BEAKER) (test 27 meq/L 22-29 code = 355) BLOOD UREA NITROGEN 30 mg/dL 7-21 H (BEAKER) (test code = 354) CREATININE (BEAKER) 7.00 mg/dL 0.57-1.25 H (test code = 358) GLUCOSE RANDOM 89 mg/dL 70-105 (BEAKER) (test code = 652) CALCIUM (BEAKER) 9.0 mg/dL 8.4-10.2 (test code = 697) EGFR (BEAKER) (test 8 mL/min/1.73 ESTIMAT ED GFR IS code = 1092) sq m NOT ACCURATE CREATININE CLEARANCE IN PREDICTING GLOMERULAR FILTRATION RATE . ESTIMATED GFR I S NOT APPLICABLE FOR DIALYSIS PATIEN TS. Internet Marketer ID - [place]T MPROTHROMBIN [id number] 07:19:00 Test Item Value Reference Range Interpretation Comments PROTIME (BEAKER) (test code = 14.4 seconds 11.9-14.2 H 759) INR (BEAKER) (test code = 370) 1.15 <=5.90 Effective 02/06/2019: PT Reference Range ChangeNew: 11.9-14.2 Previous: 11.7- 14.7RECOMMENDED COUMADIN/WARFARIN INR THERAPY RANGESSTANDARD DOSE: 2.0-3.0 Includes: PROPHYLAXIS for venous thrombosis, systemic embolization; TREATMENT for venous thrombosis and/or pulmonary embolus.HIGH RISK: Target INR is2.5-3.5 for patients wiht mechanical heart valves.CBC W/PLT COUNT & AUTO [id number] 07:05:00 Test Item Value Reference Range Interpretation Comments WHITE BLOOD CELL COUNT (BEAKER) 5.5 K/ L 3.5-10.5 (test code = 775) RED BLOOD CELL COUNT (BEAKER) 3.13 M/ L 4.63-6.08 L (test code = 761) HEMOGLOBIN (BEAKER) (test code = 10.9 GM/DL 13.7-17.5 L 410) HEMATOCRIT (BEAKER) (test code = 33.9 % 40.1-51.0 L 411) MEAN CORPUSCULAR VOLUME (BEAKER) 108.3 fL 79.0-92.2 H (test code = 753) MEAN CORPUSCULAR HEMOGLOBIN 34.8 pg 25.7-32.2 H (BEAKER) (test code = 751) MEAN CORPUSCULAR HEMOGLOBIN CONC 32.2 GM/DL 32.3-36.5 L (BEAKER) (test code = 752) RED CELL DISTRIBUTION WIDTH 13.0 % 11.6-14.4 (BEAKER) (test code = 412) PLATELET COUNT (BEAKER) (test 130 K/CU MM 150-450 L code = 756) MEAN PLATELET VOLUME (BEAKER) 10.3 fL 9.4-12.4 (test code = 754) NUCLEATED RED BLOOD CELLS 0 /100 WBC 0-0 (BEAKER) (test code = 413) NEUTROPHILS RELATIVE PERCENT 62 % (BEAKER) (test code = 429) LYMPHOCYTES RELATIVE PERCENT 20 % (BEAKER) (test code = 430) MONOCYTES RELATIVE PERCENT 13 % (BEAKER) (test code = 431) EOSINOPHILS RELATIVE PERCENT 4 % (BEAKER) (test code = 432) BASOPHILS RELATIVE PERCENT 1 % (BEAKER) (test code = 437) NEUTROPHILS ABSOLUTE COUNT 3.40 K/ L 1.78-5.38 (BEAKER) (test code = 670) LYMPHOCYTES ABSOLUTE COUNT 1.08 K/ L 1.32-3.57 L (BEAKER) (test code = 414) MONOCYTES ABSOLUTE COUNT (BEAKER) 0.72 K/ L 0.30-0.82 (test code = 415) EOSINOPHILS ABSOLUTE COUNT 0.24 K/ L 0.04-0.54 (BEAKER) (test code = 416) BASOPHILS ABSOLUTE COUNT (BEAKER) 0.06 K/ L 0.01-0.08 (test code = 417) IMMATURE GRANULOCYTES-RELATIVE 1 % 0-1 PERCENT (BEAKER) (test code = 2801) POCT-GLUCOSE [id number] 06:09:00 Test Item Value Reference Range Interpretation Comments POC-GLUCOSE METER 77 mg/dL 70-110 : TESTED A T [facility] [id number] (BEAKER) (test code = FLAKITA LOPEZ ID, [id number]) [id number]: Internet Marketer/Techni cheryl ID = [id number] for JORD EDILMA ELIZABETH
[2021-12-21 01:19] LABS: Absolute Lymphocytes (CBC) 1.1 K/uL (0.7-4.9); Hematocrit 35.6 % (39.6-49.0); Lymphocytes % 15.6 % (15.3-44.8); MPV 8.8 fL (7.6-11.3)
[2021-12-21 01:21] LABS: Protime INR 1.01
[2021-12-21 01:53] LABS: SARS-COV-2 RT PCR NEGATIVE (NEGATIVE)
[2021-12-21] MEDS ORDERED: FUROSEMIDE 20 MG/ 2ML VIAL ONE (02:04)
[2021-12-21] MEDS ORDERED: ALBUTEROL 2.5 MG/3 ML NEB SOL ONE (02:04)
[2021-12-21] MEDS ORDERED: SOD POLYSTYREN SUL 15 GM/60 ML UCUP ONE (02:05)
[2021-12-21] MEDS ORDERED: METOPROLOL TARTRATE 5 MG/5 ML INJ IV ONE (02:05)
[2021-12-21] MEDS ORDERED: FUROSEMIDE 40 MG/4 ML VIAL ONE (02:05)
[2021-12-21] MEDS ORDERED: CALCIUM GLUCONATE 1 GM IVPB 1 GM/50 ML BAG IV ONE (02:05)
[2021-12-21 02:10] LABS: Sodium Level 138 mmol/L (136-145)
[2021-12-21 02:11] LABS: Bicarbonate 27 mmol/L (21-32)
[2021-12-21 02:12] LABS: ALT/SGPT 25 U/L (12-78); AST/SGOT 24 U/L (15-37); BUN Blood Urea Nitrogen 66 mg/dL (7-18); Glucose Level 99 mg/dL (74-106); Potassium 8.2 mmol/L (3.5-5.1)
[2021-12-21 02:13] LABS: Alkaline Phosphatase 126 U/L (45-117); Bilirubin Direct < 0.1 mg/dL (0-0.2); Bilirubin Total 0.4 mg/dL (0.2-1.0)
[2021-12-21 02:14] LABS: Albumin 3.8 g/dL (3.4-5.0); Protein, Total 7.8 g/dL (6.4-8.2); Troponin High Sensitivity 19.2 (<58.9)
--- NOTE | 2021-12-21 02:23 | ER ---
Nurse's Notes [facility] Name: Sunil Hong Age: 66 yrs Sex: Male : 1955 Arrival Date: 12/20/2021 Time: 23:52 Bed 3 Private MD: Diagnosis: Hyperkalemia;Muscle weakness (generalized) Presentation: 12/20 23:52 Chief complaint: EMS states: EMS toned out for generalized weakness, on scent BP was ll3 140/90, en route BP was 224/110, pt states dialysis is scheduled for tomorrow morning. Coronavirus screen: Vaccine status: Patient reports receiving the 2nd dose of the covid vaccine. At this time, the client does not indicate any symptoms associated with coronavirus-19. Ebola Screen: No symptoms or risks identified at this time. Initial Sepsis Screen: Does the patient meet any 2 criteria? No. Patient's initial sepsis screen is negative. Does the patient have a suspected source of infection? No. Patient's initial sepsis screen is negative. Risk Assessment: Do you want to hurt yourself or someone else? Patient reports no desire to harm self or others. Onset of symptoms was December 20, 2021. 23:52 Method Of Arrival: EMS: [facility] ll3 23:52 Acuity: JAQUELIN 2 ll3 23:52 Care prior to arrival: Glucose check: 111. ll3 Triage Assessment: 23:56 General: Appears comfortable, Behavior is calm, cooperative. Pain: Denies pain. Neuro: ll3 Level of Consciousness is awake, alert, obeys commands, Oriented to person, place, time, situation. Cardiovascular: Patient's skin is warm and dry. Cardiovascular: Dialysis shunt: in the right arm. Respiratory: Respiratory effort is even, unlabored, Respiratory pattern is regular, symmetrical. Derm: Skin is pink, warm \\T\\ dry. Historical: - Allergies: 23:56 No Known Allergies; ll3 - Immunization history:: Client reports receiving the 2nd dose of the Covid vaccine. - Social history:: Smoking status: Patient denies any tobacco usage or history of. Screenin/12 01:21 Abuse screen: Denies threats or abuse. Nutritional screening: No deficits noted. al4 Tuberculosis screening: No symptoms or risk factors identified. 04:36 Fall Risk No fall in past 12 months (0 pts). IV access (20 points). Ambulatory Aid- al4 Crutches/Cane/Walker (15 pts). Gait- Normal/Bed Rest/Wheelchair (0 pts) Mental Status- Oriented to own ability (0 pts). Total Naqvi Fall Scale indicates Low Risk Score (25-44 pts). Fall prevention measures have been instituted. Side Rails Up X 2 Placed close to Nursing Station. Assessment: 00:36 General: Appears in no apparent distress. uncomfortable, Behavior is calm, cooperative, al4 patient reports weakness of arms and legs . Neuro: Level of Consciousness is awake, alert, obeys commands, Oriented to person, place, time, situation. Cardiovascular: Capillary refill < 3 seconds Patient's skin is warm and dry. Respiratory: Airway is patent Respiratory effort is unlabored, Respiratory pattern is regular. 00:36 Reassessment: patient is a dialysis patient. last dialysis treatment on Monday. al4 patient has fistula on R arm. 01:58 Reassessment: Lauren from lab at bedside drawing blood cultures. al4 03:00 Reassessment: Patient is alert, oriented x 3, equal unlabored respirations, skin al4 warm/dry/pink. 04:26 Reassessment: Patient is alert, oriented x 3, equal unlabored respirations, skin al4 warm/dry/pink. Patient states symptoms have improved. patient states he is feeling stronger in his arms and legs. . 04:30 Reassessment: patient states he does not make urine, but will occasionally urinate in al4 the shower. 06:35 Reassessment: Josefa Jay - Sister: [phone]. al4 06:41 Reassessment: Report given to SONIYA Bautista. al4 Vital Signs: 12/20 23:52 BP 220 / 98; Pulse 92; Temp 97.6(O); Pulse Ox 99% on R/A; Weight 122.47 kg (R); Height ll3 5 ft. 8 in. (172.72 cm) (R); 12/21 00:00 BP 187 / 82; Pulse 90; Resp 22 S; Pulse Ox 99% on R/A; Pain 0/10; al4 00:53 BP 184 / 87; Pulse 84; Resp 16 S; Pulse Ox 95% on R/A; Pain 0/10; al4 01:16 BP 177 / 83; Pulse 83; Resp 16 S; Pulse Ox 98% on R/A; Pain 0/10; al4 02:30 BP 168 / 72; Pulse 61; Resp 16 S; Pulse Ox 100% on R/A; al4 12/20 23:52 Body Mass Index 41.05 (122.47 kg, 172.72 cm) ll3 ED Course: 12/20 23:52 Patient arrived in ED. ll3 23:55 Triage completed. ll3 23:56 Arm band placed on Patient placed in an exam room, on a stretcher, on playground monitor, ll3 on pulse oximetry. 23:57 Amadeo Chacko PA is PHCP. cp 23:57 Joselito Lopez MD is Attending Physician. cp 12/21 00:24 XRAY Chest (1 view) In Process Unspecified. EDMS 00:36 Bed in low position. environmental monitoring specialist on. Pulse ox on. NIBP on. al4 00:38 CT Head Brain wo Cont In Process Unspecified. EDMS 01:09 Lactate Sent. al4 01:09 Procalcitonin Sent. al4 01:09 Maintain EMS IV. Dressing intact. Good blood return noted. Site clean \\T\\ dry. Gauge \\T\\ al 4 site: 20G L AC. 01:21 COVID-19/FLU A+B (Document "Date of Onset" if Symptomatic) Sent. al4 02:21 Andrea Peña is Hospitalizing Provider. cp 02:22 Rodrigo Owens MD is Hospitalizing Provider. cp 03:29 Angus Cifuentes is Primary Nurse. al4 04:36 No provider procedures requiring assistance completed. Patient admitted, IV remains in al4 place. Administered Medications: 02:20 Drug: Metoprolol 5 mg Route: IVP; Site: left antecubital; lp1 04:08 Follow up: Response: No adverse reaction lp1 02:30 Drug: Albuterol 2.5 mg Route: Inhalation; lp1 02:30 Drug: Calcium Gluconate 1 grams Route: IVPB; Infused Over: 60 mins; Site: left lp1 antecubital; 03:35 Follow up: IV Status: Completed infusion; IV Intake: 50ml lp1 02:32 Not Given (Physician Discretion): Lasix (furosemide) 60 mg IVP once; give over 2 minuteslp1 02:59 Drug: Kayexalate (polystyrene) 45 grams Route: PO; lp1 04:15 Drug: D5W 1000 ml, Sodium Bicarbonate 150 mEq {Note: Mixed with SONIYA Pritchett .} Route: IV; al4 Rate: 50 ml/hr; Site: left antecubital; 04:35 Follow up: Response: No adverse reaction; IV Status: Infusion continued upon admission al4 Intake: 03:35 IV: 50ml; Total: 50ml. lp1 Outcome: 02:23 Decision to Hospitalize by Provider. cp 04:36 Admitted to ER Hold. Please see [facility] for further documentation. al4 04:36 Condition: stable 04:36 Instructed on the need for admit, Demonstrated understanding of instructions. 07:18 Patient left the ED. jl7 Signatures: Dispatcher [employer] EDMS Leah Dickinson RN RN lp1 Amadeo Chacko PA PA cp Leal, Jahala RN RN jl7 Jennifer Zarate RN RN 3 Angus Cifuentes al4 Corrections: (The following items were deleted from the chart) 04:25 00:36 General: Appears in no apparent distress. uncomfortable, Behavior is calm, al4 cooperative, al4 05:41 04:40 Reassessment: patient states he does not make urine, but will occasionally al4 urinate in the shower al4 05:43 04:36 Fall Risk No fall in past 12 months (0 pts). IV access (20 points). Ambulatory al4 Aid- None/Bed Rest/Nurse Assist (0 pts). Gait- Normal/Bed Rest/Wheelchair (0 pts) Mental Status- Oriented to own ability (0 pts). Total Naqvi Fall Scale indicates No Risk (0-24 pts). al4
--- NOTE | 2021-12-21 02:24 | EDPHYS ---
Physician Documentation [facility] Name: Sunil Hong Age: 66 yrs Sex: Male : 1955 Arrival Date: 12/20/2021 Time: 23:52 Bed 3 Private MD: ED Physician Joselito Lopez HPI: 12/21 00:30 This 66 yrs old Male presents to ER via EMS with complaints of General cp Weakness. 00:30 The patient's problem is reported as weakness, that is generalized. cp 00:30 Onset: The symptoms/episode began/occurred today. cp 00:30 Duration: The episode is continuous. Context: occurred at home. Patient's baseline: cp Neuro: alert and fully oriented, Motor: no deficits, Ambulation: walks with assist only, uses walker, Speech: normal. 00:30 Associated signs and symptoms: Pertinent negatives: abdominal pain, chest pain, cp confusion, headache, fever. 00:30 Severity of symptoms: in the emergency department the symptoms are unchanged despite cp home interventions. Historical: - Allergies: 12/20 23:56 No Known Allergies; ll3 - Immunization history:: Client reports receiving the 2nd dose of the Covid vaccine. - Social history:: Smoking status: Patient denies any tobacco usage or history of. ROS: 12/21 00:35 Constitutional: Negative for body aches, chills, fever, poor PO intake. cp 00:35 Eyes: Negative for injury, pain, redness, and discharge. cp 00:35 ENT: Negative for drainage from ear(s), ear pain, sore throat, difficulty swallowing, difficulty handling secretions. 00:35 Cardiovascular: Negative for chest pain, palpitations. 00:35 Respiratory: Negative for cough, shortness of breath, wheezing. 00:35 Abdomen/GI: Negative for abdominal pain, vomiting, diarrhea, constipation. 00:35 Skin: Negative for rash. 00:35 Neuro: Positive for general weakness, Negative for altered mental status, dizziness, headache, syncope. 00:35 All other systems are negative. Exam: 00:40 Constitutional: The patient appears in no acute distress, alert, awake, cp non-diaphoretic, non-toxic, well developed, well nourished. 00:40 Head/Face: Normocephalic, atraumatic. cp 00:40 Eyes: Periorbital structures: appear normal, Conjunctiva: normal, no exudate, no injection, Sclera: no appreciated abnormality, Lids and lashes: appear normal, bilaterally. 00:40 ENT: External ear(s): are unremarkable, Nose: is normal, Mouth: Lips: moist, Oral mucosa: moist, Posterior pharynx: Airway: no evidence of obstruction, patent. 00:40 Neck: ROM/movement: is normal, is supple, without pain, no range of motions limitations. 00:40 Chest/axilla: Inspection: normal. 00:40 Cardiovascular: Rate: normal, Rhythm: regular, Edema: is not appreciated, JVD: is not appreciated. 00:40 Respiratory: the patient does not display signs of respiratory distress, Respirations: normal, no use of accessory muscles, no retractions, labored breathing, is not present, Breath sounds: are clear throughout, no decreased breath sounds, no stridor, no wheezing. 00:40 Abdomen/GI: Inspection: abdomen appears normal, Palpation: abdomen is soft and non-tender, in all quadrants. 00:40 Neuro: Orientation: to person, place \\T\\ time. Mentation: is normal, Cerebellar function: Romberg testing is negative, Motor: moves all fours, general weakness with no focal deficits, Sensation: no obvious gross deficits. 01:20 ECG was reviewed by the Attending Physician. cp 01:50 Radiologist reports: no acute findings cp Vital Signs: 12/20 23:52 BP 220 / 98; Pulse 92; Temp 97.6(O); Pulse Ox 99% on R/A; Weight 122.47 kg (R); Height ll3 5 ft. 8 in. (172.72 cm) (R); 12/21 00:00 BP 187 / 82; Pulse 90; Resp 22 S; Pulse Ox 99% on R/A; Pain 0/10; al4 00:53 BP 184 / 87; Pulse 84; Resp 16 S; Pulse Ox 95% on R/A; Pain 0/10; al4 01:16 BP 177 / 83; Pulse 83; Resp 16 S; Pulse Ox 98% on R/A; Pain 0/10; al4 02:30 BP 168 / 72; Pulse 61; Resp 16 S; Pulse Ox 100% on R/A; al4 12/20 23:52 Body Mass Index 41.05 (122.47 kg, 172.72 cm) ll3 MDM: 00:08 Patient medically screened. 01:00 Differential diagnosis: CVA, TIA, metabolic disorder, drug effects. 02:20 Data reviewed: vital signs, nurses notes, lab test result(s), EKG, radiologic studies, CT scan, plain films, and as a result, I will admit patient. 02:20 Physician consultation: Andrea Peña was contacted at 02:15, regarding admission, to the telemetry unit. patient's condition, and will see patient in ED, shortly. 04 00:10 Order name: Basic Metabolic Panel; Complete Time: 02:18 12/21 02:19 Interpretation: Normal except: K 8.2; BUN 66; CRE 9.00; GFR 6. 12/21 00:10 Order name: CBC with Diff; Complete Time: 01:22 12/21 01:47 Interpretation: Normal except: RBC 3.50; HGB 11.6; HCT 35.6; MCV 101.8. 12/21 00:10 Order name: LFT's; Complete Time: 02:18 cp 12/21 02:19 Interpretation: Normal except: ALK 126; GLOB 4.0; A/G 1.0. 12/21 00:10 Order name: Magnesium; Complete Time: 02:18 12/21 02:19 Interpretation: MG <p>3.0</p>; Reviewed. 12/21 00:10 Order name: PT-INR; Complete Time: 01:47 12/21 01:56 Interpretation: Reviewed. 12/21 00:10 Order name: Troponin HS; Complete Time: 02:18 12/21 00:10 Order name: XRAY Chest (1 view) cp 12/21 00:10 Order name: CT Head Brain wo Cont cp 12/21 00:10 Order name: Procalcitonin; Complete Time: 01:49 12/21 01:56 Interpretation: Reviewed. 12/21 00:10 Order name: Lactate; Complete Time: 01:47 12/21 01:57 Interpretation: Reviewed. 12/21 00:10 Order name: Blood Culture Adult (2) 12/21 00:10 Order name: COVID-19/FLU A+B (Document "Date of Onset" if Symptomatic); Complete Time: 01:56 12/21 01:56 Interpretation: Reviewed. 12/21 04:05 Order name: Basic Metabolic Panel; Complete Time: 05:10 EDMS 12/21 00:10 Order name: EKG; Complete Time: 00:11 12/21 00:10 Order name: Cardiac monitoring; Complete Time: 01: 12/21 00:10 Order name: EKG - Nurse/Tech; Complete Time: 01: 12/21 00:10 Order name: IV Saline Lock; Complete Time: : 12/21 00:10 Order name: Labs collected and sent; Complete Time: : 12/21 00:10 Order name: O2 Per Protocol; Complete Time: : 12/21 00:10 Order name: O2 Sat Monitoring; Complete Time: : EC:20 Rate is 78 beats/min. Rhythm is regular. QRS interval is prolonged. QT interval is cp normal. T waves are Peaked in leads I, II, V1, V2. Interpreted by me. Reviewed by me. Administered Medications: 02:20 Drug: Metoprolol 5 mg Route: IVP; Site: left antecubital; lp1 04:08 Follow up: Response: No adverse reaction lp1 02:30 Drug: Albuterol 2.5 mg Route: Inhalation; lp1 02:30 Drug: Calcium Gluconate 1 grams Route: IVPB; Infused Over: 60 mins; Site: left lp1 antecubital; 03:35 Follow up: IV Status: Completed infusion; IV Intake: 50ml lp1 02:32 Not Given (Physician Discretion): Lasix (furosemide) 60 mg IVP once; give over 2 minuteslp1 02:59 Drug: Kayexalate (polystyrene) 45 grams Route: PO; lp1 04:15 Drug: D5W 1000 ml, Sodium Bicarbonate 150 mEq {Note: Mixed with SONIYA Pritchett .} Route: IV; al4 Rate: 50 ml/hr; Site: left antecubital; 04:35 Follow up: Response: No adverse reaction; IV Status: Infusion continued upon admission al4 Disposition: 19:16 Co-signature as Attending Physician, Joselito Lopez MD. mh7 Disposition Summary: 12/21/21 02:23 Hospitalization Ordered Hospitalization Status: Observation cp Provider: Rodrigo Owens cp Condition: Fair cp Problem: new cp Symptoms: are unchanged cp Bed/Room Type: Standard cp Location: Intensive Care Unit(12/21/21 05:52) mw Room Assignment: 3-(12/21/21 05:52) mw Diagnosis - Hyperkalemia cp - Muscle weakness (generalized) cp Forms: - Medication Reconciliation Form cp - SBAR form cp Signatures: Dispatcher [employer] EDRosa Hebert RN RN Leah Dickinson RN RN 1 Andrea Peña, CABLE TESTER-C CABLE TESTER-Cla1 Amadeo Chacko PA PA cp Joselito Lopez MD MD mh7 Jennifer Zarate RN RN 3 Angus Cifuentes Corrections: (The following items were deleted from the chart) 02:26 02:23 Telemetry/MedSurg (observation) cp mw 02:26 02:23 cp mw 05:52 02:26 [facility] ER HOLD mw mw 05:52 02:26 ERHOLD- mw mw
--- NOTE | 2021-12-21 02:36 | P.HP ---
Certification for Inpatient Patient admitted to: Observation With expected LOS: <2 Midnights Patient will require the following post-hospital care: None Practitioner: I am a practitioner with admitting privileges, knowledge of patient current condition, hospital course, and medical plan of care. Services: Services provided to patient in accordance with Admission requirements found in Title 42 Section 412.3 of the Code of Federal Regulations Patient History Date of Service: 12/21/21 Primary Care Provider: Dr. pardo, Nephrology Dr. Bunch Reason for admission: Hyperkalemia, ESRD History of Present Illness: 66-year-old male with history of ESRD on HD TTS, CAD status post CABG, hyperlipidemia hypothyroidism presents the emergency department for generalized weakness that started this evening. Patient reports that he did complete dialysis on Monday but was not compliant with his diet throughout the weekend, did eat some potato chips he reports. Patient was evaluated in the emergency department his EKG demonstrated peaked T waves his labs demonstrated an elevated potassium of 8.2 with slight hemolysis creatinine 9 GFR 6 BUN 66 mild macrocytic anemia. As x-ray was negative for any acute findings blood pressure elevated 170/86 heart rate 61. ED provider reaching out to nephrology group at this time to arrange for urgent dialysis he did receive the Lasix, calcium gluconate, Kayexalate, insulin/dextrose in the emergency department. ED provider wishes to admit for further evaluation and management. Allergies No Known Allergies Allergy (Verified 04/14/20 17:17) Home Medications: Tamsulosin [Flomax*] 0.4 mg PO BEDTIME #30 cap 10/13/17 Aspirin Chewable [Aspirin Chewable*] 81 mg PO DAILY 10/27/18 Calcium Acetate [Phoslo*] 1 mg PO TIDWM 10/27/18 Docusate [Colace Cap*] 100 mg PO DAILY 10/27/18 Atorvastatin Calcium [Lipitor] 80 mg PO BEDTIME #30 tab 11/09/18 Clopidogrel Bisulfate [Plavix*] 75 mg PO DAILY #30 tablet 11/09/18 Epoetin [Procrit*] 10,000 unit SQ EVERY HD vial 11/09/18 Ferrous Sulfate 325 mg PO BID #60 tablet 11/09/18 Levothyroxine [Synthroid*] 88 mcg PO [id number] #30 tablet 11/09/18 Metoprolol Tartrate [Lopressor*] 12.5 mg PO BID 6AM 6PM #30 tab 11/09/18 Midodrine HCl 10 mg PO DAILY #30 tablet 11/09/18 Pantoprazole [Protonix Tab*] 40 mg PO DAILY #30 tab 11/09/18 traMADol HCL [Ultram*] 50 mg PO Q6H PRN #60 tab 11/09/18 - Past Medical/Surgical History Diabetic: No -: ESRD-HD TTHS -: HTN -: Diabetes mellitus type 2 -: Hypothyroidism -: BPH -: GERD -: Iron deficiency anemia -: CAD/CABG x4 vessel -: Obesity, -: Orthostatic hypotension on midodrine -: Chronic left pleural effusion -: Cataract -: CABG x4 vessel Psychosocial/ Personal History: Patient is . - Family History Brother -: Kidney disease Father -: Heart disease, Lung disease, Diabetes Sister -: Diabetes, Liver disease - Social History Alcohol use: No CD- Drugs: No Caffeine use: Yes Place of Residence: Home Review of Systems 10-point ROS is otherwise unremarkable General: Weakness, Malaise, As per HPI Physical Examination - Physical Exam General: Alert, In no apparent distress, Oriented x3 HEENT: Atraumatic, PERRLA, Mucous membr. moist/pink, EOMI, Sclerae nonicteric Neck: Supple, 2+ carotid pulse no bruit, No LAD, Without JVD or thyroid ab normality Respiratory: Clear to auscultation bilaterally, Normal air movement Cardiovascular: Regular rate/rhythm, Normal S1 S2 Gastrointestinal: Normal bowel sounds, No tenderness Musculoskeletal: No tenderness Integumentary: No rashes Neurological: Normal speech, Normal strength at 5/5 x4 extr, Normal tone, Normal affect - Studies Laboratory Data (last 24 hrs) 12/21/21 01:06: PT 11.1, INR 1.01 12/21/21 01:06: WBC 7.3, Hgb 11.6 L, Hct 35.6 L, Plt Count 159 12/21/21 01:06: Sodium 138, Potassium 8.2 H*, BUN 66 H, Creatinine 9.00 H*, Glucose 99, Magnesium 3.0, Total Bilirubin 0.4, AST 24, ALT 25, Alkaline Phosphatase 126 H Assessment and Plan - Plan Assessment: ESRD on HD with hyperkalemia CAD status post CABG Hypertension Hypothyroidism GERD Plan: ESRD on HD with hyperkalemia: Potassium 8.2 with mild hemolysis EKG does demonstrate peaked T waves patient given potassium cocktail in the emergency department nephrology paged. Patient reports he did receive dialysis on Monday. CAD status post CABG: Stable, obtain and continue home medications Hypertension: Stable, obtain and continue home medications Hypothyroidism: obtain and continue home medications GERD: Daily Protonix DVT PPX: Heparin Code status:full Discharge Plan: Home Plan to discharge in: 24 Hours - Advance Directives Does patient have a Living Will: No Does patient have a Durable POA for Healthcare: No - Code Status/Comfort Care Code Status Assessed: Yes (Full code) Critical Care: No Time Spent Managing Pts Care (In Minutes): 55
[2021-12-21] MEDS ORDERED: ONDANSETRON 4 MG/2 ML VIAL IV PRN (03:48)
[2021-12-21] MEDS ORDERED: D5W 1,000 ML with NA BICARB 8.4% 150 MEQ IV SCH ×2 (03:48)
[2021-12-21] MEDS ORDERED: D5W 1,000 ML IV ONE (04:03)
[2021-12-21] MEDS ORDERED: D50W 25 GM/50 ML SYRINGE IV ONE (06:59)
[2021-12-21] MEDS ORDERED: ALBUTEROL 2.5 MG/3 ML NEB SOL NEB ONE (06:59)
[2021-12-21] MEDS ORDERED: CALCIUM GLUC 10% INJ 9.3 MEQ in NA CHLORIDE 0.9% 100 ML IV ONE (06:59)
[2021-12-21] MEDS ORDERED: SOD POLYSTYREN SUL 15 GM/60 ML UCUP PO ONE (06:59)
[2021-12-21] MEDS ORDERED: INSULIN -REGULAR HUMAN 50 UNIT/0.5 ML ML SQ ONE (07:00)
[2021-12-21] MEDS ORDERED: CALCIUM GLUCONATE 1 GM IVPB 1 GM/50 ML BAG IV SCH (07:15)
[2021-12-21] MEDS ORDERED: PNEUMOCOCCAL VACCINE 0.5 ML IMVAC ONE (08:00)
[2021-12-21] MEDS ORDERED: HEPARIN 5000 UNIT/ML 1 ML VIAL SQ SCH (09:00)
--- NOTE | 2021-12-21 12:05 | P.DS ---
Admission Date: 12/21/21 Discharge Date: 12/21/21 Primary Care Provider: Dr. pardo, Nephrology Dr. Bunch Disposition: ROUTINE DISCHARGE Discharge Condition: GOOD Reason for Admission: Hyperkalemia, ESRD Brief History of Present Illness: 66-year-old male with history of ESRD on HD TTS, CAD status post CABG, hyperlipidemia hypothyroidism presents the emergency department for generalized weakness that started this evening. Patient reports that he did complete dialysis on Monday but was not compliant with his diet throughout the weekend, did eat some potato chips he reports. Patient was evaluated in the emergency department his EKG demonstrated peaked T waves his labs demonstrated an elevated potassium of 8.2 with slight hemolysis creatinine 9 GFR 6 BUN 66 mild macrocytic anemia. As x-ray was negative for any acute findings blood pressure elevated 170/86 heart rate 61. ED provider reaching out to nephrology group at this time to arrange for urgent dialysis he did receive the Lasix, calcium gluconate, Kayexalate, insulin/dextrose in the emergency department. ED provider wishes to admit for further evaluation and management. Hospital Course: He had urgent dialysis as per nephrology and is deemed stable clinically. His hyperkalemia episode was due to poor dietary compliance and this was addressed while on this admission. Dietary compliance was reinforced. He will be discharged home today to continue his routine outpatient dialysis as per nephrology schedule. He will follow-up with his primary doctor and nephrology on outpatient dialysis. Vital Signs/Physical Exam: Temp Pulse Resp BP Pulse Ox 97.6 F 70 13 132/78 96 12/21/21 06:28 12/21/21 06:28 12/21/21 06:28 12/21/21 06:28 12/21/21 06:28 General: Alert, Oriented x3 HEENT: Atraumatic, Normocephalic Neck: Supple Respiratory: Normal air movement Cardiovascular: Regular rate/rhythm, Normal S1 S2 Gastrointestinal: Soft and benign Musculoskeletal: No swelling Neurological: Normal speech, Normal strength at 5/5 x4 extr Laboratory Data at Discharge: WBC 7.3 K/uL (4.3-10.9) 12/21/21 01:06 Hgb 11.6 g/dL (13.6-17.9) L 12/21/21 01:06 Hct 35.6 % (39.6-49.0) L 12/21/21 01:06 Plt Count 159 K/uL (152-406) 12/21/21 01:06 PT 11.1 SECONDS (9.5-12.5) 12/21/21 01:06 INR 1.01 12/21/21 01:06 Sodium 138 mmol/L (136-145) 12/21/21 01:54 Potassium 8.0 mmol/L (3.5-5.1) H* 12/21/21 01:54 BUN 66 mg/dL (7-18) H 12/21/21 01:54 Creatinine 9.00 mg/dL (0.55-1.3) H* 12/21/21 01:54 Glucose 96 mg/dL (74-106) 12/21/21 01:54 Magnesium 3.0 12/21/21 01:06 Total Bilirubin 0.4 mg/dL (0.2-1.0) 12/21/21 01:06 AST 24 U/L (15-37) 12/21/21 01:06 ALT 25 U/L (12-78) 12/21/21 01:06 Alkaline Phosphatase 126 U/L (45-117) H 12/21/21 01:06 Home Medications: Tamsulosin [Flomax*] 0.4 mg PO BEDTIME #30 cap 10/13/17 Aspirin Chewable [Aspirin Chewable*] 81 mg PO DAILY 10/27/18 Calcium Acetate [Phoslo*] 1 mg PO TIDWM 10/27/18 Docusate [Colace Cap*] 100 mg PO DAILY 10/27/18 Atorvastatin Calcium [Lipitor] 80 mg PO BEDTIME #30 tab 11/09/18 Clopidogrel Bisulfate [Plavix*] 75 mg PO DAILY #30 tablet 11/09/18 Epoetin [Procrit*] 10,000 unit SQ EVERY HD vial 11/09/18 Ferrous Sulfate 325 mg PO BID #60 tablet 11/09/18 Levothyroxine [Synthroid*] 88 mcg PO [id number] #30 tablet 11/09/18 Metoprolol Tartrate [Lopressor*] 12.5 mg PO BID 6AM 6PM #30 tab 11/09/18 Midodrine HCl 10 mg PO DAILY #30 tablet 11/09/18 Pantoprazole [Protonix Tab*] 40 mg PO DAILY #30 tab 11/09/18 traMADol HCL [Ultram*] 50 mg PO Q6H PRN #60 tab 11/09/18 Diet: Renal Followup: Brandyn Pardo, [Primary Care Provider] -
[2021-12-21] MEDS ORDERED: CALCIUM CARBONATE CHEW 500MG TAB PO SCH (12:23)
[2021-12-21] MEDS ORDERED: CALCIUM ACETATE 667 MG TAB PO SCH (13:00)
[2021-12-21 14:44] VITALS: O2SAT 96; BMI 40.7
--- NOTE | 2021-12-21 15:39 | CON ---
Date of Consultation: 12/21/2021 Reason For Consultation: Elevated BUN and creatinine, hyperkalemia, fluid over volume. History Of Present Illness: This is a pleasant 66-year-old gentleman, well known to me from dialysis with significant past medical history of end-stage renal disease, on dialysis, TTS. Last dialysis w as Monday. According to the patient, the patient over the weekend has been eating potato chips. T he patient after that went to home, at home felt some tremor and shortness of breath. For that reaso n, the patient was brought to the hospital. Upon arrival to the hospital, the patient found to have hyperkalemia with potassium of 8. The patient underwent urgent dialysis, tolerated the dialysis. Th e patient was dialyzed on low-potassium bath. We managed to remove 2.5 L. Currently, the patient of f oxygen, but is still feeling weak. Past Medical History: Includes; 1.Diabetes complicated with neuropathy, retinopathy, and nephropathy. 2.Hypertension. 3.Hyperlipidemia. 4.End-stage renal disease, on hemodialysis. Past Surgical History: Includes AV fistula creation. Allergies: NO KNOWN DRUGS ALLERGY. Social History: Lives with family. Denied smoking. Denied drinking. Denied drugs abuse. Home Medications: Include tramadol, Flomax, pantoprazole, midodrine, levothyroxine, Epogen, Plavix, PhosLo, atorvastatin, and aspirin. Current Medications In The Hospital: Include heparin, Zofran. Review of Systems: Head and Neck: No red eye. No ear pain. GI: No nausea. No vomiting. : No polyuria. No dysuria. No hematuria. [place]: Not applicable. Respiratory: Has shortness of breath. Cardiovascular: No chest pain. Endocrine: No polydipsia. Skin: No rash. Neuro: Has tremor. Musculoskeletal: Generalized fatigue. Physical Examination: Vital Signs: Blood pressure 132/78, pulse of 70, afebrile. Chest: Crackles in the base. Heart: S1, S2. Systolic murmur. Abdomen: Soft, nontender. Morbidly obese. Could not appreciate any organomegaly. Extremities: Trace edema. Neurologic: Alert. No focality. Laboratory Data: Upon arrival to the hospital; potassium 8.2, creatinine 9. Latest lab data at 2 o' clock in the morning before the dialysis; sodium 138, potassium 8, bicarb 27, BUN 66, creatinine 9, c alcium 9.1. WBC 7.3, H and H 11.6/35.6. Current Medications: The patient on include; 1.PhosLo. 2.Zofran. Assessment And Plan: 1.End-stage renal disease with hyperkalemia and over volume, status post dialysis. The patient was dialyzed on low-potassium bath and challenged with 2.5 L of fluid removal. Tolerated very well. Cur rently on room air. We will repeat chemistry if potassium normalized. The patient okay from the [place] al standpoint for discharge planning. Otherwise, we need to re-evaluate. 2.Hypertension, currently hypotension, dependent on midodrine. We will continue p.r.n. midodrine. 3.Diabetes as by primary. 4.Hyperkalemia secondary to poor compliant, end-stage renal disease. Reinforced low-potassium diet and the patient is status post dialysis on low potassium bath. We will follow up potassium after uli lysis. 5.Over volume, status post challenge. The patient currently on room air, normal volume. We will fo llow up. Thank you, Dr. Owens for allowing us to participate in the care of your patient. TIGIST/ANA Voice ID: [id number] Report ID: [id number]
--- NOTE | 2021-12-21 16:46 | RAD REPORT ---
EXAM DESCRIPTION: RAD - Chest Single View - 12/21/2021 12:22 am CLINICAL HISTORY: 66 years, Male, weakness COMPARISON: None. FINDINGS: Single view of the chest was obtained portable. No prior films are available for compariso n. The lung volume is slightly decreased. The cardiomediastinal silhouette demonstrate to be unrema rkable. The heart is not enlarged. The thoracic aorta is tortuous with intimal calcification. Kelley otomy wires and pericardiac clips correspond to previous CABG. Costophrenic angles are sharp. No ar eas of consolidation or masses are seen. The rest of the soft tissue and bony structures demonstrat e to be unremarkable. IMPRESSION: No acute cardiopulmonary disease. Status post CABG. Electronically signed by: Rocky Jackson MD 12/21/2021 12:43 AM CDT Due to temporary technical issues with the PACS/Fluency reporting system, reports are being signed by the in house radiologists without review as a courtesy to insure prompt reporting. The interpreting radiologist is fully responsible for the content of the report.
--- NOTE | 2021-12-21 16:47 | RAD REPORT ---
EXAM DESCRIPTION: CT - Head Brain Wo Cont - 12/21/2021 7:03 am CLINICAL HISTORY: 66 years, Male, WEAKNESS COMPARISON: None. FINDINGS: Multiple transaxial tomograms of the brain were obtained from the base of the skull to the vertex without contrast. 2-D multiplanar reformats and the coronal and sagittal plane were performed and reviewed. This exam was performed according to our departmental dose-optimization protocol, which includes auto mated exposure control, adjustment of the mA and/or kV according to patient size and/or use of iterat adrian reconstruction technique. Brain parenchyma demonstrate mild prominence of the sulci and gyri are corresponding to mild cerebral and cerebellar atrophy. There is very minimal periventricular white matter changes of microvascular ischemia. There is no midline shift and/or mass effect. There is no evidence for acute intracranial h emorrhage. Lateral ventricles and cisterns displace normal appearance. No intra or extra axial fl uid collections were seen. The calvarium is intact with no evidence for fracture. The visualized port ions of the paranasal sinuses and orbits demonstrate to be clear. IMPRESSION: MILD BRAIN ATROPHY WITH MINIMAL PERIVENTRICULAR MATTER CHANGES OF MICROVASCULAR ISCHEMIA . NO ACUTE INTRACRANIAL HEMORRHAGE. Electronically signed by: Rocky Jackson MD 12/21/2021 12:48 AM CDT Due to temporary technical issues with the PACS/Fluency reporting system, reports are being signed by the in house radiologists without review as a courtesy to insure prompt reporting. The interpreting radiologist is fully responsible for the content of the report.
[2021-12-21 17:05] VITALS: BP 171/75; TEMP 96.8
--- NOTE | 2021-12-22 11:02 | EKG ---
Test Date: 2021-12-21 Test Time: 01:15:20 Community Affairs Director: NATALIE MEASUREMENT RESULTS: Intervals: Rate: 155 CA: QRSD: 4 QT: 182 QTc: 292 [place]: P: 206 CA: QRS: 0 T: 203 INTERPRETIVE STATEMENTS: Atrial flutter with variable AV block with premature ventricular or aberrantly conducted complexes Indeterminate axis Pulmonary disease pattern ST & T wave abnormality, consider inferior ischemia ST & T wave abnormality, consider anterior ischemia Abnormal ECG Compared to ECG 04/14/2020 15:41:50 Ventricular premature complex(es) now present First degree AV block no longer present Right bundle-branch block no longer present Myocardial infarct finding no longer present Electronically Signed On 12-22-21 10:57:54 CDT by Cuauhtemoc Tello
== END 2021-12-21 16:50 | disposition home or self-care (01) ==
LOC: ER 23:44 → ERHOLD 12-21 02:26 → 3RD-ICU 12-21 08:24
PROVIDERS: ADMIT Internal Medicine Nephrology; ATTEND Internal Medicine Nephrology
DX: E87.5 Hyperkalemia (principal); I12.0 Hypertensive chronic kidney disease with stage 5 chronic kidney disease or end stage renal disease; E11.22 Type 2 diabetes mellitus with diabetic chronic kidney disease; N18.6 End stage renal disease; Z99.2 Dependence on renal dialysis; E03.9 Hypothyroidism, unspecified; E87.70 Fluid overload, unspecified; K21.9 Gastro-esophageal reflux disease without esophagitis; D50.9 Iron deficiency anemia, unspecified; N40.0 Benign prostatic hyperplasia without lower urinary tract symptoms; I95.1 Orthostatic hypotension; I25.10 Atherosclerotic heart disease of native coronary artery without angina pectoris; E11.40 Type 2 diabetes mellitus with diabetic neuropathy, unspecified; E11.319 Type 2 diabetes mellitus with unspecified diabetic retinopathy without macular edema; E11.21 Type 2 diabetes mellitus with diabetic nephropathy; R01.1 Cardiac murmur, unspecified; E78.5 Hyperlipidemia, unspecified; M62.81 Muscle weakness (generalized); E66.01 Morbid (severe) obesity due to excess calories; Z68.41 Body mass index [BMI] 40.0-44.9, adult; Z91.11 Patient's noncompliance with dietary regimen; Z20.822 Contact with and (suspected) exposure to COVID-19; Z95.1 Presence of aortocoronary bypass graft; Z79.82 Long term (current) use of aspirin; Z79.02 Long term (current) use of antithrombotics/antiplatelets; Z79.899 Other long term (current) drug therapy; Z82.49 Family history of ischemic heart disease and other diseases of the circulatory system; Z83.3 Family history of diabetes mellitus
CPT/HCPCS: 93005; 87040 ×2; 85025; 80048 ×2; 36415; 83735; 84132; 85610; 80076; 83605; 84484; 84145; 0240U; 70450; 71045; 90935; 97116; 97161; J1940 ×2; J0610; 96365; 96367; 96375; 99285; G0378

== ENCOUNTER 2022-07-28 17:49 | Emergency (ER) | payer OTHER ==
--- OUTSIDE RECORDS SUMMARY | 2022-07-28 17:53 | XMS REPORT | Continuity of Care Document ---
:1955 Author Organization [facility] t Address [address] [place] [address] Care Team Providers Name Role Phone Brandyn Gamboa DO Primary Care Physician [phone] Brandyn Gamboa Attending Clinician Unavailable JOHN MERCEDES Attending Clinician Unavailable JOHN MERCEDES Admitting Clinician Unavailable Payers Payer Name Policy Type Policy Number Effective Date Expiration Date S feroz MEDICARE A B [id number] 2018 00:00:00 GENERIC MEDICARE [id number] 2019 SUPPLEMENT 00:00:00 Problems Condition Condition Condition Status Onset Resolution Last Treating Co mments Source Name Details Category Date Date Treatment Clinician Date Left Left Disease Active [facility] carotid carotid 9-16 [facility] artery artery 00:00: Medical stenosis stenosis 00 Center Hypertensi Hypertensi Disease Active C [facility] on on [facility] Carotid Carotid Disease Active [facility] artery artery [facility] occlusion occlusion [facility] Coronary Coronary Disease Active [facility] artery artery [facility] disease [facility] Hx of CABG Hx of CABG Disease Active C [facility] Hyperlipid Hyperlipid Disease Active C [facility] emia emia [facility] ESRD (end ESRD (end Disease Active [facility] stage stage [facility] renal renal Medical disease) disease) Center Allergies, Adverse Reactions, Alerts Allergy Allergy Status Severity Reaction(s) Onset Inactive Treating Comm ents Source Name Type Date Date Clinician NO KNOWN Allergy Active [facility] Family History Family Member Diagnosis Comments Start Date Stop Date Source Natural father COPD [facility] Natural father COPD [facility] Natural father Diabetes [facility] Natural father Heart disease [facility] Natural father Hyperlipidemia [facility] Natural mother No Known Problems Met [facility] Natural mother Cirrhosis [facility] Natural brother Kidney disease [facility] Natural brother Thyroid disease [facility] Natural brother Leukemia [facility] Natural sister Diabetes [facility] Natural sister Osteopenia [facility] Natural sister Osteoporosis [facility] Natural sister Cancer [facility] Natural sister Heart attack [facility] Social History Social Habit Start Date Stop Date Quantity Comments Source History SDOH [facility] St[facility] Drinks Hospit al History SDOH [facility] Binge Hospital History [facility] Alcohol Comment Medical C enter Tobacco use and 2020-05-20 2020-05-20 Never used [facility] exposure 00:00:00 00:00:00 Medical Center Alcohol intake 2019-05-01 2019-05-01 Ex-drinker [facility] 00:00:00 00:00:00 (finding) Hospital History SDOH 2019-04-29 2019-04-29 1 [facility] Alcohol Frequency 00:00:00 00:00:00 Hospita l Sex Assigned At [birth year] [facility] 00:00:00 00:00:00 Hospital Smoking Status Start Date Stop Date Source Never smoker [facility] Medications Ordered Filled Start Stop Current Ordering Indication Dosage Frequency Signature Comments Components Source Medication Medication Date Date Medication? Clinician (SIG) Name Name aspirin 2019-0 Yes 81mg QD Take [address] (ASPIR-LOW) 9-25 by mouth Luke s 81 MG EC 10:04: daily. Medical tablet 27 Center calcium 2020-0 Yes [address] carbonate 9-25 [facility] (OS-AAKASH) 10:04: Medical 500 mg 27 Center calcium (1,250 mg) chewable tablet gabapentin 2019-0 Yes 300mg Q.5D Take [address] (NEURONTIN) 9-25 mg by [facility] 300 MG 10:04: mouth 2 Medical capsule 27 (two) Center times daily . lidocaine-p Yes USE 3 [facility] t rilocaine 9-14 TIMES WEEK Jared s (EMLA) 00:00: ONE HOUR Medical 2.5-2.5 % 00 BEFORE Center cream DIALYSIS Levothyroxi Levothyroxi Yes Brandyn 1 tablet Common ne Sodium ne Sodium 7-30 Gamboa in the Sp kenan 00:00: morning on - [facility]I [address] stomach [facility] levothyroxi 2019-0 Yes 137ug QD Take [address] ne 7-30 mcg by silvio (SYNTHROID, 00:00: mouth Medic al LEVOTHROID) 00 every Center 137 MCG morning ON tablet AN EMPTY STOMACH. DIALYVITE Yes TAKE [address] 800-ULTRA D 6-06 TABLET BY Ludy es 0.8-2,000 00:00: MOUTH ONCE Me dical mg-unit Tab 00 A DAY. ON [address]enea ter DAYS OF DIALYSIS TREATMENT, TAKE AFTER TREATMENT midodrine Yes 10mg [id number] Take 10 mg [facility] (PROAMATINE 8-19 [id number] mouth 3 st ) 10 MG 12:37: 3W (three) Hospita tablet 31 times a l week. ferrous Yes 325mg Q.5D Take 325 Metho di sulfate 325 8-[address] (65 FE) MG 12:37: mouth 2 Hosp thomas tablet 31 (two) l times a day. pantoprazol Yes 40mg QD Take 40 mg Methodi e 8-[address] (PROTONIX) 12:37: daily. Hospi ta 40 MG EC 31 l tablet aspirin Yes 81mg QD Take 81 mg Meth erica (ECOTRIN) 8-[address] 81 MG 12:37: daily. Hospita enteric 31 l coated tablet atorvastati Yes 80mg QD Take 80 mg Methodi n (LIPITOR) 8-[address] 80 MG 12:37: daily. Hospita tablet 31 l levothyroxi Yes TAKE 1 Meth erica ne 8-[address] (SYNTHROID, 00:00: MOUTH Hospi ta LEVOXYL) 88 00 EVERY DAY l mcg tablet IN THE MORNING ON EMPTY STOMACH metoprolol Yes TAKE 1 Metho di tartrate 7-[address] (LOPRESSOR) 00:00: MOUTH Hospi ta 25 mg 00 TWICE A l tablet DAY AT 6 AM AND 6 PM tamsulosin Yes .4mg QD Take 0.4 Met hodi (FLOMAX) 7-[address] 0.4 mg 00:00: mouth Hospita capsule 00 nightly. l [id number] Yes 2{tbl} Q.5D Take 2 Meth erica 500 mg 7-[address] calcium 00:00: mouth 2 Hospita (1,250 mg) 00 (two) l tablet times a day. clopidogrel Yes 75mg QD Take 75 mg [facility] (PLAVIX) 75 5-[address] mg tablet 00:00: daily. Hospit a 00 l atorvastati Yes 80mg QD Take [address] n (LIPITOR) 2-15 by mouth Luke s 80 MG 00:00: nightly. Medical tablet [address] [place] [address] midodrine Yes 10mg Take [address] (PROAMATINE 2-15 by mouth 3 Jackelin kes ) 10 MG 00:00: (three) Medical tablet 00 times a Center week after dialysis MON/MON/ T. cholecalcif Yes QD Take by [facility] haim, 2- mouth [facility] vitamin D3, 00:00: daily. Medi aakash (VITAMIN [address] [place] [address] D3) 125 mcg (5,000 unit) capsule Vitamin B-1 Vitamin B-1 Yes Brandyn 1 tablet Common [facility] Vitamin D3 Vitamin D3 Yes Brandyn 1 capsule Common Maximum Maximum [facility] Strength Strength [facility] Plavix Plavix Yes Brandyn 1 tablet Commo n [facility] Epoetin Epoetin Yes Brandyn as Common Juvencio Juvencio [place] directed [facility] Ferrous Ferrous Yes Brandyn 1 tablet Com mon Sulfate Sulfate [facility] Protonix Protonix Yes Brandyn 1 tablet C ommon [facility] Midodrine Midodrine Yes Brandyn 1 tablet Common HCl HCl [facility] Atorvastati Atorvastati Yes Brandyn 1 tablet Common n Calcium n Calcium [place] [facility] it [facility] Metoprolol Metoprolol Yes Brandyn 1 tablet Common Tartrate Tartrate [place] with food S pirit [facility] Calcium Calcium Yes Brandyn 2 capsules C ommon Acetate Acetate [place] with meals kenan [facility] Docusate Docusate Yes Brandyn 1 capsule Common Sodium Sodium [place] as needed [facility] t [facility] Aspirin 81 Aspirin 81 Yes Brandyn 1 tablet Common [place] [facility] Calcium Calcium Yes Brandyn 2 tablet Com mon Carbonate Carbonate [place] [facility] it [facility] Jayleen-Elizabeth Jayleen-Elizabeth Yes Brandyn 1 tablet Common [place] [facility] Oysco 500 Oysco 500 Yes Brandyn TAKE 2 C ommon [place] TABLETS BY Spirit MOUTH - CHI TWICE A [facility] Oysco D Oysco D Yes Brandyn 1 tablet Com mon [place] with a [facility] meal [facility] Aspir-Low Aspir-Low Yes Brandyn 1 tablet Common [place] [facility] Dialyvite Dialyvite Yes Brandyn as Com mon 800/Ultra D 800/Ultra D [place] directed [facility] Hydrocodone Hydrocodone Yes Brandyn 1 tablet Common -Acetaminop -Acetaminop [place] as needed [facility] hen hen [facility] Gabapentin Gabapentin Yes Brandyn take 1 Common [place] capsule by Spirit mouth once - CHI daily [facility] Clopidogrel Clopidogrel Yes Brandyn TAKE 1 Common Bisulfate Bisulfate [place] TABLET BY Spirit MOUTH - CHI EVERY DAY [facility] Levothyroxi Levothyroxi Yes Brandyn 1 tablet Common ne Sodium ne Sodium [place] in the Sp kenan morning on - CHI an empty [facility] Tamsulosin Tamsulosin Yes Brandyn TAKE 1 Common HCl HCl [place] CAPSULE BY Spirit MOUTH - CHI EVERY DAY [facility] Levothyroxi Levothyroxi Yes Brandyn 1 tablet Common ne Sodium ne Sodium [place] in the Sp kenan morning on - CHI an empty [facility] Vital Signs Vital Name Observation Time Observation Value Comments Source HEIGHT 2020-05-20 00:00:00 172.7 cm WEIGHT 2020-05-20 00:00:00 115.1 kg HEIGHT 2020-06-05 00:00:00 172.7 cm WEIGHT 2020-06-05 00:00:00 124.739 kg HEIGHT 2020-05-20 00:00:00 172.7 cm WEIGHT 2020-05-20 00:00:00 115.1 kg HEIGHT 2020-05-20 00:00:00 172.7 cm WEIGHT 2020-05-20 00:00:00 126.554 kg Procedures This patient has no known procedures. Plan of Care Planned Activity Planned Date Details Comments Source Future Scheduled 2022-07-17 HEPATITIS B VACCINES Met [facility] Test 16:09:57 (1 of 3 - 3-dose series) [code = HEPATITIS B VACCINES (1 of 3 - 3-dose series)] Future Scheduled 2022-07-17 COVID-19 VACCINE (#1) [facility] Test 16:09:57 [code = COVID-19 VACCINE (#1)] Future Scheduled 2022-07-17 COLONOSCOPY SCREENING [facility] Test 16:09:57 [code = COLONOSCOPY SCREENING] Future Scheduled 2022-07-17 SHINGLES VACCINES (1 Met [facility] Test 16:09:57 of 2) [code = SHINGLES VACCINES (1 of 2)] Future Scheduled 2022-07-17 65+ [facility]OC[facility]CCAL [facility] Test 16:09:57 VACCINE (1 - PCV) [code = 65+ PNEUMOCOCCAL VACCINE (1 - PCV)] Future Scheduled 2022-07-17 INFLUENZA VACCINE Method [facility] Test 16:09:57 [code = INFLUENZA VACCINE] Future Scheduled 2022-05-12 INFLUENZA VACCINE (#1[facility] Test 00:00:00 [code = INFLUENZA Medical Ce nter VACCINE (#1)] Future Scheduled 2021-09-[address] [facility] Test 00:00:00 (12+) [code = Medical Center DEPRESSION SCREENING (12+)] Future Scheduled 2021-09-11 FALLS RISK SCREENING [facility] Test 00:00:00 [code = FALLS RISK Medical C enter SCREENING] Future Scheduled 2019-08-[address] [facility] Test 00:00:00 WELLNESS (YEAR 2 or Medical Center FIRST YEAR if no IPPE) [code = MEDICARE ANNUAL WELLNESS (YEAR 2 or FIRST YEAR if no IPPE)] Future Scheduled 2003 SHINGLES VACCINES ([address] [facility] Test 00:00:00 of 2) [code = SHINGLES Medic al Center VACCINES (1 of 2)] Future Scheduled 1972 DTAP/TDAP/TD VACCINES [facility] Test 00:00:00 (1 - Tdap) [code = Medical C enter DTAP/TDAP/TD VACCINES (1 - Tdap)] Future Scheduled 1971 HEPATITIS C SCRE[facility]ING [facility] Test 00:00:00 [code = HEPATITIS C Medical Center SCREENING] Future Scheduled 1959 PNEUMOCOCCAL 65+ Y[facility] Test 00:00:00 (1 - PCV) [code = Medical Ce nter PNEUMOCOCCAL 65+ YRS (1 - PCV)] Future Scheduled 1954-02-24 COVID-19 VACCINE (#1) [facility] Test 00:00:00 [code = COVID-[address] VACCINE (#1)] Future Scheduled [address] [facility] Test 00:00:00 (combo) [code = CT Medical C enter Colonography (combo)] Future Scheduled [address] [facility] Test 00:00:00 malignant neoplasm of Medica l Center colon (procedure) [code = 358433616] Future Scheduled [address] [facility] Test 00:00:00 malignant neoplasm of Medica l Center colon (procedure) [code = 774552378] Future Scheduled [address] [facility] Test 00:00:00 malignant neoplasm of Medica l Center colon (procedure) [code = 712774364] Future Scheduled [address] [facility] Test 00:00:00 malignant neoplasm of Medica l Center colon (procedure) [code = 309766920] Future Scheduled 1955 Sigmoidoscopy [code = [facility] Test 00:00:00 Sigmoidoscopy] Medical Cente r Encounters Start End Encounter Admission Attending Care Care Encounter Source Date/Time Date/Time Type Type Clinicians Facility Department ID 2022-03-21 Outpatient Gamboa, STLMLC [facility] [id number] Common 15:53:00 [facility] 2021-10-06 Outpatient Gamboa, STLMLC STLMLC [id number] Common 14:33:07 Brandyn [facility] 2021-10-06 Outpatient Gamboa, STLMLC STLMLC [id number] Common 14:12:48 Brandyn [facility] 2021-10-06 Outpatient Gamboa, STLMLC STLMLC [id number] Common 13:57:21 Brandyn [facility] 2021-10-06 Outpatient Gamboa, STLMLC STLMLC [id number] Common 13:34:56 Brandyn [facility] 2021-10-06 Outpatient Gamboa, STLMLC STLMLC [id number] Common 13:00:40 Brandyn [id number] [facility] 2021-10-06 Outpatient Gamboa, STLMLC STLMLC [id number] Common 13:00:23 Brandyn [id number] [facility] 2021-10-06 Outpatient Gamboa, STLMLC STLMLC [id number] Common 12:24:47 Brandyn [id number] [facility] 2021-10-06 Outpatient Gamboa, STLMLC STLMLC [id number] Common 12:23:09 Brandyn [id number] [facility] 2021-10-06 Outpatient Gamboa, STLMLC STLMLC [id number] Common 11:59:33 Brandyn [id number] [facility] 2021-10-06 Outpatient Gamboa, STLMLC STLMLC [id number] Common 11:33:15 Brandyn [id number] [facility] 2021-10-06 Outpatient Gamboa, STLMLC STLMLC [id number] Common 11:17:40 Brandyn [id number] [facility] 2021-06-16 Inpatient [facility] Surgery [id number] [facility] 06:26:24 JOHN 2022-05-04 2022-05-04 ambulatory STLMLC STLMLC [id number] Common 00:00:00 00:00:00 [facility] 2022-05-04 2022-05-04 ambulatory STLMLC STLMLC [id number] Common 00:00:00 00:00:00 [facility] 2022-05-04 2022-05-04 ambulatory STLMLC STLMLC [id number] Common 00:00:00 00:00:00 [facility] 2022-02-09 2022-02-09 ambulatory STLMLC STLMLC [id number] Common 00:00:00 00:00:00 [facility] 2021-12-21 2021-12-21 ambulatory STLMLC STLMLC [id number] Common 00:00:00 00:00:00 [facility] 2021-11-08 2021-11-08 ambulatory STLMLC STLMLC [id number] Common 00:00:00 00:00:00 [facility] 2021-11-04 2021-11-04 ambulatory STLMLC STLMLC [id number] Common 00:00:00 00:00:00 [facility] 2021-11-04 2021-11-04 ambulatory STLMLC STLMLC [id number] Common 00:00:00 00:00:00 [facility] 2021-09-20 2021-09-20 ambulatory STLMLC STLMLC [id number] Common 00:00:00 00:00:00 [facility] 2021-09-17 2021-09-17 ambulatory STLMLC STLMLC [id number] Common 00:00:00 00:00:00 [facility] 2021-09-16 2021-09-16 ambulatory STLMLC STLMLC [id number] Common 00:00:00 00:00:00 [facility] 2021-08-09 2021-08-09 ambulatory STLMLC STLMLC [id number] Common 00:00:00 00:00:00 [facility] 2021-04-16 2021-04-16 Outpatient STLMLC STLMLC [id number] Common 00:00:00 00:00:00 [facility] 2021-04-16 2021-04-16 Outpatient STLMLC STLMLC [id number] Common 00:00:00 00:00:00 [facility] 2021-01-15 2021-01-15 Outpatient STLMLC STLMLC [id number] Common 00:00:00 00:00:00 [facility] 2020-10-07 2020-10-07 Outpatient STLMLC STLMLC [id number] Common 00:00:00 00:00:00 [facility] 2020-10-02 2020-10-02 Outpatient STLMLC STLMLC [id number] Common 00:00:00 00:00:00 [facility] 2020-07-10 2020-07-10 Outpatient STLMLC STLMLC [id number] Common 00:00:00 00:00:00 [facility] 2020-07-08 2020-07-08 Outpatient STLMLC STLMLC [id number] Common 00:00:00 00:00:00 [facility] 2020-06-08 2020-06-08 Outpatient LM MERCEDES [facility] SLE [id number] SLEH 00:00:00 00:00:00 JOHN 2020-06-05 2020-06-05 Outpatient [facility] SLE [id number] [facility] 00:00:00 00:00:00 JOHN 2020-05-26 2020-05-26 Outpatient LM SLE SLE [id number] [facility]H 00:00:00 00:00:00 2020-05-20 2020-05-20 Outpatient LM MERCEDES SLE SLE [id number] SLEH 00:00:00 00:00:00 JOHN 2020-05-19 2020-05-19 Outpatient LM MERCEDES SLE SLE [id number] [facility]H 00:00:00 00:00:00 JOHN 2020-04-09 2020-04-09 [facility] [id number] Common 13:13:00 13:13:[address] [facility] 2020-04-08 2020-04-08 [facility] [id number] Common 10:00:00 10:00:[address] Family - [facility] 2020-04-08 2020-04-08 [facility] [id number] Common 10:00:00 10:00:[address] [facility] 2020-01-27 2020-01-27 [facility] [id number] Common 12:56:00 12:56:[address] [facility] 2019-12-23 2019-12-23 [facility] [id number] Common 12:00:00 12:00:[address] [facility] 2019-09-18 2019-09-18 [facility] [id number] Common 11:30:00 11:30:[address] [facility] 2019-08-29 2019-08-29 [facility] [id number] Common 16:29:00 16:29:[address] [facility] 2019-05-31 2019-05-31 [facility] [id number] Common 09:45:00 09:45:[address] [facility] 2019-05-24 2019-05-24 [facility] [id number] Common 09:05:00 09:05:[address] [facility] 2019-02-27 2019-02-27 [facility] [id number] Common 10:30:00 10:30:[address] [facility] 2018-12-13 2018-12-13 [facility] [id number] Common 11:02:00 11:02:[address] [facility] [address] [facility] 2018-11-12 2018-11-12 [facility] [id number] Common 16:00:00 16:00:[address] [facility] 2018-11-09 2018-11-09 [facility] [id number] Common 14:41:00 14:41:[address] [facility] 2018-09-12 2018-09-12 [facility] [id number] Common 15:00:00 15:00:[address] [facility] 2018-08-22 2018-08-22 [facility] [id number] Common 12:06:00 12:06:[address] [facility] Results Test Description Test Time Test Comments Results Result Sourc e Comments TISSUE EXAM 2020-06-05 Surgical Pathology 17:42:00 Report Case: [id number] Authorizing Provider: John Mercedes, Collected: 05/27/2020 09:22 AM Ordering Location[facility] Received: 05/27/2020 09:46 AM PERIOPERATIVE SERVICES Pathologist: Kristopher Cruz MD Specimen: Plaque, LEFT CAROTID ARTERY PLAQUE ARTERY, LEFT CAROTID, ENDARTERECTOMY:CALCIFI C ATHEROSCLEROTIC PLAQUE WITH RECENT INTRAPLAQUE HEMORRHAGE Signing Pathologist Direct Phone Line: [phone] ally signed by Kristopher Cruz MD on 06/05/2020 at 5:42 [id number]; [id number] diagnosis: Carotid stenosis, leftPlaque Received in formalin labeled with the patient's name, accession number and "left carotid artery plaque" is a 3.5 cm in length x 0.4 cm in diameter kay-yellow tubular piece of focally calcified plaque. Cutting Machine Offbearer sections are submitted in A1 following decalcification. PA/pl Performed POCT-GLUCOSE METER 2020-05-29 07:20:00 Test Item Value Reference Range Interpretation Comme nts POC-GLUCOSE METER ([employer]) 84 mg/dL 70-110 : TESTED AT [facility] [address] [facility] (test code = 1538) JOHN Araujo 23910: Boat Dock Operator/Techni cheryl ID = [id number] for TYRELL HOPKINS POCT-GLUCOSE [id number] 21:17:00 Test Item Value Reference Range Interpretation Comments POC-GLUCOSE METER 106 mg/dL 70-110 : TESTED A T [facility] [address] (BEAKER) (test code = [facility], 1538) 70938: Boat Dock Operator/Techni cheryl ID = [id number] for RENATO JOE POCT-GLUCOSE [id number] 16:40:00 Test Item Value Reference Range Interpretation Comments POC-GLUCOSE METER 116 mg/dL 70-110 H : TESTED A T [facility] [address] (BEAKER) (test code = [facility], 1538) 82760: Boat Dock Operator/Techni cheryl ID = [id number] for WI TRENA VALENCIA POCT-GLUCOSE [id number] 13:58:00 Test Item Value Reference Range Interpretation Comments POC-GLUCOSE METER 90 mg/dL 70-110 : TESTED A T [facility] 67[address] (BEAKER) (test code = [facility], 153) 11931: Boat Dock Operator/Techni cheryl ID = [id number] for TRENA DASILVA HEPATITIS B SURFACE [id number] 09:32:00 Test Item Value Reference Range Interpretation Comments HEPATITIS B SURFACE ANTIGEN (2) Nonreactive Nonreactive (AKER) (test code = 2585) Specimen is considered negative for HBsAg.POCT-GLUCOSE [id number] 07:48:00 Test Item Value Reference Range Interpretation Comments POC-GLUCOSE METER 87 mg/dL 70-110 : TESTED A T [facility] 67[address] (BEAKER) (test code = [facility], 153) 37790: Boat Dock Operator/Techni cheryl ID = [id number] for WILL DACIA WINSTONNEDIAMOND CBC W/PLT COUNT & AUTO [id number] 07:20:00 Test Item Value Reference Range Interpretation [...] (BEAKER) (test code = 2801) BASIC METABOLIC [id number] 07:08:00 Test Item Value Reference Range Interpretation [...] S NOT APPLICABLE FOR DIALYSIS PATIEN TS. Boat Dock Operator ID - EVERETT [id number] 07:04:00 Test Item Value Reference Range Interpretation Comments CREATININE (BEAKER) 8.42 mg/dL 0.57-1.25 H (test code = 358) EGFR (BEAKER) (test 6 mL/min/1.73 ESTIMAT ED GFR IS code = 1092) sq m NOT ACCURATE CREATININE CLEARANCE IN PREDICTING GLOMERULAR FILTRATION RATE . ESTIMATED GFR I S NOT APPLICABLE FOR DIALYSIS PATIEN TS. Boat Dock Operator ID - EVERETT [id number] 07:03:00 Test Item Value Reference Range Interpretation Comments BLOOD UREA NITROGEN (BEAKER) (test 42 mg/dL 7-21 H code = 354) Boat Dock Operator ID - EVERETT [id number] 07:03:00 Test Item Value Reference Range Interpretation Comments GLUCOSE RANDOM (BEAKER) (test code 100 mg/dL 70-105 = 652) Boat Dock Operator ID - EVERETT MPOCT-GLUCOSE [id number] 21:32:00 Test Item Value Reference Range Interpretation Comments POC-GLUCOSE METER 136 mg/dL 70-110 H : [facility] (BEAKER[facility] (test code = [facility] Trace [facility], 1538) 88937: Boat Dock Operator/Techni cheryl ID = [id number] for SAAD DUQUE SE BASIC METABOLIC [id number] 11:57:00 Test Item Value Reference Range Interpretation [...] S NOT APPLICABLE FOR DIALYSIS PATIEN TS. Boat Dock Operator ID - EVERETT MPOCT-GLUCOSE [id number] 10:56:00 Test Item Value Reference Range Interpretation Comments POC-GLUCOSE METER 102 mg/dL 70-110 : TESTED A T [facility] 6720 (BEAKER) (test code = FLAKITA LOPE[place], 1538) 40389: Boat Dock Operator/Techni cheryl ID = [id number] for Georgie Bolton PLATELET AGGREGATION: FUNCTION [id number] 08:51:00 Test Item Value Reference Range Interpretation Comments [id number] Gael Bryant MD (BEAKER) (test code = (electronic 2622) signature) PLATELET COUNT AGG 133 K/CU MM 150-450 L (BEAKER) (test code = 2656) ADP (BEAKER) (test code 57 % 62-100 [...] (BEAKER) plasma count is (test code = 146618) <200,000/mm3, an abnormal result may be due to a low platelet count rather than a true platelet dysfunction. Platelet Function Screen results may be falsely low with platelet counts<75,000/cu mm.Boat Dock Operator ID- [id number] ID - [id number] ID - [id number] BASIC METABOLIC [id number] 07:24:00 Test Item Value Reference Range Interpretation [...] S NOT APPLICABLE FOR DIALYSIS PATIEN TS. Boat Dock Operator ID - [place] MPROTHROMBIN [id number] 07:19:00 Test Item Value Reference Range Interpretation Comments PROTIME (BEAKER) (test code = 14.4 seconds 11.9-14.2 H 759) INR (BEAKER) (test code = 370) 1.15 <=5.90 Effective 02/06/2019: PT Reference Range ChangeNew: 11.9-14.2 Previous: 11.7- 14.7RECOMMENDED COUMADIN/WARFARIN INR THERAPY RANGESSTANDARD DOSE: 2.0-3.0 Includes: PROPHYLAXIS for venous thrombosis, systemic embolization; TREATMENT for venous thrombosis and/or pulmonary embolus.HIGH RISK: Target INR is 2.5-3.5 for patients wiht mechanical heart valves.CBC W/PLT COUNT & AUTO [id number] 07:05:00 Test Item Value Reference Range Interpretation [...] PERCENT (BEAKER) (test code = 2801) POCT-GLUCOSE [id number] 06:09:00 Test Item Value Reference Range Interpretation Comments POC-GLUCOSE METER 77 mg/dL 70-110 : TESTED A T [facility] 6720 (BEAKER) (test code = [place], 1538) [address]: Boat Dock Operator/Techni cheryl ID = [id number] for JORD AN, LACRYSTAL
--- NOTE | 2022-07-28 18:40 | RAD REPORT ---
EXAM DESCRIPTION: RAD - Chest Single View - 07/28/2022 6:20 pm CLINICAL HISTORY: PALPITATIONS COMPARISON: Chest Single View dated 12/21/2021; Chest Pa And Lat (2 Views) dated 04/14/2020; Chest Pa A nd Lat (2 Views) dated 05/30/2019; Chest Pa And Lat (2 Views) dated 02/20/2019 FINDINGS: Lines: None. Lungs: No evidence of edema or pneumonia. Pleural: No significant pleural effusions or pneumothorax. Cardiac: Cardiomegaly. Sternotomy. Mediastinum: Within normal limits. Bones: No acute fractures. Other: None IMPRESSION: No acute cardiopulmonary disease.
[2022-07-28 19:12] LABS: Absolute Lymphocytes (CBC) 0.8 K/uL (0.7-4.9); Lymphocytes % 9.8 % (15.3-44.8); MCV 103.7 fL (80-100); MPV 7.4 fL (7.6-11.3); RBC Red Blood Cell Count 3.48 M/uL (4.33-5.43)
[2022-07-28 19:28] LABS: Magnesium 2.3 mg/dL (1.8-2.4); Potassium 5.5 mmol/L (3.5-5.1); Troponin High Sensitivity 24.5 pg/mL (<58.9)
[2022-07-28] MEDS ORDERED: SOD POLYSTYREN SUL 15 GM/60 ML UCUP ONE (20:02)
[2022-07-28] MEDS ORDERED: INSULIN -REGULAR HUMAN 50 UNIT/0.5 ML ML ONE (20:02)
[2022-07-28] MEDS ORDERED: ALBUTEROL 2.5 MG/3 ML NEB SOL ONE ×2 (20:02→20:16)
[2022-07-28] MEDS ORDERED: D10W 250 ML IV ONE (20:03)
--- NOTE | 2022-07-28 23:00 | ER ---
Nurse's Notes [facility] Name: Sunil Hong Age: 66 yrs Sex: Male : 1955 Arrival Date: 07/28/2022 Time: 17:54 Bed 4 Private MD: Diagnosis: Hypertensive heart and chronic kidney disease with heart failure and with stage 5 chronic kidney disease, or end stage renal disease;Palpitations;Hyperkalemia Presentation: 07/28 17:59 Chief complaint: EMS states: "High blood pressure/ pulse that began earlier today. Pt ss also reports he was sweating off and on all day." HX of HD. Last dialysis session was this morning. Coronavirus screen: Client denies travel out of the [place] in the last 14 days. Ebola Screen: Patient denies exposure to infectious person. Patient denies travel to an Ebola-affected area in the 21 days before illness onset. Initial Sepsis Screen: Does the patient meet any 2 criteria? No. Patient's initial sepsis screen is negative. Does the patient have a suspected source of infection? No. Patient's initial sepsis screen is negative. Risk Assessment: Do you want to hurt yourself or someone else? Patient reports no desire to harm self or others. Onset of symptoms was July 28, 2022. 17:59 Acuity: JAQUELIN 3 ss 17:59 Method Of Arrival: EMS: [facility] Historical: - Allergies: 18:04 No Known Allergies; ss - PMHx: 18:04 Diabetes - NIDDM; ESRD; Myocardial infarction; ss - Immunization history:: Client reports receiving the 2nd dose of the Covid vaccine, Flu vaccine is up to date. - Social history:: Smoking status: Patient denies any tobacco usage or history of. Screenin:03 Abuse screen: Denies threats or abuse. Nutritional screening: No deficits noted. vg1 Tuberculosis screening: No symptoms or risk factors identified. Fall Risk No fall in past 12 months (0 pts). No secondary diagnosis (0 pts). IV access (20 points). Ambulatory Aid- None/Bed Rest/Nurse Assist (0 pts). Gait- Normal/Bed Rest/Wheelchair (0 pts) Mental Status- Oriented to own ability (0 pts). Total Naqvi Fall Scale indicates No Risk (0-24 pts). Assessment: 19:03 General: Appears in no apparent distress. comfortable, Behavior is calm, cooperative. vg1 Pain: Denies pain. Neuro: Level of Consciousness is awake, alert, obeys commands, Oriented to person, place, time, situation. Cardiovascular: Denies chest pain, Patient's skin is warm and dry. Dialysis shunt: in the right arm, with palpable thrill, with auscultated bruit, with no erythema, with no edema, no bleeding noted. Respiratory: Airway is patent Respiratory effort is even, unlabored, Denies shortness of breath. GI: Patient currently denies pain, vomiting. : No signs and/or symptoms were reported regarding the genitourinary system. EENT: No signs and/or symptoms were reported regarding the EENT system. Derm: Skin is pink, warm \\T\\ dry. Musculoskeletal: Circulation, motion, and sensation intact. 19:32 General: Reports "I am doing alright.". Neuro: Level of Consciousness is awake, alert, tw5 obeys commands, Oriented to person, place, time, situation. Respiratory: Airway is patent. 22:04 General: Reports "I am ready to go home.". tw5 23:26 Reassessment: pt understands discharge instructions, ambulated out of er, denies aa9 concerns. Vital Signs: 17:59 BP 181 / 78; Pulse 87; Resp 16; Temp 98.7(TE); Pulse Ox 98% on R/A; Weight 126 kg; ss Height 5 ft. 8 in. (172.72 cm); Pain 0/10; 19:02 BP 138 / 61; Pulse 69; Resp 15; Pulse Ox 99% on R/A; vg1 19:32 BP 138 / 61; Pulse 68; Resp 18; Pulse Ox 98% on R/A; tw5 20:16 BP 179 / 62; Pulse 68; Resp 15 S; Pulse Ox 100% on R/A; aa9 22:04 BP 132 / 76; Pulse 102; Resp 12; Pulse Ox 98% on R/A; tw5 22:30 BP 127 / 72; Pulse 100; Resp 19 S; Pulse Ox 100% on R/A; aa9 17:59 Body Mass Index 42.24 (126.00 kg, 172.72 cm) ED Course: 17:54 Patient arrived in ED. pauline 17:58 Amadeo Chacko PA is PHCP. cp 17:58 Amadeo Reyes MD is Attending Physician. cp 18:04 Triage completed. ss 18:04 Arm band placed on right wrist. ss 18:21 XRAY Chest (1 view) In Process Unspecified. EDMS 18:53 Samantha Shah, RN is Primary Nurse. vg1 19:03 Patient has correct armband on for positive identification. Bed in low position. Call vg1 light in reach. Side rails up X 1. Adult w/ patient. Client placed on continuous cardiac and pulse oximetry monitoring. NIBP monitoring applied. 19:03 Maintain EMS IV. Dressing intact. Good blood return noted. Site clean \\T\\ dry. Gauge \\T\\ vg 1 site: 20 Left AC. 19:09 Primary Nurse role handed off by Samantha Shah, RN mw2 19:31 Mikaela Mccoy is Primary Nurse. tw5 19:32 EKG done, by ED staff, reviewed by Amadeo Reyes MD. tw5 22:04 Potassium Sent. tw5 23:23 No provider procedures requiring assistance completed. IV discontinued, intact, aa9 bleeding controlled, No redness/swelling at site. Pressure dressing applied. Administered Medications: 20:14 Drug: Albuterol 2.5 mg Route: Inhalation; aa9 20:14 Drug: D50W 50 ml Route: IVP; Site: left antecubital; aa9 20:15 Drug: Kayexalate (polystyrene) 15 grams Route: PO; aa9 20:27 Drug: Insulin Regular Human 10 units {Co-Signature: aa9 (Kala Suárez RN).} Route: IVP; tw5 Site: left antecubital; 21:11 Drug: Albuterol 2.5 mg Route: Inhalation; aa9 21:54 Drug: Albuterol 2.5 mg Route: Inhalation; aa9 Medication: 19:03 VIS not applicable for this client. vg1 Outcome: 22:59 Discharge ordered by . cp 23:23 Discharged to home aa9 23:23 Condition: stable 23:26 Discharged to home ambulatory. aa9 23:26 Discharge instructions given to patient, Instructed on discharge instructions, follow up and referral plans. Demonstrated understanding of instructions, follow-up care. 23:27 Patient left the ED. aa9 Signatures: Dispatcher [employer] EDTN Amadeo Reyes MD MD cha Smirch, Shelby, RN RN ss Amadeo Chacko PA PA cp [place], Kiah mw2 Samantha Shah RN RN vg1 Mikaela Mccoy tw5 Kala Suárez RN RN aa9 Kala Suárez RN aa9 Corrections: (The following items were deleted from the chart) 19:14 19:03 Cardiovascular: Denies chest pain, Patient's skin is warm and dry. vg1 vg1
--- NOTE | 2022-07-28 23:00 | EDPHYS ---
Physician Documentation [facility] Name: Sunil Hong Age: 66 yrs Sex: Male : 1955 Arrival Date: 07/28/2022 Time: 17:54 Bed 4 Private MD: JUAN Physician Amadeo Reyes HPI: 07/28 18:15 This 66 yrs old Male presents to ER via EMS with complaints of High Blood cp Pressure. 18:15 The patient has elevated blood pressure and discovered this at home, with a home device.cp 18:15 Onset: The symptoms/episode began/occurred today. Associated signs and symptoms: cp Pertinent positives: palpitations with feeling of heart racing, sweats, Pertinent negatives: chest pain, dizziness, headache, vomiting, fever, chills, abdominal pain. 18:15 Patient reports completing dialysis this morning. cp Historical: - Allergies: 18:04 No Known Allergies; ss - PMHx: 18:04 Diabetes - NIDDM; ESRD; Myocardial infarction; ss - Immunization history:: Client reports receiving the 2nd dose of the Covid vaccine, Flu vaccine is up to date. - Social history:: Smoking status: Patient denies any tobacco usage or history of. ROS: 18:20 Constitutional: Negative for body aches, chills, fever, poor PO intake. cp 18:20 Eyes: Negative for injury, pain, redness, and discharge. cp 18:20 ENT: Negative for drainage from ear(s), ear pain, sore throat, difficulty swallowing, difficulty handling secretions. 18:20 Cardiovascular: Positive for palpitations, Negative for chest pain. 18:20 Respiratory: Negative for cough, shortness of breath, wheezing. 18:20 Abdomen/GI: Negative for abdominal pain, nausea, vomiting, and diarrhea. 18:20 Neuro: Negative for altered mental status, dizziness, headache, syncope, weakness. 18:20 All other systems are negative. Exam: 18:25 Constitutional: The patient appears in no acute distress, alert, awake, cp non-diaphoretic, non-toxic, well developed, well nourished, obese. 18:25 Head/Face: Normocephalic, atraumatic. cp 18:25 Eyes: Periorbital structures: appear normal, Conjunctiva: normal, no exudate, no injection, Sclera: no appreciated abnormality, Lids and lashes: appear normal, bilaterally. 18:25 ENT: External ear(s): are unremarkable, Nose: is normal, Mouth: Lips: moist, Oral mucosa: moist, Posterior pharynx: Airway: no evidence of obstruction, patent, swelling, is not appreciated, erythema, is not appreciated, exudate, is not appreciated. 18:25 Neck: ROM/movement: is normal, is supple, without pain, no range of motions limitations, no meningismus, Lymph nodes: no appreciated lymphadenopathy. 18:25 Chest/axilla: Inspection: normal, Palpation: is normal, no crepitus, no tenderness. 18:25 Cardiovascular: Rate: normal, Rhythm: regular, Edema: ankle edema, that is mild, JVD: is not appreciated. 18:25 Respiratory: the patient does not display signs of respiratory distress, Respirations: normal, no use of accessory muscles, no retractions, labored breathing, is not present, Breath sounds: are clear throughout, no decreased breath sounds, no stridor, no wheezing. 18:25 Abdomen/GI: Inspection: abdomen appears normal, Palpation: abdomen is soft and non-tender, in all quadrants. 18:25 Back: pain, is absent, ROM is normal. 18:25 Skin: cellulitis, is not appreciated, no rash present. 18:25 Neuro: Orientation: to person, place \T\ time. Mentation: is normal, Cerebellar function: is grossly normal, Motor: moves all fours, strength is normal, Sensation: is normal. 19:40 ECG was reviewed by the Attending Physician. cp Vital Signs: 17:59 BP 181 / 78; Pulse 87; Resp 16; Temp 98.7(TE); Pulse Ox 98% on R/A; Weight 126 kg; ss Height 5 ft. 8 in. (172.72 cm); Pain 0/10; 19:02 BP 138 / 61; Pulse 69; Resp 15; Pulse Ox 99% on R/A; vg1 19:32 BP 138 / 61; Pulse 68; Resp 18; Pulse Ox 98% on R/A; tw5 20:16 BP 179 / 62; Pulse 68; Resp 15 S; Pulse Ox 100% on R/A; aa9 22:04 BP 132 / 76; Pulse 102; Resp 12; Pulse Ox 98% on R/A; tw5 22:30 BP 127 / 72; Pulse 100; Resp 19 S; Pulse Ox 100% on R/A; aa9 17:59 Body Mass Index 42.24 (126.00 kg, 172.72 cm) ss MDM: 18:00 Patient medically screened. pauline 22:59 Data reviewed: vital signs, nurses notes, lab test result(s), EKG, radiologic studies, cp plain films. 22:59 Differential diagnosis: hypertensive crisis, Malignant HTN, CVA, intracerebral cp hemorrhage, electrolyte abnormality, arrythmia. Test interpretation: by ED physician or midlevel provider: ECG, plain radiologic studies. Counseling: I had a detailed discussion with the patient and/or guardian regarding: the historical points, exam findings, and any diagnostic results supporting the discharge/admit diagnosis, lab results, radiology results, to return to the emergency department if symptoms worsen or persist or if there are any questions or concerns that arise at home. Response to treatment: the patient's symptoms have markedly improved after treatment, and as a result, I will discharge patient. 07/28 18:06 Order name: Basic Metabolic Panel; Complete Time: 19:31 07/28 19:31 Interpretation: Normal except: K 5.5; GLUC 122; BUN 36; CRE 6.03; GFR 9. 07/28 18:06 Order name: CBC with Diff; Complete Time: 19:29 07/28 19:29 Interpretation: Normal except: RBC 3.48; HGB 12.0; HCT 36.0; MCV 103.7; MPV 7.4; CHANO% cp 79.2; LYM% 9.8. 07/28 18:06 Order name: Magnesium; Complete Time: 19:31 07/28 19:32 Interpretation: MG 2.3; Reviewed. 07/28 18:06 Order name: NT PRO-BNP; Complete Time: 19:31 07/28 19:32 Interpretation: Abnormal: NT PRO-BNP 20783. 07/28 18:06 Order name: Troponin HS; Complete Time: 19:31 07/28 19:32 Interpretation: Troponin HS 24.5; Reviewed. 07/28 21:51 Order name: Potassium; Complete Time: 22:45 07/28 22:45 Interpretation: Reviewed. 07/28 18:06 Order name: XRAY Chest (1 view); Complete Time: 18:46 07/28 18:47 Interpretation: Report review. cp 07/28 18:06 Order name: EKG; Complete Time: 18:06 cp 07/28 18:06 Order name: Cardiac monitoring; Complete Time: 19:34 cp 07/28 22:18 Order name: Glucose, Ancillary Testing; Complete Time: 22:45 EDMS 07/28 18:06 Order name: EKG - Nurse/Tech; Complete Time: 19:34 cp 07/28 18:06 Order name: IV Saline Lock; Complete Time: 19:02 cp 07/28 18:06 Order name: Labs collected and sent; Complete Time: 19:02 cp 07/28 18:06 Order name: O2 Per Protocol; Complete Time: 19:02 cp 07/28 18:06 Order name: O2 Sat Monitoring; Complete Time: 19:02 cp 07/28 21:51 Order name: Glucose Level; Complete Time: 22:04 cp EC:40 Rate is 68 beats/min. Rhythm is regular. [place] interval is prolonged at 244 msec. QRS cp interval is prolonged at 154 msec. QT interval is normal. T waves are Inverted in leads I, aVL, aVR, V2, V3. Interpreted by me. Reviewed by me. Administered Medications: 20:14 Drug: Albuterol 2.5 mg Route: Inhalation; aa9 20:14 Drug: D50W 50 ml Route: IVP; Site: left antecubital; aa9 20:15 Drug: Kayexalate (polystyrene) 15 grams Route: PO; aa9 20:27 Drug: Insulin Regular Human 10 units {Co-Signature: aa9 (Kala Suárez RN).} Route: IVP; tw5 Site: left antecubital; 21:11 Drug: Albuterol 2.5 mg Route: Inhalation; aa9 21:54 Drug: Albuterol 2.5 mg Route: Inhalation; aa9 Disposition Summary: 07/28/22 22:59 Discharge Ordered Location: Home cp Problem: new cp Symptoms: have improved cp Condition: Stable cp Diagnosis - Hypertensive heart and chronic kidney disease with heart failure and with stage 5 cp chronic kidney disease, or end stage renal disease - Palpitations cp - Hyperkalemia cp Followup: cp - With: Private Physician - When: 1 - 2 days - Reason: Recheck today's complaints Discharge Instructions: - Discharge Summary Sheet cp - Heart Failure, Diagnosis cp - Hyperkalemia cp - Palpitations cp - Food Basics for Chronic Kidney Disease cp - End-Stage Kidney Disease cp - Eating Plan for Dialysis cp Forms: - Medication Reconciliation Form cp - Thank You Letter cp - Antibiotic Education cp - Prescription Opioid Use cp Addendum: 07/31/2022 13:29 Co-signature as Attending Physician, Amadeo Reyes MD I agree with the assessment and c ring plan of care. Signatures: Dispatcher [employer] EDHI Amadeo Reyes MD MD cha Smirch, Shelby, RN RN ss Amadeo Chacko PA PA cp Mikaela Mccoy tw5 Kala Suárez RN RN aa9 Kala Suárez RN aa9 Corrections: (The following items were deleted from the chart) 07/28 19:33 18:15 The patient has elevated blood pressure and discovered this at a physician's cp office, and sent to the emergency department for evaluation, cp
[2022-07-28 23:31] VITALS: TEMP 98.7
[2022-07-28 23:37] VITALS: BP 127/72; O2SAT 100
--- NOTE | 2022-07-30 19:16 | EKG ---
Test Date: 2022-07-28 Test Time: 19:33:59 Spiral Machine Operator: SHEFALI MEASUREMENT RESULTS: Intervals: Rate: 68 TN: 244 QRSD: 154 QT: 452 QTc: 480 [place]: P: 12 TN: 244 QRS: 124 T: 101 INTERPRETIVE STATEMENTS: Sinus rhythm with 1st degree AV block Right bundle branch block Anterior infarct, age undetermined Abnormal ECG Compared to ECG 12/21/2021 01:15:20 First degree AV block now present Right bundle-branch block now present Myocardial infarct finding now present Atrial flutter no longer present Ventricular premature complex(es) no longer present Indeterminate axis no longer present ST (T wave) deviation no longer present Possible ischemia no longer present Electronically Signed On 07-30-22 19:10:50 PROCESS IMPROVEMENT ANALYST by Cuauhtemoc Tello
== END 2022-07-28 23:27 | disposition home or self-care (01) ==
LOC: ER 17:49
DX: I13.2 Hypertensive heart and chronic kidney disease with heart failure and with stage 5 chronic kidney disease, or end stage renal disease (principal); E11.9 Type 2 diabetes mellitus without complications; N18.6 End stage renal disease; I25.2 Old myocardial infarction; N18.5 Chronic kidney disease, stage 5; R00.2 Palpitations; E87.5 Hyperkalemia
CPT/HCPCS: 93005; 85025; 80048; 36415; 83735; 84132; 82947; 84484; 83880; 71045; 96375; 96374; 99284; J1815; J7613

== ENCOUNTER 2023-01-16 08:49 | Emergency (ER) | payer OTHER ==
--- OUTSIDE RECORDS SUMMARY | 2023-01-16 08:53 | XMS REPORT | Continuity of Care Document ---
:1955 Author Organization [facility] t Address [address] [facility] [address] [place] [address] Care Team Providers Name Role Phone Brandyn Gamboa DO Primary Care Physician [phone] Brandyn Gamboa Attending Clinician Unavailable JOHN MERCEDES Attending Clinician Unavailable JOHN MERCEDES Admitting Clinician Unavailable Payers Payer Name Policy Type Policy Number Effective Date Expiration Date Deanne redman MEDICARE A B [id number] 2018 00:00:00 GENERIC MEDICARE [id number] 2019 SUPPLEMENT 00:00:00 Problems Condition Condition Condition Status Onset Resolution Last Treating Co mments Source Name Details Category Date Date Treatment Clinician Date Left Left Disease Active [facility] St carotid carotid 05-27 [facility] artery artery 00:00: Medical stenosis stenosis 00 Center [id number] Hypothyroi Problem Com mon dism, Spirit unspecifie - [facility] d type [facility] [id number] Dependence Problem Co mmon on renal Spirit dialysis - [facility] [id number] GERD Problem Common without Spirit esophagiti - [facility]I s [facility] [id number] End stage Problem Com mon renal Spirit disease - [facility] [id number] Generalize Problem Co mmon d edema Spirit - [facility] [id number] Anemia of Problem Com mon chronic Spirit disease - [facility] [id number] Controlled Problem Co mmon type 2 Spirit diabetes - [facility] mellitus [facility] complicati [facility], Center without long-term current use of insulin [id number] At risk Problem Commo n for Spirit falling - [facility] [id number] Benign Problem Common prostatic Spirit hyperplasi - [facility] a, St unspecifie [facility] d whether Medical lower Center urinary tract symptoms present [id number] Body mass Problem Com mon index Spirit [BMI] - [facility] 40.0-44.9, [facility] [id number] Weakness Problem Commo n Spirit - [facility] [id number] Morbid Problem Commo n 9104 (severe) Spirit obesity - [facility] due to [facility] [id number] HTN Problem Common (hypertens Spirit ion), - [facility] benign [facility] [id number] Type 2 Problem Common diabetes Spirit mellitus - [facility] with [facility] without Center long-term current use of insulin [id number] Neuropathy Problem Co mmon Spirit - [facility] [id number] Primary Problem Common insomnia Spirit - [facility] Arterioscl Coronary Problem Com mon erosis of artery [facility] coronary disease - [facility] artery involving bypass coronary [facility] graft bypass Medical graft of [facility], angina presence unspecifie d ESRD (end ESRD (end Disease Recurre [facility] I [facility] stage stage [facility] renal renal Medical disease) disease) Center Hypertensi Hypertensi Disease Active C [facility] Carotid Carotid Disease Active [facility] artery artery [facility] occlusion occlusion [facility] Coronary Coronary Disease Active [facility] S t artery artery [facility] disease disease Medical Center Hx of CABG Hx of CABG Disease Active [facility] Hyperlipid Hyperlipid Disease Active [facility] emia [facility] Allergies, Adverse Reactions, Alerts Allergy Allergy Status Severity Reaction(s) Onset Inactive Treating Comm ents Source Name Type Date Date Clinician NO KNOWN Allergy Active [facility] Family History Family Member Diagnosis Comments Start Date Stop Date Source Natural mother No Known Problems [facility] Natural mother Cirrhosis [facility] Natural brother Thyroid disease [facility] Natural brother Leukemia [facility] Natural brother Kidney disease [facility] Natural father COPD [facility] Natural father Diabetes [facility] Natural father Heart disease [facility] Natural father Hyperlipidemia [facility] Natural father [facility] Natural sister Diabetes [facility] Natural sister Osteopenia [facility] Natural sister Osteoporosis [facility] Natural sister Cancer [facility] Natural sister Heart attack [facility] Social History Social Habit Start Date Stop Date Quantity Comments Source History of Tobacco Common Spirit - Use [facility] History SDOH [facility] Alcohol Std Drinks [facility] History SDOH [facility] Alcohol Binge Medical [facility] History SDOH [facility] Alcohol Comment Medical C enter Sexual orientation [facility] Gender identity [facility] History SDOH 2020-05-20 2020-05-[address] [facility] Alcohol Frequency 00:00:00 00:00:[address] [facility] Tobacco use and 2020-05-20 2020-05-[address] [facility] kes exposure 00:00:00 00:00:00 [facility] Alcohol intake 2019-05-01 2019-05-01 Ex-drinker [facility] 00:00:00 00:00:00 (finding) Hospital History of Social 2019-04-29 2019-04-[address] function 00:00:00 00:00:00 Hospital Sex Ass[birth year] [facility] 00:00:00 00:00:00 Hospital Smoking Status Start Date Stop Date Source Never Smoker [facility] - [facility] Medications Ordered Filled Start Stop Current Ordering Indication Dosage Frequency Signature Comments Components Source Medication Medication Date Date Medication? Clinician (SIG) Name Name Losartan Losartan 2021-09 No QD Losartan Potassium Potassium 1-28 Potassium 25 MG 25 MG 00:00: 25 MG 00 aspirin 2019-0 Yes 81mg QD Take [address] (ASPIR-LOW) 9-25 by mouth Luke s 81 MG EC 10:04: daily. Medical tablet 27 Center calcium 2020-0 Yes [address] carbonate 9-25 [facility]ukes (OS-SANDRA) 10:04: Medical 500 mg 27 Center calcium (1,250 mg) chewable tablet gabapentin 2019-0 Yes 300mg Q.5D Take [address] (NEURONTIN) 9-25 mg by [facility]ukes 300 MG 10:04: mouth 2 Medical capsule 27 (two) Center times daily . aspirin 2020-0 Yes 81mg QD Take [address] (ASPIR-LOW) 9-25 by mouth Luke s 81 MG EC 10:04: daily. Medical tablet 27 Center calcium 2020-0 Yes [address] carbonate 9-25 [facility]ukes (OS-SANDRA) 10:04: Medical 500 mg 27 Center calcium (1,250 mg) chewable tablet gabapentin 2020-0 Yes 300mg Q.5D Take [address] (NEURONTIN) 9-25 mg by [facility]ukes 300 MG 10:04: mouth 2 Medical capsule 27 (two) Center times daily . lidocaine-p 2020-0 Yes USE 3 CHI S t rilocaine 9-14 TIMES WEEK Luke s (EMLA) 00:00: ONE HOUR Medical 2.5-2.5 % 00 BEFORE Center cream DIALYSIS lidocaine-p 2020-0 Yes USE 3 CHI S t rilocaine 9-14 TIMES WEEK Luke s (EMLA) 00:00: ONE HOUR Medical 2.5-2.5 % 00 BEFORE Center cream DIALYSIS Levothyroxi Levothyroxi 2020-0 Yes Brandyn 1 tablet Common ne Sodium ne Sodium 7-30 [place] in the Sp kenan 00:00: morning on - [facility]I [address] stomach [facility] levothyroxi 2020-0 Yes 137ug QD Take [address] ne 7-30 mcg by [facility] (SYNTHROID, 00:00: mouth Medic al LEVOTHROID) 00 every Center 137 MCG morning ON tablet AN EMPTY STOMACH. levothyroxi 2020-0 Yes 137ug QD Take [address] ne 7-30 mcg by [employer] (SYNTHROID, 00:00: mouth Medic al LEVOTHROID) 00 every Center 137 MCG morning ON tablet AN EMPTY STOMACH. DIALYVITE 2020-0 Yes TAKE [address] 800-ULTRA D 6-06 TABLET BY Ludy es 0.8-2,000 00:00: MOUTH ONCE Me dical mg-unit Tab 00 A DAY. ON [address] DAYS OF DIALYSIS TREATMENT, TAKE AFTER TREATMENT DIALYVITE 2020-0 Yes TAKE [address] 800-ULTRA D 6-06 TABLET BY Ludy es 0.8-2,000 00:00: MOUTH ONCE Me dical mg-unit Tab 00 A DAY. ON [address] ter DAYS OF DIALYSIS TREATMENT, TAKE AFTER TREATMENT midodrine 2019-0 Yes 10mg Q.[id number] Take 10 mg Methodi (PROAMATINE 8-19 [id number] mouth [address] ) 10 MG 12:37: 3W (three) Hospita tablet 31 times a l week. ferrous 2019-0 Yes 325mg Q.5D Take 325 Metho di sulfate 325 8-[address] (65 FE) MG 12:37: mouth 2 Hosp thomas tablet 31 (two) l times a day. pantoprazol 2019-0 Yes 40mg QD Take 40 mg Methodi e 8-[address] (PROTONIX) 12:37: daily. Hospi ta 40 MG EC 31 l tablet aspirin [id number] Yes 81mg QD Take 81 mg Meth erica (ECOTRIN) 8-[address] 81 MG 12:37: daily. Hospita enteric 31 l coated tablet atorvastati Yes 80mg QD Take 80 mg Methodi n (LIPITOR) 8-[address] 80 MG 12:37: daily. Hospita tablet 31 l midodrine 2019-0 Yes 10mg Q.[id number] Take 10 mg Methodi (PROAMATINE 8-19 [id number] mouth [address] ) 10 MG 12:37: 3W (three) Hospita tablet 31 times a l week. ferrous 2019-0 Yes 325mg Q.5D Take 325 Metho di sulfate 325 8-[address] (65 FE) MG 12:37: mouth 2 Hosp thomas tablet 31 (two) l times a day. pantoprazol 2019-0 Yes 40mg QD Take 40 mg Methodi e 8-[address] (PROTONIX) 12:37: daily. Hospi ta 40 MG EC 31 l tablet aspirin [id number] Yes 81mg QD Take 81 mg Meth erica (ECOTRIN) 8-[address] 81 MG 12:37: daily. Hospita enteric 31 l coated tablet atorvastati 0 Yes 80mg QD Take 80 mg Methodi n (LIPITOR) 8-[address] 80 MG 12:37: daily. Hospita tablet 31 l levothyroxi Yes TAKE 1 Meth erica ne 8-[address] (SYNTHROID, 00:00: MOUTH Hospi ta LEVOXYL) 88 00 EVERY DAY l mcg tablet IN THE MORNING ON EMPTY STOMACH levothyroxi Yes TAKE 1 Meth erica ne [...] 00:00: mouth Hospita capsule 00 nightly. l metoprolol Yes TAKE 1 Metho di tartrate [...] 00 (two) l tablet times a day. OYSCO-500 Yes 2{tbl} Q.5D Take 2 Meth erica 500 mg 7-[address] calcium 00:00: mouth 2 Hospita (1,250 mg) 00 (two) l tablet times a day. clopidogrel Yes 75mg QD Take 75 mg [facility] (PLAVIX) 75 5-[address] mg tablet 00:00: daily. Hospit a l clopidogrel Yes 75mg QD Take 75 mg Methodi (PLAVIX) 75 5-[address] mg tablet 00:00: daily. Hospit a 00 l atorvastati Yes 80mg QD Take [address] n (LIPITOR) 2-15 by mouth Luke s 80 MG 00:00: nightly. Medical tablet [address] [place] [address] midodrine Yes 10mg Take [address] (PROAMATINE 2-15 by mouth 3 Jackelin kes ) 10 MG 00:00: (three) Medical tablet 00 times a Center week after dialysis MON/MON/SA T. atorvastati Yes 80mg QD Take [address] n (LIPITOR) 2-15 by mouth Luke s 80 MG 00:00: nightly. Medical tablet [address] [place] [address] midodrine Yes 10mg Take [address] (PROAMATINE 2-15 by mouth 3 Jackelin kes ) 10 MG 00:00: (three) Medical tablet 00 times a Center week after dialysis TUE/[facility]/ T. cholecalcif Yes QD Take by [facility] haim, 10-13 mouth [facility] vitamin D3, 00:00: daily. [facility] sandra (VITAMIN [address] [place] [address] D3) 125 mcg (5,000 unit) capsule cholecalcif Yes QD Take by [facility] haim, 10-13 mouth [facility] vitamin D3, 00:00: daily. [facility] sandra (VITAMIN [address] [place] [address] D3) 125 mcg (5,000 unit) capsule Vitamin B-1 Vitamin B-1 Yes Brandyn 1 tablet Common Gamb[place] [facility] Vitamin D3 Vitamin D3 Yes Brandyn 1 capsule Common Maximum Maximum [place] [facility] Strength [facility] Plavix Plavix Yes Brandyn 1 tablet Commo n [facility] Epoetin Epoetin Yes Brandyn as Common Juvencio Juvencio [facility] directed [facility] Ferrous Ferrous Yes Brandyn 1 tablet Com mon Sulfate Sulfate [facility] Protonix Protonix Yes Brandyn 1 tablet C ommon [place] [facility] Midodrine Midodrine Yes Brandyn 1 tablet Common HCl HCl [facility] Atorvastati Atorvastati Yes Brandyn 1 tablet Common n Calcium n Calcium [place] Spir it [facility] Metoprolol Metoprolol Yes Brandyn 1 tablet Common Tartrate Tartrate [place] with food S pirit [facility] Calcium Calcium Yes Brandyn 2 capsules C ommon Acetate Acetate [place] with meals Sp kenna [facility] Docusate Docusate Yes Brandyn 1 capsule Common Sodium Sodium [place] as [facility] Aspirin 81 Aspirin 81 Yes Brandyn 1 tablet Common [place] [facility] Calcium Calcium Yes Brandyn 2 tablet Com mon Carbonate Carbonate [facility] it - [facility] Jayleen-Elizabeth Jayleen-Elizabeth Yes Brandyn 1 tablet Common [place] [facility] Oysco 500 Oysco 500 Yes Brandyn TAKE 2 C ommon [place] TABLETS BY Spirit MOUTH - CHI TWICE A [facility] Oysco D Oysco D Yes Brandyn 1 tablet Com mon [place] with a [facility] meal [facility] Aspir-Low Aspir-Low Yes Brandyn 1 tablet Common [place] [facility] Dialyvite Dialyvite Yes Brandyn as Com mon 800/Ultra D 800/Ultra D [place] directed [facility] Hydrocodone Hydrocodone Yes Brandyn 1 tablet Common -Acetaminop -Acetaminop [place] as needed [facility] hen hen [facility] Gabapentin Gabapentin Yes Brandyn take 1 Common [place] capsule by Spirit mouth once - CHI daily [facility] Clopidogrel Clopidogrel Yes Brandyn TAKE 1 Common Bisulfate Bisulfate [place] TABLET BY Spirit MOUTH - CHI EVERY DAY [facility] Levothyroxi Levothyroxi Yes Brandyn 1 tablet Common ne Sodium ne Sodium [place] in the Sp kenan morning on - CHI an empty [facility] Tamsulosin Tamsulosin Yes Brandyn TAKE 1 Common HCl HCl [place] CAPSULE BY Spirit MOUTH - CHI EVERY DAY [facility] Levothyroxi Levothyroxi Yes Brandyn 1 tablet Common ne Sodium ne Sodium [place] in the Sp kenan morning on - CHI an empty [facility] Ferrous Ferrous No 1{table BID Ferrous Sulfate 325 Sulfate 325 t} Sulfate (65 Fe) MG (65 Fe) MG 325 (65 Fe) MG Protonix 40 Protonix 40 No 1{table QD Protonix MG MG t} 40 MG Vitamin B-1 Vitamin B-1 No 1{table QD Vitamin 100 MG 100 MG t} B-1 100 MG Gabapentin Gabapentin No Gabapentin 300 MG 300 MG 300 MG Gabapentin Gabapentin No QD Gabapentin 300 MG 300 MG 300 MG Levothyroxi Levothyroxi No QD Levothyrox ne Sodium ne Sodium ine Sodium 200 MCG 200 MCG 200 MCG Atorvastati Atorvastati No 1{table QD Atorvastat n Calcium n Calcium t} in Calcium 80 MG 80 MG 80 MG Calcium Calcium No 2{capsu TID Calcium Acetate 667 Acetate 667 les_wit Acetate MG MG h_meals 667 MG } Sevelamer Sevelamer No 1{table TID Sevelamer HCl 800 MG HCl 800 MG t_with_ HCl 800 MG meals} Epoetin Epoetin No Epoetin Juvencio 88232 Juvencio 62914 Juvencio 00462 UNIT/ML UNIT/ML UNIT/ML Calcium Calcium No 2{table BID Calcium Carbonate Carbonate t} Carbonate 500 MG 500 MG 500 MG Plavix 75 Plavix 75 No 1{table QD Plavix 75 MG MG t} MG Midodrine Midodrine No 1{table QD Midodrine HCl 10 MG HCl 10 MG t} HCl 10 MG traZODone traZODone No QD traZODone HCl 100 MG HCl 100 MG HCl 100 MG Vitamin D3 Vitamin D3 No 1{capsu QD Vitamin D3 Maximum Maximum le} Maximum Strength Strength Strength 5000 UNIT 5000 UNIT 5000 UNIT Docusate Docusate No 1{capsu QD Docusate Sodium 100 Sodium 100 le_as_n Sodium 100 MG MG eeded} MG Clopidogrel Clopidogrel No Clopidogre Bisulfate Bisulfate l 75 MG 75 MG Bisulfate 75 MG Metoprolol Metoprolol No 1{table BID Metoprolol Tartrate 25 Tartrate 25 t_with_ Tartrate MG MG food} 25 MG Aspirin 81 Aspirin 81 No 1{table QD Aspirin 81 81 MG 81 MG t} 81 MG Immunizations Ordered Immunization Filled Immunization Date Status Commen ts Source Name Name FluAD FluSTEPHANIE 2021-07-11 Completed [facility] 10:21:00 [facility] FluAD FluAD 2020-06-10 Completed [facility] 10:07:00 [facility] Vital Signs Vital Name Observation Time Observation Value Comments Source HEIGHT 2020-05-20 00:00:00 172.7 cm WEIGHT 2020-05-20 00:00:00 115.1 kg height 2022-08-08 11:00:00 66 [in_i] [facility] weight 2022-08-08 11:00:00 282.0 [lb_av] [facility] temperature 2022-08-08 11:00:00 97.2 [degF] [facility] bmi 2022-08-08 11:00:00 45.51 kg/m2 [facility] oximetry 2022-08-08 11:00:00 99 % Common S [facility] respiratory rate 2022-08-08 11:00:00 18 /min Comm on [facility] blood pressure 2022-08-08 11:00:00 139 mm[Hg] Common [facility] - systolic [facility] blood pressure 2022-08-08 11:00:00 78 mm[Hg] Common [facility] - diastolic [facility] HEIGHT 2020-06-05 00:00:00 172.7 cm WEIGHT 2020-06-05 00:00:00 124.739 kg HEIGHT 2020-05-20 00:00:00 172.7 cm WEIGHT 2020-05-20 00:00:00 115.1 kg HEIGHT 2020-05-20 00:00:00 172.7 cm WEIGHT 2020-05-20 00:00:00 126.554 kg Procedures This patient has no known procedures. Plan of Care Planned Activity Planned Date Details Comments Source Future Scheduled 2023-05-[address] [facility] Test 00:00:00 (Season Ended) [code = [facility] INFLUENZA VACCINE (Season Ended)] Future Scheduled 2022-12-11 COVID-19 VACCINE (#1) [facility] Test 09:58:54 [code = COVID-19 VACCINE (#1)] Future Scheduled 2022-12-11 COLONOSCOPY SCREENING [facility] Test 09:58:54 [code = COLONOSCOPY SCREENING] Future Scheduled 2022-12-11 SHINGLES VACCINES (1 Met [facility] Test 09:58:54 of 2) [code = SHINGLES VACCINES (1 of 2)] Future Scheduled 2022-12-11 65+ PNEUMOCOCCAL [facility] Test 09:58:54 VACCINE (1 - PCV) [code = 65+ PNEUMOCOCCAL VACCINE (1 - PCV)] Future Scheduled 2022-12-11 INFLUENZA VACCINE [facility] Test 09:58:54 [code = INFLUENZA VACCINE] Future Scheduled 2022-09-[address] [facility] Test 00:00:00 (12+) [code = Medical Center DEPRESSION SCREENING (12+)] Future Scheduled 2022-09-11 FALLS RISK SCREENING [facility] Test 00:00:00 [code = FALLS RISK Medical C enter SCREENING] Future Scheduled 2022-07-17 HEPATITIS B VACCINES Met [facility] Test 16:09:57 (1 of 3 - 3-dose series) [code = HEPATITIS B VACCINES (1 of 3 - 3-dose series)] Future Scheduled 2022-07-17 COVID-19 VACCINE (#1) [facility] Test 16:09:57 [code = COVID-19 VACCINE (#1)] Future Scheduled 2022-07-17 COLONOSCOPY SCREENING [facility] Test 16:09:57 [code = COLONOSCOPY SCREENING] Future Scheduled 2022-07-17 SHINGLES VACCINES (1 [facility] Test 16:09:57 of 2) [code = SHINGLES VACCINES (1 of 2)] Future Scheduled 2022-07-17 65+ PNEUMOCOCCAL Methodi [facility] Test 16:09:57 VACCINE (1 - PCV) [code = 65+ PNEUMOCOCCAL VACCINE (1 - PCV)] Future Scheduled 2022-07-17 INFLUENZA VACCINE [facility] Test 16:09:57 [code = INFLUENZA VACCINE] [...] RISK Medical C enter SCREENING] Future Scheduled 2021-06-[address] [facility] Test 00:00:00 Counseling and Medical Cente r Screening (12+) [code = Tobacco Cessation Counseling and Screening (12+)] Future Scheduled 2019-08-[address] [facility] Test 00:00:00 WELLNESS (YEAR 2 or Medical Center FIRST YEAR if no IPPE) [code = MEDICARE ANNUAL WELLNESS (YEAR 2 or FIRST YEAR if no IPPE)] Future Scheduled 2019-08-[address] [facility] Test 00:00:00 WELLNESS (YEAR 2 or Medical Center FIRST YEAR if no IPPE) [code = MEDICARE ANNUAL WELLNESS (YEAR 2 or FIRST YEAR if no IPPE)] Future Scheduled 2003 SHINGLES VACCINES ([address] [facility] Test 00:00:00 of 2) [code = SHINGLES Medic al Center VACCINES (1 of 2)] Future Scheduled 2003 SHINGLES VACCINES ([address] [facility] Test 00:00:00 of 2) [code = SHINGLES Medic al Center VACCINES (1 of 2)] Future Scheduled 1972 DTAP/TDAP/TD VACCINES [facility] Test 00:00:00 (1 - Tdap) [code = Medical C enter DTAP/TDAP/TD VACCINES (1 - Tdap)] Future Scheduled 1972 DTAP/TDAP/TD VACCINES [facility] Test 00:00:00 (1 - Tdap) [code = Medical C enter DTAP/TDAP/TD VACCINES (1 - Tdap)] Future Scheduled 1971 HEPATITIS C [facility]CREENING [facility] Test 00:00:00 [code = HEPATITIS C Medical Center SCREENING] Future Scheduled 1971 HEPATITIS C [facility]CRE[facility]ING [facility] Test 00:00:00 [code = HEPATITIS C Medical Center SCREENING] Future Scheduled 1959 PNEUMOCOCCAL 65+ YRS [facility] Test 00:00:00 (1 - PCV) [code = Medical Ce nter PNEUMOCOCCAL 65+ YRS (1 - PCV)] Future Scheduled 1959 PNEUMOCOCCAL 65+ YRS [facility] Test 00:00:00 (1 - PCV) [code = Medical Ce nter PNEUMOCOCCAL 65+ YRS (1 - PCV)] Future Scheduled 1954-02-24 COVID-19 VACCINE (#1) [facility] 00:00:00 [code = COVID-[address] VACCINE (#1)] Future Scheduled 1954-02-24 COVID-19 VACCINE (#1) [facility] 00:00:00 [code = COVID-[address] VACCINE (#1)] Future Scheduled [address] [facility] Test 00:00:00 (combo) [code = CT Medical C enter Colonography (combo)] Future Scheduled [address] [facility] Test 00:00:00 malignant neoplasm of Medica l Center colon (procedure) [code = 260940337] Future Scheduled [address] [facility] Test 00:00:00 malignant neoplasm of Medica l Center colon (procedure) [code = 909599968] Future Scheduled [address] [facility] Test 00:00:00 malignant neoplasm of Medica l Center colon (procedure) [code = 955732016] Future Scheduled [address] [facility] Test 00:00:00 malignant neoplasm of Medica l Center colon (procedure) [code = 289015639] Future Scheduled 1955 Sigmoidoscopy [code = [facility] Test 00:00:00 Sigmoidoscopy] Medical Cente r Future Scheduled [address] [facility] Test 00:00:00 (combo) [code = CT Medical C enter Colonography (combo)] Future Scheduled [address] [facility] Test 00:00:00 malignant neoplasm of Medica l Center colon (procedure) [code = 544336500] Future Scheduled [address] [facility] Test 00:00:00 malignant neoplasm of Medica l Center colon (procedure) [code = 957106856] Future Scheduled [address] [facility] Test 00:00:00 malignant neoplasm of Medica l Center colon (procedure) [code = 005994117] Future Scheduled [address] [facility] Test 00:00:00 malignant neoplasm of Medica l Center colon (procedure) [code = 016186162] Future Scheduled 1955 Sigmoidoscopy [code = [facility] Test 00:00:00 Sigmoidoscopy] Medical Joone r Encounters Start End Encounter Admission Attending Care Care Encounter Source Date/Time Date/Time Type Type Clinicians Facility Department ID 2022-11-09 [facility] [id number] Common 08:14:00 Brandyn [address] [facility] 2022-08-03 [facility], [facility] [id number] Common 08:16:00 Brandyn [address] [facility] 2022-03-21 [facility] [id number] Common 15:53:00 Brandyn [facility] 2021-10-06 Outpatient [place], STLMLC STL[facility] [id number] Common 14:33:07 Brandyn [facility] 2021-10-06 Outpatient [place], STLMLC STLMLC [id number] Common 14:12:48 Brandyn [facility] 2021-10-06 Outpatient [place], STLMLC STLMLC [id number] Common 13:57:21 Brandyn [facility] 2021-10-06 Outpatient [place], STLMLC STLMLC [id number] Common 13:34:56 Brandyn [facility] 2021-10-06 Outpatient [place], STLMLC STLMLC [id number] Common 13:00:40 Brandyn 03411 [facility] 2021-10-06 Outpatient [place], STLMLC STLC [id number] Common 13:00:23 Brandyn 06442 [facility] 2021-10-06 Outpatient [place], STLMLC STLMLC [id number] Common 12:24:47 Brandyn 87491 [facility] 2021-10-06 Outpatient [place], STLMLC STLMLC [id number] Common 12:23:09 Brandyn 48873 [facility] 2021-10-06 Outpatient [place], STLMLC STLC [id number] Common 11:59:33 Brandyn 62619 [facility] 2021-10-06 Outpatient [place], STLMLC STLMLC [id number] Common 11:33:15 Brandyn 65647 [facility] 2021-10-06 Outpatient [place], STLMLC STLMLC [id number] Common 11:17:40 Brandyn [id number] [facility] 2021-06-16 Inpatient [facility], [facility] Surgery [id number] [facility] 06:26:24 JOHN 2022-08-08 2022-08-08 OFFICE [facility] [id number] 00:00:00 00:00:00 VISIT [facility] 4 [facility] 2022-05-04 2022-05-04 ambulatory STLMLC STL[facility]C [id number] Common 00:00:00 00:00:00 [facility] 2022-05-04 2022-05-04 ambulatory STLMLC STLMLC [id number] Common 00:00:00 00:00:00 [facility] 2022-05-04 2022-05-04 ambulatory STLMLC STLMLC [id number] Common 00:00:00 00:00:00 [facility] 2022-02-09 2022-02-09 ambulatory STLMLC STLMLC [id number] Common 00:00:00 00:00:00 [facility] 2021-12-21 2021-12-21 ambulatory STLMLC STLMLC [id number] Common 00:00:00 00:00:00 [facility] 2021-11-08 2021-11-08 ambulatory STLMLC STLMLC [id number] Common 00:00:00 00:00:00 [facility] 2021-11-04 2021-11-04 ambulatory STLMLC STLMLC [id number] Common 00:00:00 00:00:00 [facility] 2021-11-04 2021-11-04 ambulatory STLMLC STLMLC [id number] Common 00:00:00 00:00:00 [facility] 2021-09-20 2021-09-20 ambulatory STLMLC STLMLC [id number] Common 00:00:00 00:00:00 [facility] 2021-09-17 2021-09-17 ambulatory STLMLC STLMLC [id number] Common 00:00:00 00:00:00 [facility] 2021-09-16 2021-09-16 ambulatory STLMLC STLMLC [id number] Common 00:00:00 00:00:00 [facility] 2021-08-09 2021-08-09 ambulatory STLMLC STLMLC [id number] Common 00:00:00 00:00:00 [facility] 2021-04-16 2021-04-16 Outpatient STL[facility]C STL[facility]C [id number] Common 00:00:00 00:00:00 [facility] 2021-04-16 2021-04-16 Outpatient STL[facility]C STL[facility]C [id number] Common 00:00:00 00:00:00 [facility] 2021-01-15 2021-01-15 Outpatient STLMLC STLMLC [id number] Common 00:00:00 00:00:00 [facility] 2020-10-07 2020-10-07 Outpatient STLMLC STLMLC [id number] Common 00:00:00 00:00:00 [facility] 2020-10-02 2020-10-02 Outpatient STLMLC STLMLC [id number] Common 00:00:00 00:00:00 [facility] 2020-07-10 2020-07-10 Outpatient STLMLC STLMLC [id number] Common 00:00:00 00:00:00 [facility] 2020-07-08 2020-07-08 Outpatient STLMLC STLMLC [id number] Common 00:00:00 00:00:00 [facility] 2020-06-08 2020-06-08 [facility]patient [facility] [id number] [facility] 00:00:00 00:00:00 JOHN 2020-06-05 2020-06-05 Outpatient [facility] [id number] [facility] 00:00:00 00:00:00 JOHN 2020-05-26 2020-05-26 Outpatient LM [facility] [id number] [facility] 00:00:00 00:00:00 2020-05-20 2020-05-20 Outpatient [facility] [id number] [facility] 00:00:00 00:00:00 JOHN 2020-05-19 2020-05-19 Outpatient [facility] [id number] [facility] 00:00:00 00:00:00 JOHN 2020-04-09 2020-04-09 [facility] [id number] Common 13:13:00 13:13:[address] Family - [facility] 2020-04-08 2020-04-08 [facility] [id number] Common 10:00:00 10:00:[address] [facility] 2020-04-08 2020-04-08 [facility] [id number] Common 10:00:00 10:00:[address] [facility] 2020-01-27 2020-01-27 [facility] [id number] Common 12:56:00 12:56:[address] [facility] 2019-12-23 2019-12-23 [facility] [id number] Common 12:00:00 12:00:[address] [facility] 2019-09-18 2019-09-18 [facility] [id number] Common 11:30:00 11:30:[address] [facility] 2019-08-29 2019-08-29 [facility] [id number] Common 16:29:00 16:29:[address] [facility] 2019-05-31 2019-05-31 [facility] [id number] Common 09:45:00 09:45:[address] [facility] 2019-05-24 2019-05-24 [facility] [id number] Common 09:05:00 09:05:[address] [facility] 2019-02-27 2019-02-27 [facility] [id number] Common 10:30:00 10:30:[address] [facility] 2018-12-13 2018-12-13 [facility] [id number] Common 11:02:00 11:02:[address] [facility] [address] [facility] 2018-11-12 2018-11-12 [facility] [id number] Common 16:00:00 16:00:[address] [facility] 2018-11-09 2018-11-09 [facility] [id number] Common 14:41:00 14:41:[address] [facility] 2018-09-12 2018-09-12 [facility] [id number] Common 15:00:00 15:00:[address] [facility] 2018-08-22 2018-08-22 [facility] [id number] Common 12:06:00 12:06:[address] [facility] Results Test Description Test Time Test Comments Results Result Sourc e Comments TISSUE EXAM 2020-06-05 Surgical Pathology 17:42:00 Report Case: [id number] Authorizing Provider: John Mercedes, Collected: 05/27/2020 09:22 AM Ordering Location: [facility] Received: 05/27/2020 09:46 AM PERIOPERATIVE SERVICES Pathologist: Kristopher Cruz MD Specimen: Plaque, LEFT CAROTID ARTERY PLAQUE ARTERY, LEFT CAROTID, ENDARTERECTOMY:CALCIFI C ATHEROSCLEROTIC PLAQUE WITH RECENT INTRAPLAQUE HEMORRHAGE Signing Pathologist Direct Phone Line: [phone] ally signed by Kristopher Cruz MD on 06/05/2020 at 5:42 [id number]; [id number] diagnosis: Carotid stenosis, leftPlaque Received in formalin labeled with the patient's name, accession number and "left carotid artery plaque" is a 3.5 cm in length x 0.4 cm in diameter kay-yellow tubular piece of focally calcified plaque. Information Systems Coordinator sections are submitted in A1 following decalcification. PA/pl Performed POCT-GLUCOSE METER 2020-05-29 07:20:00 Test Item Value Reference Range Interpretation Comme nts POC-GLUCOSE METER (BEAKER) 84 mg/dL 70-110 : [facility] AT [facility] [facility] (test code = 1538) JOHN Araujo 39446: Tortilla Maker/Techni cheryl ID = [id number] for TYRELL HOPKINS POCT-GLUCOSE [id number] 21:17:00 Test Item Value Reference Range Interpretation Comments POC-GLUCOSE METER 106 mg/dL 70-110 : TESTED A T [facility] 6720 (BEAKER) (test code = [facility], 153) 30416: Tortilla Maker/Techni cheryl ID = [id number] for RENATO JOE POCT-GLUCOSE [id number] 16:40:00 Test Item Value Reference Range Interpretation Comments POC-GLUCOSE METER 116 mg/dL 70-110 H : TESTED A T [facility] 6720 (BEAKER) (test code = [facility], 1538) 74010: Tortilla Maker/Techni cheryl ID = [id number] for TRENA CAMILO POCT-GLUCOSE [id number] 13:58:00 Test Item Value Reference Range Interpretation Comments POC-GLUCOSE METER 90 mg/dL 70-110 : TESTED A T [facility] 67[address] (BEAKER) (test code = [facility], [facility]) 44468: Tortilla Maker/Techni cheryl ID = [id number] for WILL TISH, DACIANEDIAMOND HEPATITIS B SURFACE [id number] 09:32:00 Test Item Value Reference Range Interpretation Comments HEPATITIS B SURFACE ANTIGEN (2) Nonreactive Nonreactive (AKER) (test code = 2585) Specimen is considered negative for HBsAg.POCT-GLUCOSE [id number] 07:48:00 Test Item Value Reference Range Interpretation Comments POC-GLUCOSE METER 87 mg/dL 70-110 : TESTED A T [facility] 6720 (BEAKER) (test code = [facility], [facility]) 37539: Tortilla Maker/Techni cheryl ID = [id number] for WILL IAMS, TYNEKA CBC W/PLT COUNT & AUTO [id number] 07:20:00 Test Item Value Reference Range Interpretation [...] (BEAKER) (test code = 2801) BASIC METABOLIC [id number] 07:08:00 Test Item Value Reference Range Interpretation [...] S NOT APPLICABLE FOR DIALYSIS PATIEN TS. Tortilla Maker ID Chloe FOLYD [id number] 07:04:00 Test Item Value Reference Range Interpretation Comments CREATININE (BEAKER) 8.42 mg/dL 0.57-1.25 H (test code = 358) EGFR (BEAKER) (test 6 mL/min/1.73 ESTIMAT ED GFR IS code = 1092) sq m NOT ACCURATE CREATININE CLEARANCE IN PREDICTING GLOMERULAR FILTRATION RATE . ESTIMATED GFR I S NOT APPLICABLE FOR DIALYSIS PATIEN TS. Tortilla Maker ID - EVERETT [id number] 07:03:00 Test Item Value Reference Range Interpretation Comments BLOOD UREA NITROGEN (BEAKER) (test 42 mg/dL 7-21 H code = 354) Tortilla Maker ID - EVERETT [id number] 07:03:00 Test Item Value Reference Range Interpretation Comments GLUCOSE RANDOM (BEAKER) (test code 100 mg/dL 70-105 = 652) Tortilla Maker ID - EVERETT MPOCT-GLUCOSE [id number] 21:32:00 Test Item Value Reference Range Interpretation Comments POC-GLUCOSE METER 136 mg/dL 70-110 H : TESTED A T [facility] 6720 (BEAKER) (test code = FLAKITA LOPEZ MD, 1538) 20688: Tortilla Maker/Techni cheryl ID = [id number] for SAAD DUQUE SE BASIC METABOLIC [id number] 11:57:00 Test Item Value Reference Range Interpretation [...] S NOT APPLICABLE FOR DIALYSIS PATIEN TS. Tortilla Maker ID - EVERETT MPOCT-GLUCOSE [id number] 10:56:00 Test Item Value Reference Range Interpretation Comments POC-GLUCOSE METER 102 mg/dL 70-110 : TESTED A T [facility] 6720 (BEAKER) (test code = FLAKITA [facility], 1538) 38506: Tortilla Maker/Techni cheryl ID = [id number] for Georgie Bolton PLATELET AGGREGATION: FUNCTION [id number] 08:51:00 Test Item Value Reference Range Interpretation Comments [id number] Gael Bryant MD (BEAKER) (test code = (electronic 2622) signature) PLATELET COUNT AGG 133 K/CU MM 150-450 L (BEAKER) (test code = 2656) ADP (BEAKER) (test code 57 % 62-100 L = 3104) PLATELET RICH 172 k/cu mm 200-300 L PLASMA(BEAKER) (test code = 2134) PLATELET FUNCTION SCREEN Decreased aggregation INTERPRETATION (BEAKER) with ADP which (test code = 7731) indicates platelet dysfunction that may be due to medication effect, uremia, or other platelet function disorders. Clinical correlation is required. PLATELET FUNCTION SCREEN When platelet rich INTERPRETATION (BEAKER) plasma count is (test code = 678444) <200,000/mm3, an abnormal result may be due to a low platelet count rather than a true platelet dysfunction. Platelet Function Screen results may be falsely low with platelet counts<75,000/cu mm.Tortilla Maker ID- [id number] ID - [id number] ID - [id number] BASIC METABOLIC [id number] 07:24:00 Test Item Value Reference Range Interpretation [...] S NOT APPLICABLE FOR DIALYSIS PATIEN TS. Tortilla Maker ID - EVERETT MPROTHROMBIN [id number] 07:19:00 Test Item Value Reference Range Interpretation [...] mechanical heart valves.CBC W/PLT COUNT & AUTO [id number] 07:05:00 Test Item Value Reference Range Interpretation [...] PERCENT (BEAKER) (test code = 2801) POCT-GLUCOSE [id number] 06:09:00 Test Item Value Reference Range Interpretation Comments POC-GLUCOSE METER 77 mg/dL 70-110 : TESTED A T [facility] 6720 ([facility]) (test code = FLAKITA LOPEZ MD, 1538) 38059: Tortilla Maker/Techni cheryl ID = [id number] for EDILMA GRAJEDA
[2023-01-16 09:31] LABS: Absolute Lymphocytes (CBC) 0.9 K/uL (0.7-4.9); Hematocrit 36.6 % (39.6-49.0); Lymphocytes % 13.6 % (15.3-44.8); MCV 102.5 fL (80-100); MPV 7.9 fL (7.6-11.3); RBC Red Blood Cell Count 3.57 M/uL (4.33-5.43)
[2023-01-16 09:33] LABS: Protime INR 0.96
--- NOTE | 2023-01-16 09:33 | RAD REPORT ---
EXAM DESCRIPTION: CT - Head Brain Wo Cont - 01/16/2023 9:20 am CLINICAL HISTORY: DIZZINESS Headache, drowsiness COMPARISON: Head Brain Wo Cont dated 12/21/2021 TECHNIQUE: All CT scans are performed using dose optimization technique as appropriate and may inclu de automated exposure control or mA/KV adjustment according to patient size. FINDINGS: No intracranial hemorrhage, hydrocephalus or extra-axial fluid collection.Mild generalized brain atrophy is present with mild periventricular and deep white matter chronic microvascular ische yesi changes.No areas of brain edema or evidence of midline shift. The paranasal sinuses and mastoids are clear. The calvarium is intact. IMPRESSION: No acute intracranial abnormality.
--- NOTE | 2023-01-16 09:57 | RAD REPORT ---
EXAM DESCRIPTION: RAD - Chest Single View - 01/16/2023 9:51 am CLINICAL HISTORY: Dizziness Chest pain. COMPARISON: Chest Pa And Lat (2 Views) dated 08/22/2022; Chest Single View dated 07/28/2022; Chest S jacky View dated 12/21/2021; Chest Pa And Lat (2 Views) dated 04/14/2020 FINDINGS: Portable technique limits examination quality. Mild pulmonary edema is noted. Small left pleural effusion. The heart is moderately enlarged. No disp laced fractures.Sternotomy wires. IMPRESSION: Mild CHF versus volume overload pattern.
[2023-01-16 10:02] LABS: Albumin 3.6 g/dL (3.4-5.0); Bilirubin Direct 0.1 mg/dL (0-0.2); Bilirubin Total 0.4 mg/dL (0.2-1.0); Potassium 3.9 mEq/L (3.5-5.1); Protein, Total 7.4 g/dL (6.4-8.2); Troponin High Sensitivity 17.6 pg/mL (<58.9)
--- NOTE | 2023-01-16 12:39 | RAD REPORT ---
EXAM DESCRIPTION: MRI - Brain Wo Cont - 01/16/2023 12:26 pm CLINICAL HISTORY: DIZZINESS Headache, drowsiness COMPARISON: MRA Head Wo Cont dated 01/16/2023 TECHNIQUE: Multi-sequence, multiplanar MR imaging of the brain was performed without contrast. FINDINGS: No intracranial hemorrhage, hydrocephalus or extra-axial fluid collections.Mild periventri cular and deep white matter chronic microvascular ischemic changes. No edema or shift of midline stru ctures. No findings to suspect brain mass. DWI is negative for acute CVA. Midline structures are normally formed. Mastoid air cells and paranasal sinuses are clear. IMPRESSION: No acute CVA or other acute intracranial process detected.
--- NOTE | 2023-01-16 12:43 | RAD REPORT ---
EXAM DESCRIPTION: MRI - MRA Head Wo Cont - 01/16/2023 12:26 pm CLINICAL HISTORY: DIZZINESS CVA headache, drowsiness COMPARISON: Head Brain Wo Cont dated 01/16/2023 FINDINGS: 3D noncontrast [id number]-[id number] MR angiography of the barrow of [place] was performed. No evidence of large vessel occlusion. No aneurysm, flow-limiting stenosis or vascular malformation i s seen. Forward flow seen in left-sided dominant vertebral arteries. The visualized dural venous sinuses appear patent. IMPRESSION: No significant flow abnormality of the barrow of [place] is identified.
--- NOTE | 2023-01-16 13:40 | EDPHYS ---
Physician Documentation [facility] Name: Sunil Hong Age: 67 yrs Sex: Male : 1955 Arrival Date: 01/16/2023 Time: 08:49 Bed 18 Private MD: ED Physician Kenneth Mg HPI: 01/16 09:50 This 67 yrs old Male presents to ER via EMS with complaints of Dizziness. kdr 09:50 Patient states that he has been intermittently dizzy for the last 3 days. It was little kdr bit worse this morning. The patient stated he was off balance and fell this morning. He did not lose consciousness. He did not sustain any injury. Currently he has no focal complaint. He is not dizzy nor does he have any musculoskeletal pain from his fall. Symptoms have been intermittent since onset. He has not had anything like this before. The patient and his sister who is with him are concerned his potassium may be off as this has been a problem before.. Onset: The symptoms/episode began/occurred 3 day(s) ago. Severity of symptoms: At their worst the symptoms were mild moderate just prior to arrival, in the emergency department the symptoms have resolved. The patient has not experienced similar symptoms in the past. The patient has not recently seen a physician. Historical: - Allergies: 08:56 No Known Allergies; kc6 - PMHx: 08:56 Diabetes - NIDDM; ESRD; Myocardial infarction; dialysis T, Th, Sat.; kc6 - PSHx: 08:56 Coronary artery bypass graft; kc6 - Immunization history:: Client reports receiving the 2nd dose of the Covid vaccine, Flu vaccine is up to date. - Social history:: Smoking status: Patient denies any tobacco usage or history of. ROS: 09:50 Constitutional: Negative for fever, chills, and weight loss, Eyes: Negative for injury, kdr pain, redness, and discharge, ENT: Negative for injury, pain, and discharge, Neck: Negative for injury, pain, and swelling, Cardiovascular: Negative for chest pain, palpitations, and edema, Respiratory: Negative for shortness of breath, cough, wheezing, and pleuritic chest pain, Abdomen/GI: Negative for abdominal pain, nausea, vomiting, diarrhea, and constipation, Back: Negative for injury and pain, : Negative for injury, bleeding, discharge, and swelling, MS/Extremity: Negative for injury and deformity, Skin: Negative for injury, rash, and discoloration, Psych: Negative for depression, anxiety, suicide ideation, homicidal ideation, and hallucinations, Allergy/Immunology: Negative for hives, rash, and allergies, Endocrine: Negative for neck swelling, polydipsia, polyuria, polyphagia, and marked weight changes, Hematologic/Lymphatic: Negative for swollen nodes, abnormal bleeding, and unusual bruising. 09:50 Neuro: Positive for dizziness, Negative for gait disturbance, headache, hearing loss, loss of consciousness, numbness, seizure activity, speech changes, syncope, near syncope, tingling, tinnitus, tremor, visual changes, weakness. Exam: 09:23 ECG was reviewed by the Attending Physician. kdr 09:50 Constitutional: This is a well developed, well nourished patient who is awake, alert, kdr and in no acute distress. Head/Face: Normocephalic, atraumatic. Eyes: Pupils equal round and reactive to light, extra-ocular motions intact. Lids and lashes normal. Conjunctiva and sclera are non-icteric and not injected. Cornea within normal limits. Periorbital areas with no swelling, redness, or edema. Neck: Trachea midline, no thyromegaly or masses palpated, and no cervical lymphadenopathy. Supple, full range of motion without nuchal rigidity, or vertebral point tenderness. No Meningismus. Chest/axilla: Normal chest wall appearance and motion. Nontender with no deformity. No lesions are appreciated. Cardiovascular: Regular rate and rhythm with a normal S1 and S2. No gallops, murmurs, or rubs. Normal PMI, no JVD. No pulse deficits. Respiratory: Lungs have equal breath sounds bilaterally, clear to auscultation and percussion. No rales, rhonchi or wheezes noted. No increased work of breathing, no retractions or nasal flaring. Abdomen/GI: Soft, non-tender, with normal bowel sounds. No distension or tympany. No guarding or rebound. No evidence of tenderness throughout. Back: No spinal tenderness. No costovertebral tenderness. Full range of motion. Skin: Warm, dry with normal turgor. Normal color with no rashes, no lesions, and no evidence of cellulitis. MS/ Extremity: Pulses equal, no cyanosis. Neurovascular intact. Full, normal range of motion. Neuro: Awake and alert, GCS 15, oriented to person, place, time, and situation. Cranial nerves II-XII grossly intact. Motor strength 5/5 in all extremities. Sensory grossly intact. Cerebellar exam normal. Normal gait. Psych: Awake, alert, with orientation to person, place and time. Behavior, mood, and affect are within normal limits. Vital Signs: 08:55 BP 154 / 79; Pulse 87; Resp 16 S; Temp 97.5(O); Pulse Ox 96% on R/A; Weight 127.46 kg kc6 (M); Height 5 ft. 8 in. (R); Pain 0/10; 09:51 BP 127 / 63; Pulse 81; Resp 18 S; Pulse Ox 94% on R/A; kc6 10:33 BP 116 / 42; Pulse 79; Resp 19 S; Pulse Ox 97% on R/A; kc6 11:27 BP 163 / 72; Pulse 73; Resp 11 S; Pulse Ox 97% on R/A; kc6 12:29 BP 169 / 74; Pulse 76; Resp 14 S; Pulse Ox 100% on R/A; Pain 0/10; kc6 13:14 BP 151 / 66 LA Supine (auto/lg); Pulse 72; kc6 13:14 BP 159 / 80 LA Sitting (auto/lg); Pulse 81; kc6 13:14 BP 141 / 66 LA Standing (auto/lg); Pulse 81; kc6 08:55 Body Mass Index 42.73 (127.46 kg, 172.72 cm) kc6 08:55 Pain Scale: Adult kc6 12:29 Pain Scale: Adult kc6 MDM: 10:50 Data reviewed: vital signs, nurses notes, lab test result(s), radiologic studies. kdr Scoring Tools HEART Score: History: Slightly Suspicious (0) ECG: Non specific repolarization disturbance/ LBTB/ PM (1) Age: > 45 and < 65 years (1) Risk Factors: > or = 3 Risks factors for Atherosclerotic disease (2). 11:19 ED course: Patient continues to be stable however he is still off balance when kdr ambulating. He not has no other focal symptoms at this time. Laboratory data was not contributory to a focal problem. Despite being on dialysis his electrolytes were in good shape. Given his continued off balance status, will get an MRI stroke protocol prior to possible discharge. 13:39 Patient medically screened. kdr 01/16 09:06 Order name: Basic Metabolic Panel; Complete Time: 10:25 kdr 0508 09:06 Order name: CBC with Diff; Complete Time: 10:25 kdr 0508 09:06 Order name: LFT's; Complete Time: 10:25 kdr 0508 09:06 Order name: NT PRO-BNP; Complete Time: 10:25 kdr 01/16 09:06 Order name: PT-INR; Complete Time: 10:25 kdr 05 09:06 Order name: Troponin HS; Complete Time: 10:25 kdr 01/16 09:06 Order name: XRAY Chest (1 view); Complete Time: 10:25 kdr 0508 09:06 Order name: CT Head Brain wo Cont; Complete Time: 10:25 kdr 05/08 11:58 Order name: MRA Head Wo Cont; Complete Time: 12:58 EDMS 05/08 11:59 Order name: Brain Wo Cont; Complete Time: 12:58 EDMS 05/08 09:06 Order name: EKG; Complete Time: 09:07 kdr 0508 09:06 Order name: Cardiac monitoring; Complete Time: 09:20 kdr 0508 09:06 Order name: EKG - Nurse/Tech; Complete Time: 09:20 kdr 0508 09:06 Order name: IV Saline Lock; Complete Time: 09:20 kdr 0508 09:06 Order name: Labs collected and sent; Complete Time: 09:20 kdr 0508 09:06 Order name: O2 Per Protocol; Complete Time: 09:20 kdr 08 09:06 Order name: O2 Sat Monitoring; Complete Time: 09:20 kdr 0508 13:03 Order name: Orthostatic Blood Pressure; Complete Time: 13:14 kdr EC:23 Rate is 84 beats/min. Rhythm is regular, Sinus Rhythm with Right bundle branch block. kdr QRS [place] is Normal. NM interval is normal. QRS interval is normal. Clinical impression: NSR w/ Non-specific ST/T Changes. Administered Medications: No medications were administered Disposition Summary: 01/16/23 13:39 Discharge Ordered Location: Home kdr Problem: new kdr Symptoms: have improved kdr Condition: Stable kdr Diagnosis - Dizziness, off balance, weakness kdr Followup: kdr - With: Private Physician - When: 2 - 3 days - Reason: If symptoms return, Further diagnostic work-up, Recheck today's complaints, Continuance of care, Re-evaluation by your physician Discharge Instructions: - Discharge Summary Sheet kdr - Weakness, Xywv-ss-Ells kdr - Dizziness, Lkbn-cx-Lvfv kdr Forms: - Medication Reconciliation Form kdr - Thank You Letter kdr Prescriptions: - Meclizine 25 mg Oral Tablet - take 1 tablet by ORAL route every 8 hours As needed; 15 tablet; Refills: 0, kdr Product Selection Permitted Signatures: Dispatcher [employer] Kenneth Montalvo MD MD kdr Radha Davis RN RN kc6 Corrections: (The following items were deleted from the chart) 11:57 10:50 MR STROKE PROTOCOL+MRI.RAD.BRZ ordered. [facility]
--- NOTE | 2023-01-16 13:40 | ER ---
Nurse's Notes [facility] Name: Sunil Hong Age: 67 yrs Sex: Male : 1955 Arrival Date: 01/16/2023 Time: 08:49 Bed 18 Private MD: Diagnosis: Dizziness, off balance, weakness Presentation: 01/16 08:55 Chief complaint: EMS states: pt has been reporting dizziness x3 days, worse this kc6 morning. stated pt fell this morning while ambulating. no LOC. BGl en route 109. Coronavirus screen: At this time, the client does not indicate any symptoms associated with coronavirus-19. Ebola Screen: No symptoms or risks identified at this time. Initial Sepsis Screen: Does the patient meet any 2 criteria? No. Patient's initial sepsis screen is negative. Does the patient have a suspected source of infection? No. Patient's initial sepsis screen is negative. Risk Assessment: Do you want to hurt yourself or someone else? Patient reports no desire to harm self or others. Onset of symptoms was January 16, 2023. 08:55 Method Of Arrival: EMS: [facility] kc6 08:55 Acuity: JAQUELIN 3 kc6 Triage Assessment: 08:56 General: Appears in no apparent distress. comfortable, Behavior is calm, cooperative, kc6 appropriate for age. Pain: Denies pain. EENT: No signs and/or symptoms were reported regarding the EENT system. Neuro: [place] Agitation-Sedation Scale (RASS): 0 - Alert and Calm Level of Consciousness is awake, alert, obeys commands, Oriented to person, place, time, situation, Appropriate for age Reports dizziness. Cardiovascular: Capillary refill < 3 seconds Dialysis shunt: in the right arm, with palpable thrill, with auscultated bruit, with no erythema, with no edema, no bleeding noted. Respiratory: Airway is patent Trachea midline Respiratory effort is even, unlabored, Respiratory pattern is regular, symmetrical. GI: No signs and/or symptoms were reported involving the gastrointestinal system. : No signs and/or symptoms were reported regarding the genitourinary system. Derm: No signs and/or symptoms reported regarding the dermatologic system. Skin is intact, Skin is pink, warm \T\ dry. Musculoskeletal: No signs and/or symptoms reported regarding the musculoskeletal system. Circulation, motion, and sensation intact. Capillary refill < 3 seconds, Range of motion: intact in all extremities. Historical: - Allergies: 08:56 No Known Allergies; kc6 - PMHx: 08:56 Diabetes - NIDDM; ESRD; Myocardial infarction; dialysis T, Th, Sat.; kc6 - PSHx: 08:56 Coronary artery bypass graft; kc6 - Immunization history:: Client reports receiving the 2nd dose of the Covid vaccine, Flu vaccine is up to date. - Social history:: Smoking status: Patient denies any tobacco usage or history of. Screenin:[address] [facility] ED Fall Risk Assessment (Adult) History of falling in the last 3 months, kc6 including since admission Yes- physiologic fall (2 pts) Confusion or Disorientation No (0 pts) Intoxicated or Sedated No (0 pts) Impaired Gait No (0 pts) Mobility Assist Device Used No (0 pt) Altered Elimination No (0 pt) Score/Fall Risk Level 0 - 2 = Low Risk Oriented to surroundings, Maintained a safe environment, Educated pt \T\ family on fall prevention, incl call for assistance when getting out of bed, Assessed \T\ reinforced patient's understanding of fall precautions, Hourly rounding (assess needs \T\ fall precautionary measures) done. Abuse screen: Denies threats or abuse. Denies injuries from another. Nutritional screening: No deficits noted. Tuberculosis screening: No symptoms or risk factors identified. Assessment: 08:59 Reassessment: please see triage assessment. kc6 09:52 Reassessment: Patient appears in no apparent distress at this time. No changes from kc6 previously documented assessment. Patient and/or family updated on plan of care and expected duration. Pain level reassessed. Patient is alert, oriented x 3, equal unlabored respirations, skin warm/dry/pink. 10:52 Reassessment: Patient appears in no apparent distress at this time. No changes from kc6 previously documented assessment. Patient and/or family updated on plan of care and expected duration. Pain level reassessed. Patient is alert, oriented x 3, equal unlabored respirations, skin warm/dry/pink. 11:27 Reassessment: pt to MRI via wheelchair. kc6 12:19 Reassessment: Patient appears in no apparent distress at this time. No changes from kc6 previously documented assessment. Patient and/or family updated on plan of care and expected duration. Pain level reassessed. Patient is alert, oriented x 3, equal unlabored respirations, skin warm/dry/pink. 12:28 Reassessment: pt returned from MRI via wheelchair. kc6 13:19 Reassessment: Patient appears in no apparent distress at this time. No changes from kc6 previously documented assessment. Patient and/or family updated on plan of care and expected duration. Pain level reassessed. Patient is alert, oriented x 3, equal unlabored respirations, skin warm/dry/pink. Vital Signs: 08:55 BP 154 / 79; Pulse 87; Resp 16 S; Temp 97.5(O); Pulse Ox 96% on R/A; Weight 127.46 kg kc6 (M); Height 5 ft. 8 in. (R); Pain 0/10; 09:51 BP 127 / 63; Pulse 81; Resp 18 S; Pulse Ox 94% on R/A; kc6 10:33 BP 116 / 42; Pulse 79; Resp 19 S; Pulse Ox 97% on R/A; kc6 11:27 BP 163 / 72; Pulse 73; Resp 11 S; Pulse Ox 97% on R/A; kc6 12:29 BP 169 / 74; Pulse 76; Resp 14 S; Pulse Ox 100% on R/A; Pain 0/10; kc6 13:14 BP 151 / 66 LA Supine (auto/lg); Pulse 72; kc6 13:14 BP 159 / 80 LA Sitting (auto/lg); Pulse 81; kc6 13:14 BP 141 / 66 LA Standing (auto/lg); Pulse 81; kc6 08:55 Body Mass Index 42.73 (127.46 kg, 172.72 cm) kc6 08:55 Pain Scale: Adult kc6 12:29 Pain Scale: Adult kc6 ED Course: 08:54 Patient arrived in ED. kc6 08:56 Triage completed. kc6 08:56 Kenneth Mg MD is Attending Physician. kdr 08:56 Arm band placed on. kc6 08:59 Patient has correct armband on for positive identification. Bed in low position. Call kc6 light in reach. Side rails up X2. Adult w/ patient. 09:19 Radha Davis RN is Primary Nurse. kc6 09:20 Inserted saline lock: 20 gauge in left antecubital area, using aseptic technique. Blood kc6 collected. 09:21 CT Head Brain wo Cont In Process Unspecified. EDMS 09:52 XRAY Chest (1 view) In Process Unspecified. EDMS 12:27 MRA Head Wo Cont In Process Unspecified. EDMS 12:28 Brain Wo Cont In Process Unspecified. EDMS 13:57 No provider procedures requiring assistance completed. IV discontinued, intact, kc6 bleeding controlled, No redness/swelling at site. Pressure dressing applied. Administered Medications: No medications were administered Medication: 13:58 VIS not applicable for this client. kc6 Outcome: 13:39 Discharge ordered by . kdr 13:58 Discharged to home via wheelchair, with significant other. kc6 13:58 Condition: improved 13:58 Discharge instructions given to patient, Instructed on discharge instructions, follow up and referral plans. medication usage, Demonstrated understanding of instructions, follow-up care, medications, Prescriptions given X 1. 13:58 Patient left the ED. kc6 Signatures: Dispatcher [employer] Kenneth Montalvo MD MD kdr Campbell, Kaitlyn RN RN kc6
[2023-01-16 14:07] VITALS: TEMP 97.5
[2023-01-16 14:25] VITALS: O2SAT 100
[2023-01-16 14:26] VITALS: BP 141/66
--- NOTE | 2023-01-17 07:54 | EKG ---
Test Date: 2023-01-16 Test Time: 09:08:48 Manager Garden: URSZULA MEASUREMENT RESULTS: Intervals: Rate: 84 NC: 230 QRSD: 164 QT: 438 QTc: 517 [place]: P: 55 NC: 230 QRS: 130 T: 72 INTERPRETIVE STATEMENTS: Sinus rhythm with 1st degree AV block Right bundle branch block Abnormal ECG Compared to ECG 07/28/2022 19:33:59 Myocardial infarct finding no longer present Electronically Signed On 01-17-23 07:52:53 CDT by Cuauhtemoc Tello
== END 2023-01-16 13:58 | disposition home or self-care (01) ==
LOC: ER 08:49
DX: R42 Dizziness and giddiness (principal); R53.1 Weakness; R26.81 Unsteadiness on feet; E11.22 Type 2 diabetes mellitus with diabetic chronic kidney disease; N18.6 End stage renal disease; Z99.2 Dependence on renal dialysis; Z95.1 Presence of aortocoronary bypass graft
CPT/HCPCS: 36415; 70450; 70544; 70551; 71045; 80048; 80076; 83880; 84484; 85025; 85610; 93005; 99284

== ENCOUNTER → 2023-08-31 | Emergency (ER) | payer OTHER ==
[~2023-08-31] MED LIST: MUPIROCIN 2% OINT 22GM TUBE TOP ONE
--- NOTE | 2023-08-31 09:54 | EDPHYS ---
Physician Documentation [facility] Name: Sunil Hong Age: 68 yrs Sex: Male : 1955 Arrival Date: 08/31/2023 Time: 09:27 Bed 11 Private MD: Brandyn Gamboa ED Physician Arley Calixto HPI: 08/31 14:10 This 68 yrs old Male presents to ER via Ambulatory with complaints of Wound rt Check. 14:10 Patient presents to the ED for wound to the right forearm. Patient states that he was rt walking, tripped and brushed his arm against the side of the wall causing a skin tear. Had a minor issues after he took the bandage off at dialysis. Present to the ED for further eval. Denies other acute complaints, symptoms are mild in severity, no other aggravating elevating factors.. Historical: - Allergies: 09:40 No Known Allergies; ap3 - PMHx: 09:40 Diabetes - NIDDM; dialysis T; dialysis T; dialysis T; ESRD; Myocardial infarction; ap3 - Immunization history:: Client reports receiving the 2nd dose of the Covid vaccine. - Social history:: Smoking status: Patient denies any tobacco usage or history of. ROS: 14:10 Constitutional: Negative for fever, chills, and weight loss, Cardiovascular: Negative rt for chest pain, palpitations, and edema, Respiratory: Negative for shortness of breath, cough, wheezing, and pleuritic chest pain, Abdomen/GI: Negative for abdominal pain, nausea, vomiting, diarrhea, and constipation, MS/Extremity: Negative for injury and deformity, Neuro: Negative for headache, weakness, numbness, tingling, and seizure, Psych: Negative for depression, anxiety, suicide ideation, homicidal ideation, and hallucinations, 14:10 Skin: Positive for Skin tear, negative for laceration, Exam: 14:10 Constitutional: This is a well developed, well nourished patient who is awake, alert, rt and in no acute distress. Head/Face: Normocephalic, atraumatic. Chest/axilla: Normal chest wall appearance and motion. Nontender with no deformity. No lesions are appreciated. Cardiovascular: Regular rate and rhythm with a normal S1 and S2. No gallops, murmurs, or rubs. Normal PMI, no JVD. No pulse deficits. Respiratory: Lungs have equal breath sounds bilaterally, clear to auscultation and percussion. No rales, rhonchi or wheezes noted. No increased work of breathing, no retractions or nasal flaring. Abdomen/GI: Soft, non-tender, with normal bowel sounds. No distension or tympany. No guarding or rebound. No evidence of tenderness throughout. Neuro: Awake and alert, GCS 15, oriented to person, place, time, and situation. Cranial nerves II-XII grossly intact. Motor strength 5/5 in all extremities. Sensory grossly intact. Cerebellar exam normal. Normal gait. Psych: Awake, alert, with orientation to person, place and time. Behavior, mood, and affect are within normal limits. 14:10 Musculoskeletal/extremity: Good thrill to fistula. 14:10 Skin: Skin tear noted to the right forearm, minimal oozing of blood noted. Vital Signs: 09:38 BP 166 / 67; Pulse 98; Resp 18; Temp 97.2; Pulse Ox 98% ; Weight 123.83 kg; Height 5 ap3 ft. 8 in. ; 09:38 Body Mass Index 41.51 (123.83 kg, 172.72 cm) ap3 MDM: 09:47 Patient medically screened. rt 14:10 Differential diagnosis: Skin tear, wound, laceration. Data reviewed: vital signs, rt nurses notes. Counseling: I had a detailed discussion with the patient and/or guardian regarding the historical points, exam findings, and any diagnostic results supporting the discharge/admit diagnosis, the need for outpatient follow up, to return to the emergency department if symptoms worsen or persist or if there are any questions or concerns that arise at home. ED course: Patient with minor skin tear, mild oozing, no repair indicated. Will put Bactroban on, cover wound. Ability he will on its own. There is no signs of complication with the fistula.. 08/31 09:54 Order name: Wound dressing: nonadherant dressing; Complete Time: 10:17 rt Administered Medications: 10:00 Drug: Mupirocin Topical Ointment 2 % 1 application Topical once Route: Topical; Site: iw right forearm; Disposition Summary: 08/31/23 09:54 Discharge Ordered Notes: Location: Home rt Condition: Stable rt Diagnosis - Skin tear to right upper extremity rt Followup: rt - With: Brandyn Gamboa DO - When: 2 - 3 days - Reason: Discharge Instructions: - Discharge Summary Sheet rt - Skin Tear rt Forms: - Medication Reconciliation Form rt - Thank You Letter rt - Antibiotic Education rt - Prescription Opioid Use rt - Patient Portal Instructions rt - Leadership Thank You Letter rt Signatures: Leidy Dhaliwal, RN Mayra Barry RN RN ap3 Arley Calixto MD MD rt
--- NOTE | 2023-08-31 09:54 | ER ---
Nurse's Notes [facility] Name: Sunil Hong Age: 68 yrs Sex: Male : 1955 Arrival Date: 08/31/2023 Time: 09:27 Bed 11 Private MD: Brandyn Gamboa Diagnosis: Skin tear to right upper extremity Presentation: 08/31 09:38 Chief complaint: Patient states: he fell last night causing a skin tear to his right ap3 forearm. patient states he went to dialysis this morning, and upon completion, they sent him here to make sure his arm is okay because the wound is on the same arm as his fistula. Coronavirus screen: At this time, the client does not indicate any symptoms associated with coronavirus-19. Ebola Screen: No symptoms or risks identified at this time. Initial Sepsis Screen: Does the patient meet any 2 criteria? HR > 90 bpm. Does the patient have a suspected source of infection? Yes: Skin breakdown/wound. Risk Assessment: Do you want to hurt yourself or someone else? Patient reports no desire to harm self or others. Onset of symptoms was August 30, 2023. 09:38 Method Of Arrival: Ambulatory ap3 09:38 Acuity: JAQUELIN 4 ap3 Triage Assessment: 09:40 General: Appears in no apparent distress. Behavior is calm, cooperative, appropriate ap3 for age. Pain: Complains of pain in dorsal aspect of right forearm. Neuro: Level of Consciousness is awake, alert, obeys commands, Oriented to person, place, time, situation. Cardiovascular: Patient's skin is warm and dry. Respiratory: Airway is patent Respiratory effort is even, unlabored, Respiratory pattern is regular, symmetrical. Derm: Wound noted dorsal aspect of right forearm. Historical: - Allergies: 09:40 No Known Allergies; ap3 - PMHx: 09:40 Diabetes - NIDDM; dialysis T; dialysis T; dialysis T; ESRD; Myocardial infarction; ap3 - Immunization history:: Client reports receiving the 2nd dose of the Covid vaccine. - Social history:: Smoking status: Patient denies any tobacco usage or history of. Screenin:41 [facility] ED Fall Risk Assessment (Adult) History of falling in the last 3 months, ap3 including since admission No falls in past 3 months (0 pts). Abuse screen: Denies threats or abuse. Nutritional screening: No deficits noted. Tuberculosis screening: No symptoms or risk factors identified. Assessment: 09:30 General: Appears in no apparent distress. Behavior is calm, cooperative. Pain: Denies iw pain. Neuro: Level of Consciousness is awake, alert, obeys commands, Oriented to person, place, time, situation, Moves all extremities. Cardiovascular: Patient's skin is warm and dry. Respiratory: Respiratory effort is even, unlabored, Respiratory pattern is regular. Derm: Skin has skin tears on right forearm. Musculoskeletal: Range of motion: intact in all extremities. Vital Signs: 09:38 BP 166 / 67; Pulse 98; Resp 18; Temp 97.2; Pulse Ox 98% ; Weight 123.83 kg; Height 5 ap3 ft. 8 in. ; 09:38 Body Mass Index 41.51 (123.83 kg, 172.72 cm) ap3 ED Course: 09:28 Patient arrived in ED. rg4 09:28 Brandyn Gamboa DO is Private Physician. rg4 09:29 Arley Calixto MD is Attending Physician. rt 09:40 Triage completed. ap3 09:41 Arm band placed on left wrist. ap3 09:41 Patient has correct armband on for positive identification. ap3 09:45 Provided Education on: . iw 09:54 Brandyn Gamboa DO is Referral Physician. rt 09:56 Leidy Dhaliwal RN is Primary Nurse. iw 10:15 No provider procedures requiring assistance completed. Patient did not have IV access iw during this emergency room visit. Administered Medications: 10:00 Drug: Mupirocin Topical Ointment 2 % 1 application Topical once Route: Topical; Site: iw right forearm; Medication: 10:15 VIS not applicable for this client. iw Outcome: 09:54 Discharge ordered by . rt 10:15 Discharged to home ambulatory, iw 10:15 Condition: good 10:15 Discharge instructions given to patient, Instructed on discharge instructions, follow up and referral plans. Demonstrated understanding of instructions, follow-up care, 10:16 Patient left the ED. iw Signatures: Leidy Dhaliwal, RN Cindy Bingham rg4 Mayra Ortega RN RN ap3 Arley Calixto MD MD rt
[2023-08-31 11:05] VITALS: BP 166/67; TEMP 97.2; O2SAT 98
== END ==
LOC: ER 09:27
DX: S51.811A Laceration without foreign body of right forearm, initial encounter (principal)
CPT/HCPCS: 99283

== ENCOUNTER 2023-11-17 06:30 | Day surgery (SDC) | payer OTHER ==
[2023-11-13 15:27] LABS: Absolute Basophils 0.1 K/uL (0-0.5); Absolute Eosinophils 0.1 K/uL (0-0.5); Absolute Lymphocytes (CBC) 0.9 K/uL (0.7-4.9); Eosinophils % 2.2 % (0-4.4); Hematocrit 29.3 % (39.6-49.0); Lymphocytes % 16.2 % (15.3-44.8); MCV 100.1 fL (80-100); MPV 7.7 fL (7.6-11.3); Platelets 127 thou/uL (152-406); RBC Red Blood Cell Count 2.93 M/uL (4.33-5.43)
[2023-11-13 15:34] LABS: Protime INR 0.92
[2023-11-13 16:15] LABS: Anion Gap 10.5 mEq/L (5.0-15.0); Potassium 4.5 mEq/L (3.5-5.1)
--- NOTE | 2023-11-13 23:21 | RAD REPORT ---
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 Hypertension COMPARISON: Chest Single View dated 01/16/2023; Chest Pa And Lat (2 Views) dated 08/22/2022; Chest Sin gle View dated 07/28/2022; Chest Single View dated 12/21/2021 TECHNIQUE: PA and lateral views of the chest were obtained. FINDINGS: The lungs are clear. Heart size is normal and central vasculature are stable in appearance with sequelae of CABG. Stable blunting of the left costophrenic angle, which may relate to pleural t hickening or persistent effusion. No pneumothorax seen. No acute bony finding noted. IMPRESSION: No acute cardiopulmonary process.
--- NOTE | 2023-11-14 17:07 | EKG ---
Test Date: 2023-11-13 Test Time: 16:15:11 Conventional Mortgage Underwriter: FELIX MEASUREMENT RESULTS: Intervals: Rate: 84 RI: 248 QRSD: 154 QT: 408 QTc: 482 [place]: P: 17 RI: 248 QRS: 120 T: 74 INTERPRETIVE STATEMENTS: Sinus rhythm with 1st degree AV block Right bundle branch block Septal infarct, age undetermined Abnormal ECG Compared to ECG 01/16/2023 09:08:48 Myocardial infarct finding now present Electronically Signed On 11-14-23 17:03:31 BAGGER MEAT by Kenan Diego
[2023-11-17] MEDS ORDERED: HEPA 1000U/500MLS 2,000 UNIT/1,000 ML BAG IV ONE (06:40)
[2023-11-17] MEDS ORDERED: LIDOCAINE 1% 20 ML MDV ONE (06:40)
[2023-11-17] MEDS ORDERED: VERAPAMIL HCL 10 MG/4 ML VIAL IV ONE (06:44)
[2023-11-17] MEDS ORDERED: NITROGLYCERIN/D5W 50 MG/250 ML BTL IV ONE (06:44)
[2023-11-17] MEDS ORDERED: FENTANYL CITR 100 MCG/2 ML ONE (06:44)
[2023-11-17] MEDS ORDERED: MIDAZOLAM HCL 2 MG/2 ML INJ ONE (06:44)
[2023-11-17] MEDS ORDERED: ATROPINE SULF 1 MG/10 ML SYR IV ONE (06:44)
[2023-11-17] MEDS ORDERED: HEPARIN 10,000 UNIT/10 ML VIAL IV ONE (06:45)
[2023-11-17] MEDS ORDERED: HEPARIN 5000 UNIT/ML 1 ML VIAL ONE (06:45)
[2023-11-17] MEDS ORDERED: TICAGRELOR 90 MG TABLET PO ONE (06:45)
[2023-11-17] MEDS ORDERED: CLOPIDOGREL 75 MG TABLET ONE (06:46)
[2023-11-17] MEDS ORDERED: ASPIRIN 325 MG TAB ONE (06:46)
[2023-11-17] MEDS ORDERED: NA CHLORIDE 0.9% 500 ML ONE (06:57)
[2023-11-17] MEDS ORDERED: HYDRALAZINE HCL 20 MG/ML VIAL ONE (07:21)
[2023-11-17] MEDS ORDERED: FLUMAZENIL 0.1 MG/ML (5 mL VIAL) IV ONE (07:49)
[2023-11-17 09:07] VITALS: TEMP 97.9
[2023-11-17 10:59] VITALS: BP 165/80; O2SAT 96
== END 2023-11-17 10:15 | disposition home or self-care (01) ==
LOC: CCL 06:30
PROVIDERS: ATTEND Internal Medicine Interventional Cardiology
DX: I25.10 Atherosclerotic heart disease of native coronary artery without angina pectoris (principal); I25.810 Atherosclerosis of coronary artery bypass graft(s) without angina pectoris; I25.82 Chronic total occlusion of coronary artery; I65.23 Occlusion and stenosis of bilateral carotid arteries; I10 Essential (primary) hypertension; E78.5 Hyperlipidemia, unspecified; Z95.1 Presence of aortocoronary bypass graft; Z79.02 Long term (current) use of antithrombotics/antiplatelets; Z79.82 Long term (current) use of aspirin; Z79.899 Other long term (current) drug therapy
CPT/HCPCS: 93005; 85025; 80048; 36415; 83721; 85610; 85730; 71046; 93459; 76937; C1893; C1760; Q9967; G0269; J2001; J2250; J3010; J7040; 99152; J0360; J0461; J1644

== ENCOUNTER 2024-07-01 07:16 | Inpatient (IN) | payer OTHER ==
[2024-06-28 16:02] LABS: Absolute Basophils 0.1 K/uL (0-0.5); Absolute Eosinophils 0.1 K/uL (0-0.5); Absolute Lymphocytes (CBC) 1.2 K/uL (0.7-4.9); Absolute Monocytes 0.6 K/uL (0.1-1.3); Absolute Neutrophil 4.7 K/uL (1.8-8.0); Basophils % 1.3 % (0-1.3); Eosinophils % 2.2 % (0-4.4); Hematocrit 31.8 % (39.6-49.0); Hemoglobin 10.4 g/dL (13.6-17.9); Lymphocytes % 17.6 % (15.3-44.8); MCH 33.4 pg (27.0-35.0); MCHC 32.7 g/dL (32.0-36.0); MCV 102.2 fL (80-100); MPV 7.6 fL (7.6-11.3); Monocytes % 9.3 % (3.3-12.3); Neutrophils % 69.6 % (41.7-73.7); Platelets 225 thou/uL (152-406); RBC Red Blood Cell Count 3.11 M/uL (4.33-5.43); Red Cell Distribution Width 14.3 % (12.1-15.2)
[2024-06-28 16:09] LABS: PT Prothrombin Time 11.6 SECONDS (9.4-12.5); PTT, Activated Partial Thromb 28.7 SECONDS (24.3-36.9); Protime INR 1.04
[2024-06-28 16:18] LABS: Albumin 3.4 g/dL (3.4-5.0); Albumin/Globulin Ratio 0.8 (1.1-1.8); Anion Gap 11.1 mEq/L (5.0-15.0); Bilirubin Direct 0.2 mg/dL (0-0.2); Bilirubin Indirect, Calculated 0.2 mg/dL (0.2-0.8); Bilirubin Total 0.4 mg/dL (0.2-1.0); Globulin 4.1 g/dL (2.3-3.5); Potassium 4.1 mEq/L (3.5-5.1); Protein, Total 7.5 g/dL (6.4-8.2)
--- NOTE | 2024-06-28 16:37 | RAD REPORT ---
Procedure: Chest Pa And Lat (2 Views) HISTORY: Preop for cholecystectomy. COMPARISON: December 2023 FINDINGS: A few areas of scarring or subsegmental atelectasis lung base. The right lung appears clear. No significant pleural effusion noted. The heart is mildly enlarged. Post surgical changes involving the chest.
[2024-07-01] MEDS ORDERED: FENTANYL CITR 100 MCG/2 ML ONE (07:47)
[2024-07-01] MEDS ORDERED: propofoL 200 MG/20 ML VIAL IV ONE (07:47)
[2024-07-01] MEDS ORDERED: LIDOCAINE 2% MPF 5 ML VIAL ONE (07:48)
[2024-07-01] MEDS ORDERED: MIDAZOLAM HCL 2 MG/2 ML INJ ONE (07:48)
[2024-07-01] MEDS ORDERED: ROCURONIUM 50 MG/5 ML VIAL IV ONE (07:48)
[2024-07-01] MEDS: NA CHLORIDE 0.9% 1,000 ML ONE (07:55)
[2024-07-01] MEDS: SUCCINYLCHOLINE 20 MG/ML (10 ML) IV ONE (08:00)
[2024-07-01] MEDS: FAMOTIDINE 20 MG/2 ML VIAL IV ONE (08:00)
[2024-07-01] MEDS: SUGAMMADEX SODIUM 200 MG/2 ML VIAL IV ONE (08:00)
[2024-07-01] MEDS: CEFOXITIN SODIUM 1 GM/VIAL ONE (08:40)
[2024-07-01] MEDS ORDERED: ETOMIDATE 20 MG/10 ML VIAL IV ONE (08:43)
[2024-07-01] MEDS ORDERED: ONDANSETRON 4 MG/2 ML VIAL ONE (09:04)
[2024-07-01] MEDS ORDERED: dexAMETHasone 4 MG/ML VIAL ONE (09:04)
[2024-07-01] MEDS ORDERED: GLYCOPYRROLATE 0.2 MG/ML SYR ONE (09:55)
[2024-07-01] MEDS ORDERED: NEOSTIGMINE 1 MG/ML -10 ML VIAL ONE (09:55)
--- NOTE | 2024-07-01 10:21 | P.BOP ---
Preoperative diagnosis: acute cholecystitis, symptomatic cholelithiasis, ESRD on Hemodialysis Postoperative diagnosis: same plus intrabdominal adhesions Primary procedure: 1. Laparoscopic cholecystectomy Secondary procedure: 2. Laparoscoic lysis of adhesions Estimated blood loss: <20cc Specimen: GB Findings: inflammed friable gallbladder with extensive intrabdominal adhesions Anesthesia: General Complications: None Drain(s): SHAMAR drain Transferred to: Recovery Room Condition: Good
[2024-07-01] MEDS ORDERED: SODIUM CHLORIDE 0.9% 10ML INJ IV PRN (10:22)
[2024-07-01] MEDS: FENTANYL CITR 100 MCG/2 ML ONE (10:40)
[2024-07-01] MEDS: CEFOXITIN 1 GM in NA CHLORIDE 0.9% 50 ML IVPB SCH (11:53)
[2024-07-01 15:28] LABS: Absolute Basophils 0.1 K/uL (0-0.5); Absolute Lymphocytes (CBC) 0.6 K/uL (0.7-4.9); Absolute Monocytes 0.2 K/uL (0.1-1.3); Absolute Neutrophil 8.5 K/uL (1.8-8.0); Basophils % 0.7 % (0-1.3); Eosinophils % 0.2 % (0-4.4); Hematocrit 30.7 % (39.6-49.0); Hemoglobin 10.4 g/dL (13.6-17.9); Lymphocytes % 6.4 % (15.3-44.8); MCH 34.2 pg (27.0-35.0); MCHC 33.8 g/dL (32.0-36.0); MCV 101.2 fL (80-100); MPV 7.8 fL (7.6-11.3); Monocytes % 2.1 % (3.3-12.3); Neutrophils % 90.6 % (41.7-73.7); Nucleated Red Blood Cells % 0.1 % (0-0); Platelets 178 thou/uL (152-406); RBC Red Blood Cell Count 3.03 M/uL (4.33-5.43); Red Cell Distribution Width 14.7 % (12.1-15.2)
[2024-07-01 15:32] LABS: Albumin 3.4 g/dL (3.4-5.0); Albumin/Globulin Ratio 0.9 (1.1-1.8); Anion Gap 10.8 mEq/L (5.0-15.0); Bilirubin Direct 0.2 mg/dL (0-0.2); Bilirubin Indirect, Calculated 0.2 mg/dL (0.2-0.8); Bilirubin Total 0.4 mg/dL (0.2-1.0); Globulin 3.7 g/dL (2.3-3.5); Magnesium 2.4 mg/dL (1.6-2.4); Phosphorus 4.9 mg/dL (2.5-4.9); Potassium 4.8 mEq/L (3.5-5.1); Protein, Total 7.1 g/dL (6.4-8.2)
[2024-07-01] MEDS: ONDANSETRON 4 MG/2 ML VIAL IV PRN (17:46)
[2024-07-01] MEDS: MORPHINE 2 MG/ML SYR IV PRN (17:46)
[2024-07-01 18:42] LABS: Blood Morphology Comment NOT SEEN (NOT SEEN); Platelet Estimate ADEQ; White Blood Cell Scan OK (OK)
--- NOTE | 2024-07-01 18:44 | P.CNS ---
Date of Consult: 07/01/24 Reason for Consult: Medical management Requesting Physician: Elbert Adams Chief Complaint: Acute cholecystitis status post laparoscopic cholecystectomy History of Present Illness: Patient is a 68-year-old gentleman who came to the hospital for acute cholecystitis. Patient had a laparoscopic cholecystectomy. Patient has a history of end-stage renal disease and a longstanding history of metabolic syndrome. Patient scheduled for hemodialysis in the morning per nephrology. Patient feeling really weak postoperatively. He is very weak and he has generalized weakness at baseline. Will get physical therapy evaluation to assist with ambulation. Work on discharge planning. Allergies No Known Allergies Allergy (Verified 07/01/24 11:58) Home Medications: Atorvastatin Calcium [Lipitor] 80 mg PO BEDTIME #30 tab 11/09/18 Clopidogrel Bisulfate [Plavix*] 75 mg PO DAILY #30 tablet 11/09/18 Gabapentin 300 mg PO DAILY 12/21/21 Levothyroxine [Synthroid*] 200 mcg PO [id number] 12/21/21 sevelamer HCL [Renagel] 800 mg PO TIDWM 12/21/21 Aspirin [Aspirin EC 81 MG] 81 mg PO DAILY 06/28/24 Calcium Carbonate [Tums Ultra] 800 mg PO TIDWM 06/28/24 Carvedilol [Coreg] 3.125 mg PO BID 06/28/24 Iron Sucrose Complex [Venofer] 50 mg IV SEECOM 06/28/24 Losartan Potassium [Cozaar] 25 mg PO DAILYPRN PRN 06/28/24 Meclizine HCl [Antivert] 1 - 2 tab PO PRN PRN 06/28/24 Methoxy Peg-Epoetin Beta [Mircera] 30 mcg IJ SEECOM 06/28/24 Midodrine HCl 10 mg PO T,TH,S 06/28/24 Omeprazole [Prilosec] 40 mg PO DAILY 06/28/24 Thiamine HCl [Vitamin B-1] 100 mg PO DAILY 06/28/24 Vit B Comp C/Folic Acid/Vit D3 [Dialyvite 800 Plus D Wafer] 1 each PO DAILY 06/28/24 calcitrioL [Calcitriol] 0.5 mcg PO T,TH,S 06/28/24 - Past Medical/Surgical History Diabetic: No -: HTN -: CAD -: ESRD- HD -: Hypothyroidism -: BPH -: GERD -: Iron deficiency anemia -: CAD/CABG x4 vessel -: Obesity, -: Orthostatic hypotension on midodrine -: Chronic left pleural effusion -: Cataract sx -: CABG -: 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 - Family History Brother Medical History: Kidney disease Father Medical History: Heart disease, Lung disease, Diabetes Sister Medical History: Diabetes, Liver disease - Social History Smoking Status: Never smoker Alcohol use: No CD- Drugs: No Caffeine use: Yes Place of Residence: Home Review of Systems 10-point ROS is otherwise unremarkable Physical Examination Temp Pulse Resp BP Pulse Ox 97.5 F 78 16 111/76 99 07/01/24 16:00 07/01/24 16:00 07/01/24 17:46 07/01/24 16:00 07/01/24 17:46 General: Alert, In no apparent distress, Oriented x3, Obese HEENT: Atraumatic, PERRLA, Mucous membr. moist/pink, EOMI, Sclerae nonicteric Neck: Supple, 2+ carotid pulse no bruit, No LAD, Without JVD or thyroid abnorma lity Respiratory: Diminished, Crackles/rales Cardiovascular: Regular rate/rhythm, Normal S1 S2, Systolic murmur Gastrointestinal: Normal bowel sounds, Soft and benign, No rebound, No guarding, Distended, Tenderness Musculoskeletal: No clubbing, No tenderness, Swelling Integumentary: No rashes Neurological: Sensation intact, Cranial nerves 3-12 intact, Normal affect, Abnormal strength Lymphatics: No axilla or inguinal lymphadenopathy Laboratory Data (last 24 hrs) 07/01/24 07/01/24 14:40 14:40 WBC 9.40 Hgb 10.4 L Hct 30.7 L Plt Count 178 Sodium 136 Potassium 4.8 BUN 45 H Creatinine 9.17 H Glucose 112 H Phosphorus 4.9 Magnesium 2.4 Total Bilirubin 0.4 AST 49 H ALT 37 Alkaline Phosphatase 94 - Problems (1) Acute cholecystitis Current Visit: Yes Status: Acute (2) Status post laparoscopic cholecystectomy Current Visit: Yes Status: Acute (3) Anasarca Onset Date: 10/06/17 Current Visit: No Status: Acute (4) CAD (coronary artery disease) Current Visit: No Status: Acute (5) ESRD (end stage renal disease) Current Visit: No Status: Acute Conclusions/ Impression: Plan: 1. Continue with IV antibiotics for acute cholecystitis 3. Nephrology consultation for ESRD 3. Resume home medications including renal meds and cardiac meds 4. Monitor hemodynamics closely 5. PT evaluation 6. Anemia of chronic disease 7. GI and DVT prophylaxis Critical Care: No Time Spent Managing Pts care (In Minutes): 45
--- NOTE | 2024-07-02 01:39 | CON ---
Date of Consultation: 07/01/2024 Chief Complaint: End-stage renal disease, on hemodialysis. History Of Present Illness: The patient presented to the hospital because of nausea, vomiting. He u nderwent cholecystectomy today. The patient has multiple medical problems including history of end-s tage renal disease, diabetes mellitus, hypertension, hyperlipidemia. He has been dialyzed 3 times pe r week. He has history of intradialytic hypotension and he takes midodrine. The patient has history of coronary artery disease, 4-vessel disease, history of CABG. Review of Systems: Constitutional: Denies fevers, chills. Eyes: Denies vision changes. Ears, Nose, Mouth, and Throat: Denies sore throat, earache. Respiratory: Denies PND, orthopnea. Cardiovascular: Denies syncope, palpitation. GI: Denies nausea, vomiting. : Denies dysuria, hematuria. All other systems reviewed and all are negative. Past Medical History: Hypertension; coronary artery disease; end-stage renal disease, on hemodialysi s; hypothyroidism; BPH; GERD; iron deficiency anemia; anemia due to chronic kidney disease; coronary artery disease; CABG x4 vessel disease; obesity; orthostatic hypotension, on midodrine; interdialytic hypotension, on midodrine; chronic left pleural effusion; cataract surgery; fistula in the right arm . Social History: Denies tobacco, alcohol. Denies drugs. Family History: Brother: Kidney disease. Father: Heart disease, lung disease, diabetes. Sister: Diabetes and liver disease. Physical Examination: General: The patient is awake, alert. Follows commands. Eyes: Anicteric sclerae. EOMI. Ears, Nose, Mouth, and Throat: Oral mucosa moist. No pallor. Neck: Supple. No bruits. Lungs: Diminished breath sounds at bases. No crackles. Heart: S1, S2. No pericardial friction rub. Abdomen: Obese, nontender. No rebound. No guarding. Diminished bowel sounds. Extremities: Minimal peripheral edema. Impression And Plan: 1.End-stage renal disease, on hemodialysis. The patient will resume hemodialysis tomorrow. The pat ient had blood work done to reevaluate potassium level and potassium is 4.8. Continue low-potassium diet. 2.Hypertension. Continue current medication treatment and monitor blood pressure closely. The mariusz ent has history of intradialytic hypotension. He will continue midodrine. 3.Anemia due to chronic kidney disease. Hemoglobin level is 10.4. Continue to monitor CBCs. 4.Status post cholecystectomy . 5.Diabetes mellitus with renal manifestation. Continue insulin and monitor blood glucose. FRANCIS/ANA Voice ID: [id number] Report ID: [id number]
[2024-07-02 07:47] LABS: Absolute Basophils 0.1 K/uL (0-0.5); Absolute Lymphocytes (CBC) 1.1 K/uL (0.7-4.9); Absolute Monocytes 0.8 K/uL (0.1-1.3); Absolute Neutrophil 5.2 K/uL (1.8-8.0); Basophils % 0.9 % (0-1.3); Eosinophils % 0.4 % (0-4.4); Hemoglobin 9.2 g/dL (13.6-17.9); Lymphocytes % 15.2 % (15.3-44.8); MCH 33.5 pg (27.0-35.0); MCHC 32.9 g/dL (32.0-36.0); MCV 101.9 fL (80-100); MPV 7.2 fL (7.6-11.3); Monocytes % 11.3 % (3.3-12.3); Neutrophils % 72.2 % (41.7-73.7); Platelets 179 thou/uL (152-406); RBC Red Blood Cell Count 2.75 M/uL (4.33-5.43); Red Cell Distribution Width 14.6 % (12.1-15.2)
[2024-07-02 08:07] LABS: Anion Gap 10.7 mEq/L (5.0-15.0); Potassium 4.7 mEq/L (3.5-5.1)
[2024-07-02] MEDS: PANTOPRAZOLE 40 MG INJ IVP SCH (08:41)
--- NOTE | 2024-07-02 12:11 | P.PN ---
Subjective Date of Service: 07/02/24 Chief Complaint: Acute cholecystitis status post laparoscopic cholecystectomy Subjective: Tolerating diet, Improving Review of Systems Respiratory: Unremarkable Cardiovascular: Unremarkable Gastrointestinal: Abdominal Pain Physical Examination - Vital Signs Temperature: 97.6 F Blood Pressure: 113/54 Pulse: 69 Respirations: 15 Pulse Ox (%): 98 - Physical Exam General: Alert, In no apparent distress, Oriented x3, Cooperative HEENT: PERRLA, EOMI Neck: Supple Cardiovascular: No edema Gastrointestinal: Tenderness (RUQ SHAMAR serosanguineous) Integumentary: No erythema, No warmth, No cyanosis Neurological: Normal speech - Studies Laboratory Data (last 24 hrs) 07/02/24 07/02/24 07/01/24 07:38 07:38 14:40 WBC 7.20 Hgb 9.2 L D Hct 28.0 L Plt Count 179 Sodium 137 136 Potassium 4.7 4.8 BUN 56 H 45 H Creatinine 10.20 H 9.17 H Glucose 102 112 H Phosphorus 4.9 Magnesium 2.4 Total Bilirubin 0.4 AST 49 H ALT 37 Alkaline Phosphatase 94 07/01/24 14:40 WBC 9.40 Hgb 10.4 L Hct 30.7 L Plt Count 178 Sodium Potassium BUN Creatinine Glucose Phosphorus Magnesium Total Bilirubin AST ALT Alkaline Phosphatase Assessment And Plan - Plan Pt still requiring IV pain meds Plan for discharge tomorrow unless medically/clinically not possible advance Diet incentive spirometry obtain home meds OOB with assistance Plan to discharge in: 24 Hours
[2024-07-02] MEDS: MIDODRINE HCL 5 MG TABLET PO SCH (12:35)
[2024-07-02 12:39] VITALS: BMI 41.1
--- NOTE | 2024-07-02 13:04 | EKG ---
Test Date: 2024-06-28 Test Time: 15:30:28 Transcribing Machine Operator: JOSE LUIS MEASUREMENT RESULTS: Intervals: Rate: 91 CT: 248 QRSD: 158 QT: 390 QTc: 479 [place]: P: 71 CT: 248 QRS: 108 T: 67 INTERPRETIVE STATEMENTS: Sinus rhythm with 1st degree AV block Right bundle branch block Abnormal ECG Compared to ECG 12/23/2023 19:55:34 No significant changes Electronically Signed On 07-02-24 12:53:17 CDT by Dami Dewitt
[2024-07-02] MEDS: EPOETIN 4,000 UNIT/ML VIAL IV SCH (15:45)
[2024-07-02 17:02] LABS: Hepatitis B surface AG Interp. Nonreactive (Nonreactive)
[2024-07-02 17:03] LABS: Hepatitis B Surface Ab - Quant < 3.10 mIU/mL (<8.0)
[2024-07-02 17:04] LABS: HBsAG Nonreactive Report Report
[2024-07-02] MEDS ORDERED: CALCITROL 0.25 MCG CAP PO SCH (18:00)
[2024-07-02] MEDS: ATORVASTATIN 80 MG TAB PO SCH (21:04)
[2024-07-02] MEDS: GABAPENTIN 300 MG CAP PO SCH (22:06)
--- NOTE | 2024-07-02 22:13 | PN ---
Date of Progress Note: 07/02/2024 Chief Complaint: End-stage renal disease, on hemodialysis; generalized weakness; fatigue; chronic hy potension. Subjective: The patient presented to the hospital because of nausea, vomiting. He underwent cholecy stectomy yesterday. The patient is dialysis dependent. He has end-stage renal disease due to diabet es mellitus and hypertension. He has history of deconditioning. Today, he underwent dialysis, proce dure was well tolerated. Review of Systems: Denies fevers, chills. Physical Examination: Lungs: Clear to auscultation bilaterally. Heart: S1, S2. Abdomen: Soft, benign. Extremities: Slight edema. Impression And Plan: 1.End-stage renal disease. Continue ultrafiltration with dialysis to prevent fluid overload. The p atient has peripheral edema. He has history of diastolic congestive heart failure, coronary artery d isease. Continue low-sodium diet and p.o. fluid restriction. 2.History of hypertension. Adjust medication for blood pressure according to blood pressure log. T he patient has history of intradialytic hypotension. He will continue midodrine with dialysis. 3.Anemia due to chronic kidney disease. Monitor hemoglobin level and adjust MYLA according to lab re sults. 4.Status post cholecystectomy primary team and surgical team are following. 5.Diabetes mellitus with renal manifestation. Continue insulin. Monitor blood glucose. 6.Renal osteodystrophy. Monitor phosphorus level and adjust binders accordingly. FRANCIS/ANA Voice ID: [id number] Report ID: [id number]
[2024-07-02 22:29] VITALS: O2SAT 98
[2024-07-03] MEDS: HYDROCODONE/APAP 5/325 MG TAB PO PRN (04:54)
[2024-07-03] MEDS: LEVOTHYROXINE SOD 0.1 MG TAB PO SCH (05:54)
[2024-07-03 05:58] VITALS: BP 104/51
[2024-07-03] MEDS: carvediloL 3.125 MG TAB PO SCH (05:58)
[2024-07-03] MEDS: CALCIUM CARBONATE CHEW 500MG TAB PO SCH (07:30)
[2024-07-03] MEDS: PANTOPRAZOLE 40MG TABLET PO SCH (07:30)
--- NOTE | 2024-07-03 07:56 | P.PN ---
Date of Service: 07/02/24 Subjective Patient clinically improving. Ambulated with physical therapy. Stable for discharge whenever surgery agreeable. Physical Examination Temp Pulse Resp BP Pulse Ox 98.5 F 88 16 121/76 98 General: Alert, In no apparent distress, Oriented x3, Obese Respiratory: Clear bilaterally Cardiovascular: Regular rate/rhythm, Normal S1 S2, Systolic murmur Gastrointestinal: Normal bowel sounds, Soft and benign, No rebound, No guarding, Distended, Tenderness Musculoskeletal: No clubbing, No tenderness, Swelling Integumentary: No rashes Neurological: No focal deficits - Problems (1) Acute cholecystitis Current Visit: Yes Status: Acute (2) Status post laparoscopic cholecystectomy Current Visit: Yes Status: Acute (3) Anasarca Onset Date: 10/06/17 Current Visit: No Status: Acute (4) CAD (coronary artery disease) Current Visit: No Status: Acute (5) ESRD (end stage renal disease) Current Visit: No Status: Acute Conclusions/ Impression: Plan: 1. Will microsoft exchange architect to oral antibiotics at DC 3. Nephrology consultation for ESRD 3. Resume home medications including renal meds and cardiac meds 4. Monitor hemodynamics closely 5. PT evaluation for weakness 6. Anemia of chronic disease 7. GI and DVT prophylaxis Critical Care: No Time Spent Managing Pts care (In Minutes): 25
[2024-07-03] MEDS: SEVELAMER CARBONATE 800 MG TABLET PO SCH (08:00)
[2024-07-03 08:20] VITALS: TEMP 98.3
[2024-07-03] MEDS: CLOPIDOGREL 75 MG TABLET PO SCH (08:36)
[2024-07-03] MEDS: LOSARTAN POTASSIUM 50 MG TABLET PO SCH (08:36)
[2024-07-03] MEDS: ASPIRIN 81 MG CHEWABLE TABLET PO SCH (08:36)
[2024-07-03] MEDS: THIAMINE HCL 100 MG TABLET PO SCH (08:36)
[2024-07-03] MEDS ORDERED: GABAPENTIN 300 MG CAP PO SCH (09:00)
--- NOTE | 2024-07-03 11:49 | PN ---
Date of Progress Note: 07/03/2024 Subjective: The patient was admitted to the hospital with cholelithiasis, abdominal pain, chest pain . Patient had undergone cholecystectomy, tolerated very well. Objective: Vital Signs: Blood pressure 104/51, pulse of 80. Chest: Clear to auscultation. Heart: S1, S2. Regular. Abdomen: Had drainage on the right upper quadrant, clean wound. Neurologic: Alert. No focality. Laboratory Data: WBC 7.2, hemoglobin 9.2, sodium 137, potassium 4.7, bicarb 28, BUN 56, creatinine 1 0.2, calcium 8.6. Current Medications: The patient on, it includes: 1.Midodrine. 2.Aspirin. 3.Epogen. 4.Atorvastatin. 5.Carvedilol 3.125 b.i.d. 6.Losartan 25 daily. 7.Gabapentin. Assessment And Plan: 1.End-stage renal disease, normal volume. We will continue the patient on dialysis TTS, scheduled f or dialysis tomorrow. 2.Hypertension, controlled, optimal. Continue current treatment using midodrine predialysis. 3.Secondary hyperparathyroidism, stable. 4.Anemia of chronic kidney disease. Continue MYLA. 5.Cholelithiasis, status post cholecystectomy. Follow up with Surgery. The patient cleared from the Renal standpoint for discharge planning. RASHARD Voice ID: [id number] Report ID: [id number]
--- NOTE | 2024-07-03 12:02 | P.DS ---
Admission Date: 07/02/24 Discharge Date: 07/03/24 Disposition: ROUTINE DISCHARGE Discharge Condition: GOOD Reason for Admission: Acute cholecystitis status post laparoscopic cholecystectomy Brief History of Present Illness: 68 y/o on HD for ESRD with very inflammed gallbladder and intrabd adhesions. Hospital Course: unremarkable Vital Signs/Physical Exam: Temp Pulse Resp BP Pulse Ox 98.3 F 80 16 104/51 L 91 07/03/24 08:00 07/03/24 08:00 07/03/24 08:00 07/03/24 08:00 07/03/24 08:00 General: Alert, In no apparent distress, Oriented x3, Cooperative HEENT: IGNACIO SLAUGHTERMI Laboratory Data at Discharge: WBC 7.20 thou/uL (4.3-10.9) 07/02/24 07:38 Hgb 9.2 g/dL (13.6-17.9) L D 07/02/24 07:38 Hct 28.0 % (39.6-49.0) L 07/02/24 07:38 Plt Count 179 thou/uL (152-406) 07/02/24 07:38 PT 11.6 SECONDS (9.4-12.5) 06/28/24 15:40 INR 1.04 06/28/24 15:40 APTT 28.7 SECONDS (24.3-36.9) 06/28/24 15:40 Sodium 137 mEq/L (136-145) 07/02/24 07:38 Potassium 4.7 mEq/L (3.5-5.1) 07/02/24 07:38 BUN 56 mg/dL (7-18) H 07/02/24 07:38 Creatinine 10.20 mg/dL (0.70-1.30) H 07/02/24 07:38 Glucose 102 mg/dL (74-106) 07/02/24 07:38 Phosphorus 4.9 mg/dL (2.5-4.9) 07/01/24 14:40 Magnesium 2.4 mg/dL (1.6-2.4) 07/01/24 14:40 Total Bilirubin 0.4 mg/dL (0.2-1.0) 07/01/24 14:40 AST 49 U/L (15-37) H 07/01/24 14:40 ALT 37 U/L (16-61) 07/01/24 14:40 Alkaline Phosphatase 94 U/L (45-117) 07/01/24 14:40 Lipase 51 U/L (13-75) 06/28/24 15:40 Home Medications: Atorvastatin Calcium [Lipitor] 80 mg PO BEDTIME #30 tab 11/09/18 Clopidogrel Bisulfate [Plavix*] 75 mg PO DAILY #30 tablet 11/09/18 Gabapentin 300 mg PO DAILY 12/21/21 Levothyroxine [Synthroid*] 200 mcg PO [id number] 12/21/21 sevelamer HCL [Renagel] 800 mg PO TIDWM 12/21/21 Aspirin [Aspirin EC 81 MG] 81 mg PO DAILY 06/28/24 Calcium Carbonate [Tums Ultra] 800 mg PO TIDWM 06/28/24 Carvedilol [Coreg] 3.125 mg PO BID 06/28/24 Iron Sucrose Complex [Venofer] 50 mg IV SEECOM 06/28/24 Losartan Potassium [Cozaar] 25 mg PO DAILYPRN PRN 06/28/24 Meclizine HCl [Antivert] 1 - 2 tab PO PRN PRN 06/28/24 Methoxy Peg-Epoetin Beta [Mircera] 30 mcg IJ SEECOM 06/28/24 Midodrine HCl 10 mg PO T,,S 06/28/24 Omeprazole [Prilosec] 40 mg PO DAILY 06/28/24 Thiamine HCl [Vitamin B-1] 100 mg PO DAILY 06/28/24 Vit B Comp C/Folic Acid/Vit D3 [Dialyvite 800 Plus D Wafer] 1 each PO DAILY 06/28/24 calcitrioL [Calcitriol] 0.5 mcg PO T,,S 06/28/24 Physician Discharge Instructions: May take shower with dressing off and cover graciela with bandaid Referral faxed to Home Health on 07/03/24: [facility] P: [phone] F: [phone] Diet: Renal Activity: No lifting more than 10 lbs Followup: Elbert Adams MD [ACTIVE - CAN ADMIT] - 1 Week Brandyn Gamboa DO [Primary Care Provider] - 1-2 Weeks
--- NOTE | 2024-07-03 12:03 | P.PN ---
Subjective Date of Service: 07/03/24 Chief Complaint: Acute cholecystitis status post laparoscopic cholecystectomy Pt is resting comfortably in bed. Gen surgery will discharge him today. Pt requested for home health. [employer] will set up home health. He will go home with the SHAMAR drain and f/u with Gen surgeon in clinic. No other complaints. Review of Systems General: Unremarkable Eyes: Unremarkable ENT: Unremarkable Respiratory: Unremarkable Cardiovascular: Unremarkable Gastrointestinal: Abdominal Pain (Over the surgical site upon deep palpation) Genitourinary: Unremarkable Musculoskeletal: Unremarkable Integumentary: Unremarkable Neurological: Unremarkable Lymphatics: Unremarkable Physical Examination - Vital Signs Temperature: 98.3 F Blood Pressure: 104/51 Pulse: 80 Respirations: 16 Pulse Ox (%): 91 - Physical Exam General: Alert, In no apparent distress, Oriented x3 HEENT: Atraumatic, Normocephalic, PERRLA Neck: Supple, 2+ carotid pulse no bruit, JVD not distended Respiratory: Clear to auscultation bilaterally, Normal air movement Cardiovascular: No edema, Normal pulses, Regular rate/rhythm, Normal S1 S2 Capillary refill: <2 Seconds Gastrointestinal: Normal bowel sounds, Soft and benign, Non-distended, Tenderness (over the surgical site upon deep palpation. ) Musculoskeletal: No clubbing, No swelling, No contractures Integumentary: No rashes, No breakdown, No significant lesion Neurological: Normal gait, Normal speech, Normal strength at 5/5 x4 extr Lymphatics: No axilla or inguinal lymphadenopathy Assessment And Plan - Plan Acute cholecystitis: S/p lap cholecystectomy. POD #2. Gen surgeon has cleared pt for discharge. Will continue prn pain med. Hx of CAD: Will continue home meds Hx of ESRD: Will continue dialysis per Schedule. Nephrology is following. Deconditioning: Continue PT DVT ppx: SCD Code: full Dispo: Will dc pt today. [employer] will set up home health with SN ad PT.
== END 2024-07-03 13:44 | disposition home health service (06) | DRG 417 ==
LOC: OR 07:16 → 4TH 10:22 → OBSVTOIN 07-02 12:18
PROVIDERS: ADMIT Surgery; ATTEND Hospitalist
PROC: 0FN44ZZ Release Gallbladder, Percutaneous Endoscopic Approach (ICD-10-PCS; 2024-07-01)
PROC: 0FT44ZZ Resection of Gallbladder, Percutaneous Endoscopic Approach (ICD-10-PCS; principal; 2024-07-01 08:30)
PROC: 5A1D70Z Performance of Urinary Filtration, Intermittent, Less than 6 Hours Per Day (ICD-10-PCS; 2024-07-02)
DX: K80.00 Calculus of gallbladder with acute cholecystitis without obstruction (principal); N18.6 End stage renal disease; Z68.41 Body mass index [BMI] 40.0-44.9, adult; I12.0 Hypertensive chronic kidney disease with stage 5 chronic kidney disease or end stage renal disease; N17.9 Acute kidney failure, unspecified; E11.22 Type 2 diabetes mellitus with diabetic chronic kidney disease; D63.1 Anemia in chronic kidney disease; E66.9 Obesity, unspecified; E78.5 Hyperlipidemia, unspecified; N25.0 Renal osteodystrophy; E03.9 Hypothyroidism, unspecified; K66.0 Peritoneal adhesions (postprocedural) (postinfection); K21.9 Gastro-esophageal reflux disease without esophagitis; N40.0 Benign prostatic hyperplasia without lower urinary tract symptoms; I25.10 Atherosclerotic heart disease of native coronary artery without angina pectoris; Z99.2 Dependence on renal dialysis; Z95.1 Presence of aortocoronary bypass graft; Z79.82 Long term (current) use of aspirin; Z79.02 Long term (current) use of antithrombotics/antiplatelets; Z79.899 Other long term (current) drug therapy
CPT/HCPCS: 36415; 71046; 80048; 80076; 83690; 83735; 84100; 85025; 85610; 85730; 86706; 87340; 88304; 90935; 93005; 94010; 97116; 97161; 97530; G0378; G0379; J0694; J1100; J2003; J2250; J2270; J2405; J2470; J2704; J2710; J3010; J7030; Q5105